=== PATIENT | female | born 1945 | race Caucasian/White ===

== ENCOUNTER → 2017-10-10 08:40 | Outpatient (CLI) | payer MEDICARE, OTHER, SELFPAY ==
--- NOTE | 2017-10-10 | DI.RAD.S_ITS ---
PROCEDURE: FL SMALL BOWEL FOLLOW THROUGH INDICATIONS: IRON DEFICIENCY/ANEMIA COMPARISON: None. 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 No suspicious abdominal calcifications. Visualized solid organ contours appear normal. No suspicious bony abnormalities. Remote postoperative changes include surgical clips in the upper quadrants and overlying the pelvis, spinal fusion L4-5 and bilateral total hip arthroplasties. Small bowel: There is normal transit time of barium through the small bowel, complete in 40 minutes l. Small bowel loops are of normal caliber with normal valvula conniventes except for a short segment of dilated bowel in the epigastric region that is 6 cm in diameter and devoid of mucosal folds. There is no associated obstruction or mass lesions seen. The terminal ileum is identified, and is normal in morphology. IMPRESSION: 1. Short segment of dilated jejunum, possible large diverticulum, 2. Fairly rapid transit of 40 minutes. Dictated by: Gadiel Hinds M.D. on 10/10/2017 at 9:56 Approved by: Gadiel Hinds M.D. on 10/10/2017 at 10:04
== END ==
PROVIDERS: Family Provider Internal Medicine; PCP Internal Medicine; Visit Provider Internal Medicine Endocrinology, Diabetes & Metabolism
DX: K63.9 Disease of intestine, unspecified (principal); D50.9 Iron deficiency anemia, unspecified
CPT/HCPCS: 74250

== ENCOUNTER → 2017-12-22 16:32 | Outpatient (CLI) | payer MEDICARE, OTHER, SELFPAY ==
--- NOTE | 2017-12-22 16:35 | DI.RAD.S_ITS ---
PROCEDURE: XR ANKLE RT MIN 3V INDICATIONS: PAIN IN RIGHT ANKLE TECHNIQUE: 3 views of the ankle were acquired. COMPARISON: None. FINDINGS: Bones: No fractures or dislocations. Ankle mortise is normally aligned. No suspicious bony lesions. Traction spur at the insertion of the Achilles tendon. Plantar spur posterior calcaneus. Soft tissues: No tibiotalar joint effusion. Achilles tendon is poorly visualized IMPRESSION: No acute bony abnormality. No apparent tibiotalar arthritis. Calcaneal bone spurs. Dictated by: Gadiel Hinds M.D. on 12/22/2017 at 16:52 Approved by: Gadiel Hinds M.D. on 12/22/2017 at 16:55
== END ==
PROVIDERS: Family Provider Internal Medicine; PCP Internal Medicine; Visit Provider Internal Medicine
DX: M25.571 Pain in right ankle and joints of right foot (principal); M77.31 Calcaneal spur, right foot
CPT/HCPCS: 73610

== ENCOUNTER → 2018-01-05 12:12 | Outpatient (CLI) | payer MEDICARE, OTHER, SELFPAY ==
--- NOTE | 2018-01-05 | DI.RAD.S_ITS ---
PROCEDURE: XR FOOT RT MIN 3V INDICATIONS: PAIN IN RIGHT FOOT TECHNIQUE: 3 views of the foot were acquired. COMPARISON: [facility], , FOOT 3V RIGHT, 06/08/2012, 11:08. FINDINGS: Bones: No fractures or dislocations. No suspicious bony lesions. Degenerative joint disease, bunion formation and valgus deformity at the first metatarsal phalangeal joint as before. Congenitally short fourth metatarsal. Small calcaneal bone spurs. Small accessory navicular. Soft tissues: No tibiotalar joint effusion. Achilles tendon appears normal. IMPRESSION: Source of lateral foot pain not seen. Degenerative changes Dictated by: Gadiel Hinds M.D. on 01/05/2018 at 12:54 Approved by: Gadiel Hinds M.D. on 01/05/2018 at 12:56
== END ==
PROVIDERS: Family Provider Internal Medicine; PCP Internal Medicine; Visit Provider Internal Medicine
DX: M79.671 Pain in right foot (principal)
CPT/HCPCS: 73630

== ENCOUNTER → 2018-04-13 08:09 | Outpatient (CLI) | payer MEDICARE, OTHER, SELFPAY ==
[2018-04-13 08:31] LABS: Add Manual Diff / Slide Review NO; Basophils Percent Auto 1.4 % (0-2); Eosinophils Percent Auto 2.4 % (2-4); Hematocrit 40.9 % (36-46); Hemoglobin 13.5 g/dL (12.0-16.0); Mean Corpuscular HGB Conc 32.9 % (30-36); Mean Corpuscular Hemoglobin 29.4 PG (26-34); Mean Corpuscular Volume 89.3 fL (80-100); Monocytes Percent Auto 9.3 % (3-14); Neutrophils Absolute Auto 3200 /uL (3000-5900); Neutrophils Percent Auto 54.9 % (50-75); Platelet Count 223 X10^3/uL (150-400); Red Blood Cell Count 4.58 X10^6/uL (4.0-5.2); Red Cell Distribution Width 13.8 % (11.6-14.8); White Blood Cell Count 5.9 X10^3/uL (4.5-11.0)
[2018-04-13 09:17] LABS: Hemoglobin A1C% w Est Avg Glu 6.1 % (4.0-6.0)
[2018-04-13 09:19] LABS: Alanine Aminotransferase 42 IU/L (9-52); Aspartate Aminotransferase 31 IU/L (14-36); Cholesterol 157 mg/dL (140-199); HDL Cholesterol 57 mg/dL (40-60); LDL Cholesterol Calculated 72 mg/dL (<100); Triglycerides 141 mg/dL (35-150)
[2018-04-13 17:17] LABS: BUN Creatinine Ratio 32.9 (6-22); Blood Urea Nitrogen 23 mg/dL (7-17); Carbon Dioxide 27 mmol/L (22-32); Estimated Glomerular Filt Rate > 60.0 mL/min (>60); HEMOLYSIS < 15 (0-50)
[2018-04-13 17:20] LABS: Calcium 9.1 mg/dL (8.4-10.2); Chloride 103 mmol/L (98-107); Glucose 102 mg/dL (80-110); Potassium 4.8 mmol/L (3.4-5.1); Sodium 143 mmol/L (137-145)
== END ==
PROVIDERS: PCP Internal Medicine; Visit Provider Internal Medicine
DX: R73.01 Impaired fasting glucose (principal); E78.5 Hyperlipidemia, unspecified; D50.9 Iron deficiency anemia, unspecified
CPT/HCPCS: 36415; 80048; 80061; 83036; 84450; 84460; 85025

== ENCOUNTER → 2018-05-03 12:37 | Outpatient (CLI) | payer MEDICARE, OTHER, SELFPAY | PROVIDERS: Family Provider Internal Medicine; PCP Internal Medicine; Visit Provider Internal Medicine | DX: M81.0 Age-related osteoporosis without current pathological fracture (principal); Z78.0 Asymptomatic menopausal state; E21.3 Hyperparathyroidism, unspecified; Z82.62 Family history of osteoporosis; Z90.722 Acquired absence of ovaries, bilateral; Z87.891 Personal history of nicotine dependence | CPT/HCPCS: 77080; 77081 ==

== ENCOUNTER → 2018-08-24 09:08 | Outpatient (CLI) | payer MEDICARE, OTHER, SELFPAY ==
--- NOTE | 2018-08-24 | DI.RAD.S_ITS ---
PROCEDURE: XR LUMBAR SPINE 2-3V INDICATIONS: Memory problem TECHNIQUE: 2 views of the lumbar spine were acquired. COMPARISON: [facility], , L-SPINE MINIMUM 4 VIEWS, 03/29/2013, 15:41. [facility], , L-SPINE MINIMUM 4 VIEWS, 07/04/2015, 9:36. FINDINGS: Bones: 5 [id number] vertebrae are present. There is grade 1 anterolisthesis of L4 on L5. Postsurgical changes noted at L5-L5 with posterior fusion. No vertebral body compression fractures. No suspicious bony lesions. There is degenerative disc disease, moderate to severe at L3-L4 and L4-L5, [id number] at L1-L2, L2-L3 and L5-S1. There is severe facet arthropathy at L5-L5 and L5-S1. Soft tissues: Overlying bowel gas pattern is normal. No suspicious soft tissue calcifications. IMPRESSION: Degenerative disease and facet disease in lumbar spine as described. Dictated by: Yogesh Sanders M.D. on 08/24/2018 at 14:35 Approved by: Yogesh Sanders M.D. on 08/24/2018 at 14:37
[2018-08-24 11:12] LABS: BUN Creatinine Ratio 28.8 (6-22); Blood Urea Nitrogen 23 mg/dL (7-17); Calcium 9.3 mg/dL (8.4-10.2); Carbon Dioxide 28 mmol/L (22-32); Chloride 100 mmol/L (98-107); Estimated Glomerular Filt Rate > 60.0 mL/min (>60); Glucose 124 mg/dL (80-110); HEMOLYSIS < 15 (0-50); Hemoglobin A1C% w Est Avg Glu 5.6 % (4.0-6.0); Potassium 4.9 mmol/L (3.4-5.1); Sodium 139 mmol/L (137-145)
[2018-08-24 11:40] LABS: TSH w/ Reflex to FT4 1.83 uIU/mL (0.47-4.68)
[2018-08-24 11:57] LABS: Vitamin B12 951 pg/mL (239-931)
== END ==
PROVIDERS: PCP Internal Medicine; Visit Provider Internal Medicine
DX: R41.3 Other amnesia (principal)
CPT/HCPCS: 36415; 72100; 80048; 82607; 83036; 84443

== ENCOUNTER → 2018-08-25 11:24 | Outpatient (CLI) | payer MEDICARE, OTHER, SELFPAY ==
--- NOTE | 2018-08-25 11:37 | DI.CT.S_ITS ---
PROCEDURE: CT HEAD/BRAIN WO/W CON INDICATIONS: Mild cognitive impairment, so stated TECHNIQUE: 4.5 mm thick angled axial sections acquired from the foramen magnum to the vertex both before and after the administration of intravenous contrast, with coronal and sagittal reformats. For radiation dose reduction, the following was used: automated exposure control, adjustment of mA and/or kV according to patient size. COMPARISON: [facility], MR, BRAIN W&WO CONTRAST, 05/01/2012, 12:56. [facility], MR, STROKE PROTOCOL B, 02/28/2008, 13:48. [facility], MR, BRAIN WITH AND WITHOUT CONTRAS, 01/17/2008, 12:53. [facility], CT, HEAD WITHOUT CONTRAST, 04/07/2015, 1:08. [facility], CT, HEAD WITHOUT CONTRAST, 02/28/2008, 10:57. [facility], CT, HEAD WITHOUT CONTRAST, 08/08/2017, 10:20. FINDINGS: Image quality: Excellent. CSF spaces: Basal cisterns are patent. No extra-axial fluid collections. Ventricles are symmetric in size and shape. Brain: Postoperative change of the right anterior temporal lobe is seen, with volume loss and encephalomalacia. No midline shift. No intracranial bleeds or masses. No abnormal intracranial enhancement. There is cerebral volume loss for age. There is periventricular white matter chronic small vessel ischemic change. There is intracranial internal carotid artery atherosclerosis. Skull and face: Right-sided craniotomy changes are seen. Calvarium and visualized facial bones appear intact, without suspicious lesions. Note is made of bilateral lens replacements. Sinuses: Visualized sinuses and mastoids are clear. IMPRESSION: No masses or abnormal enhancement can be seen. Prior craniotomy change, with volume loss and encephalomalacia involving the anterior aspect of right temporal lobe, which is stable compared to prior studies. Dictated by: Phill Molina M.D. on 08/25/2018 at 11:21 Approved by: Phill Molina M.D. on 08/25/2018 at 11:23
== END ==
PROVIDERS: PCP Internal Medicine; Visit Provider Internal Medicine
DX: G31.84 Mild cognitive impairment of uncertain or unknown etiology (principal); R29.6 Repeated falls
CPT/HCPCS: 70470; Q9967

== ENCOUNTER → 2018-12-15 14:55 | Outpatient (CLI) | payer MEDICARE, OTHER, SELFPAY ==
[2018-12-15 15:53] LABS: BUN Creatinine Ratio 27.5 (6-22); Blood Urea Nitrogen 22 mg/dL (7-17); Estimated Glomerular Filt Rate > 60.0 mL/min (>60)
== END ==
PROVIDERS: PCP Internal Medicine; Visit Provider Urology
DX: Z85.51 Personal history of malignant neoplasm of bladder (principal)
CPT/HCPCS: 36415; 82565; 84520

== ENCOUNTER → 2018-12-19 11:38 | Outpatient (CLI) | payer MEDICARE, OTHER, SELFPAY ==
--- NOTE | 2018-12-19 | DI.CT.S_ITS ---
PROCEDURE: CT ABDOMEN PELVIS WO/W CON INDICATIONS: HISTORY OF BLADDER CANCER TECHNIQUE: Optional 5 mm thick noncontrast images acquired from the diaphragm to the symphysis pubis. After the administration of intravenous contrast, 5 mm thick images acquired from the diaphragm to the symphysis pubis after a 10-minute delay. 2 mm thick coronal and sagittal reformats were then performed of the kidneys and ureters. For radiation dose reduction, the following was used: automated exposure control, adjustment of mA and/or kV according to patient size. COMPARISON: [facility], CT, IVP (ABD & PEL WWO CONTRAST), 08/28/2014, 10:07. [facility], CT, CT-IVP, 04/21/2011, 8:43. [facility], CT, CT-IVP, 01/13/2009, 10:12. [facility], CT, KIDNEY/ URETER/BLADDER, 07/16/2015, 14:33. FINDINGS: Image quality: Excellent. Lung bases: Lung bases are clear. Heart size is normal. There are bilateral breast prosthesis. Urinary system: Left kidney slightly decreased in size. There is left renal cortical thinning and perinephric fat stranding. No hydronephrosis. There are bilateral nonobstructive renal calculi. There is a 13 x 8 mm stone in the inferior pole of the right kidney. A 4 x 8 mm stone is present in the inferior pole left kidney. There is symmetrical renal enhancement. Renal calyces appear normal in morphology when filled with contrast. Opacified portions of both ureters demonstrate normal caliber. Bladder is partially obscured by metallic artifacts from bilateral hip prostheses. No definitive bladder mass. Other solid organs: Liver is normal in size and enhancement. There is diffuse hepatic fatty infiltration. Gallbladder is surgically absent. Biliary system is non dilated. Pancreas enhances normally. Spleen is normal in size and enhancement. There is left adrenal thickening and nodularity. Peritoneum and bowel: Bowel loops demonstrate normal wall thickness and caliber. There are scattered colonic diverticula. There is surgical staple in the sigmoid colon. No free fluid or air. Nodes and vessels: No retroperitoneal or mesenteric adenopathy by size criteria. Aorta and inferior vena cava are normal in size. Abdominal wall: Prior ventral hernia repair. Pelvis: No pathologic free pelvic fluid. No inguinal hernias or adenopathy. Bones: No suspicious bony lesions. No vertebral body compression fractures. There are severe degenerative changes in lumbar spine. Grade 1 anterolisthesis of L4 on L5. There is posterior fusion at L4-L5. IMPRESSION: 1. Unfortunately, the urinary is largely obscured by the metallic artifacts from bilateral hip prostheses. No definitive bladder masses are seen in visualized bladder. 2. Nephrolithiasis with nonobstructive renal stones bilaterally. 3. Diverticulosis without acute diverticulitis.. 4. Severe degenerative changes in lumbar spine. Dictated by: Yogesh Sanders M.D. on 12/19/2018 at 15:45 Approved by: Yogesh Sanders M.D. on 12/19/2018 at 17:30
== END ==
PROVIDERS: PCP Internal Medicine; Visit Provider Urology
DX: N20.0 Calculus of kidney (principal); K57.90 Diverticulosis of intestine, part unspecified, without perforation or abscess without bleeding; M51.36 Other intervertebral disc degeneration, lumbar region; Z85.51 Personal history of malignant neoplasm of bladder
CPT/HCPCS: 74178; Q9967

== ENCOUNTER → 2019-03-23 08:49 | Outpatient (CLI) | payer MEDICARE, OTHER, SELFPAY ==
[2019-03-23 09:55] LABS: Blood Urea Nitrogen 21 mg/dL (7-17); Calcium 9.4 mg/dL (8.4-10.2); Carbon Dioxide 28 mmol/L (22-32); Chloride 104 mmol/L (98-107); Cholesterol 145 mg/dL (140-199); Estimated Glomerular Filt Rate > 60.0 mL/min (>60); Glucose 108 mg/dL (80-110); HDL Cholesterol 43 mg/dL (40-60); HEMOLYSIS < 15 (0-50); LDL Cholesterol Calculated 79 mg/dL (<100); Potassium 4.8 mmol/L (3.4-5.1); Sodium 142 mmol/L (137-145); Triglycerides 117 mg/dL (35-150)
[2019-03-23 10:11] LABS: Vitamin D 25 Hydroxy (D3) 64.2 ng/mL (30.0-100.0)
== END ==
PROVIDERS: Family Provider Neurological Surgery; PCP Internal Medicine; Visit Provider Internal Medicine
DX: R73.01 Impaired fasting glucose (principal); E78.5 Hyperlipidemia, unspecified; M81.0 Age-related osteoporosis without current pathological fracture
CPT/HCPCS: 36415; 80048; 80061; 82306

== ENCOUNTER → 2019-03-28 13:25 | Outpatient (CLI) | payer MEDICARE, OTHER, SELFPAY ==
--- NOTE | 2019-03-28 | DI.CT.S_ITS ---
PROCEDURE: CT CERVICAL SPINE WO CON INDICATIONS: CERVICALGIA TECHNIQUE: Noncontrast 3 mm thick sections acquired from the skull base to the T4 level. Sagittal and coronal reformats were then constructed. For radiation dose reduction, the following was used: automated exposure control, adjustment of mA and/or kV according to patient size. COMPARISON: [facility], CT, C-SPINE WITHOUT CONTRAST, 04/07/2015, 1:08. FINDINGS: Image quality: Excellent. Bones: No fractures or dislocations. Visualized superior ribs are intact. Relatively prominent degenerative changes are seen, with moderate disc space narrowing at C3-C4 with moderate to severe disc space narrowing at C4-C5 and C5-C6,. Prominent bridging anterior osteophytes are seen at C6-C7. These degenerative changes are slightly progressed compared to 2015. Calcification can be seen posterior to the dens. Soft tissues: Prevertebral soft tissues are normal in thickness. No paravertebral hematomas. No apical pneumothoraces. There is a left-sided pacer device seen. IMPRESSION: Multiple levels of cervical spine degenerative change are seen, which are worst at the C6-C7 level. The degenerative changes have mildly progressed compared to the prior CT study from 2014. Dictated by: Phill Molina M.D. on 03/28/2019 at 15:06 Approved by: Phill Molina M.D. on 03/28/2019 at 15:08
== END ==
PROVIDERS: Family Provider Neurological Surgery; PCP Internal Medicine; Visit Provider Internal Medicine
DX: M54.2 Cervicalgia (principal); M47.812 Spondylosis without myelopathy or radiculopathy, cervical region
CPT/HCPCS: 72125

== ENCOUNTER → 2019-11-08 10:11 | Outpatient (CLI) | payer MEDICARE, OTHER, SELFPAY ==
[2019-11-08 11:00] LABS: Alanine Aminotransferase 29 IU/L (<35); Albumin 4.3 g/dL (3.5-5.0); Albumin Globulin Ratio 1.5 (1.0-2.8); Alkaline Phosphatase 86 U/L (38-126); Aspartate Aminotransferase 31 IU/L (14-36); BUN Creatinine Ratio 37.5 (6-22); Bilirubin Total 0.4 mg/dL (0.2-1.3); Blood Urea Nitrogen 24 mg/dL (7-17); Calcium 9.4 mg/dL (8.4-10.2); Carbon Dioxide 28 mmol/L (22-32); Chloride 104 mmol/L (98-107); Cholesterol 148 mg/dL (140-199); Estimated Glomerular Filt Rate > 60.0 mL/min (>60); Globulin 2.9 g/dL (1.7-4.1); Glucose 119 mg/dL (80-110); HDL Cholesterol 47 mg/dL (40-60); HEMOLYSIS < 15 (0-50); LDL Cholesterol Calculated 74 mg/dL (<100); Potassium 4.5 mmol/L (3.4-5.1); Sodium 140 mmol/L (137-145); Total Protein 7.2 g/dL (6.3-8.2); Triglycerides 133 mg/dL (35-150)
== END ==
PROVIDERS: Family Provider Neurological Surgery; PCP Internal Medicine; Referring Provider Internal Medicine; Visit Provider Internal Medicine
DX: I10 Essential (primary) hypertension (principal); E78.00 Pure hypercholesterolemia, unspecified
CPT/HCPCS: 36415; 80053; 80061

== ENCOUNTER → 2020-01-08 10:55 | Outpatient (CLI) | payer MEDICARE, OTHER, SELFPAY ==
[2020-01-08 13:19] LABS: INR 0.9 (0.9-1.3); Prothrombin Time 10.9 SECONDS (10.1-12.7)
[2020-01-08 13:22] LABS: PTT Partial Thromboplastin Tim 32 SECONDS (26.4-36.2)
== END ==
PROVIDERS: Family Provider Neurological Surgery; PCP Internal Medicine; Referring Provider Orthopaedic Surgery; Visit Provider Orthopaedic Surgery
DX: Z79.01 Long term (current) use of anticoagulants (principal)
CPT/HCPCS: 36415; 85610; 85730

== ENCOUNTER 2020-01-11 07:04 | Outpatient (CLI) | payer MEDICARE, OTHER, SELFPAY ==
--- NOTE | 2020-01-11 | DI.RAD.S_ITS ---
PROCEDURE: FL MYELOGRAM SPINE LUMBOSACRAL INDICATIONS: LOW BACK PAIN COMPARISON: [facility], CT, CT LUMBAR SPINE W CON, 01/11/2020, 8:46. [facility] [place], CR, XR LUMBAR SPINE FLEXION EXTENSION, 12/25/2019, 14:49. [facility] [place], CR, XR PELVIS WITH BILATERAL LATERAL HIPS, 12/25/2019, 14:55. TECHNIQUE: The indications, alternatives, benefits, risks and complications of the procedure were explained to the patient. Written informed consent was obtained and placed in the chart. The patient was placed in a prone position on the fluoroscopy table, and a level was chosen for percutaneous access under fluoroscopic guidance. The skin was prepped and draped in a sterile fashion. After local anaesthetic, a spinal needle was then used to enter the intrathecal space, with return of clear cerebrospinal fluid. 15 mL of Isovue M-200 were administered intrathecally under fluoroscopic visualization. The needle was then withdrawn, and a bandage applied to the puncture site. Fluoroscopic spot films were then acquired in various positions. FINDINGS: There is posterior fusion at L4-L5. Standing frontal, lateral, and oblique views demonstrate no significant central canal stenoses. Access level: L5-S1 Medications: 1% lidocaine for local anaesthesia. Complications: None. Patient was transferred to CT for subsequent CT myelogram. IMPRESSION: Successful fluoroscopically guided administration of iodinated contrast into the lumbar spine central canal for CT myelogram. Dictated by: Yogesh Sanders M.D. on 01/11/2020 at 14:04 Approved by: Yogesh Sanders M.D. on 01/11/2020 at 14:08
[2020-01-11 07:30] LABS: Hematocrit 36.2 % (36-46); Platelet Count 236 X10^3/uL (150-400)
[2020-01-11 07:37] LABS: INR 0.9 (0.9-1.3); Prothrombin Time 10.6 SECONDS (10.1-12.7)
[2020-01-11 07:40] LABS: PTT Partial Thromboplastin Tim 31 SECONDS (26.4-36.2)
[2020-01-11 07:44] VITALS: BP 156/74; PULSE 60; RESP 16; TEMP 36.4; O2SAT 98; BMI 31.8
--- NOTE | 2020-01-11 08:16 | DI.CT.S_ITS ---
PROCEDURE: CT LUMBAR SPINE W CON INDICATIONS: LOW BACK PAIN TECHNIQUE: After the intrathecal administration of 15 mL intrathecal contrast, 3 mm thick sections acquired from T12 to the sacrum. Sagittal and coronal reformats were then constructed. In this patient, 3-D reformatted images were also performed. For radiation dose reduction, the following was used: automated exposure control. COMPARISON: [facility], MR, L-SPINE W&WO CONTRAST, 07/16/2015, 15:13. [facility], CR, XR LUMBAR SPINE 2-3V, 08/24/2018, 9:43. [facility], CT, CT ABDOMEN PELVIS WO/W CON, 12/19/2018, 11:49. [facility], CR, CHEST 2 VIEW, 08/08/2017, 10:40. [facility], RF, FL MYELOGRAM SPINE LUMBOSACRAL, 01/11/2020, 7:08. FINDINGS: Image quality: Diagnostic. There is a small amount of extra thecal contrast seen at L5-S1 on the right. Bones: No spondylolysis or spondylolisthesis. No suspicious bony lesions. No acute fractures. Soft tissues: No retroperitoneal masses. Visualized aorta demonstrates normal caliber. Atherosclerotic calcification is noted. A pacer device is seen. Upper abdominal clips are seen, including partial visualization of cholecystectomy clips. Pelvic clips are also seen. Mild levoconvex scoliotic curvature is noted. There is mild grade 1 anterolisthesis seen at the L4-L5 level. No associated pars defects are seen. T12-L1: The disc height is relatively well preserved. Bridging anterior/right osteophytes are seen. No neural foraminal or central canal narrowing can be seen. L1-L2: The disc height is well preserved. Bridging anterior/right osteophytes are seen. No neural foraminal narrowing is seen. No central canal narrowing is seen. L2-L3: The disc height is well preserved. Partially bridging anterior osteophytes are seen. No neural foraminal narrowing is seen. No central canal narrowing is seen. L3-L4: Moderate loss of disc height is seen. Vacuum disc phenomenon is seen at this level. Bridging endplate osteophytes are seen. Moderate disc bulge is seen, which is slightly eccentric to the left. Mild to moderate facet hypertrophy is seen. There is mild left-sided and moderate right-sided neural foraminal narrowing seen. Moderate central canal narrowing is seen. L4-L5: Postoperative changes are seen at this level, with a fusion device across the spinous processes posteriorly. There is at least moderate loss of disc height. Vacuum disc phenomenon is seen at this level. Moderate generalized disc bulge is seen. Moderate prominent facet hypertrophy is seen. Fusion of the posterior elements can be seen. There is moderate left-sided and [id number] right-sided neural foraminal narrowing seen at this level. Moderate central canal narrowing is seen. L5-S1: There is moderate to severe loss of disc height seen. Vacuum disc phenomenon is seen at this level. Bridging endplate osteophytes are seen on both the right and the left sides, which are more prominent on the right than on the left. Posteriorly projected endplate osteophytes are seen. Mild to moderate facet hypertrophy is seen, left worse than right. There is moderate to severe bilateral neural foraminal narrowing seen. There is a degree of compression seen upon the exiting nerve roots. Moderate central canal narrowing is seen. Degenerative changes are seen of the sacroiliac joints, with partial fusion and vacuum phenomenon. Miscellaneous: Nerve roots appear unremarkable throughout. No nerve root clumping to suggest arachnoiditis. IMPRESSION: Unremarkable postoperative change at L4-5. Degenerative changes are seen, which are most prominent at the L5-S1 level. Incidental note is made of: Pacer device Abdominal postoperative change Dictated by: Phill Molina M.D. on 01/11/2020 at 10:26 Approved by: Phill Molina M.D. on 01/11/2020 at 10:36
[2020-01-11 09:00] VITALS: BP 149/79; PULSE 69; RESP 16; TEMP 36.7; O2SAT 99
[2020-01-11 10:00] VITALS: BP 151/79; PULSE 60; RESP 16; TEMP 36.6; O2SAT 95
[2020-01-11 11:05] VITALS: BP 156/89; PULSE 60; RESP 16; TEMP 37.3; O2SAT 99
[2020-01-11 12:10] VITALS: BP 164/80; PULSE 60; RESP 16; TEMP 36.8; O2SAT 99
== END 2020-01-11 12:40 | disposition home or self-care (01) ==
PROVIDERS: Family Provider Neurological Surgery; PCP Internal Medicine; Referring Provider Orthopaedic Surgery; Visit Provider Orthopaedic Surgery
DX: M54.5 Low back pain (principal); Z01.812 Encounter for preprocedural laboratory examination; Z79.01 Long term (current) use of anticoagulants
CPT/HCPCS: 36415; 72132; 72265; 85014; 85049; 85610; 85730

== ENCOUNTER 2020-06-05 12:15 | Outpatient (RCR) | payer MEDICARE, OTHER, SELFPAY ==
--- NOTE | 2020-06-02 13:26 | PT.OIE ---
Current Diagnoses Benign paroxysmal vertigo, right ear (06/02/20) Visit Care Team Role Provider Type Damaris Frey MD Primary Care Provider Physician Specialty: Internal Medicine Address: [address] [place] [address], [id number] Email: [email or web address] Pako Reed MD Family Provider Non-Staff Specialty: Neurosurgery Address: [address] [place] [address], [phone] Email: Juve Rollins MD Attending Provider Physician Referring Provider Specialty: Ear, Nose, Throat Address: [address] [place] [address], [id number] Email: [email or web address] Physical Therapy Initial Evaluation PT-OP-A Visit Information Start: 05/29/20 15:21 Freq: Status: Active Protocol: Document 06/02/20 12:19 MB (Rec: 06/02/20 12:36 MB [id number]) Out-Patient Physical Therapy Visit Information Visit Information Visit Type Initial Evaluation Visit Note Medicare Visit Start Time 12:19 Visit Stop Time 13:00 Total Visit Minutes 41 Visit Number 1 Number of BUSINESS SUPPORT ASSISTANT Visits 0 Evaluation Information Evaluation Date 06/02/20 PT-OP-B Current Condition Start: 05/29/20 15:21 Freq: Status: Active Protocol: Document 06/02/20 12:19 MB (Rec: 06/02/20 12:36 MB [id number]) Current Condition History of Current Condition Onset Date 1 month ago Current Complaints Spinning dizziness with rolling to the right History of Current Condition Pt reports spinning sensation that started 1 month ago. Staying on her left side makes the dizziness better and rolling onto her right side makes the dizziness worse. It last seconds. She had a previous episode of dizziness in the past. Pt reports that she keeps her cell phone with her in case she falls. She lives with her significant other. Pt uses cane today in her right hand. Pt reports 2 falls in the past year. Pt reports history of five right sinus surgeries from clogging. She had a history of sinus infections. Pt reports back pain and has a history of back surgery. She gets a shot in her back tomorrow. Pt denies: numbness/tingling, vision changes, history of concussion or whiplash, performance of sit-ups, anemia , B12 deficiency, weakness, hearing change, tinnitus, trouble swallowing, recent overhead lifting, eye pressure changes, chiropractor treatment, TMJ problems. Pt reports: ear pressure in right ear, sinus/allergy issues and recent ear wax removal, headache in frontal area and the back of her head. 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 Pt has history of kidney CA and kidney stone problems. 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 Pt has a pacemaker. Prior Treatments and Tests PT for her back and she had trouble when trying wall slide and stopped PT CT cervical spine: 03/28/19: multiple levels of cervical spine degenerative change are seen, worst at C6-7; CT brain 08/25/18: negative with history of right-sided craniotomy; CT lumbar spine 01/11/20: many changes. Treatment Goals Patient/Caregiver Goals To decrease dizziness. PT-OP-C Subjective Start: 05/29/20 15:21 Freq: Status: Active Protocol: Document 06/02/20 12:19 MB (Rec: 06/02/20 13:08 MB [id number]) OP-PT Subjective Patient Comments Patient Comments See history of current condition Patient Questionnaires Dizziness Handicap Inventory DHI Score 82 DHI Functional Impairment 80 to 99% Impaired (Score 80- 99) PT-OP-D Balance Start: 05/29/20 15:21 Freq: Status: Active Protocol: Document 06/02/20 12:19 MB (Rec: 06/02/20 13:25 MB [id number]) OP-PT Balance Assessment Sitting Balance Static Sitting Balance Ability Good Dynamic Sitting Balance Ability Fair Sitting Balance Comments UE support for static and dynamic sitting balance Standing Balance Static Standing Balance Ability Fair Dynamic Standing Balance Ability Fair Standing Balance Comments Pt reports tottering with flexion in standing and her weight shifts forward over her toes Rowell Fall Scale Copyright Permission PT-OP-G Mobility & Gait Start: 05/29/20 15:21 Freq: Status: Active Protocol: Document 06/02/20 12:19 MB (Rec: 06/02/20 13:25 MB [id number]) OP Gait Assessment Gait Gait Assistance Required: Independent Distance (Feet) 75 Able to Maintain Weight Bearing Status Yes During Gait Assistive Devices Assistive Device Straight Cane Orthotic/Prosthetic Devices or Brace: Yes Gait Deviations General Gait Pattern Decreased Stride Length,Flexed Trunk Factors Limiting Gait Function Factors Limiting Gait Function Limited Range of Motion,Pain, Poor Balance Comments Gait Comments Pt wears large back brace and carries hand made walking cane in right hand that is too tall for her. She presents with decreased step-length and foot clearance, increased lateral weight shift with gait , slow maura and unsteady. PT-OP-J Posture/Palpation/Skin Start: 05/29/20 15:21 Freq: Status: Active Protocol: Document 06/02/20 12:19 MB (Rec: 06/02/20 13:25 MB [id number]) Posture Evaluation Comments Posture Comments Standing posture: forward head , rounded shoulders, Dowager's hump and increased thoracic kyphosis PT-OP-K Range of Motion Start: 05/29/20 15:21 Freq: Status: Active Protocol: Document 06/02/20 12:19 MB (Rec: 06/02/20 13:25 MB [id number]) Cervical Spine Range of Motion Cervical Spine Active Testing Position Standing Flexion 30 Extension 20 Rotation Left 35 Rotation Right 30 Shoulder Goniometric Range of Motion Shoulder Bilateral Comments AROM flexion functional for age and with decreased end- range movement PT-OP-M Strength Start: 05/29/20 15:21 Freq: Status: Active Protocol: Document 06/02/20 12:19 MB (Rec: 06/02/20 13:25 MB [id number]) Shoulder Strength Shoulder Manual Muscle Testing Bilateral Flexion 5 Normal Abduction (C5) 5 Normal PT-OP-O Vestibular Start: 05/29/20 15:21 Freq: Status: Active Protocol: Document 06/02/20 12:19 MB (Rec: 06/02/20 13:25 MB [id number]) Vestibular Assessment Visual Testing Spontaneous Nystagmus Negative Positional Testing Mone-Hallpike Positive Right,Upbeating,< 60 Seconds PT-OP-Q Treatments Start: 05/29/20 15:21 Freq: Status: Active Protocol: Document 06/02/20 12:19 MB (Rec: 06/02/20 13:25 MB [id number]) Self-Care/Home Management Treatment Education Other Education PT brings out inner ear supervisor game farm and describes inner ear anatomy and pathophysiolgy of BPPV. PT provides BPPV educational handout and ed pt in treatment for BPPV, importance of keeping cervical spine and posture loose with gentle cervical rotation and flexion and extension, increase non-caffeinated fluid intake, benefits of future treatments to assess VOR, balance and to provide exercises including cervical spine work Canalithic Repositioning BPPV Treatment Other Comments Modified Denise x2 for right posterior canalithiasis and pt presents with improved symptoms after second treatment PT-OP-T Assessment and Plan Start: 05/29/20 15:21 Freq: Status: Active Protocol: Document 06/02/20 12:19 MB (Rec: 06/02/20 13:25 MB [id number]) Physical Therapy Assessment Rehab Potential Rehabilitation Potential Good Evaluation Complexity Number of Personal Factors/Comorbidities 1-2 Number of Body Systems Impaired 1-2 Clinical Presentation at Evaluation Stable Impairments Impairments Balance,Functional Activities, Functional Mobility,Gait,Pain, Posture,ROM,Soft Tissue Mobility,Strength,Transfers, Vestibular Other Concerns Fall Risk Yes Goals 2 Nursing Home Goal (LTG) Pt will perform progressive HEP with I including VOR, balance, and postural exercises including flexibility, ROM, and self- myofascial release exercises to improve head movement and balance by 06/30/2020. LTG Duration 4 weeks 1 Security Patrol Officer Goal (LTG) Pt will present with an improved DHI score to reflect no more than low perception of handicap to improve balance, function and quality of life by 06/30/2020. LTG Duration 4 weeks Assessment Summary Assessment Pt is a 74 y/o female presenting with decreased balance, postural changes in setting of degenerative cervical and lumbar changes, and positive right posterior canalithiasis BPPV this date. PT treats pt with Modified Denise and pt does report feeling a little better after treatment. She will benefit from ongoing PT for 1-3 treatments to ensure no recurrence of BPPV and to provide further VOR testing and exercises including cervical and balance exercises . Pt is going to have an injection for her lumbar spine tomorrow and her back pain has kept her on the couch and inactive, per her report. PT ed pt in the importance of staying flexible in her neck and back to improve movement of her cervical spine and inner ear. Further education provided today described above . Physical Therapy Plan Frequency and Duration Frequency of Treatment 2x/Week Duration of Treatment 4 treatments Plan of Care Start Date 06/02/20 Plan of Care End Date 06/30/20 Therapeutic Interventions Therapeutic Interventions Balance Training,Canalithic Repositioning,Coordination Training,Gait Training,Home Exercise Program,Joint Mobilizations,Manual Therapy, Neuromuscular Re-education, Patient/Caregiver Education, Self-Care/Home Management,Soft Tissue Mobilization, Therapeutic Activities, Therapeutic Exercises, Vestibular Rehabilitation Modalities Cold Pack/Ice Massage,Hot Packs Next Visit Focus/Plan Next Note Type Treatment Note Next Visit Plan Re-test for BPPV if needed, VOR DVA testing and exercise, racquet ball for TrP release and MWM for intrascapular and cervical spine to help with posture and balance
--- NOTE | 2020-06-02 13:26 | PT.OPPOC ---
Physical, Occupational & Speech Therapy At [facility] Current Diagnoses Benign paroxysmal vertigo, right ear (06/02/20) Visit Care Team Role Provider Type Damaris Frey MD Primary Care Provider Physician Specialty: Internal Medicine Address: [address] [place] [address], [id number] Email: [email or web address] Pako Reed MD Family Provider Non-Staff Specialty: Neurosurgery Address: [address] [place] [address], [phone] Email: Juve Rollins MD Attending Provider Physician Referring Provider Specialty: Ear, Nose, Throat Address: [facility] [place] [address], [id number] Email: [email or web address] Plan Of Care PT-OP-T Assessment and Plan Start: 05/29/20 15:21 Freq: Status: Active Protocol: Document 06/02/20 12:19 MB (Rec: 06/02/20 13:25 MB [id number]) Physical Therapy Assessment Rehab Potential Rehabilitation Potential Good Evaluation Complexity Number of Personal Factors/Comorbidities 1-2 Number of Body Systems Impaired 1-2 Clinical Presentation at Evaluation Stable Impairments Impairments Balance,Functional Activities, Functional Mobility,Gait,Pain, Posture,ROM,Soft Tissue Mobility,Strength,Transfers, Vestibular Other Concerns Fall Risk Yes Goals 2 Net Developer Software Engineer C Goal (LTG) Pt will perform progressive HEP with I including VOR, balance, and postural exercises including flexibility, ROM, and self- myofascial release exercises to improve head movement and balance by 06/30/2020. LTG Duration 4 weeks 1 Mcc Goal (LTG) Pt will present with an improved DHI score to reflect no more than low perception of handicap to improve balance, function and quality of life by 06/30/2020. LTG Duration 4 weeks Assessment Summary Assessment Pt is a 74 y/o female presenting with decreased balance, postural changes in setting of degenerative cervical and lumbar changes, and positive right posterior canalithiasis BPPV this date. PT treats pt with Modified Denise and pt does report feeling a little better after treatment. She will benefit from ongoing PT for 1-3 treatments to ensure no recurrence of BPPV and to provide further VOR testing and exercises including cervical and balance exercises . Pt is going to have an injection for her lumbar spine tomorrow and her back pain has kept her on the couch and inactive, per her report. PT ed pt in the importance of staying flexible in her neck and back to improve movement of her cervical spine and inner ear. Further education provided today described above . Physical Therapy Plan Frequency and Duration Frequency of Treatment 2x/Week Duration of Treatment 4 treatments Plan of Care Start Date 06/02/20 Plan of Care End Date 06/30/20 Therapeutic Interventions Therapeutic Interventions Balance Training,Canalithic Repositioning,Coordination Training,Gait Training,Home Exercise Program,Joint Mobilizations,Manual Therapy, Neuromuscular Re-education, Patient/Caregiver Education, Self-Care/Home Management,Soft Tissue Mobilization, Therapeutic Activities, Therapeutic Exercises, Vestibular Rehabilitation Modalities Cold Pack/Ice Massage,Hot Packs Next Visit Focus/Plan Next Note Type Treatment Note Next Visit Plan Re-test for BPPV if needed, VOR DVA testing and exercise, racquet ball for TrP release and MWM for intrascapular and cervical spine to help with posture and balance Plan of Care Dates Plan of Care Start Date 06/02/20 Plan of Care End Date 06/30/20 Electronically Signed by: Liza Sims PT 06/02/20 [id number] Please Sign and Return: I have reviewed this Plan of Care and certify that the skilled therapy services above are required to meet the patient?s needs. Physician Signature Date Printed Name and Credentials Clinical Instructor Signature Printed Name and Credentials
--- NOTE | 2020-06-05 12:59 | PT.OTN ---
Current Diagnoses Benign paroxysmal vertigo, right ear (06/05/20) Physical Therapy Treatment Note PT-OP-A Visit Information Start: 05/29/20 15:21 Freq: Status: Active Protocol: Document 06/05/20 12:16 MB (Rec: 06/05/20 12:55 MB [id number]) Out-Patient Physical Therapy Visit Information Visit Information Visit Type Treatment Note Visit Start Time 12:16 Visit Stop Time 12:56 Total Visit Minutes 40 Visit Number 2 PT-OP-B Current Condition Start: 05/29/20 15:21 Freq: Status: Active Protocol: Document 06/02/20 12:19 MB (Rec: 06/02/20 12:36 MB [id number]) Current Condition History of Current Condition Onset Date 1 month ago Current Complaints Spinning dizziness with rolling to the right History of Current Condition Pt reports spinning sensation that started 1 month ago. Staying on her left side makes the dizziness better and rolling onto her right side makes the dizziness worse. It last seconds. She had a previous episode of dizziness in the past. Pt reports that she keeps her cell phone with her in case she falls. She lives with her significant other. Pt uses cane today in her right hand. Pt reports 2 falls in the past year. Pt reports history of five right sinus surgeries from clogging. She had a history of sinus infections. Pt reports back pain and has a history of back surgery. She gets a shot in her back tomorrow. Pt denies: numbness/tingling, vision changes, history of concussion or whiplash, performance of sit-ups, anemia , B12 deficiency, weakness, hearing change, tinnitus, trouble swallowing, recent overhead lifting, eye pressure changes, chiropractor treatment, TMJ problems. Pt reports: ear pressure in right ear, sinus/allergy issues and recent ear wax removal, headache in frontal area and the back of her head. 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 Pt has history of kidney CA and kidney stone problems. 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 Pt has a pacemaker. Prior Treatments and Tests PT for her back and she had trouble when trying wall slide and stopped PT CT cervical spine: 03/28/19: multiple levels of cervical spine degenerative change are seen, worst at C6-7; CT brain 08/25/18: negative with history of right-sided craniotomy; CT lumbar spine 01/11/20: many changes. Treatment Goals Patient/Caregiver Goals To decrease dizziness. PT-OP-C Subjective Start: 05/29/20 15:21 Freq: Status: Active Protocol: Document 06/05/20 12:16 MB (Rec: 06/05/20 12:55 MB [id number]) OP-PT Subjective Patient Comments Patient Comments I feel better. 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 I got a back shot and feel better. PT-OP-D Balance Start: 05/29/20 15:21 Freq: Status: Active Protocol: Document 06/02/20 12:19 MB (Rec: 06/02/20 13:25 MB [id number]) OP-PT Balance Assessment Sitting Balance Static Sitting Balance Ability Good Dynamic Sitting Balance Ability Fair Sitting Balance Comments UE support for static and dynamic sitting balance Standing Balance Static Standing Balance Ability Fair Dynamic Standing Balance Ability Fair Standing Balance Comments Pt reports tottering with flexion in standing and her weight shifts forward over her toes Rowell Fall Scale Copyright Permission PT-OP-G Mobility & Gait Start: 05/29/20 15:21 Freq: Status: Active Protocol: Document 06/02/20 12:19 MB (Rec: 06/02/20 13:25 MB [id number]) OP Gait Assessment Gait Gait Assistance Required: Independent Distance (Feet) 75 Able to Maintain Weight Bearing Status Yes During Gait Assistive Devices Assistive Device Straight Cane Orthotic/Prosthetic Devices or Brace: Yes Gait Deviations General Gait Pattern Decreased Stride Length,Flexed Trunk Factors Limiting Gait Function Factors Limiting Gait Function Limited Range of Motion,Pain, Poor Balance Comments Gait Comments Pt wears large back brace and carries hand made walking cane in right hand that is too tall for her. She presents with decreased step-length and foot clearance, increased lateral weight shift with gait , slow maura and unsteady. PT-OP-J Posture/Palpation/Skin Start: 05/29/20 15:21 Freq: Status: Active Protocol: Document 06/02/20 12:19 MB (Rec: 06/02/20 13:25 MB [id number]) Posture Evaluation Comments Posture Comments Standing posture: forward head , rounded shoulders, Dowager's hump and increased thoracic kyphosis PT-OP-K Range of Motion Start: 05/29/20 15:21 Freq: Status: Active Protocol: Document 06/02/20 12:19 MB (Rec: 06/02/20 13:25 MB [id number]) Cervical Spine Range of Motion Cervical Spine Active Testing Position Standing Flexion 30 Extension 20 Rotation Left 35 Rotation Right 30 Shoulder Goniometric Range of Motion Shoulder Bilateral Comments AROM flexion functional for age and with decreased end- range movement PT-OP-M Strength Start: 05/29/20 15:21 Freq: Status: Active Protocol: Document 06/02/20 12:19 MB (Rec: 06/02/20 13:25 MB [id number]) Shoulder Strength Shoulder Manual Muscle Testing Bilateral Flexion 5 Normal Abduction (C5) 5 Normal PT-OP-O Vestibular Start: 05/29/20 15:21 Freq: Status: Active Protocol: Document 06/02/20 12:19 MB (Rec: 06/02/20 13:25 MB [id number]) Vestibular Assessment Visual Testing Spontaneous Nystagmus Negative Positional Testing Mone-Hallpike Positive Right,Upbeating,< 60 Seconds PT-OP-Q Treatments Start: 05/29/20 15:21 Freq: Status: Active Protocol: Document 06/05/20 12:16 MB (Rec: 06/05/20 12:55 MB [id number]) Therapeutic Exercises Standing Exercises Anthony cat wave Side bilateral Comments TrP pressure with racquet ball and active shoulder ER and IR Glute STM with racquet ball Side bilateral Comments TrP pressure today Intrascapular massage with racquet ball Side bilateral Comments TrP pressure with ball, massage, cervical rotation Self-Care/Home Management Treatment Education Other Education Benefits of racquet ball STM, put in sock, where can purchase balls locally Benefits of getting up often, cervical rotation and mobility Proper height of SPC, measured and ed pt to have significant other cut off 4 from the bottom so she can use it at right height Canalithic Repositioning BPPV Treatment Other Comments Modified Denise x2 for right posterior canalithiasis and pt presents with improved symptoms after second treatment PT-OP-T Assessment and Plan Start: 05/29/20 15:21 Freq: Status: Active Protocol: Document 06/05/20 12:16 MB (Rec: 06/05/20 12:55 MB [id number]) Physical Therapy Assessment Rehab Potential Rehabilitation Potential Good Evaluation Complexity Number of Personal Factors/Comorbidities 1-2 Number of Body Systems Impaired 1-2 Clinical Presentation at Evaluation Stable Impairments Impairments Balance,Functional Activities, Functional Mobility,Gait,Pain, Posture,ROM,Soft Tissue Mobility,Strength,Transfers, Vestibular Other Concerns Fall Risk Yes Goals 2 Tableau Analyst Goal (LTG) Pt will perform progressive HEP with I including VOR, balance, and postural exercises including flexibility, ROM, and self- myofascial release exercises to improve head movement and balance by 06/30/2020. LTG Duration 4 weeks 1 Retirement Goal (LTG) Pt will present with an improved DHI score to reflect no more than low perception of handicap to improve balance, function and quality of life by 06/30/2020. LTG Duration 4 weeks Assessment Summary Assessment Initiated postural exercises after BPPV treatment today. Goal is to improve getting up, cervical mobility and fascial tension to promote inner ear movement, balance and activities. Physical Therapy Plan Frequency and Duration Frequency of Treatment 2x/Week Duration of Treatment 4 treatments Plan of Care Start Date 06/02/20 Plan of Care End Date 06/30/20 Therapeutic Interventions Therapeutic Interventions Balance Training,Canalithic Repositioning,Coordination Training,Gait Training,Home Exercise Program,Joint Mobilizations,Manual Therapy, Neuromuscular Re-education, Patient/Caregiver Education, Self-Care/Home Management,Soft Tissue Mobilization, Therapeutic Activities, Therapeutic Exercises, Vestibular Rehabilitation Modalities Cold Pack/Ice Massage,Hot Packs Next Visit Focus/Plan Next Note Type Treatment Note Next Visit Plan Re-test for BPPV if needed, VOR DVA testing and exercise
--- NOTE | 2020-06-12 11:19 | PT.OPDS ---
Current Diagnoses Benign paroxysmal vertigo, right ear (06/05/20) Visit Care Team Role Provider Type Damaris Frey MD Primary Care Provider Physician Specialty: Internal Medicine Address: [address] [place] [address], [address] Email: [email or web address] Pako Reed MD Family Provider Non-Staff Specialty: Neurosurgery Address: [address] [place] [address], [id number] Email: Juve Rollins MD Attending Provider Physician Referring Provider Specialty: Ear, Nose, Throat Address: [facility] [place] [address], [address] Email: [email or web address] Visit Number Visit Number 2 Discharge Summary PT-OP-B Current Condition Start: 05/29/20 15:21 Freq: Status: Active Protocol: Document 06/02/20 12:19 MB (Rec: 06/02/20 12:36 MB [id number]) Current Condition History of Current Condition Onset Date 1 month ago Current Complaints Spinning dizziness with rolling to the right History of Current Condition Pt reports spinning sensation that started 1 month ago. Staying on her left side makes the dizziness better and rolling onto her right side makes the dizziness worse. It last seconds. She had a previous episode of dizziness in the past. Pt reports that she keeps her cell phone with her in case she falls. She lives with her significant other. Pt uses cane today in her right hand. Pt reports 2 falls in the past year. Pt reports history of five right sinus surgeries from clogging. She had a history of sinus infections. Pt reports back pain and has a history of back surgery. She gets a shot in her back tomorrow. Pt denies: numbness/tingling, vision changes, history of concussion or whiplash, performance of sit-ups, anemia , B12 deficiency, weakness, hearing change, tinnitus, trouble swallowing, recent overhead lifting, eye pressure changes, chiropractor treatment, TMJ problems. Pt reports: ear pressure in right ear, sinus/allergy issues and recent ear wax removal, headache in frontal area and the back of her head. 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 Pt has history of kidney CA and kidney stone problems. 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 Pt has a pacemaker. Prior Treatments and Tests PT for her back and she had trouble when trying wall slide and stopped PT CT cervical spine: 03/28/19: multiple levels of cervical spine degenerative change are seen, worst at C6-7; CT brain 08/25/18: negative with history of right-sided craniotomy; CT lumbar spine 01/11/20: many changes. Treatment Goals Patient/Caregiver Goals To decrease dizziness. PT-OP-C Subjective Start: 05/29/20 15:21 Freq: Status: Active Protocol: Document 06/05/20 12:16 MB (Rec: 06/05/20 12:55 MB [id number]) OP-PT Subjective Patient Comments Patient Comments I feel better. 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 I got a back shot and feel better. PT-OP-D Balance Start: 05/29/20 15:21 Freq: Status: Active Protocol: Document 06/02/20 12:19 MB (Rec: 06/02/20 13:25 MB [id number]) OP-PT Balance Assessment Sitting Balance Static Sitting Balance Ability Good Dynamic Sitting Balance Ability Fair Sitting Balance Comments UE support for static and dynamic sitting balance Standing Balance Static Standing Balance Ability Fair Dynamic Standing Balance Ability Fair Standing Balance Comments Pt reports tottering with flexion in standing and her weight shifts forward over her toes Rowell Fall Scale Copyright Permission PT-OP-G Mobility & Gait Start: 05/29/20 15:21 Freq: Status: Active Protocol: Document 06/02/20 12:19 MB (Rec: 06/02/20 13:25 MB [id number]) OP Gait Assessment Gait Gait Assistance Required: Independent Distance (Feet) 75 Able to Maintain Weight Bearing Status Yes During Gait Assistive Devices Assistive Device Straight Cane Orthotic/Prosthetic Devices or Brace: Yes Gait Deviations General Gait Pattern Decreased Stride Length,Flexed Trunk Factors Limiting Gait Function Factors Limiting Gait Function Limited Range of Motion,Pain, Poor Balance Comments Gait Comments Pt wears large back brace and carries hand made walking cane in right hand that is too tall for her. She presents with decreased step-length and foot clearance, increased lateral weight shift with gait , slow maura and unsteady. PT-OP-J Posture/Palpation/Skin Start: 05/29/20 15:21 Freq: Status: Active Protocol: Document 06/02/20 12:19 MB (Rec: 06/02/20 13:25 MB [id number]) Posture Evaluation Comments Posture Comments Standing posture: forward head , rounded shoulders, Dowager's hump and increased thoracic kyphosis PT-OP-K Range of Motion Start: 05/29/20 15:21 Freq: Status: Active Protocol: Document 06/02/20 12:19 MB (Rec: 06/02/20 13:25 MB [id number]) Cervical Spine Range of Motion Cervical Spine Active Testing Position Standing Flexion 30 Extension 20 Rotation Left 35 Rotation Right 30 Shoulder Goniometric Range of Motion Shoulder Bilateral Comments AROM flexion functional for age and with decreased end- range movement PT-OP-M Strength Start: 05/29/20 15:21 Freq: Status: Active Protocol: Document 06/02/20 12:19 MB (Rec: 06/02/20 13:25 MB [id number]) Shoulder Strength Shoulder Manual Muscle Testing Bilateral Flexion 5 Normal Abduction (C5) 5 Normal PT-OP-O Vestibular Start: 05/29/20 15:21 Freq: Status: Active Protocol: Document 06/02/20 12:19 MB (Rec: 06/02/20 13:25 MB [id number]) Vestibular Assessment Visual Testing Spontaneous Nystagmus Negative Positional Testing Hyde-Hallpike Positive Right,Upbeating,< 60 Seconds PT-OP-T Assessment and Plan Start: 05/29/20 15:21 Freq: Status: Active Protocol: Document 06/12/20 11:18 MB (Rec: 06/12/20 11:19 MB [id number]) Physical Therapy Plan Discharge Physical Therapy Discharge Reasons No Longer Attending PT Discharge Comments Pt cancelled last two appointments. Attempted to call pt and left message. Will d/c PT.
== END 2020-06-18 08:34 | disposition home or self-care (01) ==
LOC: PHYS 12:15
PROVIDERS: Family Provider Neurological Surgery; PCP Internal Medicine; Referring Provider Otolaryngology; Visit Provider Otolaryngology
DX: H81.11 Benign paroxysmal vertigo, right ear (principal)
CPT/HCPCS: 95992; 97110; 97161; 97535

== ENCOUNTER 2020-07-23 09:45 | Outpatient (RCR) | payer MEDICARE, OTHER, SELFPAY ==
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
--- NOTE | 2020-07-03 13:44 | PT.OPPOC ---
Physical, Occupational & Speech Therapy At [facility] Current Diagnoses Impacted cerumen, right ear (07/03/20) Benign paroxysmal vertigo, right ear (07/03/20) Sensorineural hearing loss, bilateral (07/03/20) Visit Care Team Role Provider Type Damaris Frey MD Family Provider Physician Primary Care Provider Specialty: Internal Medicine Address: [address] [place] [address], [address] Email: [email or web address] Juve Rollins MD Attending Provider Physician Referring Provider Specialty: Ear, Nose, Throat Address: [address] [place] [address], [address] Email: [email or web address] Plan Of Care PT-OP-T Assessment and Plan Start: 06/27/20 16:11 Freq: Status: Active Protocol: Document 07/03/20 10:35 MB (Rec: 07/03/20 13:01 MB [id number]) Physical Therapy Assessment Rehab Potential Rehabilitation Potential Fair Evaluation Complexity Number of Personal Factors/Comorbidities 1-2 Number of Body Systems Impaired 1-2 Clinical Presentation at Evaluation Stable Impairments Impairments Activity Tolerance,Balance, Functional Activities, Functional Mobility,Gait,Pain, Posture,ROM,Soft Tissue Mobility,Strength,Transfers, Vestibular Other Concerns Fall Risk Yes Goals 3 Rn Clinical Research Goal (LTG) Pt will perform WNLs on a standardized balance test to decrease fall risk by 07/31/20. LTG Duration 4 weeks 2 Half-Way Goal (LTG) Pt will perform progressive HEP with I including VOR, balance, and postural exercises including flexibility, ROM, and self- myofascial release exercises to improve head movement and balance by 07/31/2020. LTG Duration 4 weeks 1 Rn Clinical Research Goal (LTG) Pt will present with DHI score to reflect no more than low perception of handicap to improve balance, function and quality of life by 07/31/2020. LTG Duration 4 weeks Assessment Summary Assessment Pt arrives late to evaluation and so she does not have time to fill out history and DHI forms. Pt is familiar to this PT after assessment and treatment for BPPV earlier this year and PT is able to put in history under current condition in EMR. Given time constraints and pt's reports that she truly feels her problem is positional dizziness (has dizziness rolling to the right), PT triages assessment and treatment today to assess and treat for BPPV. She presents with right horizontal canalithiasis and treated with Liberatory Maneuver. Pt has had a fall since last seen by PT that she describes as mechanical and she has brought in an order to address back pain, right trochanteric bursitis and left shoulder. She hopes to complete this PT course for BPPV and then start PT for that. Pt has baseline balance and postural problems and these make her at increased risk for further falling. Will attempt to clear BPPV this therapy course and initiate postural and balance exercises and con't with addressing flexibility, gait balance and strength in future PT course. Barriers include multiple musculoskeletal problems, postural changes and recurrent BPPV. Physical Therapy Plan Frequency and Duration Frequency of Treatment 2x/Week Duration of Treatment 4 weeks Plan of Care Start Date 07/03/20 Plan of Care End Date 07/31/20 Therapeutic Interventions Therapeutic Interventions Balance Training,Canalithic Repositioning,Coordination Training,Gait Training,Home Exercise Program,Joint Mobilizations,Manual Therapy, Neuromuscular Re-education, Patient/Caregiver Education, Self-Care/Home Management,Soft Tissue Mobilization,Taping, Therapeutic Activities, Therapeutic Exercises, Vestibular Rehabilitation Modalities Cold Pack/Ice Massage,Hot Packs Next Visit Focus/Plan Next Note Type Treatment Note Next Visit Plan Re-check for BPPV as needed, progress postural, cervical and balance exercises Plan of Care Dates Plan of Care Start Date 07/03/20 Plan of Care End Date 07/31/20 Electronically Signed by: Liza Sims PT 07/03/20 [id number] Please Sign and Return: I have reviewed this Plan of Care and certify that the skilled therapy services above are required to meet the patient?s needs. Physician Signature Date Printed Name and Credentials Clinical Instructor Signature Printed Name and Credentials
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
== END 2020-08-05 08:05 | disposition home or self-care (01) ==
LOC: PHYS 09:45
PROVIDERS: Family Provider Internal Medicine; PCP Internal Medicine; Referring Provider Otolaryngology; Visit Provider Otolaryngology
DX: H81.11 Benign paroxysmal vertigo, right ear (principal); H61.21 Impacted cerumen, right ear; H90.3 Sensorineural hearing loss, bilateral
CPT/HCPCS: 95992; 97110; 97112; 97140; 97161; 97530; 97535

== ENCOUNTER 2020-10-14 13:45 | Outpatient (RCR) | payer MEDICARE, OTHER, SELFPAY ==
--- NOTE | 2020-08-05 14:43 | PT.OIE ---
Current Diagnoses Spinal stenosis, lumbar region with neurogenic claudication (08/05/20) Trochanteric bursitis, right hip (08/05/20) Impingement syndrome of left shoulder (08/05/20) Other specified postprocedural states (08/05/20) Visit Care Team Role Provider Type Damaris Frey MD Family Provider Physician Primary Care Provider Specialty: Internal Medicine Address: [address] [place] [address], [address] Email: [email or web address] Zachary Malik MD Attending Provider Physician Referring Provider Specialty: Physical Medicine and Rehab Address: [address] [place] [address], [address] Email: [email or web address] Initial Evaluation PT-OP-A Visit Information Start: 08/04/20 10:16 Freq: Status: Active Protocol: Document 08/05/20 12:24 MB (Rec: 08/05/20 12:24 MB [id number]) Out-Patient Physical Therapy Visit Information Visit Information Visit Type Initial Evaluation Visit Note Medicare, [facility] Pt arrives late for evaluation . Pt goes by Siri Visit Start Time 12:24 Visit Stop Time 12:54 Total Visit Minutes 30 Visit Number 1 Evaluation Information Evaluation Date 08/05/20 PT-OP-B Current Condition Start: 08/04/20 10:16 Freq: Status: Active Protocol: Document 08/05/20 12:24 MB (Rec: 08/05/20 12:24 MB [id number]) Current Condition History of Current Condition Onset Date For years Current Complaints Back, B lateral hip and intrascapular pain History of Current Condition Pt had a fall 06/07/20 when she tripped over some santas in the living room. She was rushing to the bathroom d/t bladder urgency. She had incontinence. When she fell, she landed on her left side. She had right shoulder pain, LB and B lateral hip pain after the fall. She rates pain up to 7/10. She has a history of back pain and injections. She has also had back surgery. She is going to have another injection. She states that she has another vertebra crashing. Pt has had two durations of PT this year d/t BPPV and recurrence. Neck treated during the second PT course. PMH includes hypotension and pacemaker, fibromyalgia, B THR , B foot neuropathy. Pt would like to focus on her back. Pt denies further falls this year. Pt uses wooden cane for gait and carries it in her left hand d/t right sided leg pain. She has a couple of steps with rail at home. Pt reports sparkles in her vision sometimes and PT encourages her to talk with doctor about this. Prior Treatments and Tests PT for BPPV and neck this year Treatment Goals Patient/Caregiver Goals To get back to Silver Sneakers and more balanced PT-OP-C Subjective Start: 08/04/20 10:16 Freq: Status: Active Protocol: Document 08/05/20 12:24 MB (Rec: 08/05/20 12:35 MB [id number]) OP-PT Subjective Patient Comments Patient Comments See history of current condition Patient Reported Progress Same Patient Questionnaires Oswestry Low Back Index Oswestry Score 28 Oswestry Impairment 40 to 59% Impaired (Score 40- 59) PT-OP-D Balance Start: 08/04/20 10:16 Freq: Status: Active Protocol: Document 08/05/20 12:24 MB (Rec: 08/05/20 14:33 MB [id number]) OP-PT Balance Assessment Standing Balance Standing Balance Comments Pt is able to stand for posture assessment but she occ reaches for the wall, mostly d/t fatigue Rowell Fall Scale Copyright Permission PT-OP-G Mobility & Gait Start: 08/04/20 10:16 Freq: Status: Active Protocol: Document 08/05/20 12:24 MB (Rec: 08/05/20 14:33 MB [id number]) OP Gait Assessment Gait Gait Assistance Required: Independent Distance (Feet) 75 Able to Maintain Weight Bearing Status Yes During Gait Assistive Devices Assistive Device Straight Cane Orthotic/Prosthetic Devices or Brace: No Gait Deviations General Gait Pattern Antalgic,Decreased Stride Length,Decreased Feet Clearance,Flexed Trunk Factors Limiting Gait Function Factors Limiting Gait Function Decreased Strength,Pain,Poor Balance Comments Gait Comments Pt carries wooden cane in left hand to support more painful right hip. She has spinal curvature changes that shift her trunk posture with gait. PT-OP-J Posture/Palpation/Skin Start: 08/04/20 10:16 Freq: Status: Active Protocol: Document 08/05/20 12:24 MB (Rec: 08/05/20 14:33 MB [id number]) Posture Evaluation Comments Posture Comments Standing posture with keen sandals donned: left tragus 2. 5 in front of left AC joint, forward head, Dowager's hump, increased thoracic kyphosis, increased lumbar lordosis, indention over lower lumbar spine where previous surgerical incision is located , B knee flexion in standing, scoliotic-type curve with right convexity thoracic spine and elevated and lateraly positioned right shoulder and hips translated to the left, left iliac crest higher than the right, right greater than left knee valgus, increased WB through left foot and left greater than right overpronation foot. PT-OP-K Range of Motion Start: 08/04/20 10:16 Freq: Status: Active Protocol: Document 08/05/20 12:24 MB (Rec: 08/05/20 14:33 MB [id number]) Knee Goniometric Range of Motion Knee ROM Limitations Comments Passive SLR: 45 deg right and 50 deg left and pt does have pain when PT performs passive SLR In supine, pt's B posterior knees carias not touch the mat with grossly 2.5 between the back of the knees and the mat PT-OP-M Strength Start: 08/04/20 10:16 Freq: Status: Active Protocol: Document 08/05/20 12:24 MB (Rec: 08/05/20 14:33 MB [id number]) Hip Strength Hip Manual Muscle Testing Left Flexion (L2) 4 Good Abduction 3+ Fair+ Comments Pt supine and reports high pain level (greater than 7/10) with MMT that is in her left LB Right Flexion (L2) 3+ Fair+ Abduction 3+ Fair+ Comments Pt supine and reports high pain level (greater than 7/10) with MMT that is in her left LB Knee Strength Knee Manual Muscle Testing Left Flexion (S2) 5 Normal Extension (L3) 5 Normal Right Flexion (S2) 5 Normal Extension (L3) 5 Normal Ankle/Foot Strength Ankle and Foot Manual Muscle Testing Left Dorsiflexion (L4) 5 Normal Right Dorsiflexion (L4) 5 Normal Toe Strength Toe Manual Muscle Testing Left Great Toe Extension 5 Normal Right Great Toe Extension 5 Normal PT-OP-T Assessment and Plan Start: 08/04/20 10:16 Freq: Status: Active Protocol: Document 08/05/20 12:24 MB (Rec: 08/05/20 12:27 MB [id number]) Physical Therapy Assessment Rehab Potential Rehabilitation Potential Fair Evaluation Complexity Number of Personal Factors/Comorbidities 1-2 Number of Body Systems Impaired 1-2 Clinical Presentation at Evaluation Evolving Impairments Impairments Balance,Functional Activities, Functional Mobility,Gait,Pain, Posture,ROM,Soft Tissue Mobility,Strength Other Impairments Personal factors include occ late to appointments in previous treatment courses and today. Body systems affected include musculoskeletal, neuromuscular and recently, vestibular. She may possibly have OP per pt report. Pt reports neuropathy B plantar feet with pain and numbness. Other Concerns Fall Risk Yes Goals 4 Fpc Goal (LTG) Pt will present with improved B hip flexion and abduction strength to at least 4/5 to improve gait quality with weight acceptance by 10/05/20. LTG Duration 8 weeks 3 Fpc Goal (LTG) Pt will present with an improved Oswestry LBP score to no more than 30% to reflect improved function and pain by 10/05/20. LTG Duration 8 weeks 2 Garden Consultant Goal (LTG) Pt will perform WNLs on a standardized balance test to decrease fall risk by 10/05/20. LTG Duration 8 weeks 1 Garden Consultant Goal (LTG) Pt will perform progressive HEP with I including pelvic realignment, postural, flexibility, relaxation, balance and strengthening exercises to improve balance, gait, and pain by 10/05/20. LTG Duration 8 weeks Assessment Summary Assessment Pt is a 75 y/o female presenting with severe back pain in setting of fall in , increased body mass, possible OP, history of back and B hip surgeries and spinal injections. Pt presents with spinal degenerative changes and curvature, decreased SLR, LE weakness and altered balance and gait. She will benefit from PT to address pelvic obliquities and to improve posture, flexibility, balance, gait and strength. Multiple areas of pain, spinal changes and increased BMI are barriers to PT. She also has sensory changes in her plantar feet per report. Will add BPPV/vestibular into PT plan d /t recent recurrence of BPPV this year and another recurrence will need to be treated to allow progress with treating back pain d/t positioning and symptoms. Physical Therapy Plan Frequency and Duration Frequency of Treatment 2x/Week Duration of Treatment 6 weeks Plan of Care Start Date 08/05/20 Plan of Care End Date 10/26/19 Therapeutic Interventions Therapeutic Interventions Balance Training,Canalithic Repositioning,Gait Training, Home Exercise Program,Joint Mobilizations,Manual Therapy, Neuromuscular Re-education, Patient/Caregiver Education, Self-Care/Home Management,Soft Tissue Mobilization,Taping, Therapeutic Activities, Therapeutic Exercises Modalities Cold Pack/Ice Massage,Electric Stimulation,Hot Packs, Ultrasound Other Referrals/Consults Referrals/Consults Recommended Possibly may benefit from pelvic floor PT to co-treat with primary PT to assist with back pain and urinary incontinence combination Next Visit Focus/Plan Next Note Type Treatment Note Next Visit Plan Initiate pelvic realignment exercises, diaphragm breathing and start flexibility, possibly thoracic rotation in sitting with breathing
--- NOTE | 2020-08-05 14:44 | PT.OPPOC ---
Physical, Occupational & Speech Therapy At [facility] Current Diagnoses Spinal stenosis, lumbar region with neurogenic claudication (08/05/20) Trochanteric bursitis, right hip (08/05/20) Impingement syndrome of left shoulder (08/05/20) Other specified postprocedural states (08/05/20) Visit Care Team Role Provider Type Damaris Frey MD Family Provider Physician Primary Care Provider Specialty: Internal Medicine Address: [address] [place] [address], [address] Email: [email or web address] Zachary Malik MD Attending Provider Physician Referring Provider Specialty: Physical Medicine and Rehab Address: [address] [place] [address], [address] Email: [email or web address] Plan Of Care PT-OP-T Assessment and Plan Start: 08/04/20 10:16 Freq: Status: Active Protocol: Document 08/05/20 12:24 MB (Rec: 08/05/20 12:27 MB [id number]) Physical Therapy Assessment Rehab Potential Rehabilitation Potential Fair Evaluation Complexity Number of Personal Factors/Comorbidities 1-2 Number of Body Systems Impaired 1-2 Clinical Presentation at Evaluation Evolving Impairments Impairments Balance,Functional Activities, Functional Mobility,Gait,Pain, Posture,ROM,Soft Tissue Mobility,Strength Other Impairments Personal factors include occ late to appointments in previous treatment courses and today. Body systems affected include musculoskeletal, neuromuscular and recently, vestibular. She may possibly have OP per pt report. Pt reports neuropathy B plantar feet with pain and numbness. Other Concerns Fall Risk Yes Goals 4 Intermediate Goal (LTG) Pt will present with improved B hip flexion and abduction strength to at least 4/5 to improve gait quality with weight acceptance by 10/05/20. LTG Duration 8 weeks 3 Intermediate Goal (LTG) Pt will present with an improved Oswestry LBP score to no more than 30% to reflect improved function and pain by 10/05/20. LTG Duration 8 weeks 2 Pack Worker Goal (LTG) Pt will perform WNLs on a standardized balance test to decrease fall risk by 10/05/20. LTG Duration 8 weeks 1 Intermediate Goal (LTG) Pt will perform progressive HEP with I including pelvic realignment, postural, flexibility, relaxation, balance and strengthening exercises to improve balance, gait, and pain by 10/05/20. LTG Duration 8 weeks Assessment Summary Assessment Pt is a 75 y/o female presenting with severe back pain in setting of fall in , increased body mass, possible OP, history of back and B hip surgeries and spinal injections. Pt presents with spinal degenerative changes and curvature, decreased SLR, LE weakness and altered balance and gait. She will benefit from PT to address pelvic obliquities and to improve posture, flexibility, balance, gait and strength. Multiple areas of pain, spinal changes and increased BMI are barriers to PT. She also has sensory changes in her plantar feet per report. Will add BPPV/vestibular into PT plan d /t recent recurrence of BPPV this year and another recurrence will need to be treated to allow progress with treating back pain d/t positioning and symptoms. Physical Therapy Plan Frequency and Duration Frequency of Treatment 2x/Week Duration of Treatment 6 weeks Plan of Care Start Date 08/05/20 Plan of Care End Date 10/26/19 Therapeutic Interventions Therapeutic Interventions Balance Training,Canalithic Repositioning,Gait Training, Home Exercise Program,Joint Mobilizations,Manual Therapy, Neuromuscular Re-education, Patient/Caregiver Education, Self-Care/Home Management,Soft Tissue Mobilization,Taping, Therapeutic Activities, Therapeutic Exercises Modalities Cold Pack/Ice Massage,Electric Stimulation,Hot Packs, Ultrasound Other Referrals/Consults Referrals/Consults Recommended Possibly may benefit from pelvic floor PT to co-treat with primary PT to assist with back pain and urinary incontinence combination Next Visit Focus/Plan Next Note Type Treatment Note Next Visit Plan Initiate pelvic realignment exercises, diaphragm breathing and start flexibility, possibly thoracic rotation in sitting with breathing Plan of Care Dates Plan of Care Start Date 08/05/20 Plan of Care End Date 10/26/19 Electronically Signed by: Liza Sims PT 08/05/20 [id number] Please Sign and Return: I have reviewed this Plan of Care and certify that the skilled therapy services above are required to meet the patient?s needs. Physician Signature Date Printed Name and Credentials Clinical Instructor Signature Printed Name and Credentials
--- NOTE | 2020-08-07 13:12 | PT.OTN ---
Current Diagnoses Spinal stenosis, lumbar region with neurogenic claudication (08/07/20) Trochanteric bursitis, right hip (08/07/20) Impingement syndrome of left shoulder (08/07/20) Other specified postprocedural states (08/07/20) Physical Therapy Treatment Note PT-OP-A Visit Information Start: 08/04/20 10:16 Freq: Status: Active Protocol: Document 08/07/20 12:19 MB (Rec: 08/07/20 12:25 MB [id number]) Out-Patient Physical Therapy Visit Information Visit Information Visit Type Treatment Note Visit Start Time 12:19 Visit Stop Time 13:00 Total Visit Minutes 41 Visit Number 2 PT-OP-B Current Condition Start: 08/04/20 10:16 Freq: Status: Active Protocol: Document 08/05/20 12:24 MB (Rec: 08/05/20 12:24 MB [id number]) Current Condition History of Current Condition Onset Date For years Current Complaints Back, B lateral hip and intrascapular pain History of Current Condition Pt had a fall 06/07/20 when she tripped over some santas in the living room. She was rushing to the bathroom d/t bladder urgency. She had incontinence. When she fell, she landed on her left side. She had right shoulder pain, LB and B lateral hip pain after the fall. She rates pain up to 7/10. She has a history of back pain and injections. She has also had back surgery. She is going to have another injection. She states that she has another vertebra crashing. Pt has had two durations of PT this year d/t BPPV and recurrence. Neck treated during the second PT course. PMH includes hypotension and pacemaker, fibromyalgia, B THR , B foot neuropathy. Pt would like to focus on her back. Pt denies further falls this year. Pt uses wooden cane for gait and carries it in her left hand d/t right sided leg pain. She has a couple of steps with rail at home. Pt reports sparkles in her vision sometimes and PT encourages her to talk with doctor about this. Prior Treatments and Tests PT for BPPV and neck this year Treatment Goals Patient/Caregiver Goals To get back to Silver Sneakers and more balanced PT-OP-C Subjective Start: 08/04/20 10:16 Freq: Status: Active Protocol: Document 08/07/20 12:19 MB (Rec: 08/07/20 12:25 MB [id number]) OP-PT Subjective Patient Comments Patient Comments I have a question. Pt asks if she can go without a mask since she has had both COVID shots and PT ed her that she does have to con't to wear mask in the clinic. PT-OP-D Balance Start: 08/04/20 10:16 Freq: Status: Active Protocol: Document 08/05/20 12:24 MB (Rec: 08/05/20 14:33 MB [id number]) OP-PT Balance Assessment Standing Balance Standing Balance Comments Pt is able to stand for posture assessment but she occ reaches for the wall, mostly d/t fatigue Rowell Fall Scale Copyright Permission PT-OP-G Mobility & Gait Start: 08/04/20 10:16 Freq: Status: Active Protocol: Document 08/05/20 12:24 MB (Rec: 08/05/20 14:33 MB [id number]) OP Gait Assessment Gait Gait Assistance Required: Independent Distance (Feet) 75 Able to Maintain Weight Bearing Status Yes During Gait Assistive Devices Assistive Device Straight Cane Orthotic/Prosthetic Devices or Brace: No Gait Deviations General Gait Pattern Antalgic,Decreased Stride Length,Decreased Feet Clearance,Flexed Trunk Factors Limiting Gait Function Factors Limiting Gait Function Decreased Strength,Pain,Poor Balance Comments Gait Comments Pt carries wooden cane in left hand to support more painful right hip. She has spinal curvature changes that shift her trunk posture with gait. PT-OP-J Posture/Palpation/Skin Start: 08/04/20 10:16 Freq: Status: Active Protocol: Document 08/05/20 12:24 MB (Rec: 08/05/20 14:33 MB [id number]) Posture Evaluation Comments Posture Comments Standing posture with keen sandals donned: left tragus 2. 5 in front of left AC joint, forward head, Dowager's hump, increased thoracic kyphosis, increased lumbar lordosis, indention over lower lumbar spine where previous surgerical incision is located , B knee flexion in standing, scoliotic-type curve with right convexity thoracic spine and elevated and lateraly positioned right shoulder and hips translated to the left, left iliac crest higher than the right, right greater than left knee valgus, increased WB through left foot and left greater than right overpronation foot. PT-OP-K Range of Motion Start: 08/04/20 10:16 Freq: Status: Active Protocol: Document 08/05/20 12:24 MB (Rec: 08/05/20 14:33 MB [id number]) Knee Goniometric Range of Motion Knee ROM Limitations Comments Passive SLR: 45 deg right and 50 deg left and pt does have pain when PT performs passive SLR In supine, pt's B posterior knees carias not touch the mat with grossly 2.5 between the back of the knees and the mat PT-OP-M Strength Start: 08/04/20 10:16 Freq: Status: Active Protocol: Document 08/05/20 12:24 MB (Rec: 08/05/20 14:33 MB [id number]) Hip Strength Hip Manual Muscle Testing Left Flexion (L2) 4 Good Abduction 3+ Fair+ Comments Pt supine and reports high pain level (greater than 7/10) with MMT that is in her left LB Right Flexion (L2) 3+ Fair+ Abduction 3+ Fair+ Comments Pt supine and reports high pain level (greater than 7/10) with MMT that is in her left LB Knee Strength Knee Manual Muscle Testing Left Flexion (S2) 5 Normal Extension (L3) 5 Normal Right Flexion (S2) 5 Normal Extension (L3) 5 Normal Ankle/Foot Strength Ankle and Foot Manual Muscle Testing Left Dorsiflexion (L4) 5 Normal Right Dorsiflexion (L4) 5 Normal Toe Strength Toe Manual Muscle Testing Left Great Toe Extension 5 Normal Right Great Toe Extension 5 Normal PT-OP-Q Treatments Start: 08/04/20 10:16 Freq: Status: Active Protocol: Document 08/07/20 12:19 MB (Rec: 08/07/20 12:30 MB [id number]) Therapeutic Exercises Supine Exercises Diaphragm breathing Comments 5 reps slowly, cues for hand placement Pelvic realignment exercises Side bilateral Comments 5 reps all three exercises in handout order Sitting Exercises Thoracic rotation Side bilateral Comments Slow and end-range breathing, 2 reps Standing Exercises STM glutes Side bilateral Equipment Used Racquet ball Comments TrP pressure hip rotators and TFL B PT-OP-T Assessment and Plan Start: 08/04/20 10:16 Freq: Status: Active Protocol: Document 08/07/20 12:19 MB (Rec: 08/07/20 12:25 KOJO [id number]) Physical Therapy Assessment Rehab Potential Rehabilitation Potential Fair Evaluation Complexity Number of Personal Factors/Comorbidities 1-2 Number of Body Systems Impaired 1-2 Clinical Presentation at Evaluation Evolving Impairments Impairments Balance,Functional Activities, Functional Mobility,Gait,Pain, Posture,ROM,Soft Tissue Mobility,Strength Other Impairments Personal factors include occ late to appointments in previous treatment courses and today. Body systems affected include musculoskeletal, neuromuscular and recently, vestibular. She may possibly have OP per pt report. Pt reports neuropathy B plantar feet with pain and numbness. Other Concerns Fall Risk Yes Goals 4 Production Director Goal (LTG) Pt will present with improved B hip flexion and abduction strength to at least 4/5 to improve gait quality with weight acceptance by 10/05/20. LTG Duration 8 weeks 3 Production Director Goal (LTG) Pt will present with an improved Oswestry LBP score to no more than 30% to reflect improved function and pain by 10/05/20. LTG Duration 8 weeks 2 Production Director Goal (LTG) Pt will perform WNLs on a standardized balance test to decrease fall risk by 10/05/20. LTG Duration 8 weeks 1 Production Director Goal (LTG) Pt will perform progressive HEP with I including pelvic realignment, postural, flexibility, relaxation, balance and strengthening exercises to improve balance, gait, and pain by 10/05/20. 08/07/20: Pt to start pelvic realignment, diaphragm breathing and thoracic rotation. She is performing racquet ball massage several areas of her spine and glutes LTG Duration 8 weeks Assessment Summary Assessment Initiated alignment and flexibility exercises today. Also initiated breathing and pt tolerates well. Physical Therapy Plan Frequency and Duration Frequency of Treatment 2x/Week Duration of Treatment 6 weeks Plan of Care Start Date 08/05/20 Plan of Care End Date 10/26/19 Therapeutic Interventions Therapeutic Interventions Balance Training,Canalithic Repositioning,Gait Training, Home Exercise Program,Joint Mobilizations,Manual Therapy, Neuromuscular Re-education, Patient/Caregiver Education, Self-Care/Home Management,Soft Tissue Mobilization,Taping, Therapeutic Activities, Therapeutic Exercises Modalities Cold Pack/Ice Massage,Electric Stimulation,Hot Packs, Ultrasound Other Referrals/Consults Referrals/Consults Recommended Possibly may benefit from pelvic floor PT to co-treat with primary PT to assist with back pain and urinary incontinence combination Next Visit Focus/Plan Next Note Type Treatment Note Next Visit Plan Progress flexibility exercises , relaxation exercises and consider Counterstrain or other manual work
--- NOTE | 2020-08-11 11:15 | PT.OTN ---
Current Diagnoses Spinal stenosis, lumbar region with neurogenic claudication (08/11/20) Trochanteric bursitis, right hip (08/11/20) Impingement syndrome of left shoulder (08/11/20) Other specified postprocedural states (08/11/20) Physical Therapy Treatment Note PT-OP-A Visit Information Start: 08/04/20 10:16 Freq: Status: Active Protocol: Document 08/11/20 10:33 MB (Rec: 08/11/20 10:53 MB [id number]) Out-Patient Physical Therapy Visit Information Visit Information Visit Type Treatment Note Visit Start Time 10:33 Visit Stop Time 11:15 Total Visit Minutes 42 Visit Number 3 PT-OP-B Current Condition Start: 08/04/20 10:16 Freq: Status: Active Protocol: Document 08/05/20 12:24 MB (Rec: 08/05/20 12:24 MB [id number]) Current Condition History of Current Condition Onset Date For years Current Complaints Back, B lateral hip and intrascapular pain History of Current Condition Pt had a fall 06/07/20 when she tripped over some santas in the living room. She was rushing to the bathroom d/t bladder urgency. She had incontinence. When she fell, she landed on her left side. She had right shoulder pain, LB and B lateral hip pain after the fall. She rates pain up to 7/10. She has a history of back pain and injections. She has also had back surgery. She is going to have another injection. She states that she has another vertebra crashing. Pt has had two durations of PT this year d/t BPPV and recurrence. Neck treated during the second PT course. PMH includes hypotension and pacemaker, fibromyalgia, B THR , B foot neuropathy. Pt would like to focus on her back. Pt denies further falls this year. Pt uses wooden cane for gait and carries it in her left hand d/t right sided leg pain. She has a couple of steps with rail at home. Pt reports sparkles in her vision sometimes and PT encourages her to talk with doctor about this. Prior Treatments and Tests PT for BPPV and neck this year Treatment Goals Patient/Caregiver Goals To get back to Silver Sneakers and more balanced PT-OP-C Subjective Start: 08/04/20 10:16 Freq: Status: Active Protocol: Document 08/11/20 10:33 MB (Rec: 08/11/20 10:53 MB [id number]) OP-PT Subjective Patient Comments Patient Comments I think I might have overdone it with the exercises. Pt reports some increased back soreness after performing 2nd pelvic realignment exercise. She was doing it on her bed and it is soft and so she worked harder. Re-ed pt in performance and to try yoga mat on the bed. PT-OP-D Balance Start: 08/04/20 10:16 Freq: Status: Active Protocol: Document 08/05/20 12:24 MB (Rec: 08/05/20 14:33 MB [id number]) OP-PT Balance Assessment Standing Balance Standing Balance Comments Pt is able to stand for posture assessment but she occ reaches for the wall, mostly d/t fatigue Rowell Fall Scale Copyright Permission PT-OP-G Mobility & Gait Start: 08/04/20 10:16 Freq: Status: Active Protocol: Document 08/05/20 12:24 MB (Rec: 08/05/20 14:33 MB [id number]) OP Gait Assessment Gait Gait Assistance Required: Independent Distance (Feet) 75 Able to Maintain Weight Bearing Status Yes During Gait Assistive Devices Assistive Device Straight Cane Orthotic/Prosthetic Devices or Brace: No Gait Deviations General Gait Pattern Antalgic,Decreased Stride Length,Decreased Feet Clearance,Flexed Trunk Factors Limiting Gait Function Factors Limiting Gait Function Decreased Strength,Pain,Poor Balance Comments Gait Comments Pt carries wooden cane in left hand to support more painful right hip. She has spinal curvature changes that shift her trunk posture with gait. PT-OP-J Posture/Palpation/Skin Start: 08/04/20 10:16 Freq: Status: Active Protocol: Document 08/05/20 12:24 MB (Rec: 08/05/20 14:33 MB [id number]) Posture Evaluation Comments Posture Comments Standing posture with keen sandals donned: left tragus 2. 5 in front of left AC joint, forward head, Dowager's hump, increased thoracic kyphosis, increased lumbar lordosis, indention over lower lumbar spine where previous surgerical incision is located , B knee flexion in standing, scoliotic-type curve with right convexity thoracic spine and elevated and lateraly positioned right shoulder and hips translated to the left, left iliac crest higher than the right, right greater than left knee valgus, increased WB through left foot and left greater than right overpronation foot. PT-OP-K Range of Motion Start: 08/04/20 10:16 Freq: Status: Active Protocol: Document 08/05/20 12:24 MB (Rec: 08/05/20 14:33 MB [id number]) Knee Goniometric Range of Motion Knee ROM Limitations Comments Passive SLR: 45 deg right and 50 deg left and pt does have pain when PT performs passive SLR In supine, pt's B posterior knees carias not touch the mat with grossly 2.5 between the back of the knees and the mat PT-OP-M Strength Start: 08/04/20 10:16 Freq: Status: Active Protocol: Document 08/05/20 12:24 MB (Rec: 08/05/20 14:33 MB [id number]) Hip Strength Hip Manual Muscle Testing Left Flexion (L2) 4 Good Abduction 3+ Fair+ Comments Pt supine and reports high pain level (greater than 7/10) with MMT that is in her left LB Right Flexion (L2) 3+ Fair+ Abduction 3+ Fair+ Comments Pt supine and reports high pain level (greater than 7/10) with MMT that is in her left LB Knee Strength Knee Manual Muscle Testing Left Flexion (S2) 5 Normal Extension (L3) 5 Normal Right Flexion (S2) 5 Normal Extension (L3) 5 Normal Ankle/Foot Strength Ankle and Foot Manual Muscle Testing Left Dorsiflexion (L4) 5 Normal Right Dorsiflexion (L4) 5 Normal Toe Strength Toe Manual Muscle Testing Left Great Toe Extension 5 Normal Right Great Toe Extension 5 Normal PT-OP-Q Treatments Start: 08/04/20 10:16 Freq: Status: Active Protocol: Document 08/11/20 10:33 MB (Rec: 08/11/20 10:53 MB [id number]) Manual Therapy Treatment Other Other Manual Treatments Pt agrees to Counterstrain to assess and treat fascial tension and pt presents with tension in the following fascial systems: B standard lymphatic row, periosteal, greater on the right and left sinuvertebral. Viscera is tight as well. PT treats stacks in the following systems: standard row lymphatic venous and scan improves after. PT-OP-T Assessment and Plan Start: 08/04/20 10:16 Freq: Status: Active Protocol: Document 08/11/20 10:33 MB (Rec: 08/11/20 10:53 MB [id number]) Physical Therapy Assessment Rehab Potential Rehabilitation Potential Fair Evaluation Complexity Number of Personal Factors/Comorbidities 1-2 Number of Body Systems Impaired 1-2 Clinical Presentation at Evaluation Evolving Impairments Impairments Balance,Functional Activities, Functional Mobility,Gait,Pain, Posture,ROM,Soft Tissue Mobility,Strength Other Impairments Personal factors include occ late to appointments in previous treatment courses and today. Body systems affected include musculoskeletal, neuromuscular and recently, vestibular. She may possibly have OP per pt report. Pt reports neuropathy B plantar feet with pain and numbness. Other Concerns Fall Risk Yes Goals 4 Detention Goal (LTG) Pt will present with improved B hip flexion and abduction strength to at least 4/5 to improve gait quality with weight acceptance by 10/05/20. LTG Duration 8 weeks 3 [employer] Goal (LTG) Pt will present with an improved Oswestry LBP score to no more than 30% to reflect improved function and pain by 10/05/20. LTG Duration 8 weeks 2 Detention Goal (LTG) Pt will perform WNLs on a standardized balance test to decrease fall risk by 10/05/20. LTG Duration 8 weeks 1 Detention Goal (LTG) Pt will perform progressive HEP with I including pelvic realignment, postural, flexibility, relaxation, balance and strengthening exercises to improve balance, gait, and pain by 10/05/20. 08/07/20: Pt to start pelvic realignment, diaphragm breathing and thoracic rotation. She is performing racquet ball massage several areas of her spine and glutes LTG Duration 8 weeks Assessment Summary Assessment Initiated Counterstrain today to assist with fasical tension and pt tolerates well initially. Will con't to monitory. Plan below is the same. Physical Therapy Plan Frequency and Duration Frequency of Treatment 2x/Week Duration of Treatment 6 weeks Plan of Care Start Date 08/05/20 Plan of Care End Date 10/26/19 Therapeutic Interventions Therapeutic Interventions Balance Training,Canalithic Repositioning,Gait Training, Home Exercise Program,Joint Mobilizations,Manual Therapy, Neuromuscular Re-education, Patient/Caregiver Education, Self-Care/Home Management,Soft Tissue Mobilization,Taping, Therapeutic Activities, Therapeutic Exercises Modalities Cold Pack/Ice Massage,Electric Stimulation,Hot Packs, Ultrasound Other Referrals/Consults Referrals/Consults Recommended Possibly may benefit from pelvic floor PT to co-treat with primary PT to assist with back pain and urinary incontinence combination Next Visit Focus/Plan Next Note Type Treatment Note Next Visit Plan Progress flexibility exercises , relaxation exercises and consider Counterstrain or other manual work
--- NOTE | 2020-08-13 14:38 | PT.OTN ---
Current Diagnoses Spinal stenosis, lumbar region with neurogenic claudication (08/13/20) Trochanteric bursitis, right hip (08/13/20) Impingement syndrome of left shoulder (08/13/20) Other specified postprocedural states (08/13/20) Physical Therapy Treatment Note PT-OP-A Visit Information Start: 08/04/20 10:16 Freq: Status: Active Protocol: Document 08/13/20 13:52 MB (Rec: 08/13/20 14:38 MB [id number]) Out-Patient Physical Therapy Visit Information Visit Information Visit Type Treatment Note Visit Start Time 13:52 Visit Stop Time 14:35 Total Visit Minutes 43 Visit Number 4 PT-OP-B Current Condition Start: 08/04/20 10:16 Freq: Status: Active Protocol: Document 08/05/20 12:24 MB (Rec: 08/05/20 12:24 MB [id number]) Current Condition History of Current Condition Onset Date For years Current Complaints Back, B lateral hip and intrascapular pain History of Current Condition Pt had a fall 06/07/20 when she tripped over some santas in the living room. She was rushing to the bathroom d/t bladder urgency. She had incontinence. When she fell, she landed on her left side. She had right shoulder pain, LB and B lateral hip pain after the fall. She rates pain up to 7/10. She has a history of back pain and injections. She has also had back surgery. She is going to have another injection. She states that she has another vertebra crashing. Pt has had two durations of PT this year d/t BPPV and recurrence. Neck treated during the second PT course. PMH includes hypotension and pacemaker, fibromyalgia, B THR , B foot neuropathy. Pt would like to focus on her back. Pt denies further falls this year. Pt uses wooden cane for gait and carries it in her left hand d/t right sided leg pain. She has a couple of steps with rail at home. Pt reports sparkles in her vision sometimes and PT encourages her to talk with doctor about this. Prior Treatments and Tests PT for BPPV and neck this year Treatment Goals Patient/Caregiver Goals To get back to Silver Sneakers and more balanced PT-OP-C Subjective Start: 08/04/20 10:16 Freq: Status: Active Protocol: Document 08/13/20 13:52 MB (Rec: 08/13/20 14:38 MB [id number]) OP-PT Subjective Patient Comments Patient Comments I think I'm moving a little a better. I put the yoga mat on the bed and it worked. Pt reports she could breathe better after Counterstrain and was able to blow out some scabs in her nose. PT-OP-D Balance Start: 08/04/20 10:16 Freq: Status: Active Protocol: Document 08/05/20 12:24 MB (Rec: 08/05/20 14:33 MB [id number]) OP-PT Balance Assessment Standing Balance Standing Balance Comments Pt is able to stand for posture assessment but she occ reaches for the wall, mostly d/t fatigue Rowell Fall Scale Copyright Permission PT-OP-G Mobility & Gait Start: 08/04/20 10:16 Freq: Status: Active Protocol: Document 08/05/20 12:24 MB (Rec: 08/05/20 14:33 MB [id number]) OP Gait Assessment Gait Gait Assistance Required: Independent Distance (Feet) 75 Able to Maintain Weight Bearing Status Yes During Gait Assistive Devices Assistive Device Straight Cane Orthotic/Prosthetic Devices or Brace: No Gait Deviations General Gait Pattern Antalgic,Decreased Stride Length,Decreased Feet Clearance,Flexed Trunk Factors Limiting Gait Function Factors Limiting Gait Function Decreased Strength,Pain,Poor Balance Comments Gait Comments Pt carries wooden cane in left hand to support more painful right hip. She has spinal curvature changes that shift her trunk posture with gait. PT-OP-J Posture/Palpation/Skin Start: 08/04/20 10:16 Freq: Status: Active Protocol: Document 08/05/20 12:24 MB (Rec: 08/05/20 14:33 MB [id number]) Posture Evaluation Comments Posture Comments Standing posture with keen sandals donned: left tragus 2. 5 in front of left AC joint, forward head, Dowager's hump, increased thoracic kyphosis, increased lumbar lordosis, indention over lower lumbar spine where previous surgerical incision is located , B knee flexion in standing, scoliotic-type curve with right convexity thoracic spine and elevated and lateraly positioned right shoulder and hips translated to the left, left iliac crest higher than the right, right greater than left knee valgus, increased WB through left foot and left greater than right overpronation foot. PT-OP-K Range of Motion Start: 08/04/20 10:16 Freq: Status: Active Protocol: Document 08/05/20 12:24 MB (Rec: 08/05/20 14:33 MB [id number]) Knee Goniometric Range of Motion Knee ROM Limitations Comments Passive SLR: 45 deg right and 50 deg left and pt does have pain when PT performs passive SLR In supine, pt's B posterior knees carias not touch the mat with grossly 2.5 between the back of the knees and the mat PT-OP-M Strength Start: 08/04/20 10:16 Freq: Status: Active Protocol: Document 08/05/20 12:24 MB (Rec: 08/05/20 14:33 MB [id number]) Hip Strength Hip Manual Muscle Testing Left Flexion (L2) 4 Good Abduction 3+ Fair+ Comments Pt supine and reports high pain level (greater than 7/10) with MMT that is in her left LB Right Flexion (L2) 3+ Fair+ Abduction 3+ Fair+ Comments Pt supine and reports high pain level (greater than 7/10) with MMT that is in her left LB Knee Strength Knee Manual Muscle Testing Left Flexion (S2) 5 Normal Extension (L3) 5 Normal Right Flexion (S2) 5 Normal Extension (L3) 5 Normal Ankle/Foot Strength Ankle and Foot Manual Muscle Testing Left Dorsiflexion (L4) 5 Normal Right Dorsiflexion (L4) 5 Normal Toe Strength Toe Manual Muscle Testing Left Great Toe Extension 5 Normal Right Great Toe Extension 5 Normal PT-OP-Q Treatments Start: 08/04/20 10:16 Freq: Status: Active Protocol: Document 08/13/20 13:52 MB (Rec: 08/13/20 14:38 MB [id number]) Manual Therapy Treatment Other Other Manual Treatments Pt agrees to Counterstrain to assess and treat fascial tension and pt presents with tension in the following fascial systems: standard lymphatic row, visceral and vagus and scans improve after PT treats stacks in standard lymphatic row thoracic to lumbar and then following chain PLAN 1 up (starting from the right foot). PT-OP-T Assessment and Plan Start: 08/04/20 10:16 Freq: Status: Active Protocol: Document 08/13/20 13:52 MB (Rec: 08/13/20 14:38 KOJO [id number]) Physical Therapy Assessment Rehab Potential Rehabilitation Potential Fair Evaluation Complexity Number of Personal Factors/Comorbidities 1-2 Number of Body Systems Impaired 1-2 Clinical Presentation at Evaluation Evolving Impairments Impairments Balance,Functional Activities, Functional Mobility,Gait,Pain, Posture,ROM,Soft Tissue Mobility,Strength Other Impairments Personal factors include occ late to appointments in previous treatment courses and today. Body systems affected include musculoskeletal, neuromuscular and recently, vestibular. She may possibly have OP per pt report. Pt reports neuropathy B plantar feet with pain and numbness. Other Concerns Fall Risk Yes Goals 4 Custodial Goal (LTG) Pt will present with improved B hip flexion and abduction strength to at least 4/5 to improve gait quality with weight acceptance by 10/05/20. LTG Duration 8 weeks 3 Custodial Goal (LTG) Pt will present with an improved Oswestry LBP score to no more than 30% to reflect improved function and pain by 10/05/20. LTG Duration 8 weeks 2 Stapler Machine Goal (LTG) Pt will perform WNLs on a standardized balance test to decrease fall risk by 10/05/20. LTG Duration 8 weeks 1 Custodial Goal (LTG) Pt will perform progressive HEP with I including pelvic realignment, postural, flexibility, relaxation, balance and strengthening exercises to improve balance, gait, and pain by 10/05/20. 08/07/20: Pt to start pelvic realignment, diaphragm breathing and thoracic rotation. She is performing racquet ball massage several areas of her spine and glutes LTG Duration 8 weeks Assessment Summary Assessment Counterstrain again today as she responded well and is walking better and performing exercises better after treatment. Con't to monitor and plan below is the same. Physical Therapy Plan Frequency and Duration Frequency of Treatment 2x/Week Duration of Treatment 6 weeks Plan of Care Start Date 08/05/20 Plan of Care End Date 10/26/19 Therapeutic Interventions Therapeutic Interventions Balance Training,Canalithic Repositioning,Gait Training, Home Exercise Program,Joint Mobilizations,Manual Therapy, Neuromuscular Re-education, Patient/Caregiver Education, Self-Care/Home Management,Soft Tissue Mobilization,Taping, Therapeutic Activities, Therapeutic Exercises Modalities Cold Pack/Ice Massage,Electric Stimulation,Hot Packs, Ultrasound Other Referrals/Consults Referrals/Consults Recommended Possibly may benefit from pelvic floor PT to co-treat with primary PT to assist with back pain and urinary incontinence combination Next Visit Focus/Plan Next Note Type Treatment Note Next Visit Plan Progress flexibility exercises , relaxation exercises and consider Counterstrain or other manual work
--- NOTE | 2020-08-22 14:26 | PT.OTN ---
Current Diagnoses Spinal stenosis, lumbar region with neurogenic claudication (08/22/20) Trochanteric bursitis, right hip (08/22/20) Impingement syndrome of left shoulder (08/22/20) Other specified postprocedural states (08/22/20) Physical Therapy Treatment Note PT-OP-A Visit Information Start: 08/04/20 10:16 Freq: Status: Active Protocol: Document 08/22/20 13:47 MB (Rec: 08/22/20 14:21 MB [id number]) Out-Patient Physical Therapy Visit Information Visit Information Visit Type Treatment Note Visit Start Time 13:47 Visit Stop Time 14:25 Total Visit Minutes 38 Visit Number 5 PT-OP-B Current Condition Start: 08/04/20 10:16 Freq: Status: Active Protocol: Document 08/05/20 12:24 MB (Rec: 08/05/20 12:24 MB [id number]) Current Condition History of Current Condition Onset Date For years Current Complaints Back, B lateral hip and intrascapular pain History of Current Condition Pt had a fall 06/07/20 when she tripped over some santas in the living room. She was rushing to the bathroom d/t bladder urgency. She had incontinence. When she fell, she landed on her left side. She had right shoulder pain, LB and B lateral hip pain after the fall. She rates pain up to 7/10. She has a history of back pain and injections. She has also had back surgery. She is going to have another injection. She states that she has another vertebra crashing. Pt has had two durations of PT this year d/t BPPV and recurrence. Neck treated during the second PT course. PMH includes hypotension and pacemaker, fibromyalgia, B THR , B foot neuropathy. Pt would like to focus on her back. Pt denies further falls this year. Pt uses wooden cane for gait and carries it in her left hand d/t right sided leg pain. She has a couple of steps with rail at home. Pt reports sparkles in her vision sometimes and PT encourages her to talk with doctor about this. Prior Treatments and Tests PT for BPPV and neck this year Treatment Goals Patient/Caregiver Goals To get back to Silver Sneakers and more balanced PT-OP-C Subjective Start: 08/04/20 10:16 Freq: Status: Active Protocol: Document 08/22/20 13:47 MB (Rec: 08/22/20 14:21 MB [id number]) OP-PT Subjective Patient Comments Patient Comments That shot just about killed me. Pt reports high pain after L3 spinal injection. She has not done exercises d/t pain. PT-OP-D Balance Start: 08/04/20 10:16 Freq: Status: Active Protocol: Document 08/05/20 12:24 MB (Rec: 08/05/20 14:33 MB [id number]) OP-PT Balance Assessment Standing Balance Standing Balance Comments Pt is able to stand for posture assessment but she occ reaches for the wall, mostly d/t fatigue Rowell Fall Scale Copyright Permission PT-OP-G Mobility & Gait Start: 08/04/20 10:16 Freq: Status: Active Protocol: Document 08/05/20 12:24 MB (Rec: 08/05/20 14:33 MB [id number]) OP Gait Assessment Gait Gait Assistance Required: Independent Distance (Feet) 75 Able to Maintain Weight Bearing Status Yes During Gait Assistive Devices Assistive Device Straight Cane Orthotic/Prosthetic Devices or Brace: No Gait Deviations General Gait Pattern Antalgic,Decreased Stride Length,Decreased Feet Clearance,Flexed Trunk Factors Limiting Gait Function Factors Limiting Gait Function Decreased Strength,Pain,Poor Balance Comments Gait Comments Pt carries wooden cane in left hand to support more painful right hip. She has spinal curvature changes that shift her trunk posture with gait. PT-OP-J Posture/Palpation/Skin Start: 08/04/20 10:16 Freq: Status: Active Protocol: Document 08/05/20 12:24 MB (Rec: 08/05/20 14:33 MB [id number]) Posture Evaluation Comments Posture Comments Standing posture with keen sandals donned: left tragus 2. 5 in front of left AC joint, forward head, Dowager's hump, increased thoracic kyphosis, increased lumbar lordosis, indention over lower lumbar spine where previous surgerical incision is located , B knee flexion in standing, scoliotic-type curve with right convexity thoracic spine and elevated and lateraly positioned right shoulder and hips translated to the left, left iliac crest higher than the right, right greater than left knee valgus, increased WB through left foot and left greater than right overpronation foot. PT-OP-K Range of Motion Start: 08/04/20 10:16 Freq: Status: Active Protocol: Document 08/05/20 12:24 MB (Rec: 08/05/20 14:33 MB [id number]) Knee Goniometric Range of Motion Knee ROM Limitations Comments Passive SLR: 45 deg right and 50 deg left and pt does have pain when PT performs passive SLR In supine, pt's B posterior knees carias not touch the mat with grossly 2.5 between the back of the knees and the mat PT-OP-M Strength Start: 08/04/20 10:16 Freq: Status: Active Protocol: Document 08/05/20 12:24 MB (Rec: 08/05/20 14:33 MB [id number]) Hip Strength Hip Manual Muscle Testing Left Flexion (L2) 4 Good Abduction 3+ Fair+ Comments Pt supine and reports high pain level (greater than 7/10) with MMT that is in her left LB Right Flexion (L2) 3+ Fair+ Abduction 3+ Fair+ Comments Pt supine and reports high pain level (greater than 7/10) with MMT that is in her left LB Knee Strength Knee Manual Muscle Testing Left Flexion (S2) 5 Normal Extension (L3) 5 Normal Right Flexion (S2) 5 Normal Extension (L3) 5 Normal Ankle/Foot Strength Ankle and Foot Manual Muscle Testing Left Dorsiflexion (L4) 5 Normal Right Dorsiflexion (L4) 5 Normal Toe Strength Toe Manual Muscle Testing Left Great Toe Extension 5 Normal Right Great Toe Extension 5 Normal PT-OP-Q Treatments Start: 08/04/20 10:16 Freq: Status: Active Protocol: Document 08/22/20 13:47 MB (Rec: 08/22/20 14:21 MB [id number]) Manual Therapy Treatment Other Other Manual Treatments Pt agrees to Counterstrain to assess and treat fascial tension and pt presents with tension in the following fascial systems: ALL and superficial fascia. PT treats stacks in ALL cervical to lumbar spine. PT-OP-T Assessment and Plan Start: 08/04/20 10:16 Freq: Status: Active Protocol: Document 08/22/20 13:47 MB (Rec: 08/22/20 14:21 MB [id number]) Physical Therapy Assessment Rehab Potential Rehabilitation Potential Fair Evaluation Complexity Number of Personal Factors/Comorbidities 1-2 Number of Body Systems Impaired 1-2 Clinical Presentation at Evaluation Evolving Impairments Impairments Balance,Functional Activities, Functional Mobility,Gait,Pain, Posture,ROM,Soft Tissue Mobility,Strength Other Impairments Personal factors include occ late to appointments in previous treatment courses and today. Body systems affected include musculoskeletal, neuromuscular and recently, vestibular. She may possibly have OP per pt report. Pt reports neuropathy B plantar feet with pain and numbness. Other Concerns Fall Risk Yes Goals 4 [facility] Goal (LTG) Pt will present with improved B hip flexion and abduction strength to at least 4/5 to improve gait quality with weight acceptance by 10/05/20. LTG Duration 8 weeks 3 [facility] Goal (LTG) Pt will present with an improved Oswestry LBP score to no more than 30% to reflect improved function and pain by 10/05/20. LTG Duration 8 weeks 2 [employer] Truck [employer] Goal (LTG) Pt will perform WNLs on a standardized balance test to decrease fall risk by 10/05/20. LTG Duration 8 weeks 1 [facility] Goal (LTG) Pt will perform progressive HEP with I including pelvic realignment, postural, flexibility, relaxation, balance and strengthening exercises to improve balance, gait, and pain by 10/05/20. 08/07/20: Pt to start pelvic realignment, diaphragm breathing and thoracic rotation. She is performing racquet ball massage several areas of her spine and glutes LTG Duration 8 weeks Assessment Summary Assessment Counterstrain today d/t increased pain after injection and pt responds well to treatment. Con't to monitor and con't manual work and therapeutic exercise progression. Physical Therapy Plan Frequency and Duration Frequency of Treatment 2x/Week Duration of Treatment 6 weeks Plan of Care Start Date 08/05/20 Plan of Care End Date 10/26/19 Therapeutic Interventions Therapeutic Interventions Balance Training,Canalithic Repositioning,Gait Training, Home Exercise Program,Joint Mobilizations,Manual Therapy, Neuromuscular Re-education, Patient/Caregiver Education, Self-Care/Home Management,Soft Tissue Mobilization,Taping, Therapeutic Activities, Therapeutic Exercises Modalities Cold Pack/Ice Massage,Electric Stimulation,Hot Packs, Ultrasound Other Referrals/Consults Referrals/Consults Recommended Possibly may benefit from pelvic floor PT to co-treat with primary PT to assist with back pain and urinary incontinence combination Next Visit Focus/Plan Next Note Type Treatment Note Next Visit Plan When ready, progress flexibility exercises, relaxation exercises and consider Counterstrain or other manual work
--- NOTE | 2020-08-25 12:57 | PT.OTN ---
Current Diagnoses Spinal stenosis, lumbar region with neurogenic claudication (08/25/20) Trochanteric bursitis, right hip (08/25/20) Impingement syndrome of left shoulder (08/25/20) Other specified postprocedural states (08/25/20) Physical Therapy Treatment Note PT-OP-A Visit Information Start: 08/04/20 10:16 Freq: Status: Active Protocol: Document 08/25/20 12:17 MB (Rec: 08/25/20 12:51 MB [id number]) Out-Patient Physical Therapy Visit Information Visit Information Visit Type Treatment Note Visit Start Time 12:17 Visit Stop Time 12:57 Total Visit Minutes 40 Visit Number 6 PT-OP-B Current Condition Start: 08/04/20 10:16 Freq: Status: Active Protocol: Document 08/05/20 12:24 MB (Rec: 08/05/20 12:24 MB [id number]) Current Condition History of Current Condition Onset Date For years Current Complaints Back, B lateral hip and intrascapular pain History of Current Condition Pt had a fall 06/07/20 when she tripped over some santas in the living room. She was rushing to the bathroom d/t bladder urgency. She had incontinence. When she fell, she landed on her left side. She had right shoulder pain, LB and B lateral hip pain after the fall. She rates pain up to 7/10. She has a history of back pain and injections. She has also had back surgery. She is going to have another injection. She states that she has another vertebra crashing. Pt has had two durations of PT this year d/t BPPV and recurrence. Neck treated during the second PT course. PMH includes hypotension and pacemaker, fibromyalgia, B THR , B foot neuropathy. Pt would like to focus on her back. Pt denies further falls this year. Pt uses wooden cane for gait and carries it in her left hand d/t right sided leg pain. She has a couple of steps with rail at home. Pt reports sparkles in her vision sometimes and PT encourages her to talk with doctor about this. Prior Treatments and Tests PT for BPPV and neck this year Treatment Goals Patient/Caregiver Goals To get back to Silver Sneakers and more balanced PT-OP-C Subjective Start: 08/04/20 10:16 Freq: Status: Active Protocol: Document 08/25/20 12:17 MB (Rec: 08/25/20 12:51 MB [id number]) OP-PT Subjective Patient Comments Patient Comments Pt states that the lumbar shot is kicking in and she is feeling better. She is able to get back to her home exercises. The Counterstrain is helpful. PT-OP-D Balance Start: 08/04/20 10:16 Freq: Status: Active Protocol: Document 08/05/20 12:24 MB (Rec: 08/05/20 14:33 MB [id number]) OP-PT Balance Assessment Standing Balance Standing Balance Comments Pt is able to stand for posture assessment but she occ reaches for the wall, mostly d/t fatigue Rowell Fall Scale Copyright Permission PT-OP-G Mobility & Gait Start: 08/04/20 10:16 Freq: Status: Active Protocol: Document 08/05/20 12:24 MB (Rec: 08/05/20 14:33 MB [id number]) OP Gait Assessment Gait Gait Assistance Required: Independent Distance (Feet) 75 Able to Maintain Weight Bearing Status Yes During Gait Assistive Devices Assistive Device Straight Cane Orthotic/Prosthetic Devices or Brace: No Gait Deviations General Gait Pattern Antalgic,Decreased Stride Length,Decreased Feet Clearance,Flexed Trunk Factors Limiting Gait Function Factors Limiting Gait Function Decreased Strength,Pain,Poor Balance Comments Gait Comments Pt carries wooden cane in left hand to support more painful right hip. She has spinal curvature changes that shift her trunk posture with gait. PT-OP-J Posture/Palpation/Skin Start: 08/04/20 10:16 Freq: Status: Active Protocol: Document 08/05/20 12:24 MB (Rec: 08/05/20 14:33 MB [id number]) Posture Evaluation Comments Posture Comments Standing posture with keen sandals donned: left tragus 2. 5 in front of left AC joint, forward head, Dowager's hump, increased thoracic kyphosis, increased lumbar lordosis, indention over lower lumbar spine where previous surgerical incision is located , B knee flexion in standing, scoliotic-type curve with right convexity thoracic spine and elevated and lateraly positioned right shoulder and hips translated to the left, left iliac crest higher than the right, right greater than left knee valgus, increased WB through left foot and left greater than right overpronation foot. PT-OP-K Range of Motion Start: 08/04/20 10:16 Freq: Status: Active Protocol: Document 08/05/20 12:24 MB (Rec: 08/05/20 14:33 MB [id number]) Knee Goniometric Range of Motion Knee ROM Limitations Comments Passive SLR: 45 deg right and 50 deg left and pt does have pain when PT performs passive SLR In supine, pt's B posterior knees carias not touch the mat with grossly 2.5 between the back of the knees and the mat PT-OP-M Strength Start: 08/04/20 10:16 Freq: Status: Active Protocol: Document 08/05/20 12:24 MB (Rec: 08/05/20 14:33 MB [id number]) Hip Strength Hip Manual Muscle Testing Left Flexion (L2) 4 Good Abduction 3+ Fair+ Comments Pt supine and reports high pain level (greater than 7/10) with MMT that is in her left LB Right Flexion (L2) 3+ Fair+ Abduction 3+ Fair+ Comments Pt supine and reports high pain level (greater than 7/10) with MMT that is in her left LB Knee Strength Knee Manual Muscle Testing Left Flexion (S2) 5 Normal Extension (L3) 5 Normal Right Flexion (S2) 5 Normal Extension (L3) 5 Normal Ankle/Foot Strength Ankle and Foot Manual Muscle Testing Left Dorsiflexion (L4) 5 Normal Right Dorsiflexion (L4) 5 Normal Toe Strength Toe Manual Muscle Testing Left Great Toe Extension 5 Normal Right Great Toe Extension 5 Normal PT-OP-Q Treatments Start: 08/04/20 10:16 Freq: Status: Active Protocol: Document 08/25/20 12:17 MB (Rec: 08/25/20 12:51 MB [id number]) Therapeutic Exercises Supine Exercises Anterior hip stretch Side bilateral Comments Pt reports spasm in her low back and so consider adding another day Racquet ball at glutes Side bilateral Comments Racquet ball under hip rotators, pt actively ER/IR hip, knee bent, feet on Lumbar rotation Side bilateral Comments Gentle in hook lying Modified Happy Baby Side bilateral Comments Pt holding inside of thighs, 30 sec hold Buttocks stretching Side bilateral Comments Pt rocking side to side and hold 30 hold in buttocks Hamstring stretch Side bilateral Comments Opposite leg bent and foot on mat, hands behind stretching leg, pain with r Diaphragm breathing Comments Pt demonstrates with legs up on wedge today Pelvic realignment exercises Side bilateral Comments 5 reps, 3 sec hold each exercise in order on handout Standing Exercises Glute STM with racquet ball Comments Re-ed today and pt likes better lying down PT-OP-T Assessment and Plan Start: 08/04/20 10:16 Freq: Status: Active Protocol: Document 08/25/20 12:17 MB (Rec: 08/25/20 12:51 MB [id number]) Physical Therapy Assessment Rehab Potential Rehabilitation Potential Fair Evaluation Complexity Number of Personal Factors/Comorbidities 1-2 Number of Body Systems Impaired 1-2 Clinical Presentation at Evaluation Evolving Impairments Impairments Balance,Functional Activities, Functional Mobility,Gait,Pain, Posture,ROM,Soft Tissue Mobility,Strength Other Impairments Personal factors include occ late to appointments in previous treatment courses and today. Body systems affected include musculoskeletal, neuromuscular and recently, vestibular. She may possibly have OP per pt report. Pt reports neuropathy B plantar feet with pain and numbness. Other Concerns Fall Risk Yes Goals 4 Long-Term Goal (LTG) Pt will present with improved B hip flexion and abduction strength to at least 4/5 to improve gait quality with weight acceptance by 10/05/20. LTG Duration 8 weeks 3 Sy[employer] Maker Goal (LTG) Pt will present with an improved Oswestry LBP score to no more than 30% to reflect improved function and pain by 10/05/20. LTG Duration 8 weeks 2 [facility]-Term Goal (LTG) Pt will perform WNLs on a standardized balance test to decrease fall risk by 10/05/20. LTG Duration 8 weeks 1 [employer] Goal (LTG) Pt will perform progressive HEP with I including pelvic realignment, postural, flexibility, relaxation, balance and strengthening exercises to improve balance, gait, and pain by 10/05/20. 08/07/20: Pt to start pelvic realignment, diaphragm breathing and thoracic rotation. She is performing racquet ball massage several areas of her spine and glutes LTG Duration 8 weeks Assessment Summary Assessment Reviewed pelvic realignment exercises today and progressed flexibility exercises. Pt has increased pain with gentle hamstring stretching and gentle hip flexor stretch today. Con't to progress flexibility and core exercises in future treatments. Physical Therapy Plan Frequency and Duration Frequency of Treatment 2x/Week Duration of Treatment 6 weeks Plan of Care Start Date 03/09/21 Plan of Care End Date 10/26/19 Therapeutic Interventions Therapeutic Interventions Balance Training,Canalithic Repositioning,Gait Training, Home Exercise Program,Joint Mobilizations,Manual Therapy, Neuromuscular Re-education, Patient/Caregiver Education, Self-Care/Home Management,Soft Tissue Mobilization,Taping, Therapeutic Activities, Therapeutic Exercises Modalities Cold Pack/Ice Massage,Electric Stimulation,Hot Packs, Ultrasound Other Referrals/Consults Referrals/Consults Recommended Possibly may benefit from pelvic floor PT to co-treat with primary PT to assist with back pain and urinary incontinence combination Next Visit Focus/Plan Next Note Type Treatment Note Next Visit Plan Progress anterior hip flexibility, core and relaxation exercises and consider Counterstrain or other manual work
--- NOTE | 2020-08-28 13:29 | PT.OTN ---
Current Diagnoses Spinal stenosis, lumbar region with neurogenic claudication (08/28/20) Trochanteric bursitis, right hip (08/28/20) Impingement syndrome of left shoulder (08/28/20) Other specified postprocedural states (08/28/20) Physical Therapy Treatment Note PT-OP-A Visit Information Start: 08/04/20 10:16 Freq: Status: Active Protocol: Document 08/28/20 12:17 MB (Rec: 08/28/20 13:22 MB [id number]) Out-Patient Physical Therapy Visit Information Visit Information Visit Type Treatment Note Visit Start Time 12:17 Visit Stop Time 13:13 Total Visit Minutes 56 Visit Number 7 PT-OP-B Current Condition Start: 08/04/20 10:16 Freq: Status: Active Protocol: Document 08/05/20 12:24 MB (Rec: 08/05/20 12:24 MB [id number]) Current Condition History of Current Condition Onset Date For years Current Complaints Back, B lateral hip and intrascapular pain History of Current Condition Pt had a fall 06/07/20 when she tripped over some santas in the living room. She was rushing to the bathroom d/t bladder urgency. She had incontinence. When she fell, she landed on her left side. She had right shoulder pain, LB and B lateral hip pain after the fall. She rates pain up to 7/10. She has a history of back pain and injections. She has also had back surgery. She is going to have another injection. She states that she has another vertebra crashing. Pt has had two durations of PT this year d/t BPPV and recurrence. Neck treated during the second PT course. PMH includes hypotension and pacemaker, fibromyalgia, B THR , B foot neuropathy. Pt would like to focus on her back. Pt denies further falls this year. Pt uses wooden cane for gait and carries it in her left hand d/t right sided leg pain. She has a couple of steps with rail at home. Pt reports sparkles in her vision sometimes and PT encourages her to talk with doctor about this. Prior Treatments and Tests PT for BPPV and neck this year Treatment Goals Patient/Caregiver Goals To get back to Silver Sneakers and more balanced PT-OP-C Subjective Start: 08/04/20 10:16 Freq: Status: Active Protocol: Document 08/28/20 12:17 MB (Rec: 08/28/20 13:22 MB [id number]) OP-PT Subjective Patient Comments Patient Comments Tuesday night, I got so light- headed when I was working in the kitchen, I had to sit down . I almost passed out. Pt had a BM later and felt better. Pt reports a headache for two days after this event. She saw flashing lights when walking to the car yesterday. Pt's headache was on the top of her head. PT-OP-D Balance Start: 08/04/20 10:16 Freq: Status: Active Protocol: Document 08/05/20 12:24 MB (Rec: 08/05/20 14:33 MB [id number]) OP-PT Balance Assessment Standing Balance Standing Balance Comments Pt is able to stand for posture assessment but she occ reaches for the wall, mostly d/t fatigue Rowell Fall Scale Copyright Permission PT-OP-G Mobility & Gait Start: 08/04/20 10:16 Freq: Status: Active Protocol: Document 08/05/20 12:24 MB (Rec: 08/05/20 14:33 MB [id number]) OP Gait Assessment Gait Gait Assistance Required: Independent Distance (Feet) 75 Able to Maintain Weight Bearing Status Yes During Gait Assistive Devices Assistive Device Straight Cane Orthotic/Prosthetic Devices or Brace: No Gait Deviations General Gait Pattern Antalgic,Decreased Stride Length,Decreased Feet Clearance,Flexed Trunk Factors Limiting Gait Function Factors Limiting Gait Function Decreased Strength,Pain,Poor Balance Comments Gait Comments Pt carries wooden cane in left hand to support more painful right hip. She has spinal curvature changes that shift her trunk posture with gait. PT-OP-J Posture/Palpation/Skin Start: 08/04/20 10:16 Freq: Status: Active Protocol: Document 08/05/20 12:24 MB (Rec: 08/05/20 14:33 MB [id number]) Posture Evaluation Comments Posture Comments Standing posture with keen sandals donned: left tragus 2. 5 in front of left AC joint, forward head, Dowager's hump, increased thoracic kyphosis, increased lumbar lordosis, indention over lower lumbar spine where previous surgerical incision is located , B knee flexion in standing, scoliotic-type curve with right convexity thoracic spine and elevated and lateraly positioned right shoulder and hips translated to the left, left iliac crest higher than the right, right greater than left knee valgus, increased WB through left foot and left greater than right overpronation foot. PT-OP-K Range of Motion Start: 08/04/20 10:16 Freq: Status: Active Protocol: Document 08/05/20 12:24 MB (Rec: 08/05/20 14:33 MB [id number]) Knee Goniometric Range of Motion Knee ROM Limitations Comments Passive SLR: 45 deg right and 50 deg left and pt does have pain when PT performs passive SLR In supine, pt's B posterior knees carias not touch the mat with grossly 2.5 between the back of the knees and the mat PT-OP-M Strength Start: 08/04/20 10:16 Freq: Status: Active Protocol: Document 08/05/20 12:24 MB (Rec: 08/05/20 14:33 MB [id number]) Hip Strength Hip Manual Muscle Testing Left Flexion (L2) 4 Good Abduction 3+ Fair+ Comments Pt supine and reports high pain level (greater than 7/10) with MMT that is in her left LB Right Flexion (L2) 3+ Fair+ Abduction 3+ Fair+ Comments Pt supine and reports high pain level (greater than 7/10) with MMT that is in her left LB Knee Strength Knee Manual Muscle Testing Left Flexion (S2) 5 Normal Extension (L3) 5 Normal Right Flexion (S2) 5 Normal Extension (L3) 5 Normal Ankle/Foot Strength Ankle and Foot Manual Muscle Testing Left Dorsiflexion (L4) 5 Normal Right Dorsiflexion (L4) 5 Normal Toe Strength Toe Manual Muscle Testing Left Great Toe Extension 5 Normal Right Great Toe Extension 5 Normal PT-OP-Q Treatments Start: 08/04/20 10:16 Freq: Status: Active Protocol: Document 08/28/20 12:17 MB (Rec: 08/28/20 13:22 MB [id number]) Therapeutic Exercises Supine Exercises Core progression Supine Exercise Name Abdominal drawing in, knee rocking, HS, mini march, knee fall out Side bilateral Comments 10 reps most exercises, slowly , cues for abd drawing in Diaphragm breathing Comments I with knee bent today Sitting Exercises Quad STM with rolling pin Comments Instructed today and provided handout Therapeutic Activity Therapeutic Activity Many activities today Comments Cues and light assist for log rolling to get up to standing to check orthostatics--4 bed mobility and transfers throughout treatment. See orthostatic findings under assessment comments today Manual Therapy Treatment Other Other Manual Treatments Pt hook lying with legs up on wedge: STM B distal obliques, more tension on the left, B anterior and posterior vastus lateralis and rectus femoris. PT-OP-T Assessment and Plan Start: 08/04/20 10:16 Freq: Status: Active Protocol: Document 08/28/20 12:17 MB (Rec: 08/28/20 13:22 MB [id number]) Physical Therapy Assessment Rehab Potential Rehabilitation Potential Fair Evaluation Complexity Number of Personal Factors/Comorbidities 1-2 Number of Body Systems Impaired 1-2 Clinical Presentation at Evaluation Evolving Impairments Impairments Balance,Functional Activities, Functional Mobility,Gait,Pain, Posture,ROM,Soft Tissue Mobility,Strength Other Impairments Personal factors include occ late to appointments in previous treatment courses and today. Body systems affected include musculoskeletal, neuromuscular and recently, vestibular. She may possibly have OP per pt report. Pt reports neuropathy B plantar feet with pain and numbness. Other Concerns Fall Risk Yes Goals 4 Senior Care Goal (LTG) Pt will present with improved B hip flexion and abduction strength to at least 4/5 to improve gait quality with weight acceptance by 10/05/20. LTG Duration 8 weeks 3 Senior Care Goal (LTG) Pt will present with an improved Oswestry LBP score to no more than 30% to reflect improved function and pain by 10/05/20. LTG Duration 8 weeks 2 Senior Care Goal (LTG) Pt will perform WNLs on a standardized balance test to decrease fall risk by 10/05/20. LTG Duration 8 weeks 1 Senior Care Goal (LTG) Pt will perform progressive HEP with I including pelvic realignment, postural, flexibility, relaxation, balance and strengthening exercises to improve balance, gait, and pain by 10/05/20. 08/28/20: Pt has been performing some of her HEP exercises LTG Duration 8 weeks Assessment Summary Assessment Given pt's reports today, checked BP. Orthostatic assessment with BP and HR in LUE: supine 126/72, 61; standing 117/67, 75; standing 1' 128/72, 67. O2 sats are 97% on RA. Her BP may be dropping at home and asked pt to make note of her symptoms when up. Pt responds well to manual work today and her quads are much better after treatment and her gait is improved. Con' t PT per POC. Physical Therapy Plan Frequency and Duration Frequency of Treatment 2x/Week Duration of Treatment 6 weeks Plan of Care Start Date 08/28/20 Plan of Care End Date 10/05/20 Therapeutic Interventions Therapeutic Interventions Balance Training,Canalithic Repositioning,Gait Training, Home Exercise Program,Joint Mobilizations,Manual Therapy, Neuromuscular Re-education, Patient/Caregiver Education, Self-Care/Home Management,Soft Tissue Mobilization,Taping, Therapeutic Activities, Therapeutic Exercises Modalities Cold Pack/Ice Massage,Electric Stimulation,Hot Packs, Ultrasound Other Referrals/Consults Referrals/Consults Recommended Possibly may benefit from pelvic floor PT to co-treat with primary PT to assist with back pain and urinary incontinence combination Next Visit Focus/Plan Next Note Type Treatment Note Next Visit Plan Progress relaxation exercises and consider Counterstrain or other manual work
--- NOTE | 2020-08-28 13:30 | PT.OPPOC ---
Physical, Occupational & Speech Therapy At [facility] Current Diagnoses Spinal stenosis, lumbar region with neurogenic claudication (08/28/20) Trochanteric bursitis, right hip (08/28/20) Impingement syndrome of left shoulder (08/28/20) Other specified postprocedural states (08/28/20) Visit Care Team Role Provider Type Damaris Frey MD Family Provider Physician Primary Care Provider Specialty: Internal Medicine Address: [address] [place] [address], [id number] Email: [email or web address] Zachary Malik MD Attending Provider Physician Referring Provider Specialty: Physical Medicine and Rehab Address: [address] [place] [address], [id number] Email: [email or web address] Plan Of Care PT-OP-T Assessment and Plan Start: 08/04/20 10:16 Freq: Status: Active Protocol: Document 08/28/20 12:17 MB (Rec: 08/28/20 13:22 MB [id number]) Physical Therapy Assessment Rehab Potential Rehabilitation Potential Fair Evaluation Complexity Number of Personal Factors/Comorbidities 1-2 Number of Body Systems Impaired 1-2 Clinical Presentation at Evaluation Evolving Impairments Impairments Balance,Functional Activities, Functional Mobility,Gait,Pain, Posture,ROM,Soft Tissue Mobility,Strength Other Impairments Personal factors include occ late to appointments in previous treatment courses and today. Body systems affected include musculoskeletal, neuromuscular and recently, vestibular. She may possibly have OP per pt report. Pt reports neuropathy B plantar feet with pain and numbness. Other Concerns Fall Risk Yes Goals 4 Group Home Goal (LTG) Pt will present with improved B hip flexion and abduction strength to at least 4/5 to improve gait quality with weight acceptance by 10/05/20. LTG Duration 8 weeks 3 Group Home Goal (LTG) Pt will present with an improved Oswestry LBP score to no more than 30% to reflect improved function and pain by 10/05/20. LTG Duration 8 weeks 2 Solar Energy Advisor Goal (LTG) Pt will perform WNLs on a standardized balance test to decrease fall risk by 10/05/20. LTG Duration 8 weeks 1 Group Home Goal (LTG) Pt will perform progressive HEP with I including pelvic realignment, postural, flexibility, relaxation, balance and strengthening exercises to improve balance, gait, and pain by 10/05/20. 08/28/20: Pt has been performing some of her HEP exercises LTG Duration 8 weeks Assessment Summary Assessment Given pt's reports today, checked BP. Orthostatic assessment with BP and HR in LUE: supine 126/72, 61; standing 117/67, 75; standing 1' 128/72, 67. O2 sats are 97% on RA. Her BP may be dropping at home and asked pt to make note of her symptoms when up. Pt responds well to manual work today and her quads are much better after treatment and her gait is improved. Con' t PT per POC. Physical Therapy Plan Frequency and Duration Frequency of Treatment 2x/Week Duration of Treatment 6 weeks Plan of Care Start Date 08/28/20 Plan of Care End Date 10/05/20 Therapeutic Interventions Therapeutic Interventions Balance Training,Canalithic Repositioning,Gait Training, Home Exercise Program,Joint Mobilizations,Manual Therapy, Neuromuscular Re-education, Patient/Caregiver Education, Self-Care/Home Management,Soft Tissue Mobilization,Taping, Therapeutic Activities, Therapeutic Exercises Modalities Cold Pack/Ice Massage,Electric Stimulation,Hot Packs, Ultrasound Other Referrals/Consults Referrals/Consults Recommended Possibly may benefit from pelvic floor PT to co-treat with primary PT to assist with back pain and urinary incontinence combination Next Visit Focus/Plan Next Note Type Treatment Note Next Visit Plan Progress relaxation exercises and consider Counterstrain or other manual work Plan of Care Dates Plan of Care Start Date 08/28/20 Plan of Care End Date 10/05/20 Electronically Signed by: Liza Sims, PT 08/28/20 [id number] Please Sign and Return: I have reviewed this Plan of Care and certify that the skilled therapy services above are required to meet the patient?s needs. Physician Signature Date Printed Name and Credentials Clinical Instructor Signature Printed Name and Credentials
--- NOTE | 2020-09-04 12:58 | PT.OTN ---
Current Diagnoses Spinal stenosis, lumbar region with neurogenic claudication (09/04/20) Trochanteric bursitis, right hip (09/04/20) Impingement syndrome of left shoulder (09/04/20) Other specified postprocedural states (09/04/20) Physical Therapy Treatment Note PT-OP-A Visit Information Start: 08/04/20 10:16 Freq: Status: Active Protocol: Document 09/04/20 12:16 MB (Rec: 09/04/20 12:29 MB [id number]) Out-Patient Physical Therapy Visit Information Visit Information Visit Type Treatment Note Visit Start Time 12:16 Visit Stop Time 12:56 Total Visit Minutes 40 Visit Number 8 PT-OP-B Current Condition Start: 08/04/20 10:16 Freq: Status: Active Protocol: Document 08/05/20 12:24 MB (Rec: 08/05/20 12:24 MB [id number]) Current Condition History of Current Condition Onset Date For years Current Complaints Back, B lateral hip and intrascapular pain History of Current Condition Pt had a fall 06/07/20 when she tripped over some santas in the living room. She was rushing to the bathroom d/t bladder urgency. She had incontinence. When she fell, she landed on her left side. She had right shoulder pain, LB and B lateral hip pain after the fall. She rates pain up to 7/10. She has a history of back pain and injections. She has also had back surgery. She is going to have another injection. She states that she has another vertebra crashing. Pt has had two durations of PT this year d/t BPPV and recurrence. Neck treated during the second PT course. PMH includes hypotension and pacemaker, fibromyalgia, B THR , B foot neuropathy. Pt would like to focus on her back. Pt denies further falls this year. Pt uses wooden cane for gait and carries it in her left hand d/t right sided leg pain. She has a couple of steps with rail at home. Pt reports sparkles in her vision sometimes and PT encourages her to talk with doctor about this. Prior Treatments and Tests PT for BPPV and neck this year Treatment Goals Patient/Caregiver Goals To get back to Silver Sneakers and more balanced PT-OP-C Subjective Start: 08/04/20 10:16 Freq: Status: Active Protocol: Document 09/04/20 12:16 MB (Rec: 09/04/20 12:29 MB [id number]) OP-PT Subjective Patient Comments Patient Comments I had a conflicting appointment on Tuesday. I saw Dr. Malik. He said don't come back unless I need another shot. Pt states that she got out in the yard and raked over the weekend and now she is paying the caicedo. PT-OP-D Balance Start: 08/04/20 10:16 Freq: Status: Active Protocol: Document 08/05/20 12:24 MB (Rec: 08/05/20 14:33 MB [id number]) OP-PT Balance Assessment Standing Balance Standing Balance Comments Pt is able to stand for posture assessment but she occ reaches for the wall, mostly d/t fatigue Rowell Fall Scale Copyright Permission PT-OP-G Mobility & Gait Start: 08/04/20 10:16 Freq: Status: Active Protocol: Document 08/05/20 12:24 MB (Rec: 08/05/20 14:33 MB [id number]) OP Gait Assessment Gait Gait Assistance Required: Independent Distance (Feet) 75 Able to Maintain Weight Bearing Status Yes During Gait Assistive Devices Assistive Device Straight Cane Orthotic/Prosthetic Devices or Brace: No Gait Deviations General Gait Pattern Antalgic,Decreased Stride Length,Decreased Feet Clearance,Flexed Trunk Factors Limiting Gait Function Factors Limiting Gait Function Decreased Strength,Pain,Poor Balance Comments Gait Comments Pt carries wooden cane in left hand to support more painful right hip. She has spinal curvature changes that shift her trunk posture with gait. PT-OP-J Posture/Palpation/Skin Start: 08/04/20 10:16 Freq: Status: Active Protocol: Document 08/05/20 12:24 MB (Rec: 08/05/20 14:33 MB [id number]) Posture Evaluation Comments Posture Comments Standing posture with keen sandals donned: left tragus 2. 5 in front of left AC joint, forward head, Dowager's hump, increased thoracic kyphosis, increased lumbar lordosis, indention over lower lumbar spine where previous surgerical incision is located , B knee flexion in standing, scoliotic-type curve with right convexity thoracic spine and elevated and lateraly positioned right shoulder and hips translated to the left, left iliac crest higher than the right, right greater than left knee valgus, increased WB through left foot and left greater than right overpronation foot. PT-OP-K Range of Motion Start: 08/04/20 10:16 Freq: Status: Active Protocol: Document 08/05/20 12:24 MB (Rec: 08/05/20 14:33 MB [id number]) Knee Goniometric Range of Motion Knee ROM Limitations Comments Passive SLR: 45 deg right and 50 deg left and pt does have pain when PT performs passive SLR In supine, pt's B posterior knees carias not touch the mat with grossly 2.5 between the back of the knees and the mat PT-OP-M Strength Start: 08/04/20 10:16 Freq: Status: Active Protocol: Document 08/05/20 12:24 MB (Rec: 08/05/20 14:33 MB [id number]) Hip Strength Hip Manual Muscle Testing Left Flexion (L2) 4 Good Abduction 3+ Fair+ Comments Pt supine and reports high pain level (greater than 7/10) with MMT that is in her left LB Right Flexion (L2) 3+ Fair+ Abduction 3+ Fair+ Comments Pt supine and reports high pain level (greater than 7/10) with MMT that is in her left LB Knee Strength Knee Manual Muscle Testing Left Flexion (S2) 5 Normal Extension (L3) 5 Normal Right Flexion (S2) 5 Normal Extension (L3) 5 Normal Ankle/Foot Strength Ankle and Foot Manual Muscle Testing Left Dorsiflexion (L4) 5 Normal Right Dorsiflexion (L4) 5 Normal Toe Strength Toe Manual Muscle Testing Left Great Toe Extension 5 Normal Right Great Toe Extension 5 Normal PT-OP-Q Treatments Start: 08/04/20 10:16 Freq: Status: Active Protocol: Document 09/04/20 12:16 MB (Rec: 09/04/20 12:29 MB [id number]) Manual Therapy Treatment Other Other Manual Treatments Pt kneeling on wedge and resting over plinth: STM thoracolumbar paraspinals, QL, B hip rotators and pt responds well initially PT-OP-T Assessment and Plan Start: 08/04/20 10:16 Freq: Status: Active Protocol: Document 09/04/20 12:16 MB (Rec: 09/04/20 12:29 MB [id number]) Physical Therapy Assessment Rehab Potential Rehabilitation Potential Fair Evaluation Complexity Number of Personal Factors/Comorbidities 1-2 Number of Body Systems Impaired 1-2 Clinical Presentation at Evaluation Evolving Impairments Impairments Balance,Functional Activities, Functional Mobility,Gait,Pain, Posture,ROM,Soft Tissue Mobility,Strength Other Impairments Personal factors include occ late to appointments in previous treatment courses and today. Body systems affected include musculoskeletal, neuromuscular and recently, vestibular. She may possibly have OP per pt report. Pt reports neuropathy B plantar feet with pain and numbness. Other Concerns Fall Risk Yes Goals 4 Intermediate Goal (LTG) Pt will present with improved B hip flexion and abduction strength to at least 4/5 to improve gait quality with weight acceptance by 10/05/20. LTG Duration 8 weeks 3 Stars Analytical Lead Goal (LTG) Pt will present with an improved Oswestry LBP score to no more than 30% to reflect improved function and pain by 10/05/20. LTG Duration 8 weeks 2 Intermediate Goal (LTG) Pt will perform WNLs on a standardized balance test to decrease fall risk by 10/05/20. LTG Duration 8 weeks 1 Stars Analytical Lead Goal (LTG) Pt will perform progressive HEP with I including pelvic realignment, postural, flexibility, relaxation, balance and strengthening exercises to improve balance, gait, and pain by 10/05/20. 08/28/20: Pt has been performing some of her HEP exercises LTG Duration 8 weeks Assessment Summary Assessment Pt is agreeable to seeing pelvic floor PT in this clinic for a couple to a few visits to assess any pelvic floor contributors to her back pain. Manual work today in kneeling and this allows the discs to open up and PT to work on hip rotators. She presents well immediately after treatment. Will con't to monitor. Physical Therapy Plan Frequency and Duration Frequency of Treatment 2x/Week Duration of Treatment 6 weeks Plan of Care Start Date 08/28/20 Plan of Care End Date 10/05/20 Therapeutic Interventions Therapeutic Interventions Balance Training,Canalithic Repositioning,Gait Training, Home Exercise Program,Joint Mobilizations,Manual Therapy, Neuromuscular Re-education, Patient/Caregiver Education, Self-Care/Home Management,Soft Tissue Mobilization,Taping, Therapeutic Activities, Therapeutic Exercises Modalities Cold Pack/Ice Massage,Electric Stimulation,Hot Packs, Ultrasound Other Referrals/Consults Referrals/Consults Recommended Possibly may benefit from pelvic floor PT to co-treat with primary PT to assist with back pain and urinary incontinence combination Next Visit Focus/Plan Next Note Type Treatment Note Next Visit Plan Same: Progress relaxation exercises and consider Counterstrain or other manual work
--- NOTE | 2020-09-10 13:45 | PT.OTN ---
Current Diagnoses Spinal stenosis, lumbar region with neurogenic claudication (09/10/20) Trochanteric bursitis, right hip (09/10/20) Impingement syndrome of left shoulder (09/10/20) Other specified postprocedural states (09/10/20) Physical Therapy Treatment Note PT-OP-A Visit Information Start: 08/04/20 10:16 Freq: Status: Active Protocol: Document 09/10/20 13:03 MB (Rec: 09/10/20 13:45 MB [id number]) Out-Patient Physical Therapy Visit Information Visit Information Visit Type Treatment Note Visit Start Time 13:03 Visit Stop Time 13:42 Total Visit Minutes 39 Visit Number 9 PT-OP-B Current Condition Start: 08/04/20 10:16 Freq: Status: Active Protocol: Document 08/05/20 12:24 MB (Rec: 08/05/20 12:24 MB [id number]) Current Condition History of Current Condition Onset Date For years Current Complaints Back, B lateral hip and intrascapular pain History of Current Condition Pt had a fall 06/07/20 when she tripped over some santas in the living room. She was rushing to the bathroom d/t bladder urgency. She had incontinence. When she fell, she landed on her left side. She had right shoulder pain, LB and B lateral hip pain after the fall. She rates pain up to 7/10. She has a history of back pain and injections. She has also had back surgery. She is going to have another injection. She states that she has another vertebra crashing. Pt has had two durations of PT this year d/t BPPV and recurrence. Neck treated during the second PT course. PMH includes hypotension and pacemaker, fibromyalgia, B THR , B foot neuropathy. Pt would like to focus on her back. Pt denies further falls this year. Pt uses wooden cane for gait and carries it in her left hand d/t right sided leg pain. She has a couple of steps with rail at home. Pt reports sparkles in her vision sometimes and PT encourages her to talk with doctor about this. Prior Treatments and Tests PT for BPPV and neck this year Treatment Goals Patient/Caregiver Goals To get back to Silver Sneakers and more balanced PT-OP-C Subjective Start: 08/04/20 10:16 Freq: Status: Active Protocol: Document 09/10/20 13:03 MB (Rec: 09/10/20 13:45 MB [id number]) OP-PT Subjective Patient Comments Patient Comments Pt states that the manual work was very helpful. PT-OP-D Balance Start: 08/04/20 10:16 Freq: Status: Active Protocol: Document 08/05/20 12:24 MB (Rec: 08/05/20 14:33 MB [id number]) OP-PT Balance Assessment Standing Balance Standing Balance Comments Pt is able to stand for posture assessment but she occ reaches for the wall, mostly d/t fatigue Rowell Fall Scale Copyright Permission PT-OP-G Mobility & Gait Start: 08/04/20 10:16 Freq: Status: Active Protocol: Document 08/05/20 12:24 MB (Rec: 08/05/20 14:33 MB [id number]) OP Gait Assessment Gait Gait Assistance Required: Independent Distance (Feet) 75 Able to Maintain Weight Bearing Status Yes During Gait Assistive Devices Assistive Device Straight Cane Orthotic/Prosthetic Devices or Brace: No Gait Deviations General Gait Pattern Antalgic,Decreased Stride Length,Decreased Feet Clearance,Flexed Trunk Factors Limiting Gait Function Factors Limiting Gait Function Decreased Strength,Pain,Poor Balance Comments Gait Comments Pt carries wooden cane in left hand to support more painful right hip. She has spinal curvature changes that shift her trunk posture with gait. PT-OP-J Posture/Palpation/Skin Start: 08/04/20 10:16 Freq: Status: Active Protocol: Document 08/05/20 12:24 MB (Rec: 08/05/20 14:33 MB [id number]) Posture Evaluation Comments Posture Comments Standing posture with keen sandals donned: left tragus 2. 5 in front of left AC joint, forward head, Dowager's hump, increased thoracic kyphosis, increased lumbar lordosis, indention over lower lumbar spine where previous surgerical incision is located , B knee flexion in standing, scoliotic-type curve with right convexity thoracic spine and elevated and lateraly positioned right shoulder and hips translated to the left, left iliac crest higher than the right, right greater than left knee valgus, increased WB through left foot and left greater than right overpronation foot. PT-OP-K Range of Motion Start: 08/04/20 10:16 Freq: Status: Active Protocol: Document 08/05/20 12:24 MB (Rec: 08/05/20 14:33 MB [id number]) Knee Goniometric Range of Motion Knee ROM Limitations Comments Passive SLR: 45 deg right and 50 deg left and pt does have pain when PT performs passive SLR In supine, pt's B posterior knees carias not touch the mat with grossly 2.5 between the back of the knees and the mat PT-OP-M Strength Start: 08/04/20 10:16 Freq: Status: Active Protocol: Document 08/05/20 12:24 MB (Rec: 08/05/20 14:33 MB [id number]) Hip Strength Hip Manual Muscle Testing Left Flexion (L2) 4 Good Abduction 3+ Fair+ Comments Pt supine and reports high pain level (greater than 7/10) with MMT that is in her left LB Right Flexion (L2) 3+ Fair+ Abduction 3+ Fair+ Comments Pt supine and reports high pain level (greater than 7/10) with MMT that is in her left LB Knee Strength Knee Manual Muscle Testing Left Flexion (S2) 5 Normal Extension (L3) 5 Normal Right Flexion (S2) 5 Normal Extension (L3) 5 Normal Ankle/Foot Strength Ankle and Foot Manual Muscle Testing Left Dorsiflexion (L4) 5 Normal Right Dorsiflexion (L4) 5 Normal Toe Strength Toe Manual Muscle Testing Left Great Toe Extension 5 Normal Right Great Toe Extension 5 Normal PT-OP-Q Treatments Start: 08/04/20 10:16 Freq: Status: Active Protocol: Document 09/10/20 13:03 MB (Rec: 09/10/20 13:45 MB [id number]) Manual Therapy Treatment Other Other Manual Treatments Pt kneeling on wedge and resting over plinth: STM thoracolumbar paraspinals, QL, B hip rotators and pt responds well again today PT-OP-T Assessment and Plan Start: 08/04/20 10:16 Freq: Status: Active Protocol: Document 09/10/20 13:03 MB (Rec: 09/10/20 13:45 MB [id number]) Physical Therapy Assessment Rehab Potential Rehabilitation Potential Fair Evaluation Complexity Number of Personal Factors/Comorbidities 1-2 Number of Body Systems Impaired 1-2 Clinical Presentation at Evaluation Evolving Impairments Impairments Balance,Functional Activities, Functional Mobility,Gait,Pain, Posture,ROM,Soft Tissue Mobility,Strength Other Impairments Personal factors include occ late to appointments in previous treatment courses and today. Body systems affected include musculoskeletal, neuromuscular and recently, vestibular. She may possibly have OP per pt report. Pt reports neuropathy B plantar feet with pain and numbness. Other Concerns Fall Risk Yes Goals 4 Halfway Goal (LTG) Pt will present with improved B hip flexion and abduction strength to at least 4/5 to improve gait quality with weight acceptance by 10/05/20. LTG Duration 8 weeks 3 Law Instructor Goal (LTG) Pt will present with an improved Oswestry LBP score to no more than 30% to reflect improved function and pain by 10/05/20. LTG Duration 8 weeks 2 Law Instructor Goal (LTG) Pt will perform WNLs on a standardized balance test to decrease fall risk by 10/05/20. LTG Duration 8 weeks 1 Halfway Goal (LTG) Pt will perform progressive HEP with I including pelvic realignment, postural, flexibility, relaxation, balance and strengthening exercises to improve balance, gait, and pain by 10/05/20. 08/28/20: Pt has been performing some of her HEP exercises LTG Duration 8 weeks Assessment Summary Assessment Manual work again today as pt reports a lot of relief from it and that she was able to garden and ride on the boat. Encouraged pt to seek out massage therapist and she will look into it. Progress note next treatment date. Physical Therapy Plan Frequency and Duration Frequency of Treatment 2x/Week Duration of Treatment 6 weeks Plan of Care Start Date 08/28/20 Plan of Care End Date 10/05/20 Therapeutic Interventions Therapeutic Interventions Balance Training,Canalithic Repositioning,Gait Training, Home Exercise Program,Joint Mobilizations,Manual Therapy, Neuromuscular Re-education, Patient/Caregiver Education, Self-Care/Home Management,Soft Tissue Mobilization,Taping, Therapeutic Activities, Therapeutic Exercises Modalities Cold Pack/Ice Massage,Electric Stimulation,Hot Packs, Ultrasound Other Referrals/Consults Referrals/Consults Recommended Possibly may benefit from pelvic floor PT to co-treat with primary PT to assist with back pain and urinary incontinence combination Next Visit Focus/Plan Next Note Type Progress Note Next Visit Plan Progress relaxation exercises and other manual work
--- NOTE | 2020-09-12 13:27 | PT-OP ANOTE ---
Pt does not show up for appointment. PT calls her and she forgot the appointment. She apologizes and confirms next appointment.
--- NOTE | 2020-09-18 15:42 | PT.OTN ---
Current Diagnoses Spinal stenosis, lumbar region with neurogenic claudication (09/18/20) Trochanteric bursitis, right hip (09/18/20) Impingement syndrome of left shoulder (09/18/20) Other specified postprocedural states (09/18/20) Physical Therapy Treatment Note PT-OP-A Visit Information Start: 08/04/20 10:16 Freq: Status: Active Protocol: Document 09/18/20 12:23 MB (Rec: 09/18/20 13:02 MB [id number]) Out-Patient Physical Therapy Visit Information Visit Information Visit Type Progress Note Visit Start Time 12:23 Visit Stop Time 13:01 Total Visit Minutes 38 Visit Number 10 PT-OP-B Current Condition Start: 08/04/20 10:16 Freq: Status: Active Protocol: Document 08/05/20 12:24 MB (Rec: 08/05/20 12:24 MB [id number]) Current Condition History of Current Condition Onset Date For years Current Complaints Back, B lateral hip and intrascapular pain History of Current Condition Pt had a fall 06/07/20 when she tripped over some santas in the living room. She was rushing to the bathroom d/t bladder urgency. She had incontinence. When she fell, she landed on her left side. She had right shoulder pain, LB and B lateral hip pain after the fall. She rates pain up to 7/10. She has a history of back pain and injections. She has also had back surgery. She is going to have another injection. She states that she has another vertebra crashing. Pt has had two durations of PT this year d/t BPPV and recurrence. Neck treated during the second PT course. PMH includes hypotension and pacemaker, fibromyalgia, B THR , B foot neuropathy. Pt would like to focus on her back. Pt denies further falls this year. Pt uses wooden cane for gait and carries it in her left hand d/t right sided leg pain. She has a couple of steps with rail at home. Pt reports sparkles in her vision sometimes and PT encourages her to talk with doctor about this. Prior Treatments and Tests PT for BPPV and neck this year Treatment Goals Patient/Caregiver Goals To get back to Silver Sneakers and more balanced PT-OP-C Subjective Start: 08/04/20 10:16 Freq: Status: Active Protocol: Document 09/18/20 12:23 MB (Rec: 09/18/20 13:02 MB [id number]) OP-PT Subjective Patient Comments Patient Comments Pt states that she is feeling pretty good about things. She is going to see the pelvic floor PT here and follow-up with massage therapist. Patient Questionnaires Oswestry Low Back Index Oswestry Score 31 Oswestry Impairment 60 to 79% Impaired (Score 60- 79) PT-OP-D Balance Start: 08/04/20 10:16 Freq: Status: Active Protocol: Document 08/05/20 12:24 MB (Rec: 08/05/20 14:33 MB [id number]) OP-PT Balance Assessment Standing Balance Standing Balance Comments Pt is able to stand for posture assessment but she occ reaches for the wall, mostly d/t fatigue Rowell Fall Scale Copyright Permission PT-OP-G Mobility & Gait Start: 08/04/20 10:16 Freq: Status: Active Protocol: Document 08/05/20 12:24 MB (Rec: 08/05/20 14:33 MB [id number]) OP Gait Assessment Gait Gait Assistance Required: Independent Distance (Feet) 75 Able to Maintain Weight Bearing Status Yes During Gait Assistive Devices Assistive Device Straight Cane Orthotic/Prosthetic Devices or Brace: No Gait Deviations General Gait Pattern Antalgic,Decreased Stride Length,Decreased Feet Clearance,Flexed Trunk Factors Limiting Gait Function Factors Limiting Gait Function Decreased Strength,Pain,Poor Balance Comments Gait Comments Pt carries wooden cane in left hand to support more painful right hip. She has spinal curvature changes that shift her trunk posture with gait. PT-OP-J Posture/Palpation/Skin Start: 08/04/20 10:16 Freq: Status: Active Protocol: Document 08/05/20 12:24 MB (Rec: 08/05/20 14:33 MB [id number]) Posture Evaluation Comments Posture Comments Standing posture with keen sandals donned: left tragus 2. 5 in front of left AC joint, forward head, Dowager's hump, increased thoracic kyphosis, increased lumbar lordosis, indention over lower lumbar spine where previous surgerical incision is located , B knee flexion in standing, scoliotic-type curve with right convexity thoracic spine and elevated and lateraly positioned right shoulder and hips translated to the left, left iliac crest higher than the right, right greater than left knee valgus, increased WB through left foot and left greater than right overpronation foot. PT-OP-K Range of Motion Start: 08/04/20 10:16 Freq: Status: Active Protocol: Document 08/05/20 12:24 MB (Rec: 08/05/20 14:33 MB [id number]) Knee Goniometric Range of Motion Knee ROM Limitations Comments Passive SLR: 45 deg right and 50 deg left and pt does have pain when PT performs passive SLR In supine, pt's B posterior knees carias not touch the mat with grossly 2.5 between the back of the knees and the mat PT-OP-M Strength Start: 08/04/20 10:16 Freq: Status: Active Protocol: Document 08/05/20 12:24 MB (Rec: 08/05/20 14:33 MB [id number]) Hip Strength Hip Manual Muscle Testing Left Flexion (L2) 4 Good Abduction 3+ Fair+ Comments Pt supine and reports high pain level (greater than 7/10) with MMT that is in her left LB Right Flexion (L2) 3+ Fair+ Abduction 3+ Fair+ Comments Pt supine and reports high pain level (greater than 7/10) with MMT that is in her left LB Knee Strength Knee Manual Muscle Testing Left Flexion (S2) 5 Normal Extension (L3) 5 Normal Right Flexion (S2) 5 Normal Extension (L3) 5 Normal Ankle/Foot Strength Ankle and Foot Manual Muscle Testing Left Dorsiflexion (L4) 5 Normal Right Dorsiflexion (L4) 5 Normal Toe Strength Toe Manual Muscle Testing Left Great Toe Extension 5 Normal Right Great Toe Extension 5 Normal PT-OP-Q Treatments Start: 08/04/20 10:16 Freq: Status: Active Protocol: Document 09/18/20 12:23 MB (Rec: 09/18/20 15:42 MB [id number]) Therapeutic Exercises Supine Exercises Core progression Comments Verbally reviewed today Racquet ball at glutes Comments Verbally reviewed today Lumbar rotation Comments Verbally reviewed today Modified Happy Baby Comments Verbally reviewed today Diaphragm breathing Comments Verbally reviewed today Pelvic realignment exercises Comments Pt reports trouble with this and she will perform next treatment date Standing Exercises Intrascapular massage with racquet ball Comments Verbally reviewed today Neuro Re-Education Treatment Balance Activities FGA Comments FGA with breaks as needed and gait between tasks. Pt's overall gait is very slow and antalgic with leading by and propulsion of right arm to advance right leg with gait. Her FGA score is 7/30 and reflects increased risk for falling. She has to stop to turn head with gait and ascend and descend steps side ways to assist with pain. Pain is a limiting factor for balance and gait. She requires superv asst to min A to prevent fall with head turn with gait with FGA Self-Care/Home Management Treatment Education Other Education Where PT will go from here: pt to bring in HEP folder and will practice and revise/ modify HEP as needed, manual work following treatment as time allows and then three appointments with pelvic floor PT, benefits of massage therapy in the future, when she might use cane to help back pain and to try to change hands with cane, increase non -caffeinated fluid intake PT-OP-T Assessment and Plan Start: 08/04/20 10:16 Freq: Status: Active Protocol: Document 09/18/20 12:23 MB (Rec: 09/18/20 13:02 MB [id number]) Physical Therapy Assessment Rehab Potential Rehabilitation Potential Fair Evaluation Complexity Number of Personal Factors/Comorbidities 1-2 Number of Body Systems Impaired 1-2 Clinical Presentation at Evaluation Evolving Impairments Impairments Balance,Functional Activities, Functional Mobility,Gait,Pain, Posture,ROM,Soft Tissue Mobility,Strength Other Impairments Personal factors include occ late to appointments in previous treatment courses and today. Body systems affected include musculoskeletal, neuromuscular and recently, vestibular. She may possibly have OP per pt report. Pt reports neuropathy B plantar feet with pain and numbness. Other Concerns Fall Risk Yes Goals 4 Snf Goal (LTG) Pt will present with improved B hip flexion and abduction strength to at least 4/5 to improve gait quality with weight acceptance by 10/05/20. 09/18/20: Pt supine: hip flexion left 5/5, hip abduction left 4/5; hip flexion right 5/5 and hip abduction right 4/5 LTG Duration Met 3 Fire Equipment Repairer Inspector Goal (LTG) Pt will present with an improved Oswestry LBP score to no more than 40% to reflect improved function and pain by 10/14/20. 09/18/20: Oswestry score reflects 62% impairment d/t back pain LTG Duration 4 weeks 2 Snf Goal (LTG) Pt will perform WNLs on a standardized balance test to decrease fall risk by 10/14/20. 09/18/20: Pt denies falls since 06/07/20. Balance testing today : FGA score is 7/30, indicating increased risk for falls LTG Duration 4 weeks 1 Snf Goal (LTG) Pt will perform progressive HEP with I including pelvic realignment, postural, flexibility, relaxation, balance and strengthening exercises to improve balance, gait, and pain by 10/14/20. 09/18/20: Pt is performing breathing exercise and racquet ball massage, happy baby stretch, lumbar rotation, core exercises LTG Duration 4 weeks Assessment Summary Assessment Pt is a 75 y/o female presenting with history of back pain that was worse after fall in May 2020. She also had BPPV that was treated and resolved with PT. She has multi-joint and spinal degenerative changes, history of bladder cancer and presents with large surgical scars, including one over her rib area. Pt has been performing some PT exercises that have been helpful and her LE strength is improved. She con' t with slow gait and balance impairment and is ambulating without cane after her significant other made a comment about her using a cane . Her back pain is worse without the cane. She con't with high functional impairment d/t back pain. Will con't PT 5 more treatments to review HEP and make modifications and initiate pelvic floor PT. Pt to look into massage therapy at d/c. Barriers include chronicity of pain in setting of degenerative changes and sedendary lifestyle. Physical Therapy Plan Frequency and Duration Frequency of Treatment 2x/Week Duration of Treatment 4 weeks Plan of Care Start Date 09/18/20 Plan of Care End Date 10/14/20 Therapeutic Interventions Therapeutic Interventions Balance Training,Canalithic Repositioning,Gait Training, Home Exercise Program,Joint Mobilizations,Manual Therapy, Neuromuscular Re-education, Patient/Caregiver Education, Self-Care/Home Management,Soft Tissue Mobilization,Taping, Therapeutic Activities, Therapeutic Exercises Modalities Cold Pack/Ice Massage,Electric Stimulation,Hot Packs, Ultrasound Next Visit Focus/Plan Next Note Type Treatment Note Next Visit Plan Review and modify HEP as needed
--- NOTE | 2020-09-18 15:43 | PT.OPPOC ---
Physical, Occupational & Speech Therapy At [facility] Current Diagnoses Spinal stenosis, lumbar region with neurogenic claudication (09/18/20) Trochanteric bursitis, right hip (09/18/20) Impingement syndrome of left shoulder (09/18/20) Other specified postprocedural states (09/18/20) Visit Care Team Role Provider Type Damaris Frey MD Family Provider Physician Primary Care Provider Specialty: Internal Medicine Address: [address] [place] [address], [id number] Email: [email or web address] Zachary Malik MD Attending Provider Physician Referring Provider Specialty: Physical Medicine and Rehab Address: [address] [place] [address], [address] Email: [email or web address] Plan Of Care PT-OP-T Assessment and Plan Start: 08/04/20 10:16 Freq: Status: Active Protocol: Document 09/18/20 12:23 MB (Rec: 09/18/20 13:02 MB [id number]) Physical Therapy Assessment Rehab Potential Rehabilitation Potential Fair Evaluation Complexity Number of Personal Factors/Comorbidities 1-2 Number of Body Systems Impaired 1-2 Clinical Presentation at Evaluation Evolving Impairments Impairments Balance,Functional Activities, Functional Mobility,Gait,Pain, Posture,ROM,Soft Tissue Mobility,Strength Other Impairments Personal factors include occ late to appointments in previous treatment courses and today. Body systems affected include musculoskeletal, neuromuscular and recently, vestibular. She may possibly have OP per pt report. Pt reports neuropathy B plantar feet with pain and numbness. Other Concerns Fall Risk Yes Goals 4 Tipping Machine Operator Goal (LTG) Pt will present with improved B hip flexion and abduction strength to at least 4/5 to improve gait quality with weight acceptance by 10/05/20. 09/18/20: Pt supine: hip flexion left 5/5, hip abduction left 4/5; hip flexion right 5/5 and hip abduction right 4/5 LTG Duration Met 3 Tipping Machine Operator Goal (LTG) Pt will present with an improved Oswestry LBP score to no more than 40% to reflect improved function and pain by 10/14/20. 09/18/20: Oswestry score reflects 62% impairment d/t back pain LTG Duration 4 weeks 2 Tipping Machine Operator Goal (LTG) Pt will perform WNLs on a standardized balance test to decrease fall risk by 10/14/20. 09/18/20: Pt denies falls since 06/07/20. Balance testing today : FGA score is 7/30, indicating increased risk for falls LTG Duration 4 weeks 1 Fdc Goal (LTG) Pt will perform progressive HEP with I including pelvic realignment, postural, flexibility, relaxation, balance and strengthening exercises to improve balance, gait, and pain by 10/14/20. 09/18/20: Pt is performing breathing exercise and racquet ball massage, happy baby stretch, lumbar rotation, core exercises LTG Duration 4 weeks Assessment Summary Assessment Pt is a 75 y/o female presenting with history of back pain that was worse after fall in May 2020. She also had BPPV that was treated and resolved with PT. She has multi-joint and spinal degenerative changes, history of bladder cancer and presents with large surgical scars, including one over her rib area. Pt has been performing some PT exercises that have been helpful and her LE strength is improved. She con' t with slow gait and balance impairment and is ambulating without cane after her significant other made a comment about her using a cane . Her back pain is worse without the cane. She con't with high functional impairment d/t back pain. Will con't PT 5 more treatments to review HEP and make modifications and initiate pelvic floor PT. Pt to look into massage therapy at d/c. Barriers include chronicity of pain in setting of degenerative changes and sedendary lifestyle. Physical Therapy Plan Frequency and Duration Frequency of Treatment 2x/Week Duration of Treatment 4 weeks Plan of Care Start Date 09/18/20 Plan of Care End Date 10/14/20 Therapeutic Interventions Therapeutic Interventions Balance Training,Canalithic Repositioning,Gait Training, Home Exercise Program,Joint Mobilizations,Manual Therapy, Neuromuscular Re-education, Patient/Caregiver Education, Self-Care/Home Management,Soft Tissue Mobilization,Taping, Therapeutic Activities, Therapeutic Exercises Modalities Cold Pack/Ice Massage,Electric Stimulation,Hot Packs, Ultrasound Next Visit Focus/Plan Next Note Type Treatment Note Next Visit Plan Review and modify HEP as needed Plan of Care Dates Plan of Care Start Date 09/18/20 Plan of Care End Date 10/14/20 Electronically Signed by: Liza Sims, PT 09/18/20 [id number] Please Sign and Return: I have reviewed this Plan of Care and certify that the skilled therapy services above are required to meet the patient?s needs. Physician Signature Date Printed Name and Credentials Clinical Instructor Signature Printed Name and Credentials
--- NOTE | 2020-09-26 13:27 | PT.OTN ---
Current Diagnoses Spinal stenosis, lumbar region with neurogenic claudication (09/26/20) Trochanteric bursitis, right hip (09/26/20) Impingement syndrome of left shoulder (09/26/20) Other specified postprocedural states (09/26/20) Physical Therapy Treatment Note PT-OP-A Visit Information Start: 08/04/20 10:16 Freq: Status: Active Protocol: Document 09/26/20 13:02 MB (Rec: 09/26/20 13:26 MB [id number]) Out-Patient Physical Therapy Visit Information Visit Information Visit Type Treatment Note Visit Start Time 13:02 Visit Stop Time 13:25 Total Visit Minutes 23 Visit Number 11 PT-OP-B Current Condition Start: 08/04/20 10:16 Freq: Status: Active Protocol: Document 08/05/20 12:24 MB (Rec: 08/05/20 12:24 MB [id number]) Current Condition History of Current Condition Onset Date For years Current Complaints Back, B lateral hip and intrascapular pain History of Current Condition Pt had a fall 06/07/20 when she tripped over some santas in the living room. She was rushing to the bathroom d/t bladder urgency. She had incontinence. When she fell, she landed on her left side. She had right shoulder pain, LB and B lateral hip pain after the fall. She rates pain up to 7/10. She has a history of back pain and injections. She has also had back surgery. She is going to have another injection. She states that she has another vertebra crashing. Pt has had two durations of PT this year d/t BPPV and recurrence. Neck treated during the second PT course. PMH includes hypotension and pacemaker, fibromyalgia, B THR , B foot neuropathy. Pt would like to focus on her back. Pt denies further falls this year. Pt uses wooden cane for gait and carries it in her left hand d/t right sided leg pain. She has a couple of steps with rail at home. Pt reports sparkles in her vision sometimes and PT encourages her to talk with doctor about this. Prior Treatments and Tests PT for BPPV and neck this year Treatment Goals Patient/Caregiver Goals To get back to Silver Sneakers and more balanced PT-OP-C Subjective Start: 08/04/20 10:16 Freq: Status: Active Protocol: Document 09/26/20 13:02 MB (Rec: 09/26/20 13:26 MB [id number]) OP-PT Subjective Patient Comments Patient Comments Pt states that she had such a pain in her LB and she points over old lumbar incision area, that she went to see Dr. Malik and he gave her two shots on the side of her spine. Previously, she was told that the area above where her old surgery was is dissentigrating . She follows up with Dr. Malik on 10/08/20. PT-OP-D Balance Start: 08/04/20 10:16 Freq: Status: Active Protocol: Document 08/05/20 12:24 MB (Rec: 08/05/20 14:33 MB [id number]) OP-PT Balance Assessment Standing Balance Standing Balance Comments Pt is able to stand for posture assessment but she occ reaches for the wall, mostly d/t fatigue Rowell Fall Scale Copyright Permission PT-OP-G Mobility & Gait Start: 08/04/20 10:16 Freq: Status: Active Protocol: Document 08/05/20 12:24 MB (Rec: 08/05/20 14:33 MB [id number]) OP Gait Assessment Gait Gait Assistance Required: Independent Distance (Feet) 75 Able to Maintain Weight Bearing Status Yes During Gait Assistive Devices Assistive Device Straight Cane Orthotic/Prosthetic Devices or Brace: No Gait Deviations General Gait Pattern Antalgic,Decreased Stride Length,Decreased Feet Clearance,Flexed Trunk Factors Limiting Gait Function Factors Limiting Gait Function Decreased Strength,Pain,Poor Balance Comments Gait Comments Pt carries wooden cane in left hand to support more painful right hip. She has spinal curvature changes that shift her trunk posture with gait. PT-OP-J Posture/Palpation/Skin Start: 08/04/20 10:16 Freq: Status: Active Protocol: Document 08/05/20 12:24 MB (Rec: 08/05/20 14:33 MB [id number]) Posture Evaluation Comments Posture Comments Standing posture with keen sandals donned: left tragus 2. 5 in front of left AC joint, forward head, Dowager's hump, increased thoracic kyphosis, increased lumbar lordosis, indention over lower lumbar spine where previous surgerical incision is located , B knee flexion in standing, scoliotic-type curve with right convexity thoracic spine and elevated and lateraly positioned right shoulder and hips translated to the left, left iliac crest higher than the right, right greater than left knee valgus, increased WB through left foot and left greater than right overpronation foot. PT-OP-K Range of Motion Start: 08/04/20 10:16 Freq: Status: Active Protocol: Document 08/05/20 12:24 MB (Rec: 08/05/20 14:33 MB [id number]) Knee Goniometric Range of Motion Knee ROM Limitations Comments Passive SLR: 45 deg right and 50 deg left and pt does have pain when PT performs passive SLR In supine, pt's B posterior knees carias not touch the mat with grossly 2.5 between the back of the knees and the mat PT-OP-M Strength Start: 08/04/20 10:16 Freq: Status: Active Protocol: Document 08/05/20 12:24 MB (Rec: 08/05/20 14:33 MB [id number]) Hip Strength Hip Manual Muscle Testing Left Flexion (L2) 4 Good Abduction 3+ Fair+ Comments Pt supine and reports high pain level (greater than 7/10) with MMT that is in her left LB Right Flexion (L2) 3+ Fair+ Abduction 3+ Fair+ Comments Pt supine and reports high pain level (greater than 7/10) with MMT that is in her left LB Knee Strength Knee Manual Muscle Testing Left Flexion (S2) 5 Normal Extension (L3) 5 Normal Right Flexion (S2) 5 Normal Extension (L3) 5 Normal Ankle/Foot Strength Ankle and Foot Manual Muscle Testing Left Dorsiflexion (L4) 5 Normal Right Dorsiflexion (L4) 5 Normal Toe Strength Toe Manual Muscle Testing Left Great Toe Extension 5 Normal Right Great Toe Extension 5 Normal PT-OP-Q Treatments Start: 08/04/20 10:16 Freq: Status: Active Protocol: Document 09/26/20 13:02 MB (Rec: 09/26/20 13:26 MB [id number]) Therapeutic Exercises Supine Exercises Core progression Comments Pt does not want to risk hurting her back today, politely declines Anterior hip stretch Comments Pt does not want to risk hurting her back today, politely declines Racquet ball at glutes Comments Pt does not want to risk hurting her back today, politely declines Lumbar rotation Comments Performed today, pt guards and is worried about hurting herself Modified Happy Baby Comments Pt does not want to risk hurting her back today, politely declines Buttocks stretching Comments Pt does not want to risk hurting her back today, politely declines Hamstring stretch Comments Pt does not want to risk hurting her back today, politely declines Diaphragm breathing Comments Ed to perform softly and quietly, 10 reps, slowly Pelvic realignment exercises Side bilateral Comments 5 rep, 3 sec hold all exercises, pt guards PT-OP-T Assessment and Plan Start: 08/04/20 10:16 Freq: Status: Active Protocol: Document 09/26/20 13:02 MB (Rec: 09/26/20 13:26 MB [id number]) Physical Therapy Assessment Rehab Potential Rehabilitation Potential Fair Evaluation Complexity Number of Personal Factors/Comorbidities 1-2 Number of Body Systems Impaired 1-2 Clinical Presentation at Evaluation Evolving Impairments Impairments Balance,Functional Activities, Functional Mobility,Gait,Pain, Posture,ROM,Soft Tissue Mobility,Strength Other Impairments Personal factors include occ late to appointments in previous treatment courses and today. Body systems affected include musculoskeletal, neuromuscular and recently, vestibular. She may possibly have OP per pt report. Pt reports neuropathy B plantar feet with pain and numbness. Other Concerns Fall Risk Yes Goals 4 Snf Goal (LTG) Pt will present with improved B hip flexion and abduction strength to at least 4/5 to improve gait quality with weight acceptance by 10/05/20. 09/18/20: Pt supine: hip flexion left 5/5, hip abduction left 4/5; hip flexion right 5/5 and hip abduction right 4/5 LTG Duration Met 3 Oracle Data Warehouse Developer Goal (LTG) Pt will present with an improved Oswestry LBP score to no more than 40% to reflect improved function and pain by 10/14/20. 09/18/20: Oswestry score reflects 62% impairment d/t back pain LTG Duration 4 weeks 2 Snf Goal (LTG) Pt will perform WNLs on a standardized balance test to decrease fall risk by 10/14/20. 09/18/20: Pt denies falls since 06/07/20. Balance testing today : FGA score is 7/30, indicating increased risk for falls LTG Duration 4 weeks 1 Oracle Data Warehouse Developer Goal (LTG) Pt will perform progressive HEP with I including pelvic realignment, postural, flexibility, relaxation, balance and strengthening exercises to improve balance, gait, and pain by 10/14/20. 09/18/20: Pt is performing breathing exercise and racquet ball massage, happy baby stretch, lumbar rotation, core exercises LTG Duration 4 weeks Assessment Summary Assessment Pt with flare-up of back pain earlier this week. She limits PT exercise review today d/t pain. Overall, she con't with degenerative changes, increased soft tissue, history of surgeries (spinal and bladder) and sedentary lifestyle that are barriers to improvement. Pt will be having pelvic floor PT assess her and then anticipate prepare for d/c after pt has treatments with her. Physical Therapy Plan Frequency and Duration Frequency of Treatment 2x/Week Duration of Treatment 4 weeks Plan of Care Start Date 09/18/20 Plan of Care End Date 10/14/20 Therapeutic Interventions Therapeutic Interventions Balance Training,Canalithic Repositioning,Gait Training, Home Exercise Program,Joint Mobilizations,Manual Therapy, Neuromuscular Re-education, Patient/Caregiver Education, Self-Care/Home Management,Soft Tissue Mobilization,Taping, Therapeutic Activities, Therapeutic Exercises Modalities Cold Pack/Ice Massage,Electric Stimulation,Hot Packs, Ultrasound Next Visit Focus/Plan Next Note Type Treatment Note Next Visit Plan Pelvic floor PT to assess pt
--- NOTE | 2020-10-02 17:53 | PT.OTRE ---
Current Diagnoses Spinal stenosis, lumbar region with neurogenic claudication (10/02/20) Trochanteric bursitis, right hip (10/02/20) Impingement syndrome of left shoulder (10/02/20) Other specified postprocedural states (10/02/20) Visit Care Team Role Provider Type Damaris Frey MD Family Provider Physician Primary Care Provider Specialty: Internal Medicine Address: [address] [place] [address], [address] Email: [email or web address] Zachary Malik MD Attending Provider Physician Referring Provider Specialty: Physical Medicine and Rehab Address: [address] [place] [address], [address] Email: [email or web address] Physical Therapy Re-Evaluation PT-OP-A Visit Information Start: 08/04/20 10:16 Freq: Status: Active Protocol: Document 10/02/20 13:00 [facility] (Rec: 10/02/20 17:52 AMH [id number]) Out-Patient Physical Therapy Visit Information Visit Information Visit Type Re-Evaluation Visit Start Time 13:00 Visit Stop Time 13:45 Total Visit Minutes 45 Visit Number 12 PT-OP-B Current Condition Start: 08/04/20 10:16 Freq: Status: Active Protocol: Document 08/05/20 12:24 MB (Rec: 08/05/20 12:24 MB [id number]) Current Condition History of Current Condition Onset Date For years Current Complaints Back, B lateral hip and intrascapular pain History of Current Condition Pt had a fall 06/07/20 when she tripped over some santas in the living room. She was rushing to the bathroom d/t bladder urgency. She had incontinence. When she fell, she landed on her left side. She had right shoulder pain, LB and B lateral hip pain after the fall. She rates pain up to 7/10. She has a history of back pain and injections. She has also had back surgery. She is going to have another injection. She states that she has another vertebra crashing. Pt has had two durations of PT this year d/t BPPV and recurrence. Neck treated during the second PT course. PMH includes hypotension and pacemaker, fibromyalgia, B THR , B foot neuropathy. Pt would like to focus on her back. Pt denies further falls this year. Pt uses wooden cane for gait and carries it in her left hand d/t right sided leg pain. She has a couple of steps with rail at home. Pt reports sparkles in her vision sometimes and PT encourages her to talk with doctor about this. Prior Treatments and Tests PT for BPPV and neck this year Treatment Goals Patient/Caregiver Goals To get back to Silver Sneakers and more balanced PT-OP-C Subjective Start: 08/04/20 10:16 Freq: Status: Active Protocol: Document 10/02/20 13:02 AMH (Rec: 10/02/20 13:14 AM[facility] [id number]) OP-PT Subjective Patient Comments Patient Comments history of bladder cancer years ago and she has had bladder surgery. She has an ongoing bladder infection that hasn't been solved for years now. She has leakage and Dr. Snider put her on medication that is supposed to help with her night time voiding. The medication makes her mouth very dry. She gets up 2-3 times per night. She has degenerative disc disease. Hx of complete hysterectomy in 1979, history of endometriosis, hx of parathyroid removal, ELADIO B PT-OP-D Balance Start: 08/04/20 10:16 Freq: Status: Active Protocol: Document 08/05/20 12:24 MB (Rec: 08/05/20 14:33 MB [id number]) OP-PT Balance Assessment Standing Balance Standing Balance Comments Pt is able to stand for posture assessment but she occ reaches for the wall, mostly d/t fatigue Rowell Fall Scale Copyright Permission Lelia JM, Lelia RM, Claudia SJ. Development of a scale to identify the fall- prone patient. Can J Aging 1989;8;366-7. Jordan Rowell (2009). Preventing patient falls. (2nd ed). [place]: [place]. PT-OP-G Mobility & Gait Start: 08/04/20 10:16 Freq: Status: Active Protocol: Document 08/05/20 12:24 MB (Rec: 08/05/20 14:33 MB [id number]) OP Gait Assessment Gait Gait Assistance Required: Independent Distance (Feet) 75 Able to Maintain Weight Bearing Status Yes During Gait Assistive Devices Assistive Device Straight Cane Orthotic/Prosthetic Devices or Brace: No Gait Deviations General Gait Pattern Antalgic,Decreased Stride Length,Decreased Feet Clearance,Flexed Trunk Factors Limiting Gait Function Factors Limiting Gait Function Decreased Strength,Pain,Poor Balance Comments Gait Comments Pt carries wooden cane in left hand to support more painful right hip. She has spinal curvature changes that shift her trunk posture with gait. PT-OP-J Posture/Palpation/Skin Start: 08/04/20 10:16 Freq: Status: Active Protocol: Document 08/05/20 12:24 MB (Rec: 08/05/20 14:33 MB [id number]) Posture Evaluation Comments Posture Comments Standing posture with keen sandals donned: left tragus 2. 5 in front of left AC joint, forward head, Dowager's hump, increased thoracic kyphosis, increased lumbar lordosis, indention over lower lumbar spine where previous surgerical incision is located , B knee flexion in standing, scoliotic-type curve with right convexity thoracic spine and elevated and lateraly positioned right shoulder and hips translated to the left, left iliac crest higher than the right, right greater than left knee valgus, increased WB through left foot and left greater than right overpronation foot. PT-OP-K Range of Motion Start: 08/04/20 10:16 Freq: Status: Active Protocol: Document 08/05/20 12:24 MB (Rec: 08/05/20 14:33 MB [id number]) Knee Goniometric Range of Motion Knee ROM Limitations Comments Passive SLR: 45 deg right and 50 deg left and pt does have pain when PT performs passive SLR In supine, pt's B posterior knees carias not touch the mat with grossly 2.5 between the back of the knees and the mat PT-OP-M Strength Start: 08/04/20 10:16 Freq: Status: Active Protocol: Document 08/05/20 12:24 MB (Rec: 08/05/20 14:33 MB [id number]) Hip Strength Hip Manual Muscle Testing Left Flexion (L2) 4 Good Abduction 3+ Fair+ Comments Pt supine and reports high pain level (greater than 7/10) with MMT that is in her left LB Right Flexion (L2) 3+ Fair+ Abduction 3+ Fair+ Comments Pt supine and reports high pain level (greater than 7/10) with MMT that is in her left LB Knee Strength Knee Manual Muscle Testing Left Flexion (S2) 5 Normal Extension (L3) 5 Normal Right Flexion (S2) 5 Normal Extension (L3) 5 Normal Ankle/Foot Strength Ankle and Foot Manual Muscle Testing Left Dorsiflexion (L4) 5 Normal Right Dorsiflexion (L4) 5 Normal Toe Strength Toe Manual Muscle Testing Left Great Toe Extension 5 Normal Right Great Toe Extension 5 Normal PT-OP-Q Treatments Start: 08/04/20 10:16 Freq: Status: Active Protocol: Document 10/02/20 13:41 AMH (Rec: 10/02/20 13:43 AMH [id number]) Therapeutic Exercises Supine Exercises pelvic floor quick contractions Reps/Minutes x 10 reps pelvic floor long holds Reps/Minutes x 10 sec hold x 10 reps Core progression Comments reviewed marches with TA contraction today Self-Care/Home Management Treatment Education Patient Education Home Exercise Program Other Education pt educated on bladder retraining and urge deference technique PT-OP-T Assessment and Plan Start: 08/04/20 10:16 Freq: Status: Active Protocol: Document 10/02/20 13:00 [facility] (Rec: 10/02/20 17:52 [facility] [id number]) Physical Therapy Assessment Assessment Summary Assessment Pt was seen by pelvic health PT due to her complaints of urge incontinence and urgency. Pt was educated in urge deference technique and bladder retraining today and pelvic floor exercises were initiated for both long holds and quick flicks Physical Therapy Plan Frequency and Duration Frequency of Treatment 2x/Week Duration of Treatment 4 weeks Plan of Care Start Date 09/18/20 Plan of Care End Date 10/14/20 Therapeutic Interventions Therapeutic Interventions Balance Training,Canalithic Repositioning,Gait Training, Home Exercise Program,Joint Mobilizations,Manual Therapy, Neuromuscular Re-education, Patient/Caregiver Education, Self-Care/Home Management,Soft Tissue Mobilization,Taping, Therapeutic Activities, Therapeutic Exercises Modalities Cold Pack/Ice Massage,Electric Stimulation,Hot Packs, Ultrasound Next Visit Focus/Plan Next Note Type Treatment Note Next Visit Plan review urge deference technique and pelvic floor exercises. Progress pelvic floor stabilization as tolerated.
--- NOTE | 2020-10-09 13:45 | PT.OTN ---
Current Diagnoses Spinal stenosis, lumbar region with neurogenic claudication (10/09/20) Trochanteric bursitis, right hip (10/09/20) Impingement syndrome of left shoulder (10/09/20) Other specified postprocedural states (10/09/20) Physical Therapy Treatment Note PT-OP-A Visit Information Start: 08/04/20 10:16 Freq: Status: Active Protocol: Document 10/09/20 13:45 AMH (Rec: 10/13/20 09:59 AMH [email or web address]) Out-Patient Physical Therapy Visit Information Visit Information Visit Type Treatment Note Visit Start Time 13:45 Visit Stop Time 14:30 Total Visit Minutes 45 Visit Number 13 PT-OP-B Current Condition Start: 08/04/20 10:16 Freq: Status: Active Protocol: Document 08/05/20 12:24 MB (Rec: 08/05/20 12:24 MB [id number]) Current Condition History of Current Condition Onset Date For years Current Complaints Back, B lateral hip and intrascapular pain History of Current Condition Pt had a fall 06/07/20 when she tripped over some santas in the living room. She was rushing to the bathroom d/t bladder urgency. She had incontinence. When she fell, she landed on her left side. She had right shoulder pain, LB and B lateral hip pain after the fall. She rates pain up to 7/10. She has a history of back pain and injections. She has also had back surgery. She is going to have another injection. She states that she has another vertebra crashing. Pt has had two durations of PT this year d/t BPPV and recurrence. Neck treated during the second PT course. PMH includes hypotension and pacemaker, fibromyalgia, B THR , B foot neuropathy. Pt would like to focus on her back. Pt denies further falls this year. Pt uses wooden cane for gait and carries it in her left hand d/t right sided leg pain. She has a couple of steps with rail at home. Pt reports sparkles in her vision sometimes and PT encourages her to talk with doctor about this. Prior Treatments and Tests PT for BPPV and neck this year Treatment Goals Patient/Caregiver Goals To get back to Silver Sneakers and more balanced PT-OP-C Subjective Start: 08/04/20 10:16 Freq: Status: Active Protocol: Document 10/09/20 13:45 AMH (Rec: 10/13/20 09:59 AMH [email or web address]) OP-PT Subjective Patient Comments Patient Comments pt reports she feels that the urge deference technique is helping her. PT-OP-D Balance Start: 08/04/20 10:16 Freq: Status: Active Protocol: Document 08/05/20 12:24 MB (Rec: 08/05/20 14:33 MB [id number]) OP-PT Balance Assessment Standing Balance Standing Balance Comments Pt is able to stand for posture assessment but she occ reaches for the wall, mostly d/t fatigue Rowell Fall Scale Copyright Permission PT-OP-G Mobility & Gait Start: 08/04/20 10:16 Freq: Status: Active Protocol: Document 08/05/20 12:24 MB (Rec: 08/05/20 14:33 MB [id number]) OP Gait Assessment Gait Gait Assistance Required: Independent Distance (Feet) 75 Able to Maintain Weight Bearing Status Yes During Gait Assistive Devices Assistive Device Straight Cane Orthotic/Prosthetic Devices or Brace: No Gait Deviations General Gait Pattern Antalgic,Decreased Stride Length,Decreased Feet Clearance,Flexed Trunk Factors Limiting Gait Function Factors Limiting Gait Function Decreased Strength,Pain,Poor Balance Comments Gait Comments Pt carries wooden cane in left hand to support more painful right hip. She has spinal curvature changes that shift her trunk posture with gait. PT-OP-J Posture/Palpation/Skin Start: 08/04/20 10:16 Freq: Status: Active Protocol: Document 08/05/20 12:24 MB (Rec: 08/05/20 14:33 MB [id number]) Posture Evaluation Comments Posture Comments Standing posture with keen sandals donned: left tragus 2. 5 in front of left AC joint, forward head, Dowager's hump, increased thoracic kyphosis, increased lumbar lordosis, indention over lower lumbar spine where previous surgerical incision is located , B knee flexion in standing, scoliotic-type curve with right convexity thoracic spine and elevated and lateraly positioned right shoulder and hips translated to the left, left iliac crest higher than the right, right greater than left knee valgus, increased WB through left foot and left greater than right overpronation foot. PT-OP-K Range of Motion Start: 03/08/21 10:16 Freq: Status: Active Protocol: Document 08/05/20 12:24 MB (Rec: 08/05/20 14:33 MB [id number]) Knee Goniometric Range of Motion Knee ROM Limitations Comments Passive SLR: 45 deg right and 50 deg left and pt does have pain when PT performs passive SLR In supine, pt's B posterior knees carias not touch the mat with grossly 2.5 between the back of the knees and the mat PT-OP-M Strength Start: 08/04/20 10:16 Freq: Status: Active Protocol: Document 08/05/20 12:24 MB (Rec: 08/05/20 14:33 MB [id number]) Hip Strength Hip Manual Muscle Testing Left Flexion (L2) 4 Good Abduction 3+ Fair+ Comments Pt supine and reports high pain level (greater than 7/10) with MMT that is in her left LB Right Flexion (L2) 3+ Fair+ Abduction 3+ Fair+ Comments Pt supine and reports high pain level (greater than 7/10) with MMT that is in her left LB Knee Strength Knee Manual Muscle Testing Left Flexion (S2) 5 Normal Extension (L3) 5 Normal Right Flexion (S2) 5 Normal Extension (L3) 5 Normal Ankle/Foot Strength Ankle and Foot Manual Muscle Testing Left Dorsiflexion (L4) 5 Normal Right Dorsiflexion (L4) 5 Normal Toe Strength Toe Manual Muscle Testing Left Great Toe Extension 5 Normal Right Great Toe Extension 5 Normal PT-OP-Q Treatments Start: 08/04/20 10:16 Freq: Status: Active Protocol: Document 10/09/20 13:45 AMH (Rec: 10/13/20 09:59 AMH [email or web address]) Therapeutic Exercises Supine Exercises single knee to chest stretch Reps/Minutes 1-2 reps holds 30-60 seconds kyrie test position stretch Reps/Minutes 1-2 reps holding 30-60 sec each pelvic floor quick contractions Reps/Minutes x 10 reps pelvic floor long holds Reps/Minutes x 10 sec hold x 10 reps Diaphragm breathing Comments Ed to perform softly and quietly, 10 reps, slowly Manual Therapy Treatment Soft Tissue Mobilization visceral release over the bladder Body Location suprapubic fascia Comments good tolerance for visceral work, there is a great deal of adhesions and scar tissue present PT-OP-T Assessment and Plan Start: 08/04/20 10:16 Freq: Status: Active Protocol: Document 10/09/20 13:45 AMH (Rec: 10/13/20 09:59 AMH [email or web address]) Physical Therapy Plan Frequency and Duration Frequency of Treatment 2x/Week Duration of Treatment 4 weeks Plan of Care Start Date 09/18/20 Plan of Care End Date 10/14/20 Therapeutic Interventions Therapeutic Interventions Balance Training,Canalithic Repositioning,Gait Training, Home Exercise Program,Joint Mobilizations,Manual Therapy, Neuromuscular Re-education, Patient/Caregiver Education, Self-Care/Home Management,Soft Tissue Mobilization,Taping, Therapeutic Activities, Therapeutic Exercises Modalities Cold Pack/Ice Massage,Electric Stimulation,Hot Packs, Ultrasound
--- NOTE | 2020-10-15 14:35 | PT.OTN ---
Current Diagnoses Spinal stenosis, lumbar region with neurogenic claudication (10/14/20) Trochanteric bursitis, right hip (10/14/20) Impingement syndrome of left shoulder (10/14/20) Other specified postprocedural states (10/14/20) Physical Therapy Treatment Note PT-OP-A Visit Information Start: 08/04/20 10:16 Freq: Status: Active Protocol: Document 10/14/20 13:52 AMH (Rec: 10/14/20 13:57 AMH [id number]) Out-Patient Physical Therapy Visit Information Visit Information Visit Type Treatment Note Visit Start Time 13:45 Visit Stop Time 14:30 Total Visit Minutes 45 Visit Number 14 PT-OP-B Current Condition Start: 08/04/20 10:16 Freq: Status: Active Protocol: Document 08/05/20 12:24 MB (Rec: 08/05/20 12:24 MB [id number]) Current Condition History of Current Condition Onset Date For years Current Complaints Back, B lateral hip and intrascapular pain History of Current Condition Pt had a fall 06/07/20 when she tripped over some santas in the living room. She was rushing to the bathroom d/t bladder urgency. She had incontinence. When she fell, she landed on her left side. She had right shoulder pain, LB and B lateral hip pain after the fall. She rates pain up to 7/10. She has a history of back pain and injections. She has also had back surgery. She is going to have another injection. She states that she has another vertebra crashing. Pt has had two durations of PT this year d/t BPPV and recurrence. Neck treated during the second PT course. PMH includes hypotension and pacemaker, fibromyalgia, B THR , B foot neuropathy. Pt would like to focus on her back. Pt denies further falls this year. Pt uses wooden cane for gait and carries it in her left hand d/t right sided leg pain. She has a couple of steps with rail at home. Pt reports sparkles in her vision sometimes and PT encourages her to talk with doctor about this. Prior Treatments and Tests PT for BPPV and neck this year Treatment Goals Patient/Caregiver Goals To get back to Silver Sneakers and more balanced PT-OP-C Subjective Start: 08/04/20 10:16 Freq: Status: Active Protocol: Document 10/14/20 13:52 AMH (Rec: 10/14/20 13:57 AMH [id number]) OP-PT Subjective Patient Comments Patient Comments The urgency this week has been back up. Also she ran out of her medication for urinary urgency. PT-OP-D Balance Start: 08/04/20 10:16 Freq: Status: Active Protocol: Document 08/05/20 12:24 MB (Rec: 08/05/20 14:33 MB [id number]) OP-PT Balance Assessment Standing Balance Standing Balance Comments Pt is able to stand for posture assessment but she occ reaches for the wall, mostly d/t fatigue Rowell Fall Scale Copyright Permission PT-OP-G Mobility & Gait Start: 08/04/20 10:16 Freq: Status: Active Protocol: Document 08/05/20 12:24 MB (Rec: 08/05/20 14:33 MB [id number]) OP Gait Assessment Gait Gait Assistance Required: Independent Distance (Feet) 75 Able to Maintain Weight Bearing Status Yes During Gait Assistive Devices Assistive Device Straight Cane Orthotic/Prosthetic Devices or Brace: No Gait Deviations General Gait Pattern Antalgic,Decreased Stride Length,Decreased Feet Clearance,Flexed Trunk Factors Limiting Gait Function Factors Limiting Gait Function Decreased Strength,Pain,Poor Balance Comments Gait Comments Pt carries wooden cane in left hand to support more painful right hip. She has spinal curvature changes that shift her trunk posture with gait. PT-OP-J Posture/Palpation/Skin Start: 08/04/20 10:16 Freq: Status: Active Protocol: Document 08/05/20 12:24 MB (Rec: 08/05/20 14:33 MB [id number]) Posture Evaluation Comments Posture Comments Standing posture with keen sandals donned: left tragus 2. 5 in front of left AC joint, forward head, Dowager's hump, increased thoracic kyphosis, increased lumbar lordosis, indention over lower lumbar spine where previous surgerical incision is located , B knee flexion in standing, scoliotic-type curve with right convexity thoracic spine and elevated and lateraly positioned right shoulder and hips translated to the left, left iliac crest higher than the right, right greater than left knee valgus, increased WB through left foot and left greater than right overpronation foot. PT-OP-K Range of Motion Start: 08/04/20 10:16 Freq: Status: Active Protocol: Document 08/05/20 12:24 MB (Rec: 08/05/20 14:33 MB [id number]) Knee Goniometric Range of Motion Knee ROM Limitations Comments Passive SLR: 45 deg right and 50 deg left and pt does have pain when PT performs passive SLR In supine, pt's B posterior knees carias not touch the mat with grossly 2.5 between the back of the knees and the mat PT-OP-M Strength Start: 08/04/20 10:16 Freq: Status: Active Protocol: Document 08/05/20 12:24 MB (Rec: 08/05/20 14:33 MB [id number]) Hip Strength Hip Manual Muscle Testing Left Flexion (L2) 4 Good Abduction 3+ Fair+ Comments Pt supine and reports high pain level (greater than 7/10) with MMT that is in her left LB Right Flexion (L2) 3+ Fair+ Abduction 3+ Fair+ Comments Pt supine and reports high pain level (greater than 7/10) with MMT that is in her left LB Knee Strength Knee Manual Muscle Testing Left Flexion (S2) 5 Normal Extension (L3) 5 Normal Right Flexion (S2) 5 Normal Extension (L3) 5 Normal Ankle/Foot Strength Ankle and Foot Manual Muscle Testing Left Dorsiflexion (L4) 5 Normal Right Dorsiflexion (L4) 5 Normal Toe Strength Toe Manual Muscle Testing Left Great Toe Extension 5 Normal Right Great Toe Extension 5 Normal PT-OP-Q Treatments Start: 08/04/20 10:16 Freq: Status: Active Protocol: Document 10/14/20 13:45 AMH (Rec: 10/15/20 14:35 AMH [email or web address]) Therapeutic Exercises Supine Exercises single knee to chest stretch Reps/Minutes 1-2 reps holds 30-60 seconds kyrie test position stretch Reps/Minutes 1-2 reps holding 30-60 sec each pelvic floor quick contractions Reps/Minutes x 10 reps Manual Therapy Treatment Soft Tissue Mobilization visceral release over the bladder Body Location suprapubic fascia Comments good tolerance for visceral work, there is a great deal of adhesions and scar tissue present PT-OP-T Assessment and Plan Start: 08/04/20 10:16 Freq: Status: Active Protocol: Document 10/14/20 13:45 AMH (Rec: 05/19/21 14:35 AMH [email or web address]) Physical Therapy Assessment Assessment Summary Assessment This was Thelma's last scheduled visit in PT, she has ran out of her bladder medication so I did advise her to talk to urology about refilling this. She has been shown urge defernce technique, streching to open up her hips and the fascia in the suprapubic region. She tolerated all of this well and will be discharged to a [facility] at this time Physical Therapy Plan Discharge Physical Therapy Discharge Reasons No Longer Attending PT Discharge Comments pt has reached the end of her allowed PT benefit
== END 2020-10-23 08:46 | disposition home or self-care (01) ==
LOC: PHYS 13:45
PROVIDERS: Family Provider Internal Medicine; PCP Internal Medicine; Referring Provider Physical Medicine & Rehabilitation Pain Medicine; Visit Provider Physical Medicine & Rehabilitation Pain Medicine
DX: M48.062 Spinal stenosis, lumbar region with neurogenic claudication (principal); Z98.890 Other specified postprocedural states; M70.61 Trochanteric bursitis, right hip; M75.42 Impingement syndrome of left shoulder
CPT/HCPCS: 97110; 97112; 97140; 97161; 97164; 97530; 97535

== ENCOUNTER → 2020-12-08 08:03 | Outpatient (CLI) | payer MEDICARE, OTHER, SELFPAY ==
--- NOTE | 2020-12-08 | DI.ECHO.S_ITS ---
[facility] +---------+ [facility] +---------+ : : [address] : : : [place], [place] : : : : [id number] : : : : Phone: [phone]+ Echocardiogram Report + + :Name: BARBARA METZ Study Date: 12/08/2020 Height: 66 in : :[facility] ReadingLocation: Weight: 199 lb : : Gender: Female BSA: 2.0 m2 : :: 1945 Age: 75 yrs BP: 151/90 mmHg: :Reason For Study: ATRIOVENTRICULAR BLOCK, SECOND DEGREE : :Ordering Physician: Yordan MERINOformed By: Chapis Mendes : :Referring: CASPER MERINO : + + Interpretation Summary Normal both left and right ventricle size and function. The ejection fraction is 60-65%. There is a pacemaker lead in the right ventricle. No signifcant valvular abnormality. Procedure: A two-dimensional transthoracic echocardiogram with color flow and Doppler was performed. The study quality was technically adequate. There is no prior echocardiogram noted for this patient. The patient was in sinus rhythm with heart rates between 60 bpm during the exam. The patient has a paced rhythm. Left Ventricle: The left ventricle is normal in size and wall thickness. The ejection fraction is estimated to be 60-65%. There is a slight dyssynchronous contraction pattern due to the paced rhythm. Right Ventricle: The right ventricle is normal in size and function. There is a pacemaker lead in the right ventricle. Atria: The left atrial size is normal. Right atrial size is normal. There is no Doppler evidence for an interatrial shunt. Mitral Valve: The mitral valve is normal in structure and function. There is no mitral regurgitation noted. Aortic Valve: The aortic valve is trileaflet. The aortic valve opens well. There is no aortic valve stenosis. No aortic regurgitation is present. Tricuspid Valve: The tricuspid valve is normal in structure and function. There is trace tricuspid regurgitation. Pulmonic Valve: The pulmonic valve leaflets are thin and pliable; valve motion is normal. There is trace pulmonic regurgitation. Great Vessels: The aortic root is normal size. The dimensions of the ascending aorta are normal. The IVC is of normal diameter and collapses greater than 50% with a sniff. This suggests a low right atrial pressure of 3 mm Hg. Pericardium/ Pleura There is no pericardial effusion. There is no pleural effusion. MMode/2D Measurements & Calculations LVIDd: 4.5 cm LVOT diam: 2.0 cm LVIDs: 3.3 cm Ao root diam: 3.1 cm FS: 26.5 % asc Aorta Diam: 2.6 cm IVSd: 1.0 cm Ao Arch Diam (Prox Trans): 2.5 cm LVPWd: 1.0 cm LV steen. diameter/BSA (cm/m^2): 2.2 LV sys. diameter/BSA (cm/m^2): 1.6 LA A2 area: 19.4 cm2 RA long axis: 3.7 cm LA A4 area: 19.0 cm2 RA area: 10.2 cm2 LA length (vol): 5.5 cm RA vol: 23.4 ml LA vol: 57.0 ml RA : 11.7 ml/m2 LA vol index: 28.6 ml/m2 IVC diam: 0.88 cm RVD1 (basal): 3.5 cm TAPSE: 2.1 cm Doppler Measurements & Calculations Ao V2 max: 156.7 cm/sec LVOT Max Maurisio: 90.2 cm/sec Ao V2 mean: 106.0 cm/sec LV V1 max P.3 mmHg Ao max P.8 mmHg LV V1 VTI: 18.7 cm Ao mean P.0 mmHg ERIC(I,D): 1.9 cm2 Ao V2 VTI: 31.1 cm ERIC(V,D): 1.8 cm2 sev ratio: 0.60 ERIC indexed to BSA (cm^2/m^2): 0.93 MV E max maurisio: 69.4 cm/sec TR max maurisio: 229.0 cm/sec MV A max maurisio: 82.2 cm/sec TR max P.0 mmHg MV E/A: 0.84 PA V2 max: 115.7 cm/sec Med Peak E' Maurisio: 6.4 cm/sec PA V2 mean: 76.5 cm/sec E/E' med: 10.8 PA mean P.8 mmHg Lat Peak E' Maurisio: 8.1 cm/sec PA pr(Accel): 25.9 mmHg E/E' lat: 8.5 E/e' average: 9.7 MV dec time: 0.26 sec SV(LVOT): 57.7 ml Electronically signed by: Pablo Foster on Reading Physician:12/08/2020 03:21 PM
[2020-12-08 09:25] LABS: Add Manual Diff / Slide Review NO; Basophils Absolute Auto 100 /uL (0-100); Basophils Percent Auto 1.2 % (0-2); Eosinophils Absolute Auto 100 /uL (0-450); Hematocrit 33.9 % (36-46); Hemoglobin 10.8 g/dL (12.0-16.0); Lymphocytes Absolute Auto 1800 /uL (1100-4500); Lymphocytes Percent Auto 30.7 % (25-40); Mean Corpuscular HGB Conc 31.8 % (30-36); Mean Corpuscular Hemoglobin 24.5 PG (26-34); Mean Corpuscular Volume 77.1 fL (80-100); Monocytes Absolute Auto 600 /uL (0-900); Neutrophils Absolute Auto 3200 /uL (1500-7000); Neutrophils Percent Auto 55.1 % (50-75); Platelet Count 279 X10^3/uL (150-400); Red Blood Cell Count 4.39 X10^6/uL (4.0-5.2); Red Cell Distribution Width 17.1 % (11.6-14.8); White Blood Cell Count 5.8 X10^3/uL (4.5-11.0)
[2020-12-08 09:48] LABS: Hemoglobin A1C% w Est Avg Glu 6.2 % (4.0-6.0)
[2020-12-08 09:55] LABS: BUN Creatinine Ratio 24.6 (6-22); Blood Urea Nitrogen 17 mg/dL (7-17); Calcium 9.1 mg/dL (8.4-10.2); Carbon Dioxide 29 mmol/L (22-32); Chloride 105 mmol/L (98-107); Estimated Glomerular Filt Rate > 60.0 mL/min (>60); Glucose 101 mg/dL (80-110); HEMOLYSIS < 15 (0-50); Sodium 140 mmol/L (137-145)
== END ==
PROVIDERS: Family Provider Internal Medicine; PCP Internal Medicine; Referring Provider Internal Medicine Cardiovascular Disease; Visit Provider Internal Medicine Cardiovascular Disease
DX: Z01.818 Encounter for other preprocedural examination (principal); Z01.812 Encounter for preprocedural laboratory examination; I44.1 Atrioventricular block, second degree; R73.9 Hyperglycemia, unspecified; Z95.0 Presence of cardiac pacemaker
CPT/HCPCS: 36415; 80048; 83036; 85025; 93306

== ENCOUNTER → 2020-12-19 12:04 | Outpatient (CLI) | payer MEDICARE, OTHER, SELFPAY ==
--- NOTE | 2020-12-19 | DI.CT.S_ITS ---
PROCEDURE: CT LUMBAR SPINE WO CON INDICATIONS: Radiculopathy, lumbar region TECHNIQUE: Noncontrast 3 mm thick sections acquired from the T12 level to the sacrum. Sagittal and coronal reformats were constructed. For radiation dose reduction, the following was used: automated exposure control. COMPARISON: None. FINDINGS: Image quality: Excellent. Bones: There is normal bony alignment. No acute vertebral body compression fractures. No suspicious lytic or blastic bony lesions. No pars defects. T12-L1: No significant disc bulge. The foramina and central canal are patent. L1-L2: No significant disc bulge. The foramina and central canal are patent. L2-L3: Diffuse disc bulge with no significant foraminal or central canal stenosis. L3-L4: Degenerative disc disease with severe disc space narrowing and intradiscal gas with large disc osteophytes which cause moderately severe right and mild left foraminal stenosis. The central canal has severe stenosis. There is facet arthropathy with facet hypertrophy. L4-L5: An X stop device is seen posteriorly at L4-5. A diffuse disc bulge with disc osteophytes and grade 1 anterolisthesis cause moderate bilateral foraminal stenosis. The central canal has moderate stenosis. L5-S1: A diffuse disc bulge with disc osteophytes cause severe bilateral foraminal stenosis. The central canal has mild stenosis. Soft tissues: No retroperitoneal masses or hematomas. Visualized aorta has atherosclerotic calcifications but is normal in caliber. IMPRESSION: 1. Multilevel lumbar spondylosis as above. 2. L3-4 has moderately severe right and mild left foraminal stenosis and severe central canal stenosis. 3. L4-5 has moderate bilateral foraminal stenosis and moderate central canal stenosis. 4. L5-S1 has severe bilateral foraminal stenosis. Dictated by: Jason Cruz M.D. on 12/19/2020 at 14:01 Approved by: Jason Cruz M.D. on 12/19/2020 at 14:08
== END ==
PROVIDERS: Family Provider Internal Medicine; PCP Internal Medicine; Referring Provider Orthopaedic Surgery Orthopaedic Surgery of the Spine; Visit Provider Orthopaedic Surgery Orthopaedic Surgery of the Spine
DX: M54.16 Radiculopathy, lumbar region (principal); M47.896 Other spondylosis, lumbar region; M48.061 Spinal stenosis, lumbar region without neurogenic claudication; M48.07 Spinal stenosis, lumbosacral region
CPT/HCPCS: 72131

== ENCOUNTER → 2021-01-17 12:03 | Outpatient (CLI) | payer MEDICARE, OTHER, SELFPAY ==
[2021-01-17 13:19] LABS: COVID19 -Nasal RAPID Negative (Negative)
== END ==
PROVIDERS: Family Provider Internal Medicine; PCP Internal Medicine; Referring Provider Physician Assistant; Visit Provider Physician Assistant
DX: Z01.812 Encounter for preprocedural laboratory examination (principal); Z20.822 Contact with and (suspected) exposure to COVID-19
CPT/HCPCS: 87635

== ENCOUNTER 2021-01-19 06:14 | Inpatient (IN) | payer MEDICARE, OTHER, SELFPAY ==
[2021-01-13 12:52] VITALS: BMI 29.8
[2021-01-19] VITALS (21 sets, daily range): BP systolic 129–184; BP diastolic 53–94; PULSE 60–92; RESP 8–23; TEMP 35.8–36.9; O2SAT 94–100; BMI 29.8
--- NOTE | 2021-01-19 | DI.RAD.S_ITS ---
PROCEDURE: XR LUMBAR SPINE 2-3V INDICATIONS: L3-S1 TLIF TECHNIQUE: 3 intraoperative fluoroscopic views of the lumbar spine were acquired. COMPARISON: [facility], CR, XR LUMBAR SPINE 2-3V, 08/24/2018, 9:43. FINDINGS: Intraoperative fluoroscopic images of lumbar spine shows transpedicular posterior fusion at L3 through S1 levels. Intervertebral spacer placement at L3-4 and L5-S1 levels are also seen. IMPRESSION: Fluoro guidance was provided intraoperatively for posterior fusion at L3 through S1 levels. Dictated by: Akin Beach M.D. on 01/19/2021 at 13:09 Approved by: Akin Beach M.D. on 01/19/2021 at 13:43
[2021-01-19] MEDS: LACTATED RINGERS 1,000 ML 42 ML IV ×2 (07:31→10:33)
--- NOTE | 2021-01-19 07:38 | PM.PREOP ---
Pre-operative Note COVID-19 COVID-19 status: Negative Result date/Date tested (Pos, Neg/Pending): 01/17/21 Interval Note History & Physical reviewed/Exam performed by Physician: Yes Changes to H&P: No
--- NOTE | 2021-01-19 08:22 | SUR.OPER ---
Prone on spine table, head in foam head support, padded chest and pelvic supports, gel pad at knees, lower legs supported by pillows; nipples, genitalia and toes free of pressure, arms secured on foam padded arm boards at <90 degrees abduction. Tape over blanket at thigh secured to table.
[2021-01-19] MEDS: BUPIVACAINE LIPOSOME 266 MG/20 ML VIAL INJ (08:29)
[2021-01-19] MEDS: BUPIVACAINE 0.25% W/ EPI 30 ML VIAL INJ (08:30)
[2021-01-19] MEDS: CEFAZOLIN 1 GM VIAL 2 GM IV ×3 (08:32→16:24)
--- NOTE | 2021-01-19 12:37 | PM.OP.1 ---
Operative Date/Time/Diagnoses Date of procedure: 01/19/21 Time of procedure: 08:00 Pre-op diagnosis: 1. L3-4, L4-5, L5-S1 spinal stenosis with neurogenic claudication 2. L3-4, L4-5, L5-S1 spondylosis with radiculopathy 3. Hx of L4-5 fusion with retained hardware Post-op diagnosis: same Procedure & Clinicians Procedure: 1. L3-4, L5-S1 Postero-lateral and posterior interbody fusion 2. L3-4, L5-S1 interbody cage placement. 3. L3-4, L5-S1 decompressive laminectomy with bilateral facetecomies 4. L3-4, L4-5, L5-S1 Posterior segmental instrumentation 5. L4-5 posterolateral fusion 6. L4-5 revision hemilaminectomy and exploration of fusion 7. [place] of bone marrow from iliac crest 8. Utilization of microsurgical technique and operating microscope Same procedure as scheduled: Yes Indications: Patient has been having chronic back pain and worsening lumbar radiculopathy. Patient had history of lumbar decompression with interspinous device fusion of her lumbar spine more than 10 years ago. Patient failed multiple conservative management with worsening pain weakness and numbness in her lower extremity. Patient has been having difficulty performing activity of daily living. After discussing risks benefits of treatment options, patient elected proceed with surgery. Surgeon: Florentin Echols Consumer Educator: Je Lorenzo Click Yes if Unassisted: No Anesthesia Type: General Operative Notes Closure Type: primary Specimen(s): none sent Prosthetic devices, grafts, tissues, transplants, or devices: Globus CREO MIS screws, Rise cages Applied: catheter Estimated Blood Loss (mL): 150 Blood products transfused: none Procedure in detail: Patient was seen in the preoperative area. Risks and benefits of the surgery was discussed with the patient. Informed consent was obtained from the patient and placed in the chart. Surgical site was marked. Patient was taken to the operative room. General anesthesia was administered. Prophylactic antibiotic was given to the patient less than 30 min before the incision was made. Patient was placed into a prone position on the [place] table. Patient's back was then prepped and draped in the sterile fashion. Time-out was performed at this time. After patient was prepped and draped, patient's PSIS was palpated and marked bilaterally. Small 1 cm incision was made over the PSIS for placement of the reference probes. Two trocar was placed into the PSIS 1 on each side. The reference probe was attached to the trocar of the reference apparatus. At this time the C-arm imaging was used to confirm AP and lateral of L3-4, L4-L5, L5-S1 vertebrae and merged the C-arm imaging using the Coraid navigation system with the CT of the lumbar spine. After successful merging was completed and confirmed, skin marker was used to romario out the skin incision using the Elevate Digital robotic arm. Bilateral incision was made at this time. Pre templated trajectory was used and guided using the Elevate Digital robotic navigation system for bilateral L3, L4, L5, S1 pedicle screw placement. This was done by using the robotic arm to guide the high-speed bur to make a cortical entry point. Next a drill was placed also using the robotic arm and guided using the navigation system drilling partially through bilateral L3, L4, L5 and S1 pedicles. Next L3, L4, L5, S1 pedicle screws it was pre templated and measured was placed onto the power otr hazmat company driver and inserted into the pedicles bilaterally. After all 8 screws were placed C-arm imaging was taken of both AP and lateral to confirm the placement. Excellent placement of the screws were confirmed and a matched precisely with the pre planned screw placement using the navigation system. MARs retractor was inserted using Click Busivation guidence. Globus MARS retractors was placed inside the incision and docked onto the L3, L4 and L5 lamina. Using microsurgical technique and operating microscope, a L3, L5 laminectomy and L3-4, L5-S1 facetectomy was performed using a Kerrison rongeur. Patient was found have severe lateral recess and neural foramen stenosis which was fully decompressed after the laminectomy facetectomy. More than 75% of the facets were removed during the process of decompression rendering L3-4,L5-S1 level grossly unstable and required a fusion procedure at the same time. The disc space at L3-4, L5-S1 was identified, and a total diskectomy was performed at L3-4, L5-S1 level. The endplates were decorticated using a rasp and shaver. The total diskectomy and decortication was performed at L3-4, L5-S1 level in order to to accomplish a L3-4, L5-S1 fusion. The local bone from the laminectomy and facetectomy was saved for local bone grafting. After the total diskectomy and decortication was completed, Trifecta bone graft material was combined with local bone that was harvested earlier. At this time, a separate skin is incision was made over the iliac crest. A Jamshidi needle was inserted into the iliac crest through a separate skin incision. 5 cc of bone marrow aspiration was obtained through the separate skin incision using a Jamshidi needle from the iliac crest. The bone marrow aspiration was combined with local bone and the Trifecta bone grafting material. The bone grafting material was placed into the L3-4, L5-S1 interbody space along with a expandable cage. The cage was expanded to its maximum height using the torque limiting screwdriver. The disc preparation as well as the cage insertion were also performed under navigation guidance. After the cage was placed, AP and lateral C-arm imaging was taken to confirm placement of the cage and excellent position was confirmed. At this time attention was turned to the L4-5 level. There was previously performed fusion L4-5 level with interspinous device. A hemilaminectomy was performed on the left side using Kerrison rongeur under microscopic magnification. Pseudoarthrosis was identified at the posterolateral gutter of L4-5 level. Decompression was also performed to relieve pressure from the neural foramen and exiting nerve root at L4-5 level. Full decompression was accomplished using the hemilaminectomy approach. Globus MARS retractor was inserted and docked onto the L3-4, L4-5, L5-S1 posterolateral gutter on the right side. Using the power drill, posterior-lateral decortication was performed at L3-4, L4-5, L5-S1 level until bleeding cortical bone was identified. The remaining bone grafting material was placed into the L3-4, L4-5, L5-S1 posterior lateral gutter he order to accomplish posterolateral fusion at the L3-4, L4-5, L5-S1 level. At this time the tulips were attached to the L3, L4, L5, S1 pedicle screw shanks. After measuring the length of the rods, they were inserted into the tulips of the pedicle screws and locked in place using locking caps and torque limiting screwdriver bilaterally. Total 6 caps and 2 titanium rods was used in order to complete the posterior instrumentation construct. After all the hardware was placed, and confirmed with AP and lateral C-arm imaging, the wound was then irrigated with sterile normal saline and packed with Ray-Pattie gauze for 3 min to accomplish hemostasis. After the gauze was removed the deep fascia was closed with #1 Vicryl suture. The subcutaneous layer was closed with 2-0 Vicryl. The skin was closed with skin han. Patient tolerated the procedure well. There were no complications. Neuro monitoring system was used to monitor patient's neurologic status throughout entire procedure. There was no disturbance of the neural monitoring signals throughout the case. Complications: none Post-operative Condition: stable Disposition: PACU Plan for aftercare: Admit to inpatient hospital
--- NOTE | 2021-01-19 12:52 | SUR.PHASEI ---
Patient to recovery room after General Anesthesia with Dr Melton and RN. Pt breathing unassisted. Oxygen placed on 5L NC.
[2021-01-19] MEDS: fentaNYL 100 MCG/2 ML INJ IV (13:02)
[2021-01-19] MEDS: HYDROMORPHONE 2 MG INJ IV ×2 (13:16→13:30)
[2021-01-19] MEDS: ONDANSETRON 4 MG/2 ML INJ IV (13:19)
[2021-01-19] MEDS: hydrOXYzine 50 MG/ML INJ IM (13:39)
[2021-01-19] MEDS: OXYCODONE/ACETAMINOPHEN 5/325 TABLET 1 TAB PO (13:54)
--- NOTE | 2021-01-19 14:30 | SUR.PHASEI ---
Patient transfered in bed to room 210 by this RN. Updated SBAR at bedside to Anu RN and Merry RN. Pt stated hearing aids were at home. Glasses and cane at bedside. Bed in low position, call light in reach. VSS on 2L NC.
[2021-01-19] MEDS: SODIUM CHLORIDE 0.9% 1,000 ML 100 ML IV ×2 (16:24→22:10)
[2021-01-19] MEDS: DOCUSATE 100 MG CAPSULE PO (20:02)
[2021-01-19] MEDS: GABAPENTIN 600 MG TABLET PO (20:02)
[2021-01-19] MEDS: SENNOSIDES 8.6 MG TABLET 17.2 MG PO (20:02)
[2021-01-19] MEDS: OXYCODONE IR 5 MG TABLET 10 MG PO (20:03)
[2021-01-19] MEDS: HYDROMORPHONE 0.5 MG INJ IV (22:09)
[2021-01-20] VITALS (8 sets, daily range): BP systolic 111–126; BP diastolic 52–73; PULSE 77–93; RESP 15–20; TEMP 36.2–37.9; O2SAT 90–99
[2021-01-20] MEDS: CEFAZOLIN 1 GM VIAL 2 GM IV (00:21)
[2021-01-20] MEDS: OXYCODONE IR 5 MG TABLET 10 MG PO ×5 (00:27→16:20)
[2021-01-20 06:08] LABS: Hemoglobin 8.7 g/dL (12.0-16.0)
--- NOTE | 2021-01-20 07:20 | PM.PN.1 ---
Subjective Subjective Date Patient Seen: 01/20/21 Time Patient Seen: 07:20 Interval history: Pain is moderate. Denies fever or chills. No nausea or vomiting. Patient has not yet been out of bed. Exam Vital Signs (past 8 hours): - 01/20/21 00:10 01/20/21 04:50 Temperature 97.2 F L 97.2 F L Pulse Rate 93 H 87 Respiratory Rate 18 15 Blood Pressure 111/61 126/73 Pulse Oximetry 97 98 Oxygen Delivery Method Nasal Cannula Oxygen Flow Rate 2 Narrative Exam Narrative: Pleasant 75-year-old female resting comfortably in bed no apparent distress. Motor functions intact bilateral lower extremities. Both legs are warm and dry. Sensation grossly intact to light touch bilateral lower extremities. Lumbar dressing is Clean, dry, intact.. Objective Labs Result Diagrams: 01/20/21 05:46 Labs: Laboratory Results - last 24 hr 01/20/21 05:46 Hgb 8.7 L Hct 27.0 L PFSH Medical History Arthritis AV block, Mobitz 2 Bacteriuria Bladder cancer Depression DJD (degenerative joint disease) E. coli infection Easy bruisability Fibromyalgia GERD (gastroesophageal reflux disease) GI bleed (2018) Hemangioma HLD (hyperlipidemia) HTN (hypertension) Impaired hearing Kidney stones Osteopenia Pacemaker (06/10/16) PAF (paroxysmal atrial fibrillation) Sleep apnea Stroke Vertigo Surgical History History of arthroplasty of left hip History of arthroplasty of right hip History of bladder surgery (2006) History of bowel resection History of carpal tunnel release History of colonoscopy History of esophagogastroduodenoscopy (EGD) History of hysterectomy History of parathyroid surgery (2016) History of surgery Hx of abdominal surgery Hx of bilateral cataract extraction Hx of bilateral mastectomy (~1993) Hx of craniotomy Hx of sinus surgery Hx of spinal surgery Social History household members: significant other Smoking Status: Former smoker alcohol intake: former Assessment & Plan Assessment & Plan narrative: Postop day 1. Mobilize with physical therapy. Limit bending, twisting, lifting. Disposition home in 1-2 days. Quality VTE Deep Vein Thrombosis/Pulmonary Embolism Present on Admission: No
--- NOTE | 2021-01-20 09:24 | CM.DANOTE ---
DCP: Case received, EMR reviewed and met with patient. Introduced self and role. Was able to obtain information regarding patient's baseline activity status prior to surgery, as well as her current living situation. DCP assessment completed with information currently available. Patient is a 75 year old female who admitted yesterday morning to the care of the orthopedic team. PCP: Dr. Damaris Frey. Payer: confirmed: Medicare/[facility]. Patient came to the hospital via private vehicle for a surgical procedure. She had L3-4, L5-S1 posteo-lateral interbody fusion. Patient has history of spinal stenosis. Met with patient in her room. She was laying in bed, alert and oriented. She has not yet worked with P.T. According to orthopedic's note, patient had some post-op anemia, and will not discharge today. Confirmed with patient that she resides here in [place], and that she has been independent at her baseline. She indicated that her life partner, Faiazn Stanford, will be assisting her with needs when she goes home. P: DCP to continue to follow. Patient will be working with P.T. today. Zoey Londono RN/Php Wordpress Developer
[2021-01-20] MEDS: DOCUSATE 100 MG CAPSULE PO ×2 (09:31→20:28)
[2021-01-20] MEDS: GABAPENTIN 600 MG TABLET PO ×2 (09:31→20:28)
[2021-01-20] MEDS: ATORVASTATIN 20 MG TABLET 40 MG PO (09:31)
[2021-01-20] MEDS: METOPROLOL ER 25 MG TABLET PO (09:35)
--- NOTE | 2021-01-20 09:53 | PT.IIE ---
Current Diagnoses Spondylolisthesis, lumbar region (01/19/21) Spinal stenosis, lumbar region with neurogenic claudication (01/19/21) Arthrodesis status (01/19/21) Surgery Performed Operation Date: 01/19/21 07:45 Actual Procedures p L3-L4, L5-S1 TLIF - Florentin Echols MD Medical History (Last Reviewed 01/20/21 @ 07:21 by Marco Willis PA-C) Arthritis AV block, Mobitz 2 Bacteriuria Bladder cancer Depression DJD (degenerative joint disease) E. coli infection Easy bruisability Fibromyalgia GERD (gastroesophageal reflux disease) GI bleed (2018) Hemangioma HLD (hyperlipidemia) HTN (hypertension) Impaired hearing Kidney stones Osteopenia Pacemaker (06/10/16) PAF (paroxysmal atrial fibrillation) Sleep apnea Stroke Vertigo Physical Therapy Inpatient Evaluation/Re-Eval M1 PT/OT-IP Prior Functional Status Start: 01/20/21 08:51 Freq: NEEDED Status: Active Protocol: Document 01/20/21 09:53 AW (Rec: 01/20/21 10:59 AW [id number]) Medical Review Prior Functional Status Medical History Reviewed Yes Communication WNL. Pt is an effective verbal communicator. Mobility and Gait Pt uses a SPC for household mobility and shopping trips. She has an UP walker she uses for walking around her neighborhood. Activities of Daily Living and IADL's Pt states she is independent with ADL's though admits she keeps her phone nearby when in the shower. She can drive but her partner, Faizan, does most of the driving. She has some assist for housekeeping tasks. Prior Functional Level (Other details) Pt has peripheral neuropathy which she states affects both her feet. She reports frequent falls - at least one per month. Social History Household Members significant other Living Arrangements House Number of Floors (Floors) One Floor Number of Stairs To Enter/Railing? 2 [place] with wide bilateral rails. She can only use one rail at a time and typically uses the right side rail when ascending. Home Environment High Toilet,Walk in Shower Home Equipment Straight Cane,Hand Held Shower ,Bed Rails,Grab Bars Near Toilet,Grab Bars In Shower Employment Status Retired Additional Social History Comment Pt has an UP walker and trekking poles. She recently installed a bed rail on the left side of the bed. Pt is retired. She lives in [place] with her partner, Faizan, who will be available and able to assist at discharge. M2 PT-IP Current Condition Start: 01/20/21 08:51 Freq: NEEDED Status: Active Protocol: Document 01/20/21 09:53 AW (Rec: 01/20/21 10:59 AW [id number]) Physical Therapy Current Condition Current Condition Evaluation Date 01/20/21 Treatment Diagnosis L3-S1 TLIF; difficulty in walking Onset Date 01/19/21 Precautions Lumbar Precautions Log Roll,No Twisting,Limit Bending,Lifting Restriction of 10 lbs,Gait Belt above Incisional Area M3 PT-IP Subjective Start: 01/20/21 08:51 Freq: NEEDED Status: Active Protocol: Document 01/20/21 09:53 AW (Rec: 01/20/21 10:59 AW [id number]) Subjective Physical Therapy Visit Type Type Initial Evaluation Visit Start Time 09:19 Visit Stop Time 09:53 Total Visit Minutes 34 Number of WASTEWATER PROJECT MANAGER Visits 0 Physical Therapy Visit Comments Patient Comments Pt is willing to mobilize with PT Patient Goals Pt hopes to graduate to using a cane and eventually to walk without AD. Therapy Pain Assessment Pain When Pain Assessed During Mobility Pain Present Pain Present Pain Reported Location lower back Intensity 6 Scale Used Numeric (0 - 10) Pain Management Techniques Apply Cold,Re-positioning, Timing of Activity with Medications M4 PT-IP Mobility and Gait Start: 01/20/21 08:51 Freq: NEEDED Status: Active Protocol: Document 01/20/21 09:53 AW (Rec: 01/20/21 11:49 AW [id number]) PT-Bed Mobility Assessment Rolling Type of Rolling Log Rolling,Roll to Left Level of Assist Moderate Assistance Supine to Sit Supine to Sit Moderate Assistance,1 Person Assistance,Bedrails Scooting Scooting to Edge of Bed Contact Guard Assistance PT-Transfer Assessment Sit to and From Stand Sit to and from Stand Minimal Assistance,1 Person Assistance,Use of Upper Extremities Equipment Transfer Assistive Device Gait Belt,Front Wheeled Walker Orthotic/Prosthetic Devices or Brace: No Transfers Transfer Destination Chair Transfer Technique Stand Step Pivot Transfer Ability Level of Assist Minimal Assistance,1 Person Assistance,Use of Upper Extremities Comments Mobility Comments Pt was reclined in bed as PT arrived. BP 136/68 HR 91 SPO2 99% on room air. PT educated pt on lumbar precautions and log roll bed mobility. Pt required mod assist to log roll to her left side and sit up on EOB. She scooted forward until her feet were on the ground and stood from the bed min assist and used the FWW to steady herself in standing. She complained of numbness/ tingling in LLE from foot to knee and in lateral thigh. She walked 4 feet to transfer to the chair min assist. After activity, BP was 100/58 HR 79 SpO2 95% room air. Pt was asymptomatic. Informed RN of VS and left pt with ice pack for low back, call light and table in reach. Gait Assessment Gait Gait Assistance Required: Minimum Assistance Distance (Feet) 4 Able to Maintain Weight Bearing Status Yes During Gait Assistive Devices Assistive Device Gait Belt,Front Wheeled Walker Orthotic/Prosthetic Devices or Brace: No Gait Deviations General Gait Pattern Antalgic,Decreased Stride Length,Decreased Feet Clearance,Flexed Trunk,Step-to Gait Factors Limiting Gait Function Factors Limiting Gait Function Decreased Activity Tolerance, Decreased Sensation,Decreased Strength,Limited Range of Motion,Pain,Poor Balance Comments Gait Comments Steps taken during transfer only. See mobility comments for details. Stair Climbing Assessment Comments Stair Climbing Comments Not assessed. PT-Balance Assessment Sitting Balance and Reactions Static Sitting Balance Ability Good Dynamic Sitting Balance Ability Good Standing Balance and Reactions Static Standing Balance Ability Good Dynamic Standing Balance Ability Fair Device Used FWW M5 PT-IP Objective Assessments Start: 01/20/21 08:51 Freq: NEEDED Status: Active Protocol: Document 01/20/21 09:53 AW (Rec: 01/20/21 11:49 AW [id number]) Orientation Orientation/Cognition Level of Alertness Alert Orientation Name,Day of Week,Place, Situation Language Function Ability No Deficits Noted Safety Awareness Understands Safety Issues Memory Description No Deficits Noted Gross Range of Motion Upper Extremity ROM Assessment Within Functional Limits Lower Extremity ROM Assessment Within Functional Limits Strength Lower Extremity Strength Assessment Bilaterally Impaired Hip 4-/5 Knee 4+/5 Ankle R 4+/5; L 4/5 Sensation Assessment Sensation Gross Sensation Left LE Impaired Light Touch Impaired Proprioception (Position) Impaired Sensation Description Numbness,Tingling,[place] Comments Sensation Comments Pt reports numb/tingling sensation in LLE from foot to knee and in lateral thigh which is new or worsened since surgery. M6 PT-IP Treatment Start: 01/20/21 08:51 Freq: NEEDED Status: Active Protocol: Document 01/20/21 09:53 AW (Rec: 01/20/21 11:49 AW [id number]) Physical Therapy Treatment Education Education Provided Precautions,Post-Op Packet, Safety Other Treatments Other Treatment Performed Educated pt on PT plan of care , post-op precautions, and safe use of FWW. M7 PT-IP Assessment and Plan Start: 01/20/21 08:51 Freq: NEEDED Status: Active Protocol: Document 01/20/21 09:53 AW (Rec: 01/20/21 11:49 AW [id number]) PT Summary Assessment and Plan Potential Rehabilitation Potential Good Status of Condition at Evaluation Evolving Summary Impairments Pain,ROM,Strength,Balance, Sensation,Bed Mobility, Transfers,Gait,Activity Tolerance Assessment Summary Siri is a 75 yo woman seen for PT evaluation on POD1 following L3-S1 TLIF. She is modified independent at baseline with use of SPC or UPWalker for mobility. She endorses frequent falls. On evaluation, pt reports numb/ tingling sensation in LLE from foot to knee and in lateral thigh which is new since surgery. She required mod assist for bed mobility and min assist for transfers. Gait not assessed at this time. PT anticipates she will progress and be safe to discharge home with assist once medically stable. Goals Bed Mobility Goal Standby Assistance Transfer Goal Standby Assistance,Front Wheeled Walker Gait Goal Standby Assistance,Front Wheel Walker Gait Distance 150 Other Goals - up/down 2 steps with unilateral rail SBA Days to Meet Goals 4 Frequency of Treatment Frequency Of Treatment Twice a Day Treatment Plan Physical Therapy Treatment Plan Bed Mobility Training,Transfer Training,Gait Training, Therapeutic Exercise,Balance Retraining,Post Op Education, Discharge Planning,Hot or Cold Pack,Neuromuscular Re-ed Other Recommendations and Next Treatment review precautions; gait with Focus FWW (or UPWalker if shara in by family); mobility as tolerated; set up caregiver training if indicated Precautions Lumbar Precautions Log Roll,No Twisting,Limit Bending,Lifting Restriction of 10 lbs,Gait Belt above Incisional Area Other Precautions falls Recommendations To Nursing Amount of Assist Needed 1 Person Assist Discharge Recommendations PT Discharge Recommendations Home with Assistance Equipment Needed for Home Before shower chair Discharge Transportation Needs at Discharge Private Vehicle
[2021-01-20] MEDS: CYANOCOBALAMIN (VITAMIN B-12) 500 MCG TABLET 1000 MCG PO (09:56)
[2021-01-20] MEDS: ESCITALOPRAM 10 MG TABLET PO (09:56)
--- NOTE | 2021-01-20 12:00 | OT.IP.EVAL ---
Current Diagnoses Spondylolisthesis, lumbar region (01/19/21) Spinal stenosis, lumbar region with neurogenic claudication (01/19/21) Arthrodesis status (01/19/21) Surgery Performed Operation Date: 01/19/21 07:45 Actual Procedures p L3-L4, L5-S1 TLIF - Florentin Echols MD Past Medical History (Last Reviewed 01/20/21 @ 07:21 by Marco Willis PA-C) Arthritis AV block, Mobitz 2 Bacteriuria Bladder cancer Depression DJD (degenerative joint disease) E. coli infection Easy bruisability Fibromyalgia GERD (gastroesophageal reflux disease) GI bleed (2018) Hemangioma History of arthroplasty of left hip History of arthroplasty of right hip History of bladder surgery (2006) History of bowel resection History of carpal tunnel release History of colonoscopy History of esophagogastroduodenoscopy (EGD) History of hysterectomy History of parathyroid surgery (2016) History of surgery HLD (hyperlipidemia) HTN (hypertension) Hx of abdominal surgery Hx of bilateral cataract extraction Hx of bilateral mastectomy (~1993) Hx of craniotomy Hx of sinus surgery Hx of spinal surgery Impaired hearing Kidney stones Osteopenia Pacemaker (06/10/16) PAF (paroxysmal atrial fibrillation) Sleep apnea Stroke Vertigo Surgical History (Last Reviewed 01/20/21 @ 07:21 by Marco Willsi PA-C) History of arthroplasty of left hip History of arthroplasty of right hip History of bladder surgery (2006) History of bowel resection History of carpal tunnel release History of colonoscopy History of esophagogastroduodenoscopy (EGD) History of hysterectomy History of parathyroid surgery (2016) History of surgery Hx of abdominal surgery Hx of bilateral cataract extraction Hx of bilateral mastectomy (~1993) Hx of craniotomy Hx of sinus surgery Hx of spinal surgery Occupational Therapy Inpatient Evaluation/Re-Eval M1 PT/OT-IP Prior Functional Status Start: 01/20/21 08:51 Freq: NEEDED Status: Active Protocol: Document 01/20/21 14:00 [facility] (Rec: 01/20/21 14:16 [facility] [id number]) Medical Review Prior Functional Status Medical History Reviewed Yes Communication WNL. Pt is an effective verbal communicator. Mobility and Gait Pt uses a SPC for household mobility and shopping trips. She has an UP walker she uses for walking around her neighborhood. Activities of Daily Living and IADL's Pt states she is independent with ADL's though admits she keeps her phone nearby when in the shower. She can drive but her partner, Faizan, does most of the driving. She has some assist for housekeeping tasks. Prior Functional Level (Other details) Pt has peripheral neuropathy which she states affects both her feet. She reports frequent falls - at least one per month. Social History Household Members significant other Living Arrangements House Number of Floors (Floors) One Floor Number of Stairs To Enter/Railing? 2 [place] with wide bilateral rails. She can only use one rail at a time and typically uses the right side rail when ascending. Home Environment High Toilet,Walk in Shower Home Equipment Straight Cane,Hand Held Shower ,Bed Rails,Grab Bars Near Toilet,Grab Bars In Shower Employment Status Retired Additional Social History Comment Pt has an UP walker and trekking poles. She recently installed a bed rail on the left side of the bed. Pt is retired. She lives in [place] with her partner, Faizan, who will be available and able to assist at discharge. M2 OT-IP Current Condition Start: 01/20/21 14:00 Freq: Status: Active Protocol: Document 01/20/21 14:00 [facility] (Rec: 01/20/21 14:16 [facility] [id number]) Occupational Therapy Current Condition Current Condition Evaluation Date 01/20/21 Treatment Diagnosis S/p L3-4, L5-S1 TLIF, decreased mobility Post Operative Precautions Lumbar Precautions Log Roll,No Twisting,Limit Bending,Lifting Restriction of 10 lbs,Gait Belt above Incisional Area M3 OT- IP Subjective and Pain Start: 01/20/21 14:00 Freq: Status: Active Protocol: Document 01/20/21 14:00 [facility] (Rec: 01/20/21 14:16 [facility] [id number]) OT- Subjective Occupational Therapy Visit Type Type Initial Evaluation Visit Start Time 11:30 Visit Stop Time 12:00 Total Visit Minutes 30 Occupational Therapy Visit Comments Patient Comments Pt agreed to sit up for lunch. Patient/Caregiver Goals TO go home. OT Pain Assessment Pain When Pain Assessed During Mobility Pain Present Pain Present Pain Reported Location lower back Intensity 5 Scale Used Numeric (0 - 10) M4 OT- IP ADL's Start: 01/20/21 14:00 Freq: Status: Active Protocol: Document 01/20/21 14:00 [facility] (Rec: 01/20/21 14:16 [facility] [id number]) OT IUG-Athz-Lzoffpz General Evaluation Self-Feeding Ability Independent OT ADL-Grooming General Evaluation Areas Needing Assistance Retrieving/Set-up of Grooming Items OT ADL-Oral Care Comments Oral Care Comments NOt performed. Educated pt to spit onto a cup in order to best follow her back precautions. OT ADL-Dressing General Eval Lower Body Dressing Ability Maximum Assistance Comments OT Dressing Comments Initiated education of LB dressing equipment of track dresser and sock aid. Pt states may have a track dresser and sock aid at home. OT ADL-Toileting Comments OT Toileting Comments Navarro in place. Pt states has to get up to the bathroom 4-5 times at night. Suggested to wear pads/brief and get a BSC in addition possible sleep in a recliner initially. OT ADL-Bathing Comments OT Bathing Comments Not performed as pt states not ready to try yet. M5 OT- IP IADL's Start: 01/20/21 14:00 Freq: Status: Active Protocol: Document 01/20/21 14:00 [facility] (Rec: 01/20/21 14:16 [facility] [id number]) OT-Instrumental Activities of Daily Living Home Safety Awareness Awareness of Need for Assistance at Home Good Awareness Ability to Problem Solve Emergency Able to Problem Solve Situations Medication Management Medication Management Comments Pt states her life partner can assist for needs as needed. Money Management Money Management Comments Pt states her life partner can assist for needs as needed. Meal Preparation Meal Preparation Comments Pt states her life partner can assist for needs as needed. Manager Field Sales Manager Field Sales Caregiver Provides Assist Driving Driving Caregiver Provides Assist M6 OT- IP Functional Cognition Start: 01/20/21 14:00 Freq: Status: Active Protocol: Document 01/20/21 14:00 [facility] (Rec: 01/20/21 14:16 [facility] [id number]) Cognitive Factors Limiting Selfcare Function Cognitive Ability Level of Alertness Alert Patient Orientation Name,Place,Situation Attention Span Ability Capable of Focused Attention, Capable of Sustained Attention Ability to Follow Commands Able to Follow One Step Commands with Increased Time, Able to Follow One Step Commands with Repetition Safety Awareness Decreased Recall of Precautions Cognitive Comments Cognitive Assessment Comments Pt a little groggy and needing vc to recall back precautions and step by step commands to follow for ADL and bed mobility needs. OT- Vision and Hearing OT- Hearing Assessment OT- Hearing Assessment WFL OT- Vision Assessment Visual Acuity Glasses All The Time M7 OT- IP Mobility and Balance Start: 01/20/21 14:00 Freq: Status: Active Protocol: Document 01/20/21 14:00 [facility] (Rec: 01/20/21 14:16 [facility] [id number]) OT- Bed Mobility Assessment Rolling Type of Rolling Roll to Left Supine to Sit Supine to Sit Assist Moderate Assistance Sit to Supine Sit to Supine Assist Moderate Assistance,1 Person Assistance Scooting Scooting to Edge of Bed Moderate Assistance,1 Person Assistance OT-Transfer Assessment Sit to and From Stand Sit to and from Stand Minimal Assistance Transfers Transfer Ability Minimal Assistance Technique Transfer Destination Bed,Chair Devices Transfer Assistive Devices Gait Belt,Front Wheeled Walker Comments Mobility Comments MOD A to assist to roll and get up from side lying and heavy use of bed rail. Pt dod get a bed rail for home use. Sit to stand pt tends to hold the FWW to press up and not able to push up with her hands on the bed to stand. Pt also needing assist to help lower her down to the recliner . Pt just wanting to transfer only at this time. OT- Balance Assessment Sitting Balance and Reactions Static Sitting Balance Ability Good Dynamic Sitting Balance Ability Fair Standing Balance and Reactions Static Standing Balance Ability Fair M8 OT- IP Objective Assessments Start: 01/20/21 14:00 Freq: Status: Active Protocol: Document 01/20/21 14:00 [facility] (Rec: 01/20/21 14:16 [facility] [id number]) OT-Muscle Tone Assessment Muscle Tone WNL Yes M9 OT- IP Assessment and Plan Start: 01/20/21 14:00 Freq: Status: Active Protocol: Document 01/20/21 14:00 [facility] (Rec: 01/20/21 14:16 [facility] [id number]) OT Summary Assessment and Plan Potential Rehabilitation Potential Good Analytic Complexity at Evaluation Low Summary OT Impairments Pain,Balance,Functional Mobility,Dressing,Toileting, Bathing,Toilet Transfers, Shower Transfers,Activity Tolerance Progress Towards Goals Slow Progress due to Pain,Slow Progress due to Activity Tolerance Assessment Summary Pt low complexity and main barriers are steps, pain, and now needing assist for all ADl and mobility needs. Pending caregiver training and progress, pt looking to go home with her life partner versus possible SNF. Goals Grooming Goal Independent Dressing Goal Independent Toileting Goal Independent Bathing Goal Independent Toilet Transfer Goal Independent Shower Transfer Goal Independent Days to Meet Goals 10 Frequency of Treatment Frequency Of Treatment Once a Day Treatment Plan OT Treatment Plan ADL Training,Functional Mobility,Patient/Family Education,Discharge Planning Other Treatment Recommendations and Next Stand for grooming needs. Treatment Focus Discharge Recommendations OT Discharge Recommendations Home with Assistance,SNF Rehab ,Home vs SNF Other Discharge Recommendations Pending progress and caregiver training most likely home with assist versus SNF. Home Equipment Needs Shower chair, BSC Transportation Needs at Discharge Private Vehicle,Wheelchair/ Cabulance
--- NOTE | 2021-01-20 14:21 | PT.IPTN ---
Current Diagnoses Spondylolisthesis, lumbar region (01/19/21) Spinal stenosis, lumbar region with neurogenic claudication (01/19/21) Arthrodesis status (01/19/21) Surgery Performed Operation Date: 01/19/21 07:45 Actual Procedures p L3-L4, L5-S1 TLIF - Florentin Echols MD Physical Therapy Treatment Note M2 PT-IP Current Condition Start: 01/20/21 08:51 Freq: NEEDED Status: Active Protocol: Document 01/20/21 09:53 AW (Rec: 01/20/21 10:59 AW [id number]) Physical Therapy Current Condition Current Condition Evaluation Date 01/20/21 Treatment Diagnosis L3-S1 TLIF; difficulty in walking Onset Date 01/19/21 Precautions Lumbar Precautions Log Roll,No Twisting,Limit Bending,Lifting Restriction of 10 lbs,Gait Belt above Incisional Area M3 PT-IP Subjective Start: 01/20/21 08:51 Freq: NEEDED Status: Active Protocol: Document 01/20/21 14:21 AW (Rec: 01/20/21 14:50 AW [id number]) Subjective Physical Therapy Visit Type Type Treatment Note Visit Start Time 14:08 Visit Stop Time 14:21 Total Visit Minutes 13 Number of LOAN OFFICER ASSISTANT Visits 0 Physical Therapy Visit Comments Patient Comments Pt is resting but willing to participate with PT. Therapy Pain Assessment Pain When Pain Assessed During Mobility Pain Present Pain Present Pain Reported Location lower back Intensity 5 Scale Used Numeric (0 - 10) Pain Management Techniques Apply Cold,Re-positioning, Timing of Activity with Medications M4 PT-IP Mobility and Gait Start: 01/20/21 08:51 Freq: NEEDED Status: Active Protocol: Document 01/20/21 14:21 AW (Rec: 01/20/21 14:50 AW [id number]) PT-Bed Mobility Assessment Rolling Type of Rolling Log Rolling,Roll to Right Level of Assist Minimal Assistance Supine to Sit Supine to Sit Moderate Assistance,1 Person Assistance,Bedrails Sit to Supine Sit to Supine Minimal Assistance,1 Person Assistance Scooting Scooting to Edge of Bed Contact Guard Assistance PT-Transfer Assessment Sit to and From Stand Sit to and from Stand Contact Guard Assistance,Use of Upper Extremities Equipment Transfer Assistive Device Gait Belt,Front Wheeled Walker Orthotic/Prosthetic Devices or Brace: No Transfers Transfer Destination Bed Transfer Technique ambulated with FWW Transfer Ability Level of Assist Minimal Assistance,Use of Upper Extremities Comments Mobility Comments Pt was in right sidelying as PT arrived. She further rolled to her right min assist and needed mod assist for SL to sit transition. She stood from the bed CGA and cues to push off with UE. She ambulated 25 feet (across the ledesma and back ) with FWW CGA. She requested return to bed and needed min assist to elevate BLE to the bed. She remained in right sidelying. Pt was left with bed alarm on, call light and tray table in reach. Gait Assessment Gait Gait Assistance Required: Minimum Assistance Distance (Feet) 25 Able to Maintain Weight Bearing Status Yes During Gait Assistive Devices Assistive Device Gait Belt,Front Wheeled Walker Orthotic/Prosthetic Devices or Brace: No Gait Deviations General Gait Pattern Antalgic,Decreased Stride Length,Decreased Feet Clearance,Flexed Trunk,Step-to Gait Factors Limiting Gait Function Factors Limiting Gait Function Decreased Activity Tolerance, Decreased Sensation,Decreased Strength,Limited Range of Motion,Pain,Poor Balance Comments Gait Comments Pt required max cues for posture and min assist for walker management as she tended to push the walker too far ahead of her. Stair Climbing Assessment Comments Stair Climbing Comments Not assessed. PT-Balance Assessment Sitting Balance and Reactions Static Sitting Balance Ability Good Dynamic Sitting Balance Ability Good Standing Balance and Reactions Static Standing Balance Ability Fair Dynamic Standing Balance Ability Fair Device Used FWW M5 PT-IP Objective Assessments Start: 01/20/21 08:51 Freq: NEEDED Status: Active Protocol: Document 01/20/21 09:53 AW (Rec: 01/20/21 11:49 AW [id number]) Orientation Orientation/Cognition Level of Alertness Alert Orientation Name,Day of Week,Place, Situation Language Function Ability No Deficits Noted Safety Awareness Understands Safety Issues Memory Description No Deficits Noted Gross Range of Motion Upper Extremity ROM Assessment Within Functional Limits Lower Extremity ROM Assessment Within Functional Limits Strength Lower Extremity Strength Assessment Bilaterally Impaired Hip 4-/5 Knee 4+/5 Ankle R 4+/5; L 4/5 Sensation Assessment Sensation Gross Sensation Left LE Impaired Light Touch Impaired Proprioception (Position) Impaired Sensation Description Numbness,Tingling,Pins & [place] Comments Sensation Comments Pt reports numb/tingling sensation in LLE from foot to knee and in lateral thigh which is new or worsened since surgery. M6 PT-IP Treatment Start: 01/20/21 08:51 Freq: NEEDED Status: Active Protocol: Document 01/20/21 14:21 AW (Rec: 01/20/21 14:50 AW [id number]) Physical Therapy Treatment Education Education Provided Precautions,Safety M7 PT-IP Assessment and Plan Start: 01/20/21 08:51 Freq: NEEDED Status: Active Protocol: Document 01/20/21 14:21 AW (Rec: 01/20/21 14:50 AW [id number]) PT Summary Assessment and Plan Summary Impairments Pain,ROM,Strength,Balance, Sensation,Bed Mobility, Transfers,Gait,Activity Tolerance Progress Towards Goals Slow Progress due to Pain,Slow Progress due to Activity Tolerance Assessment Summary Siri improved her gait distance this PM but continues to require mod assist for bed mobility. She is not tolerating much activity at this time. Attempted to coordinate caregiver training with pt's spouse but pt unable to reach him for time. Will follow up at AM session to coordinate training. Goals Bed Mobility Goal Standby Assistance Transfer Goal Standby Assistance,Front Wheeled Walker Gait Goal Standby Assistance,Front Wheel Walker Gait Distance 150 Other Goals - up/down 2 steps with unilateral rail SBA Days to Meet Goals 4 Frequency of Treatment Frequency Of Treatment Twice a Day Treatment Plan Physical Therapy Treatment Plan Bed Mobility Training,Transfer Training,Gait Training, Therapeutic Exercise,Balance Retraining,Post Op Education, Discharge Planning,Hot or Cold Pack,Neuromuscular Re-ed Other Recommendations and Next Treatment gait with FWW or UPWalker; Focus mobility as tolerated; set up caregiver training Precautions Lumbar Precautions Log Roll,No Twisting,Limit Bending,Lifting Restriction of 10 lbs,Gait Belt above Incisional Area Other Precautions falls Recommendations To Nursing Amount of Assist Needed 1 Person Assist Discharge Recommendations PT Discharge Recommendations Home with Assistance Equipment Needed for Home Before shower chair, BSC Discharge Transportation Needs at Discharge Private Vehicle
[2021-01-20] MEDS: HYDROMORPHONE 0.5 MG INJ IV (16:20)
[2021-01-20] MEDS: SENNOSIDES 8.6 MG TABLET 17.2 MG PO (20:28)
[2021-01-21] VITALS (7 sets, daily range): BP systolic 123–145; BP diastolic 53–74; PULSE 72–84; RESP 14–20; TEMP 36.1–37.5; O2SAT 93–98
[2021-01-21] MEDS: OXYCODONE IR 5 MG TABLET 10 MG PO ×4 (00:02→20:32)
[2021-01-21 05:30] LABS: Hematocrit 25.8 % (36-46); Hemoglobin 8.3 g/dL (12.0-16.0)
--- NOTE | 2021-01-21 07:32 | P.PN_ITS ---
Subjective Subjective Date Patient Seen: 01/21/21 Time Patient Seen: 07:32 Interval history: Patient states she is doing well overall but reports moderate level pain. At this time she denies fever, chills, nausea, chest pain, shortness of breath, or urinary retention. Patient does report mild decreased sensation along the anterior proximal left leg extending to the dorsal aspect of the left foot. She otherwise reports good sensation throughout the bilateral l ower extremities. Exam Vital Signs (past 8 hours): - 01/20/21 23:55 01/21/21 04:00 01/21/21 07:13 Temperature 98.9 F 99.0 F 97.0 F L Pulse Rate 81 72 76 Respiratory Rate 18 16 16 Blood Pressure 119/56 L 135/54 L 134/74 Pulse Oximetry 96 98 97 Oxygen Delivery Method Room Air Oxygen Flow Rate 2 Narrative Exam Narrative: 75-year-old female postop day 2 status post lumbar fusion. Patient is resting comfortably in bed, is in no acute distress, and is alert and oriented x3. Skin is warm and dry, and the skin surrounding the incision site is free of erythema, warmth, induration, or discharge. Dressing over the i ncision site is clean, dry, and intact. Good sensation appreciated throughout the bilateral lower extremities to light touch. Gross motor function intact. Calves are soft and nontender, negative Homans sign. DP pulses palpated bilaterally. No other signs of DVT appreciated. Const General: cooperative, healthy appearing and comfortable Resp Effort & Inspection: normal respiratory effort and able to speak in complete sentences Skin General: no rashes or lesions noted Objective Labs Result Diagrams: 01/21/21 05:11 Labs: Laboratory Results - last 24 hr 01/21/21 05:11 Hgb 8.3 L Hct 25.8 L [facility] Medical History Arthritis AV block, Mobitz 2 Bacteriuria Bladder cancer Depression DJD (degenerative joint disease) E. coli infection Easy bruisability Fibromyalgia GERD (gastroesophageal reflux disease) GI bleed (2018) Hemangioma HLD (hyperlipidemia) HTN (hypertension) Impaired hearing Kidney stones Osteopenia Pacemaker (06/10/16) PAF (paroxysmal atrial fibrillation) Sleep apnea Stroke Vertigo Surgical History History of arthroplasty of left hip History of arthroplasty of right hip History of bladder surgery (2006) History of bowel resection History of carpal tunnel release History of colonoscopy History of esophagogastroduodenoscopy (EGD) History of hysterectomy History of parathyroid surgery (2016) History of surgery Hx of abdominal surgery Hx of bilateral cataract extraction Hx of bilateral mastectomy (~1993) Hx of craniotomy Hx of sinus surgery Hx of spinal surgery Social History household members: significant other Smoking Status: Former smoker alcohol intake: former Assessment & Plan Post-op Postoperative Procedures: Procedures Operation Date: 01/19/21 07:45 Actual Procedure Side Surgeon p L3-L4, L5-S1 TLIF Florentin Echols MD Postoperative day: 2 Postoperative status: doing well Postoperative plan: ambulate Postoperative plan narrative: Current pain management regimen is to be continued as it is adequately controlled the patient's pain level. Patient is to continue working on ambulation with the assistance of a front wheeled walker with physical therapy. She is to avoid bending, twisting, lifting. Pending successful work with physical therapy plan for discharge likely home either today or tomorrow. Quality VTE Deep Vein Thrombosis/Pulmonary Embolism Present on Admission: No
[2021-01-21] MEDS: CYANOCOBALAMIN (VITAMIN B-12) 500 MCG TABLET 1000 MCG PO (08:32)
[2021-01-21] MEDS: GABAPENTIN 600 MG TABLET PO ×2 (08:33→20:32)
[2021-01-21] MEDS: METOPROLOL ER 25 MG TABLET PO (08:33)
[2021-01-21] MEDS: ESCITALOPRAM 10 MG TABLET PO (08:33)
[2021-01-21] MEDS: ATORVASTATIN 20 MG TABLET 40 MG PO (08:33)
[2021-01-21] MEDS: DOCUSATE 100 MG CAPSULE PO ×2 (08:34→20:32)
--- NOTE | 2021-01-21 09:35 | PT.IPTN ---
Current Diagnoses Spondylolisthesis, lumbar region (01/19/21) Spinal stenosis, lumbar region with neurogenic claudication (01/19/21) Arthrodesis status (01/19/21) Surgery Performed Operation Date: 01/19/21 07:45 Actual Procedures p L3-L4, L5-S1 TLIF - Florentin Echols MD Physical Therapy Treatment Note M2 PT-IP Current Condition Start: 01/20/21 08:51 Freq: NEEDED Status: Active Protocol: Document 01/20/21 09:53 AW (Rec: 01/20/21 10:59 AW [id number]) Physical Therapy Current Condition Current Condition Evaluation Date 01/20/21 Treatment Diagnosis L3-S1 TLIF; difficulty in walking Onset Date 01/19/21 Precautions Lumbar Precautions Log Roll,No Twisting,Limit Bending,Lifting Restriction of 10 lbs,Gait Belt above Incisional Area M3 PT-IP Subjective Start: 01/20/21 08:51 Freq: NEEDED Status: Active Protocol: Document 01/21/21 09:20 SP (Rec: 01/21/21 13:58 SP [id number]) Subjective Physical Therapy Visit Type Type Treatment Note Visit Start Time 09:20 Visit Stop Time 09:35 Total Visit Minutes 15 Notes FITNESS WORKER and nurse in room attempting to assist pt from chair to BSC, ANJUM Gloria arrived for possible caregiver training if able, observed only due to amt assist required from 2 persons this tx. Number of MICROWAVE SUPERVISOR Visits 1 Physical Therapy Visit Comments Patient Comments Pt is resting but willing to participate with PT. Patient Goals Get stronger to go home with Faizan VALERO. Therapy Pain Assessment Pain When Pain Assessed During Mobility Pain Present Pain Present Pain Reported Location lower back Intensity 5 Scale Used during mobility Pain Management Techniques Distraction,Modification of Treatment,Re-positioning, Timing of Activity with Medications M4 PT-IP Mobility and Gait Start: 01/20/21 08:51 Freq: NEEDED Status: Active Protocol: Document 01/21/21 09:20 SP (Rec: 01/21/21 13:58 SP [id number]) PT-Bed Mobility Assessment Sit to Supine Sit to Supine Moderate Assistance,1 Person Assistance,Bedrails PT-Transfer Assessment Sit to and From Stand Sit to and from Stand Maximum Assistance,2 Person Assistance,Use of Upper Extremities Equipment Transfer Assistive Device Gait Belt,Front Wheeled Walker Orthotic/Prosthetic Devices or Brace: No Transfers Transfer Destination Bed,Bedside Commode Transfer Technique ambulated with FWW Transfer Ability Level of Assist Moderate Assistance,2 Person Assistance,Use of Upper Extremities Comments Mobility Comments Pt was seated in chair when arrived, FITNESS WORKER and nurse were going to assist pt to BSC. MICROWAVE SUPERVISOR took over and required assist of FITNESS WORKER for 2nd person. SO observed tx for awareness of mobility.Pt scoot to EOchair with CGA, sit>stand with max cuing for pushing from chair and reposition to fWW max A x2 to stand, SPT to L to BSC with cues for body spacial awareness able self reposition fWW, stand>sit Mod A x1 w/ cues for reaching back prior to sit. Pt stable sitting on BSC, SBA. Pt attempted self pericare but unable, FITNESS WORKER assist pt in sitting cGA by MICROWAVE SUPERVISOR with cues for hip hinge not bending back forward improved pain, Sit>Stand Mod A x2 cues for quad facilitation . Pt able to complete brief mgt self Mod A for standing balance. Pt ambulated to bed 4 ft Min-Mod A x2 and cues for body positioning w/ fWW toward HOB, then reaching back Min A stand>sit. Sit>L SL CGA at trunk by FITNESS WORKER and Mod A for BLE into bed then cues for LR to R CGA. Pt able to self reposition trunk and LEs in bed w/bed rails. Pt had call light and all needs in reach, bed alarmed. Gait Assessment Gait Gait Assistance Required: Minimum Assistance,Moderate Assistance,2 Person Assist Distance (Feet) 4 Able to Maintain Weight Bearing Status Yes During Gait Assistive Devices Assistive Device Gait Belt,Front Wheeled Walker Orthotic/Prosthetic Devices or Brace: No Gait Deviations General Gait Pattern Antalgic,Decreased Stride Length,Decreased Feet Clearance,Flexed Trunk,Step-to Gait Factors Limiting Gait Function Factors Limiting Gait Function Decreased Activity Tolerance, Decreased Sensation,Decreased Strength,Limited Range of Motion,Pain,Poor Balance,Poor Safety Awareness Comments Gait Comments see mobiliy comments. Stair Climbing Assessment Comments Stair Climbing Comments Pt required Min- Mod A x2 persons, unable to assess stair mgt at this time. PT-Balance Assessment Sitting Balance and Reactions Static Sitting Balance Ability Good Dynamic Sitting Balance Ability Fair Standing Balance and Reactions Static Standing Balance Ability Fair Dynamic Standing Balance Ability Poor Device Used FWW M5 PT-IP Objective Assessments Start: 01/20/21 08:51 Freq: NEEDED Status: Active Protocol: Document 01/20/21 09:53 AW (Rec: 01/20/21 11:49 AW [id number]) Orientation Orientation/Cognition Level of Alertness Alert Orientation Name,Day of Week,Place, Situation Language Function Ability No Deficits Noted Safety Awareness Understands Safety Issues Memory Description No Deficits Noted Gross Range of Motion Upper Extremity ROM Assessment Within Functional Limits Lower Extremity ROM Assessment Within Functional Limits Strength Lower Extremity Strength Assessment Bilaterally Impaired Hip 4-/5 Knee 4+/5 Ankle R 4+/5; L 4/5 Sensation Assessment Sensation Gross Sensation Left LE Impaired Light Touch Impaired Proprioception (Position) Impaired Sensation Description Numbness,Tingling,Pins & [place] Comments Sensation Comments Pt reports numb/tingling sensation in LLE from foot to knee and in lateral thigh which is new or worsened since surgery. M6 PT-IP Treatment Start: 01/20/21 08:51 Freq: NEEDED Status: Active Protocol: Document 01/21/21 09:20 SP (Rec: 01/21/21 13:58 SP [id number]) Physical Therapy Treatment Education Education Provided Precautions,Safety Other Treatments Other Treatment Performed Education Post-op precautions, and safe use of FWW. M7 PT-IP Assessment and Plan Start: 01/20/21 08:51 Freq: NEEDED Status: Active Protocol: Document 01/21/21 09:20 SP (Rec: 01/21/21 13:58 SP [id number]) PT Summary Assessment and Plan Potential Rehabilitation Potential Good Status of Condition at Evaluation Evolving Summary Impairments Pain,ROM,Strength,Balance, Sensation,Bed Mobility, Transfers,Gait,Activity Tolerance Progress Towards Goals Progressing Toward Goals,Slow Progress due to Pain,Slow Progress due to Activity Tolerance Assessment Summary Pt requires Mod- Max A sit> stands, transfers using FWW Min- Mod A x2 using FWW. Unable to progress gait this tx due to decreased strength and mobility. Recommending SNF at this time upon to improved strength and mobility. Educated pt and SO pt's decreased strength and amount assist required, unableto progress gait and still has stairs to assess if stronger. Pt and SO understood recommendations SNF at this time. MICROWAVE SUPERVISOR will continue to assess progress. PM caregiver training with SO at 2pm. Goals Bed Mobility Goal Standby Assistance Transfer Goal Standby Assistance,Front Wheeled Walker Gait Goal Standby Assistance,Front Wheel Walker Gait Distance 150 Other Goals - up/down 2 steps with unilateral rail SBA Days to Meet Goals 4 Frequency of Treatment Frequency Of Treatment Twice a Day Treatment Plan Physical Therapy Treatment Plan Bed Mobility Training,Transfer Training,Gait Training, Therapeutic Exercise,Balance Retraining,Post Op Education, Discharge Planning,Hot or Cold Pack,Neuromuscular Re-ed Other Recommendations and Next Treatment gait with FWW or UPWalker if Focus safe; mobility and stair mgt if able; 2pm 01/21/ w/ SO caregiver training Precautions Lumbar Precautions Log Roll,No Twisting,Limit Bending,Lifting Restriction of 10 lbs,Gait Belt above Incisional Area Other Precautions falls Recommendations To Nursing Amount of Assist Needed 2 Person Assist Discharge Recommendations PT Discharge Recommendations Home with 20/12 Assist Available,Home Health,SNF Rehab,Home vs SNF Equipment Needed for Home Before FWW, shower chair, BSC Discharge Transportation Needs at Discharge Private Vehicle
--- NOTE | 2021-01-21 11:17 | CM.DPC ---
Addendum entered by Zoey Londono R.N. 01/21/21 15:42: P.T. worked with patient again, and is max assist, and it will be difficult for her to manage stairs. Therapy still recommends jail. Discussed with patient again, she was sitting in her chair. She will go to skilled if needed for short term therapy. Asked her if she can have her significant bring her vaccine cards, as she does not have with her. Stated, she would ask him. [facility] has already confirmed acceptance for tomorrow. Original Note: DCP Cont: Patient is a max assist according to Gemma Galindo and recommending jail. Asked her if she had mentioned this to patient, and she indicated that this was brought up to her. Patient is Medicare, and would qualify for 3 midnight stay by tomorrow. Met briefly with patient. Brought in Medicare Choice List. Patient was laying in bed, sleepy. Mentioned skilled rehab to her, since she is weak, letting her know that this could be an option for her to get stronger before going home. P.T. had indicated that significant other would not be able to assist her in this capacity. Patient indicated, she would consider. Went ahead and called Ermel[facility] at [facility], and she indicated that they do have beds. Let her know that by Medicare standards, she would qualify by tomorrow. She will review. P: DCP to continue to follow. [facility] has beds, and the referral, will review and let this automatic data processing planner know. Zoey Londono RN/Burr Bench Hand
--- NOTE | 2021-01-21 12:14 | OT.IP.TRT ---
Current Diagnoses Spondylolisthesis, lumbar region (01/19/21) Spinal stenosis, lumbar region with neurogenic claudication (01/19/21) Arthrodesis status (01/19/21) Surgery Performed Operation Date: 01/19/21 07:45 Actual Procedures p L3-L4, L5-S1 TLIF - Florentin Echols MD Occupational Therapy Treatment Note M2 OT-IP Current Condition Start: 01/20/21 14:00 Freq: Status: Active Protocol: Document 01/20/21 14:00 [facility] (Rec: 01/20/21 14:16 [facility] [id number]) Occupational Therapy Current Condition Current Condition Evaluation Date 01/20/21 Treatment Diagnosis S/p L3-4, L5-S1 TLIF, decreased mobility Post Operative Precautions Lumbar Precautions Log Roll,No Twisting,Limit Bending,Lifting Restriction of 10 lbs,Gait Belt above Incisional Area M3 OT- IP Subjective and Pain Start: 01/20/21 14:00 Freq: Status: Active Protocol: Document 01/21/21 12:21 [facility] (Rec: 01/21/21 12:31 [facility] [id number]) OT- Subjective Occupational Therapy Visit Type Type Treatment Note Visit Start Time 11:43 Visit Stop Time 12:14 Total Visit Minutes 31 Occupational Therapy Visit Comments Patient Comments Pt agreed to get up to the recliner and wanting to use the BSC. Patient/Caregiver Goals TO go home. OT Pain Assessment Pain When Pain Assessed At Rest Pain Present Pain Present Pain Reported Location lower back Intensity 2 Scale Used Numeric (0 - 10) M4 OT- IP ADL's Start: 01/20/21 14:00 Freq: Status: Active Protocol: Document 01/21/21 12:21 [facility] (Rec: 01/21/21 12:31 [facility] [id number]) OT EEM-Ewkq-Wevsnru General Evaluation Self-Feeding Ability Standby Assistance Comments OT Self-Feeding Comments Pt very groggy and will need assist for set-up today. OT ADL-Grooming General Evaluation Areas Needing Assistance Retrieving/Set-up of Grooming Items Comments OT Grooming Comments Pt very groggy and knocking things over on her bedside table. OT ADL-Oral Care Comments Oral Care Comments For now as pt so groggy , best to do oral care while seated. Educated pt again if when able to stand for oral care , best to spit into a cup. OT ADL-Dressing General Eval Lower Body Dressing Ability Maximum Assistance Comments OT Dressing Comments Pt very groggy and needing MAX vc and MODA to help do brief management needs to don and doff. OT ADL-Toileting General Evaluation Toileting Ability Standby Assistance,Maximum Assistance Areas Needing Assistance Manage Clothing,Perform Perineal Hygiene Comments OT Toileting Comments Pt attempted to wipe from behind and unable to perform without pain. Therefore her Life partner will have to assist or possible obtain toilet paper aid or bidet. OT ADL-Bathing Comments OT Bathing Comments Pt too groggy at this time. M5 OT- IP IADL's Start: 01/20/21 14:00 Freq: Status: Active Protocol: Document 01/20/21 14:00 [facility] (Rec: 01/20/21 14:16 [facility] [id number]) OT-Instrumental Activities of Daily Living Home Safety Awareness Awareness of Need for Assistance at Home Good Awareness Ability to Problem Solve Emergency Able to Problem Solve Situations Medication Management Medication Management Comments Pt states her life partner can assist for needs as needed. Money Management Money Management Comments Pt states her life partner can assist for needs as needed. Meal Preparation Meal Preparation Comments Pt states her life partner can assist for needs as needed. Rotary Drum Dyer Rotary Drum Dyer Caregiver Provides Assist Driving Driving Caregiver Provides Assist M6 OT- IP Functional Cognition Start: 01/20/21 14:00 Freq: Status: Active Protocol: Document 01/21/21 12:21 [facility] (Rec: 01/21/21 12:31 [facility] [id number]) Cognitive Factors Limiting Selfcare Function Cognitive Ability Level of Alertness Alert,Drowsy Patient Orientation Name,Place,Situation Attention Span Ability Capable of Focused Attention, Capable of Sustained Attention Ability to Follow Commands Able to Follow One Step Commands with Increased Time, Able to Follow One Step Commands with Repetition Safety Awareness Decreased Recall of Precautions,Decreased Ability to Apply Precautions, Underestimates Need for Assistance Cognitive Comments Cognitive Assessment Comments Pt very groggy today and needing more vc to follow for ADl and for functional mobility needs. Pt also states that she did not sleep well last night. M7 OT- IP Mobility and Balance Start: 01/20/21 14:00 Freq: Status: Active Protocol: Document 01/21/21 12:21 [facility] (Rec: 01/21/21 12:31 [facility] [id number]) OT- Bed Mobility Assessment Rolling Type of Rolling Roll to Left Supine to Sit Supine to Sit Assist Moderate Assistance Sit to Supine Sit to Supine Assist Moderate Assistance,1 Person Assistance Scooting Scooting to Edge of Bed Moderate Assistance,1 Person Assistance OT-Transfer Assessment Sit to and From Stand Sit to and from Stand Moderate Assistance Transfers Transfer Ability Minimal Assistance,Moderate Assistance Technique Transfer Destination Bed,Bedside Commode,Chair Devices Transfer Assistive Devices Gait Belt,Front Wheeled Walker Comments Mobility Comments Pt still needing assist to help roll to the left and help get up from side lying in addition to use of bed rail. Pt tends to not step through with her feet when walking and takes very small steps. Pt needing assist for balance and help guide the FWW. OT- Balance Assessment Sitting Balance and Reactions Static Sitting Balance Ability Good Dynamic Sitting Balance Ability Fair Standing Balance and Reactions Static Standing Balance Ability Fair M8 OT- IP Objective Assessments Start: 01/20/21 14:00 Freq: Status: Active Protocol: Document 01/20/21 14:00 [facility] (Rec: 01/20/21 14:16 [facility] [id number]) OT-Muscle Tone Assessment Muscle Tone WNL Yes M9 OT- IP Assessment and Plan Start: 01/20/21 14:00 Freq: Status: Active Protocol: Document 01/21/21 12:21 [facility] (Rec: 01/21/21 12:31 [facility] [id number]) OT Summary Assessment and Plan Potential Rehabilitation Potential Good Analytic Complexity at Evaluation Low Summary OT Impairments Pain,Balance,Functional Mobility,Dressing,Toileting, Bathing,Toilet Transfers, Shower Transfers,Activity Tolerance Progress Towards Goals Slow Progress due to Pain,Slow Progress due to Activity Tolerance Assessment Summary Pt very groggy today and having difficulty to follow directions and still needing MODA for ADL and mobility needs. Pt's life partner to come in for caregiver training with PT this PM. Pending caregiver training either home with assist versus SNF. Goals Grooming Goal Independent Dressing Goal Independent Toileting Goal Independent Bathing Goal Independent Toilet Transfer Goal Independent Shower Transfer Goal Independent Days to Meet Goals 7 Frequency of Treatment Frequency Of Treatment Once a Day Treatment Plan OT Treatment Plan ADL Training,Functional Mobility,Patient/Family Education,Discharge Planning Other Treatment Recommendations and Next Stand for grooming needs/ Treatment Focus shower Discharge Recommendations OT Discharge Recommendations Home with Assistance,SNF Rehab ,Home vs SNF Other Discharge Recommendations Pending progress and caregiver training most likely home with assist versus SNF. Home Equipment Needs Shower chair, BSC Transportation Needs at Discharge Private Vehicle,Wheelchair/ Cabulance
--- NOTE | 2021-01-21 14:42 | PT.IPTN ---
Current Diagnoses Spondylolisthesis, lumbar region (01/19/21) Spinal stenosis, lumbar region with neurogenic claudication (01/19/21) Arthrodesis status (01/19/21) Surgery Performed Operation Date: 01/19/21 07:45 Actual Procedures p L3-L4, L5-S1 TLIF - Florentin Echols MD Physical Therapy Treatment Note M2 PT-IP Current Condition Start: 01/20/21 08:51 Freq: NEEDED Status: Active Protocol: Document 01/20/21 09:53 AW (Rec: 01/20/21 10:59 AW [id number]) Physical Therapy Current Condition Current Condition Evaluation Date 01/20/21 Treatment Diagnosis L3-S1 TLIF; difficulty in walking Onset Date 01/19/21 Precautions Lumbar Precautions Log Roll,No Twisting,Limit Bending,Lifting Restriction of 10 lbs,Gait Belt above Incisional Area M3 PT-IP Subjective Start: 01/20/21 08:51 Freq: NEEDED Status: Active Protocol: Document 01/21/21 14:04 SP (Rec: 01/21/21 18:06 SP [id number]) Subjective Physical Therapy Visit Type Type Treatment Note Visit Start Time 14:04 Visit Stop Time 14:42 Total Visit Minutes 38 Notes SO donned gait belt, was 2nd person assist during sit<> stands, pivots using fWW, followed with chair while ENVIRONMENTAL SAFETY SPECIALIST and nurse assisted safety gait using FWW, partial caregiver training. Vitals taken: seated in chair post mobility: BP 116/ 50, HR 66 SaO2 88-90 on RA, elevated 91-93% on 1L. Physical Therapy Visit Comments Patient Comments Pt is resting but willing to participate with PT but states I am so sleepy. Patient Goals Get stronger to go home with SOFaizan. Therapy Pain Assessment Pain When Pain Assessed At Rest Pain Present Pain Present Pain Reported Location lower back Intensity 5 Scale Used Numeric (0 - 10) Pain Management Techniques Distraction,Modification of Treatment,Re-positioning, Timing of Activity with Medications M4 PT-IP Mobility and Gait Start: 01/20/21 08:51 Freq: NEEDED Status: Active Protocol: Document 01/21/21 14:04 SP (Rec: 01/21/21 18:06 SP [id number]) PT-Bed Mobility Assessment Rolling Type of Rolling Roll to Left Level of Assist Minimal Assistance Supine to Sit Supine to Sit Minimal Assistance,Maximum Assistance,2 Person Assistance ,Bedrails Scooting Scooting to Edge of Bed Contact Guard Assistance PT-Transfer Assessment Sit to and From Stand Sit to and from Stand Moderate Assistance,Maximum Assistance,2 Person Assistance ,Use of Upper Extremities Equipment Transfer Assistive Device Gait Belt,Front Wheeled Walker Orthotic/Prosthetic Devices or Brace: No Transfers Transfer Destination Chair,Bedside Commode Transfer Technique Stand Step Pivot Transfer Ability Level of Assist Minimal Assistance,Moderate Assistance,2 Person Assistance ,Use of Upper Extremities Comments Mobility Comments Pt challenging to wake up, very lethargic more this tx. LR L Chito x1 with cues for knees bent move with shoulder reaching across to bed rail. L SL>sit Max A x1 ENVIRONMENTAL SAFETY SPECIALIST support at upper L shoulder blade/ Min A x 1 SO pt pulling from SO hand using RUE. Scoot to EOB CGA usign BUE. Pt able to sit EOB self unsupported. Sit> Stand Max A byPTA, Mod A by SO cues for 1 UE onFWW other pushing from bed. SPT bed> BSC Min- Mod A x2 persons with cuing for directioning and occasional FWW repositioning. Stand>sit on BSC Mod A with cues for reaching back, flopped onto BSC. Pt able to sit with BSC back rest and chair arm support. Pt very lethargic, cues for keeping eyes open for safety. Sit> stand Mod-Max x2 using FWW, standing Mod A x2 (SO and ENVIRONMENTAL SAFETY SPECIALIST) , ENVIRONMENTAL SAFETY SPECIALIST assisted standing pericare and brief mgt. Pt SPT BSC> chair ModA x2 w/ FWW, Min A x2 and MCGRATH cues for reaching back for chair arms, Mod A x2 slow descent into chair. After pt rested, Sit> Stand from chair Mod A x2 ( nurse and ENVIRONMENTAL SAFETY SPECIALIST), forward gait 5 ft using FWW Min A x2, SO followed with chair. Chito x2 for descent into chair was reclined back in chair with all needs and call light in reach, her eyes were closed I am very tired. SO repeated many time I don't understand why she's so sleepy. Nurse and ENVIRONMENTAL SAFETY SPECIALIST educated pt and SO with meds taking and she isn't getting enough oxygen and therefore tires quickly. Pt's SaO2 decreased 88% on RA during mobility, cued for breathing pursed lips and Nurse provided 1L supplimental O2 SaO2 elevated 90-93%. Gait Assessment Gait Gait Assistance Required: Minimum Assistance,2 Person Assist Distance (Feet) 5 Able to Maintain Weight Bearing Status Yes During Gait Assistive Devices Assistive Device Gait Belt,Front Wheeled Walker Orthotic/Prosthetic Devices or Brace: No Gait Deviations General Gait Pattern Antalgic,Decreased Stride Length,Decreased Feet Clearance,Flexed Trunk,Step-to Gait Factors Limiting Gait Function Factors Limiting Gait Function Decreased Activity Tolerance, Decreased Sensation,Decreased Strength,Limited Range of Motion,Pain,Poor Balance,Poor Safety Awareness,Respiratory Distress Comments Gait Comments Pt demonstrates shuffle gait patterning with heavy BUE WB on FWW Min A x1 and chair follow for safety. Cued for increase stride and foot clearance but no significant change. Stair Climbing Assessment Comments Stair Climbing Comments Pt required Min- Mod A x2 persons, unable to assess stair mgt at this time, will need to for safe DC home when able. PT-Balance Assessment Sitting Balance and Reactions Static Sitting Balance Ability Fair Dynamic Sitting Balance Ability Poor Standing Balance and Reactions Static Standing Balance Ability Poor Dynamic Standing Balance Ability Poor Device Used FWW M5 PT-IP Objective Assessments Start: 01/20/21 08:51 Freq: NEEDED Status: Active Protocol: Document 01/20/21 09:53 AW (Rec: 01/20/21 11:49 AW [id number]) Orientation Orientation/Cognition Level of Alertness Alert Orientation Name,Day of Week,Place, Situation Language Function Ability No Deficits Noted Safety Awareness Understands Safety Issues Memory Description No Deficits Noted Gross Range of Motion Upper Extremity ROM Assessment Within Functional Limits Lower Extremity ROM Assessment Within Functional Limits Strength Lower Extremity Strength Assessment Bilaterally Impaired Hip 4-/5 Knee 4+/5 Ankle R 4+/5; L 4/5 Sensation Assessment Sensation Gross Sensation Left LE Impaired Light Touch Impaired Proprioception (Position) Impaired Sensation Description Numbness,Tingling,Pins & [place] Comments Sensation Comments Pt reports numb/tingling sensation in LLE from foot to knee and in lateral thigh which is new or worsened since surgery. M6 PT-IP Treatment Start: 01/20/21 08:51 Freq: NEEDED Status: Active Protocol: Document 01/21/21 14:04 SP (Rec: 01/21/21 18:06 SP [id number]) Physical Therapy Treatment Education Education Provided Precautions,Safety Other Treatments Other Treatment Performed Education Post-op precautions, and safe use of FWW. M7 PT-IP Assessment and Plan Start: 01/20/21 08:51 Freq: NEEDED Status: Active Protocol: Document 01/21/21 14:04 SP (Rec: 01/21/21 18:06 SP [id number]) PT Summary Assessment and Plan Potential Rehabilitation Potential Good Status of Condition at Evaluation Evolving Summary Impairments Pain,ROM,Strength,Balance, Sensation,Bed Mobility, Transfers,Gait,Activity Tolerance Progress Towards Goals Slow Progress due to Pain,Slow Progress due to Activity Tolerance Assessment Summary Max A x1- 2 persons, Mod Ax2 sit<>stand, Min- Mod Ax2 SPT and gait using fWW 5 ft w/ chair follow. Pt will require SNF to improve strength and funcitonal mobility. Goals Bed Mobility Goal Standby Assistance Transfer Goal Standby Assistance,Front Wheeled Walker Gait Goal Standby Assistance,Front Wheel Walker Gait Distance 150 Other Goals - up/down 2 steps with unilateral rail SBA Days to Meet Goals 4 Frequency of Treatment Frequency Of Treatment Twice a Day Treatment Plan Physical Therapy Treatment Plan Bed Mobility Training,Transfer Training,Gait Training, Therapeutic Exercise,Balance Retraining,Post Op Education, Discharge Planning,Hot or Cold Pack,Neuromuscular Re-ed Other Recommendations and Next Treatment bed mob, transfers, gait with Focus FWW or UPWalker if safe; mobility and stair mgt if able . SO states is usually here by 10 and stays til 12 then returns after 2 for couple hours. Precautions Lumbar Precautions Log Roll,No Twisting,Limit Bending,Lifting Restriction of 10 lbs,Gait Belt above Incisional Area Other Precautions falls Recommendations To Nursing Amount of Assist Needed 2 Person Assist Discharge Recommendations PT Discharge Recommendations SNF Rehab Equipment Needed for Home Before shower chair, BSC, FWW if Discharge unsafet to use UP walker. Transportation Needs at Discharge Wheelchair/Cabulance
[2021-01-21] MEDS: SENNOSIDES 8.6 MG TABLET 17.2 MG PO (20:32)
[2021-01-21] MEDS: SODIUM CHLORIDE 0.9% FLUSH 10 ML IV (21:03)
[2021-01-22 00:30] VITALS: BP 137/66; PULSE 77; RESP 18; TEMP 37; O2SAT 96
[2021-01-22 04:46] VITALS: BP 130/63; PULSE 72; RESP 18; TEMP 37.1; O2SAT 97
[2021-01-22 07:22] VITALS: BP 142/64; PULSE 75; RESP 16; TEMP 36.7; O2SAT 93
--- NOTE | 2021-01-22 08:51 | P.DS_ITS ---
History of Present Illness History of Present Illness Date Patient Seen: 01/22/21 Time Patient Seen: 08:51 Chief complaint: Back pain Narrative: Pain is moderate. Denies fever or chills. No nausea or vomiting. Discharge Providers Provider Date of admission: 01/19/21 06:14 Discharge Date: 01/22/21 Primary care physician: Damaris Frey MD Consults: 01/19/21 14:34 Consult to Occupational Therapy Evaluate & Treat Comment: Physician Instructions: Evaluate and treat Consult to Physical Therapy Evaluate & Treat Comment: Physician Instructions: Evaluate and Treat Discharge provider: Marco Willis PA-C Summary Hospital Course Discharge Diagnosis: 1. L3-4, L4-5, L5-S1 spinal stenosis with neurogenic claudication 2. L3-4, L4-5, L5-S1 spondylosis with radiculopathy 3. Hx of L4-5 fusion with retained hardware Hospital Course: 1. L3-4, L5-S1 Postero-lateral and posterior interbody fusion 2. L3-4, L5-S1 interbody cage placement. 3. L3-4, L5-S1 decompressive laminectomy with bilateral facetecomies 4. L3-4, L4-5, L5-S1 Posterior segmental instrumentation 5. L4-5 posterolateral fusion 6. L4-5 revision hemilaminectomy and exploration of fusion 7. [place] of bone marrow from iliac crest 8. Utilization of microsurgical technique and operating microscope Same procedure as scheduled: Yes Indications: Patient has been having chronic back pain and worsening lumbar radiculopathy. Patient had history of lumbar decompression with interspinous device fusion of her lumbar spine more than 10 years ago. Patient failed multiple conservative management with worsening pain weakness and numbness in her lower extremity. Patient has been having difficulty performing activity of daily living. After discussing risks benefits of treatment options, patient elected proceed with surgery. Surgeon: Florentin Echols Harpsichord Maker: Je Lorenzo Click Yes if Unassisted: No Anesthesia Type: General Patient admitted to the hospital for the above-mentioned procedure. Patient taken to the operating room on January 19, 2021. Patient back in her room recovering well as in stable condition. Patient has been slow to progress with physical therapy due to pain and activity tolerance. Patient will be discharged to jail facility. Status at Discharge Cognitive/behavioral status at discharge: at baseline, oriented Functional status at discharge: uses cane/walker Overall status at discharge: patient is progressing back to baseline Time Spent with Patient Time spent: Less than 30 minutes Exam Vital Signs (past 8 hours): - 01/22/21 04:46 01/22/21 07:22 Temperature 98.8 F 98.0 F Pulse Rate 72 75 Respiratory Rate 18 16 Blood Pressure 130/63 142/64 H Pulse Oximetry 97 93 Oxygen Delivery Method Room Air Oxygen Flow Rate 0 Narrative Exam Narrative: 75-year-old female resting comfortably in bedside chair no apparent distress. Motor functions intact bilateral lower extremities. Sensation grossly intact to light touch bilateral lower extremities. Dressing is intact. Objective Labs Result Diagrams: 01/21/21 05:11 [facility] Medical History Arthritis AV block, Mobitz 2 Bacteriuria Bladder cancer Depression DJD (degenerative joint disease) E. coli infection Easy bruisability Fibromyalgia GERD (gastroesophageal reflux disease) GI bleed (2017) Hemangioma HLD (hyperlipidemia) HTN (hypertension) Impaired hearing Kidney stones Osteopenia Pacemaker (06/10/16) PAF (paroxysmal atrial fibrillation) Sleep apnea Stroke Vertigo Surgical History History of arthroplasty of left hip History of arthroplasty of right hip History of bladder surgery (2006) History of bowel resection History of carpal tunnel release History of colonoscopy History of esophagogastroduodenoscopy (EGD) History of hysterectomy History of parathyroid surgery (2016) History of surgery Hx of abdominal surgery Hx of bilateral cataract extraction Hx of bilateral mastectomy (~1993) Hx of craniotomy Hx of sinus surgery Hx of spinal surgery Social History household members: significant other Smoking Status: Former smoker alcohol intake: former Discharge Assessment & Plan Assessment and Plan Assessment: Stable Plan of Treatment: Weight-bearing as tolerated. Limit bending, twisting, lifting Discharge to jail facility today. Discharge Plan Discharge Plan Patient Disposition: SNF Transfer to: [facility] Discharge orders & Medications Prescriptions: New acetaminophen 325 mg Tablet 650 mg PO Q6HR PRN (Reason: Pain, Mild (1-3)) Qty: 60 RF: 0 docusate sodium [DOK] 100 mg Capsule 100 mg PO BID Qty: 20 RF: 0 oxycodone 5 mg Tablet 5 mg PO Q3HR PRN (Reason: Pain, Severe (7-10)) Qty: 60 RF: 0 Continued cyanocobalamin (vitamin B-12) 1,000 MCG tablet extended release 1,000 mcg PO QDAY Qty: 0 RF: 0 coenzyme Q10 [CoQ-10] 100 mg Capsule 100 mg PO DAILY Qty: 0 RF: 0 atorvastatin 40 MG tablet 40 mg PO QDAY Qty: 0 RF: 0 glucosamine [id number] 500-250-400 mg Tablet 1 tab PO BID Qty: 0 RF: 0 metoprolol succinate [Toprol XL] 25 MG tablet extended release 24 hr 25 mg PO QDAY Qty: 0 RF: 0 gabapentin 600 mg Tablet 600 mg PO BID RF: 0 escitalopram oxalate 10 mg Tablet 10 mg PO DAILY RF: 0 Discontinued aspirin [Aspir-81] 81 mg Tablet,Delayed Release (Dr/Ec) 81 mg PO DAILY RF: 0 Follow up/Referrals: Florentin Echols MD [Physician] - (2 weeks) Damaris Frey MD [Primary Care Provider] - Diet/Activity/Treatments Diet: Diet as Tolerated Activity: Weight-bearing as tolerated, limit bending, twisting, lifting Cold/Heat Therapy: Ice to low back as needed Skin/Wound/Dressing Care Report to your healthcare provider any signs of infection, such as:: chills, fever, increased pain, unusual drainage and unusual redness Dressing: Keep dressing clean and dry [facility] Reason for rehabilitation: Post-operative therapy Rehab type: Physical therapy and Occupational therapy Visit Report/Discharge Packet Instructions: DI for Prescription Opioid Use, DI for Transforaminal Lumbar Interbody Fusion Stand Alone Forms: Surgery Discharge Discharge Data Primary Care Provider: Damaris Frey Quality VTE Deep Vein Thrombosis/Pulmonary Embolism Present on Admission: No
[2021-01-22 09:00] VITALS: BP 142/64; PULSE 75
[2021-01-22] MEDS: ATORVASTATIN 20 MG TABLET 40 MG PO (09:00)
[2021-01-22] MEDS: METOPROLOL ER 25 MG TABLET PO (09:00)
[2021-01-22] MEDS: GABAPENTIN 600 MG TABLET PO (09:00)
[2021-01-22] MEDS: DOCUSATE 100 MG CAPSULE PO (09:00)
[2021-01-22] MEDS: ESCITALOPRAM 10 MG TABLET PO (09:00)
[2021-01-22] MEDS: CYANOCOBALAMIN (VITAMIN B-12) 500 MCG TABLET 1000 MCG PO (09:01)
[2021-01-22] MEDS: ACETAMINOPHEN 325 MG TABLET 650 MG PO (09:01)
[2021-01-22] MEDS: SODIUM CHLORIDE 0.9% FLUSH 10 ML IV (09:06)
--- NOTE | 2021-01-22 10:50 | PC.NURSE ---
dressing to lumbar spine changed after shower this morning. [place] in place, not signs of infection noted. Patient tolerated well.
--- NOTE | 2021-01-22 10:55 | OT.IP.TRT ---
Current Diagnoses Spondylolisthesis, lumbar region (01/19/21) Spinal stenosis, lumbar region with neurogenic claudication (01/19/21) Arthrodesis status (01/19/21) Surgery Performed Operation Date: 01/19/21 07:45 Actual Procedures p L3-L4, L5-S1 TLIF - Florentin Echols MD Occupational Therapy Treatment Note M2 OT-IP Current Condition Start: 01/20/21 14:00 Freq: Status: Active Protocol: Document 01/20/21 14:00 [facility] (Rec: 01/20/21 14:16 [facility] [id number]) Occupational Therapy Current Condition Current Condition Evaluation Date 01/20/21 Treatment Diagnosis S/p L3-4, L5-S1 TLIF, decreased mobility Post Operative Precautions Lumbar Precautions Log Roll,No Twisting,Limit Bending,Lifting Restriction of 10 lbs,Gait Belt above Incisional Area M3 OT- IP Subjective and Pain Start: 01/20/21 14:00 Freq: Status: Active Protocol: Document 01/22/21 10:59 [facility] (Rec: 01/22/21 11:07 [facility] [id number]) OT- Subjective Occupational Therapy Visit Type Type Treatment Note Visit Start Time 10:30 Visit Stop Time 10:55 Total Visit Minutes 25 Occupational Therapy Visit Comments Patient Comments Per nursing pt wanting to shower this morning. Patient/Caregiver Goals TO go home. OT Pain Assessment Pain When Pain Assessed At Rest Pain Present Pain Present Denied Pain M4 OT- IP ADL's Start: 01/20/21 14:00 Freq: Status: Active Protocol: Document 01/22/21 10:59 [facility] (Rec: 01/22/21 11:07 [facility] [id number]) OT ADL-Dressing General Eval Lower Body Dressing Ability Maximum Assistance Comments OT Dressing Comments Pt still groggy and getting tired and therefore OT assist for LB dressing needs at this time. OT ADL-Toileting Comments OT Toileting Comments Not performed. OT ADL-Bathing General Evaluation Bathing Ability Maximal Assistance Areas Needing Assistance Wash/Dry Back,Wash/Dry Perineal Area,Wash/Dry Lower Extremities Comments OT Bathing Comments Pt unable to reach and needing MAX A for showering needs at this time. Pt would benefit from long handle sponge to assist with her feet and would requires assist for her back and perineal area. M5 OT- IP IADL's Start: 01/20/21 14:00 Freq: Status: Active Protocol: Document 01/20/21 14:00 [facility] (Rec: 01/20/21 14:16 [facility] [id number]) OT-Instrumental Activities of Daily Living Home Safety Awareness Awareness of Need for Assistance at Home Good Awareness Ability to Problem Solve Emergency Able to Problem Solve Situations Medication Management Medication Management Comments Pt states her life partner can assist for needs as needed. Money Management Money Management Comments Pt states her life partner can assist for needs as needed. Meal Preparation Meal Preparation Comments Pt states her life partner can assist for needs as needed. Optical Engineering Manager Optical Engineering Manager Caregiver Provides Assist Driving Driving Caregiver Provides Assist M6 OT- IP Functional Cognition Start: 01/20/21 14:00 Freq: Status: Active Protocol: Document 01/22/21 10:59 [facility] (Rec: 01/22/21 11:07 [facility] [id number]) Cognitive Factors Limiting Selfcare Function Cognitive Ability Level of Alertness Alert,Confusional State Patient Orientation Name,Place,Situation Attention Span Ability Capable of Focused Attention, Capable of Sustained Attention Ability to Follow Commands Able to Follow One Step Commands with Increased Time, Able to Follow One Step Commands with Repetition Safety Awareness Decreased Recall of Precautions,Decreased Ability to Apply Precautions, Underestimates Need for Assistance Cognitive Comments Cognitive Assessment Comments Pt not able to recall any of the back precautions. After repetition of back precautions 6 times able to recall the back precautions. Pt still a bit groggy and needing safety cues to keep the FWW in front of her at all times. Pt also a bit impulsive. M7 OT- IP Mobility and Balance Start: 01/20/21 14:00 Freq: Status: Active Protocol: Document 01/22/21 10:59 [facility] (Rec: 01/22/21 11:07 [facility] [id number]) OT- Bed Mobility Assessment Sit to Supine Sit to Supine Assist Moderate Assistance,1 Person Assistance OT-Transfer Assessment Sit to and From Stand Sit to and from Stand Minimal Assistance,Moderate Assistance Transfers Transfer Ability Minimal Assistance Technique Transfer Destination Bed,Shower Stall Devices Transfer Assistive Devices Gait Belt,Front Wheeled Walker Comments Mobility Comments Pt [place] to stand also with use of grab bar to assist. [place] to walk with FWW , assist to help guide the FWW. Pt lean to the right and needing cues to stay inside the FWW. MODA to help get her legs back onto bed. OT- Balance Assessment Sitting Balance and Reactions Static Sitting Balance Ability Good Dynamic Sitting Balance Ability Fair Standing Balance and Reactions Static Standing Balance Ability Fair Dynamic Standing Balance Ability Poor M8 OT- IP Objective Assessments Start: 01/20/21 14:00 Freq: Status: Active Protocol: Document 01/20/21 14:00 [facility] (Rec: 01/20/21 14:16 [facility] [id number]) OT-Muscle Tone Assessment Muscle Tone WNL Yes M9 OT- IP Assessment and Plan Start: 01/20/21 14:00 Freq: Status: Active Protocol: Document 01/22/21 10:59 [facility] (Rec: 01/22/21 11:07 [facility] [id number]) OT Summary Assessment and Plan Potential Rehabilitation Potential Good Analytic Complexity at Evaluation Low Summary OT Impairments Pain,Balance,Functional Mobility,Dressing,Toileting, Bathing,Toilet Transfers, Shower Transfers,Activity Tolerance Progress Towards Goals Slow Progress due to Cognition Assessment Summary Pt still groggy but able to do a shower today with step by step instructions for safety. Pt looking to go to skilled rehab today. Goals Grooming Goal Independent Dressing Goal Independent Toileting Goal Independent Bathing Goal Independent Toilet Transfer Goal Independent Shower Transfer Goal Independent Days to Meet Goals 15 Frequency of Treatment Frequency Of Treatment Once a Day Treatment Plan OT Treatment Plan ADL Training,Functional Mobility,Patient/Family Education,Discharge Planning Discharge Recommendations OT Discharge Recommendations SNF Rehab Transportation Needs at Discharge Wheelchair/Cabulance
[2021-01-22 11:07] LABS: COVID-19 CEPHEID PCR (VTM/NP) Negative (Negative)
--- NOTE | 2021-01-22 11:08 | CM.DPC ---
Discharge Planning/Care Management Advanced directive, confirm from FAMILY Start: 01/21/21 00:09 Freq: Q24H Status: Active Protocol: Document 01/21/21 00:09 JK (Rec: 01/21/21 00:16 JK [id number]) Advance Directive, confirm on record Time 23:55 Person contacted Patient Copy received No Document 01/22/21 00:09 JK (Rec: 01/22/21 02:25 JK [id number]) Advance Directive, confirm on record Time 23:55 Person contacted Patient Copy received No CM Discharge Assessment Start: 01/20/21 09:22 Freq: Status: Active Protocol: Document 01/20/21 09:22 VM (Rec: 01/20/21 09:29 VM [id number]) Discharge Planning Assessment Assigned Brass Molder Zoey Londono RN/Rehabilitation Technician Advance Directives? Yes Advance Directives on File Yes History Provided By Patient,Medical Record Prior Living Arrangements House Household Members significant other Type of transporation used prior to Drives own vehicle admit Independent with ADL's Yes Is patient alert and oriented? Yes DME Already Rented / Owned Cane Barriers to Discharge No Discharge Plan Home Transportation Arrangement Partner, Ray Referrals Initiated None needed Whiteboard Updated in Patient Room with Yes name and ext. # of Brass Molder Review Status In Process Next Review Type Continued Stay Review 01/20/21 09:24 CM Disch. Assessment Note by Zoey Londono DCP: Case received, EMR reviewed and met with patient. Introduced self and role. Was able to obtain information regarding patient's baseline activity status prior to surgery, as well as her current living situation. DCP assessment completed with information currently available. Patient is a 75 year old female who admitted yesterday morning to the care of the orthopedic team. PCP: Dr. Damaris Frey. Payer: confirmed: Medicare/[employer]. Patient came to the hospital via private vehicle for a surgical procedure. She had L3-4, L5-S1 posteo-lateral interbody fusion. Patient has history of spinal stenosis. Met with patient in her room. She was laying in bed, alert and oriented. She has not yet worked with P[employer]. According to orthopedic's note, patient had some post-op anemia, and will not discharge today. Confirmed with patient that she resides here in [place], and that she has been independent at her baseline. She indicated that her life partner, Faizan Stanford, will be assisting her with needs when she goes home. P: DCP to continue to follow. Patient will be working with P.T. today. Zoey Londono RN/Rehabilitation Technician Initialized on 01/20/21 09:24 - END OF NOTE Pre-Anesthesia Assessment Start: 01/13/21 12:51 Freq: Status: Complete Protocol: Document 01/13/21 12:52 CAB (Rec: 01/13/21 14:00 CAB [id number]) Pre-Anesthesia Assessment Preferred Name Siri Patient Information Reviewed Via Phone Assessment Assessment Completed With Patient Diagnostic Results BMP/CMP,CBC Comment Labs @ 12/08/20, COVID screen @ 01/17/21 Primary Care Provider Damaris Frey Seen Specialist in Last 12 Months Yes Specialist Seen Fire Apparatus Engineer,ENT,Orthopedist Primary Language Luxembourgish Preschool Paraprofessional Required No Height 167.64 cm Weight 83.915 kg Body Mass Index (BMI) 29.8 Hearing Ability Hard of Hearing,Use of Hearing Aid Visual Assist Glasses Dentition Type Teeth, Natural Present Barriers to Learning None Hx Anesthesia Reactions No: YOCASTA-Stopped using CPAP with craniotomy Hx Family Anesthesia Reaction No Hx Malignant Hyperthermia No Hx Blood Transfusions Yes: Autologous Hx Blood Transfusion Reaction No Anesthesia Review Requested No alcohol intake former Alcohol Intake Frequency Other: Quit 06/07/20 Smoking Status Former smoker how long ago did patient quit smoking quit 1979 Substance Use Type does not use Pain Present Pain Reported Musculoskeletal Symptoms Abnormal Gait,Back Pain, Difficulty Walking,Joint Pain, Muscle Cramps,Muscle Spasms, Muscle Weakness History of Falling (Recent or History of Yes ) Patient is completely paralyzed or No completely immobile Prosthesis or Orthotic Device Cane Mental Status Oriented to own ability Is patient on oxygen? No Does patient have MAHAJAN/SOB No Hx Sleep Apnea Yes: Stopped using CPAP with craniotomy Currently Taking a Beta Parvin Yes: Metoprolol Can You Climb a Flight of Stairs Without No SOB Hx Chest Pain Yes Hx SOB No Hx Syncope or Dizziness Yes: Vertigo, improved Anti-Coagulant Therapy No Has a Fire Apparatus Engineer Yes: Dr. Vinson visit12/04/20 Cardiac Testing Yes: Echo @ 12/08/20 EF 60- 65% Hx Pacemaker/ICD Yes Pacemaker Rep Required? No: Pacemaker form scanned and put in surgery folder for dos Cardiac Clearance Received Yes Comment Cardiac records scanned Diet Type At Home Ketogenic dysphagia No Urinary Catheter Present No Hx Urinary Self Catheterization No Diabetes No HgbA1C 6.2 Date 12/08/20 Patient No Lactating No Presence of External or Internal Medical Yes: pacemaker, bilateral hips Devices , breast implants, lumbar hardware Have you had any close contact with No someone diagnosed with COVID-19? Marital Status / Lives With significant other Prior Living Arrangements House Number of Floors (Floors) One Floor Support System Friend(s),Significant Other Does the Patient Have Assistance After Yes Surgery Patient Discharge Plan Description Return Home Comment Pt advised 2 day length of stay per surgeon Feels Safe in Current Environment Yes Been Physically Hurt or Threatened By a No Person in Current Environment Do you have thoughts of harming yourself None or others? Are you currently considering suicide? No Do you have a plan to hurt yourself or No Plan others? Do You Have Any Spiritual Beliefs That No May Affect Your HC Choices? Do You Have Any Cultural Practices That No May Affect Your HC Choices? Comment Orthodox Who Can We Speak to About Patient's Care Family, friends Identifying Code for Release of Patient Declines to issue Information Health Care Proxy/Next of Kin Faizan Stanford (S.Irene.) Health Care Proxy Emergency Contact Name Faizan Stanford (S.O.) Emergency Contact Advance Directives? Yes: POLST Advance Directives on File Yes Requested Patient Bring Advanced Yes Directives DOS Power of Internal Investigator Yes PAC Instructions Durable medical equipment, Medications to take/avoid
--- NOTE | 2021-01-22 11:09 | CM.DPC ---
Addendum entered by Jimena Keita LPN 01/22/21 11:19: SNF specific orders and PASRR are faxed to [facility] Original Note: DCP: continued: case received, EMR reviewed, d/c order to [facility] Care/Rehab noted and met with pt (briefly as was finishing with OT) and with her partner Faizan Stanford. Both confirm the d/c plan for [facility] and pt agreeable to same. Faizan is taking her large stand-up walker home as she is using a FWW here and will continue to use one at [facility]. He will return with pt's COVID vax card (he, too, is fully vaccinated). Rapid Covid test is pending. [facility]/October, confirms their van can pick pt up at 1330 today. Will follow up on final COVID details. RN caring for pt today is updated and will call report.
[2021-01-22 11:48] VITALS: BP 112/60; PULSE 62; RESP 18; TEMP 36.4; O2SAT 94
--- NOTE | 2021-01-22 12:08 | PT.IPTN ---
Current Diagnoses Spondylolisthesis, lumbar region (01/19/21) Spinal stenosis, lumbar region with neurogenic claudication (01/19/21) Arthrodesis status (01/19/21) Surgery Performed Operation Date: 01/19/21 07:45 Actual Procedures p L3-L4, L5-S1 TLIF - Florentin Echols MD Physical Therapy Treatment Note M2 PT-IP Current Condition Start: 01/20/21 08:51 Freq: NEEDED Status: Active Protocol: Document 01/20/21 09:53 AW (Rec: 01/20/21 10:59 AW [id number]) Physical Therapy Current Condition Current Condition Evaluation Date 01/20/21 Treatment Diagnosis L3-S1 TLIF; difficulty in walking Onset Date 01/19/21 Precautions Lumbar Precautions Log Roll,No Twisting,Limit Bending,Lifting Restriction of 10 lbs,Gait Belt above Incisional Area M3 PT-IP Subjective Start: 01/20/21 08:51 Freq: NEEDED Status: Active Protocol: Document 01/22/21 11:52 CLB (Rec: 01/22/21 12:54 CLB [id number]) Subjective Physical Therapy Visit Type Type Treatment Note Visit Start Time 11:52 Visit Stop Time 12:08 Total Visit Minutes 16 Number of DIRECTOR WEB Visits 1 Physical Therapy Visit Comments Patient Comments Pt willing to get OOB and sit in chair for lunch. Therapy Pain Assessment Pain When Pain Assessed At Rest Pain Present Pain Present Denied Pain M4 PT-IP Mobility and Gait Start: 01/20/21 08:51 Freq: NEEDED Status: Active Protocol: Document 01/22/21 11:52 CLB (Rec: 01/22/21 12:54 CLB [id number]) PT-Bed Mobility Assessment Rolling Type of Rolling Roll to Left Level of Assist Contact Guard Assistance,1 Person Assistance Supine to Sit Supine to Sit Minimal Assistance,1 Person Assistance,Head of Bed Elevated,Bedrails Scooting Scooting to Edge of Bed Contact Guard Assistance PT-Transfer Assessment Sit to and From Stand Sit to and from Stand Minimal Assistance,1 Person Assistance,Use of Upper Extremities Equipment Transfer Assistive Device Gait Belt,Front Wheeled Walker Orthotic/Prosthetic Devices or Brace: No Transfers Transfer Destination Chair Transfer Technique ambulated with FWW Transfer Ability Level of Assist Minimal Assistance,1 Person Assistance,Use of Upper Extremities Comments Mobility Comments Pt in bed upon arrival able to LR to left CGA then required Min A from sidelying to sit. Pt required Min A for sit- stand from bed and cues for hand placement for safety. Pt ambulated ~30ft w/FWW/CGA then sat in chair Min A to slow descent and cues for hand placement. Pt left in chair with all needs within reach, RN informed of pt in chair. Gait Assessment Gait Gait Assistance Required: Minimum Assistance,1 Person Assist Distance (Feet) 30 Able to Maintain Weight Bearing Status Yes During Gait Assistive Devices Assistive Device Gait Belt,Front Wheeled Walker Orthotic/Prosthetic Devices or Brace: No Gait Deviations General Gait Pattern Antalgic,Decreased Stride Length,Decreased Feet Clearance,Flexed Trunk,Step-to Gait Factors Limiting Gait Function Factors Limiting Gait Function Decreased Activity Tolerance, Decreased Sensation,Decreased Strength,Limited Range of Motion,Pain,Poor Balance,Poor Safety Awareness Comments Gait Comments Pt requiring Min A for gait with cues for placement in FWW . Pt with slow gait and decreased feet clearance L>R. PT-Balance Assessment Sitting Balance and Reactions Static Sitting Balance Ability Fair Dynamic Sitting Balance Ability Poor Standing Balance and Reactions Static Standing Balance Ability Poor Dynamic Standing Balance Ability Poor Device Used FWW M5 PT-IP Objective Assessments Start: 01/20/21 08:51 Freq: NEEDED Status: Active Protocol: Document 01/20/21 09:53 AW (Rec: 01/20/21 11:49 AW [id number]) Orientation Orientation/Cognition Level of Alertness Alert Orientation Name,Day of Week,Place, Situation Language Function Ability No Deficits Noted Safety Awareness Understands Safety Issues Memory Description No Deficits Noted Gross Range of Motion Upper Extremity ROM Assessment Within Functional Limits Lower Extremity ROM Assessment Within Functional Limits Strength Lower Extremity Strength Assessment Bilaterally Impaired Hip 4-/5 Knee 4+/5 Ankle R 4+/5; L 4/5 Sensation Assessment Sensation Gross Sensation Left LE Impaired Light Touch Impaired Proprioception (Position) Impaired Sensation Description Numbness,Tingling,Pins & [place] Comments Sensation Comments Pt reports numb/tingling sensation in LLE from foot to knee and in lateral thigh which is new or worsened since surgery. M6 PT-IP Treatment Start: 01/20/21 08:51 Freq: NEEDED Status: Active Protocol: Document 01/21/21 14:04 SP (Rec: 01/21/21 18:06 SP [id number]) Physical Therapy Treatment Education Education Provided Precautions,Safety Other Treatments Other Treatment Performed Education Post-op precautions, and safe use of FWW. M7 PT-IP Assessment and Plan Start: 01/20/21 08:51 Freq: NEEDED Status: Active Protocol: Document 01/22/21 11:52 CLB (Rec: 01/22/21 12:54 CLB [id number]) PT Summary Assessment and Plan Potential Rehabilitation Potential Good Status of Condition at Evaluation Evolving Summary Impairments Pain,ROM,Strength,Balance, Sensation,Bed Mobility, Transfers,Gait,Activity Tolerance Progress Towards Goals Slow Progress due to Pain,Slow Progress due to Activity Tolerance Assessment Summary Pt improving with all mobility requring CGA for LR, Min A for sidelying to sitting on EOB, Min A for sit-stand. Pt requires Min A for gait for balance and safety with cues for walker safety and hand placement during sit<>stand for safe descent. Pt will benefit from SNF rehab to improve strength and increase activity tolerance for functional mobility. Goals Bed Mobility Goal Standby Assistance Transfer Goal Standby Assistance,Front Wheeled Walker Gait Goal Standby Assistance,Front Wheel Walker Gait Distance 150 Other Goals - up/down 2 steps with unilateral rail SBA Days to Meet Goals 4 Frequency of Treatment Frequency Of Treatment Twice a Day Treatment Plan Physical Therapy Treatment Plan Bed Mobility Training,Transfer Training,Gait Training, Therapeutic Exercise,Balance Retraining,Post Op Education, Discharge Planning,Hot or Cold Pack,Neuromuscular Re-ed Precautions Lumbar Precautions Log Roll,No Twisting,Limit Bending,Lifting Restriction of 10 lbs,Gait Belt above Incisional Area Other Precautions falls Recommendations To Nursing Amount of Assist Needed 1 Person Assist Discharge Recommendations PT Discharge Recommendations SNF Rehab Equipment Needed for Home Before shower chair, BSC, FWW if Discharge unsafet to use UP walker. Transportation Needs at Discharge Wheelchair/Cabulance
--- NOTE | 2021-01-22 13:40 | PC.NURSE ---
Pt ready for d/c to [facility]. Report called to [facility]. Patient taken via wheelchair by facility rep.
== END 2021-01-22 13:30 | DRG 454 ==
PROVIDERS: Physician Assistant Medical; Admitting Provider Orthopaedic Surgery Orthopaedic Surgery of the Spine; Family Provider Internal Medicine; PCP Internal Medicine; Referring Provider Orthopaedic Surgery Orthopaedic Surgery of the Spine; Visit Provider Orthopaedic Surgery Orthopaedic Surgery of the Spine
PROC: 0SG00AJ Fusion of Lumbar Vertebral Joint with Interbody Fusion Device, Posterior Approach, Anterior Column, Open Approach (ICD-10-PCS; principal; 2021-01-19 07:45)
DX: M48.062 Spinal stenosis, lumbar region with neurogenic claudication (principal); M96.0 Pseudarthrosis after fusion or arthrodesis; I48.0 Paroxysmal atrial fibrillation; I44.1 Atrioventricular block, second degree; M43.16 Spondylolisthesis, lumbar region; Z95.0 Presence of cardiac pacemaker; M48.07 Spinal stenosis, lumbosacral region; M47.26 Other spondylosis with radiculopathy, lumbar region; M47.27 Other spondylosis with radiculopathy, lumbosacral region; Z98.1 Arthrodesis status; M96.1 Postlaminectomy syndrome, not elsewhere classified; Z87.891 Personal history of nicotine dependence; E78.5 Hyperlipidemia, unspecified; I10 Essential (primary) hypertension; F32.9 Major depressive disorder, single episode, unspecified; Z20.822 Contact with and (suspected) exposure to COVID-19
CPT/HCPCS: 36415; 72100; 76000; 82962; 85014; 85018; 87635; 97116; 97161; 97165; 97530; 97535; C1776; C9803; U0003; C9290; J0330; J0690; J1100; J1170; J2250; J2405; J2704; J3010; J3410

== ENCOUNTER → 2021-06-26 12:21 | Outpatient (CLI) | payer MEDICARE, OTHER, SELFPAY ==
[2021-04-21 15:34] VITALS: BMI 29.8
--- NOTE | 2021-06-26 12:22 | DI.RAD.S_ITS ---
PROCEDURE: XR KUB INDICATIONS: Kidney stones TECHNIQUE: One view of the abdomen acquired. COMPARISON: [facility], , KUB XRAY (1 VIEW ABDOMEN), 11/20/2014, 12:52. FINDINGS: Surgical changes and devices: Surgical clips present in the right upper quadrant Bowel: Bowel gas pattern is normal. Soft tissues: Bilateral renal calculi are noted. There is a 1 cm calculus in a right which remains unchanged. Left-sided renal calculi have decreased in number, there are 2 persistent left lateral calculi measuring 2-3 mm each. Bones: No suspicious bony lesions. Lower lumbar spine strain taken and bilateral hip arthroplasty remains unchanged. IMPRESSION: Bilateral renal calculi as above Approved by: Damon Ferguson M.D. on 06/26/2021 at 12:56
== END ==
PROVIDERS: Family Provider Internal Medicine; PCP Internal Medicine; Referring Provider Specialist; Visit Provider Specialist
DX: N20.0 Calculus of kidney (principal)
CPT/HCPCS: 74018

== ENCOUNTER → 2022-01-25 16:07 | Outpatient (CLI) | payer MEDICARE, OTHER, SELFPAY ==
[2021-04-21 15:34] VITALS: BMI 29.8
[2022-01-25 16:46] LABS: Hematocrit 23.9 % (36-46); Hemoglobin 7.4 g/dL (12.0-16.0); Mean Corpuscular HGB Conc 30.9 % (30-36); Mean Corpuscular Hemoglobin 19.3 PG (26-34); Mean Corpuscular Volume 62.4 fL (80-100); Platelet Count 341 X10^3/uL (150-400); Red Cell Distribution Width 18.7 % (11.6-14.8); White Blood Cell Count 8.1 X10^3/uL (4.5-11.0)
[2022-01-25 16:54] LABS: Alanine Aminotransferase 30 IU/L (<35); Albumin Globulin Ratio 1.3 (1.0-2.8); Alkaline Phosphatase 68 U/L (38-126); Aspartate Aminotransferase 28 IU/L (14-36); BUN Creatinine Ratio 29.1 (6-22); Bilirubin Total 0.4 mg/dL (0.2-1.3); Blood Urea Nitrogen 23 mg/dL (7-17); Calcium 8.6 mg/dL (8.4-10.2); Carbon Dioxide 28 mmol/L (22-32); Chloride 104 mmol/L (98-107); Cholesterol 121 mg/dL (140-199); Estimated Glomerular Filt Rate > 60 mL/min (>60); Globulin 3.1 g/dL (1.7-4.1); Glucose 156 mg/dL (80-110); HDL Cholesterol 44 mg/dL (40-60); HEMOLYSIS < 15 (0-50); LDL Cholesterol Calculated 42 mg/dL (<100); Potassium 4.4 mmol/L (3.4-5.1); Sodium 139 mmol/L (137-145); Total Protein 7.1 g/dL (6.3-8.2); Triglycerides 176 mg/dL (35-150)
[2022-01-25 17:21] LABS: TSH w/ Reflex to FT4 1.49 uIU/mL (0.47-4.68)
[2022-01-25 17:37] LABS: Red Blood Cell Count 3.82 X10^6/uL (4.0-5.2)
[2022-01-25 17:46] LABS: Vitamin B12 755 pg/mL (239-931)
[2022-01-26 08:28] LABS: HEMOLYSIS < 15 (0-50); Iron 21 ug/dL (37-170)
[2022-01-26 08:38] LABS: Percent Iron Saturation 4 % (15-50); Total Iron Binding Capacity 468 ug/dL (265-497); Transferrin 355 mg/dL (206-381)
[2022-01-26 09:06] LABS: Ferritin 6 ng/mL (11-264)
== END ==
PROVIDERS: PCP Internal Medicine; Referring Provider Internal Medicine; Visit Provider Internal Medicine
DX: E78.2 Mixed hyperlipidemia (principal); I10 Essential (primary) hypertension; I48.0 Paroxysmal atrial fibrillation; Z85.51 Personal history of malignant neoplasm of bladder; Z95.0 Presence of cardiac pacemaker; E53.8 Deficiency of other specified B group vitamins; D64.9 Anemia, unspecified
CPT/HCPCS: 36415; 80053; 80061; 82607; 82728; 83540; 83550; 84443; 85027

== ENCOUNTER → 2022-02-12 12:15 | Outpatient (CLI) | payer MEDICARE, OTHER, SELFPAY ==
[2022-01-29 09:55] VITALS: BMI 29.8
[2022-02-12 12:36] LABS: Occult Blood 1 Negative (Negative); Occult Blood 2 Negative (Negative); Occult Blood 3 Negative (Negative)
== END ==
PROVIDERS: PCP Internal Medicine; Referring Provider Internal Medicine; Visit Provider Internal Medicine
DX: D64.9 Anemia, unspecified (principal)
CPT/HCPCS: 82270

== ENCOUNTER → 2022-02-25 09:10 | Outpatient (CLI) | payer MEDICARE, OTHER, SELFPAY ==
[2022-02-16 16:17] VITALS: BMI 29.8
[2022-02-25 09:42] LABS: COVID19 -Nasal RAPID Negative (Negative)
== END ==
PROVIDERS: PCP Internal Medicine; Visit Provider Surgery
DX: Z01.812 Encounter for preprocedural laboratory examination (principal); Z20.822 Contact with and (suspected) exposure to COVID-19
CPT/HCPCS: 87635; C9803

== ENCOUNTER 2022-02-26 11:57 | Day surgery (SDC) | payer MEDICARE, OTHER, SELFPAY ==
[2022-02-16 16:17] VITALS: BMI 29.8
--- NOTE | 2022-02-26 11:52 | PM.PREOP ---
Pre-operative Note COVID-19 COVID-19 status: Negative Interval Note History & Physical reviewed/Exam performed by Physician: Yes Changes to H&P: No
[2022-02-26] MEDS: ONDANSETRON 4 MG/2 ML INJ IV (12:35)
[2022-02-26 14:56] VITALS: BP 104/46; PULSE 65; RESP 15; TEMP 36.8; O2SAT 98
[2022-02-26 15:01] VITALS: BP 116/42; PULSE 70; RESP 20; O2SAT 97
--- NOTE | 2022-02-26 15:03 | PM.OP.EC ---
Operative Date/Time/Diagnoses Date of procedure: 02/26/22 Pre-op diagnosis: anemia Post-op diagnosis: same Procedure & Clinicians Study performed: EGD and colonoscopy Same procedure as scheduled: Yes Indications: Anemia and screening for colon cancer Surgeon: Shy Ellis Procedure Notes Procedure in detail: Patient was taken to the endoscopy suite a time-out was performed conscious sedation with the assistance of anesthesiologist and propofol were used and the bite block was placed EGD was performed the esophagus appeared normal there was a small hiatal hernia but no evidence of gastritis or ulceration no problems with GE junction. The pylorus was intubated and the 1st portion of the duodenum was normal there was no signs of any bleeding in the upper GI tract that was examined the pictures were taken. Colonoscopy was then performed. A digital rectal exam was normal. The scope was advanced to the cecum and withdrawn. Total withdrawal time was 15 minutes. no polyps were seen. a photograph was taken of the appendiceal orifice. some small amount of scattered diverticula in the sigmoid colon otherwise the examination was normal. The scope was retroflexed and no bulging of internal hemorrhoids was observed patient tolerated the procedure well and went in good condition to the postoperative care unit Scope withdrawal time: 15 Sedation minutes: 42 Findings: diverticulosis Specimen(s): none sent Complications: none Post-procedure Recommendations: Colonscopy in 10 years Disposition: PACU
[2022-02-26 15:07] VITALS: BP 130/66; PULSE 61; RESP 19; O2SAT 100
[2022-02-26 15:12] VITALS: BP 147/66; PULSE 60; RESP 15; O2SAT 99
[2022-02-26 15:17] VITALS: BP 164/70; PULSE 59; RESP 18; TEMP 36.5; O2SAT 99
[2022-02-26 15:19] VITALS: BP 156/79; PULSE 60; RESP 13; O2SAT 99
== END 2022-02-26 15:30 | disposition home or self-care (01) ==
PROVIDERS: PCP Internal Medicine; Referring Provider Surgery; Visit Provider Surgery
PROC: 0DJ08ZZ Inspection of Upper Intestinal Tract, Via Natural or Artificial Opening Endoscopic (ICD-10-PCS; CPT 43235; principal; 2022-02-26 12:15)
PROC: 0DJD8ZZ Inspection of Lower Intestinal Tract, Via Natural or Artificial Opening Endoscopic (ICD-10-PCS; CPT 45378; 2022-02-26 12:15)
DX: D50.0 Iron deficiency anemia secondary to blood loss (chronic) (principal); K44.9 Diaphragmatic hernia without obstruction or gangrene; K57.30 Diverticulosis of large intestine without perforation or abscess without bleeding
CPT/HCPCS: 43235; 45378; 99152; 99153; J2405; J2704

== ENCOUNTER → 2022-03-25 15:47 | Outpatient (CLI) | payer MEDICARE, OTHER, SELFPAY ==
[2022-02-16 16:17] VITALS: BMI 29.8
[2022-03-25 18:03] LABS: Hematocrit 34.6 % (36-46); Hemoglobin 11.1 g/dL (12.0-16.0); Mean Corpuscular HGB Conc 32.1 % (30-36); Mean Corpuscular Hemoglobin 23.3 PG (26-34); Mean Corpuscular Volume 72.7 fL (80-100); Platelet Count 228 X10^3/uL (150-400); Red Blood Cell Count 4.75 X10^6/uL (4.0-5.2); Red Cell Distribution Width 32.8 % (11.6-14.8); White Blood Cell Count 5.4 X10^3/uL (4.5-11.0)
[2022-03-25 18:14] LABS: Reticulocyte Count, Percent 1.4 % (1.1-2.6)
[2022-03-25 18:36] LABS: HEMOLYSIS < 15 (0-50); Iron 34 ug/dL (37-170)
[2022-03-25 18:46] LABS: Percent Iron Saturation 9 % (15-50); Total Iron Binding Capacity 367 ug/dL (265-497); Transferrin 259 mg/dL (206-381)
[2022-03-25 18:59] LABS: Ferritin 50 ng/mL (11-264)
== END ==
PROVIDERS: PCP Internal Medicine; Referring Provider Internal Medicine; Visit Provider Internal Medicine
DX: D64.9 Anemia, unspecified (principal)
CPT/HCPCS: 36415; 82728; 83540; 83550; 85027; 85045

== ENCOUNTER 2022-04-17 12:23 | Emergency (ER) | payer MEDICARE, OTHER, SELFPAY ==
[2022-02-16 16:17] VITALS: BMI 29.8
[2022-04-17 12:49] VITALS: BP 170/97; PULSE 60; RESP 15; TEMP 36.2; O2SAT 99; BMI 32.3
--- NOTE | 2022-04-17 13:03 | DI.CT.S_ITS ---
PROCEDURE: CT KIDNEY URETER BLADDER (KUB) INDICATIONS: RIGHT FLANK PAIN TECHNIQUE: Axial sections were acquired from the lung bases to the pubic symphysis. Coronal and sagittal reformats were performed. For radiation dose reduction, the following was used: automated exposure control, adjustment of mA and/or kV according to patient size. COMPARISON: [facility], CT, KIDNEY/ URETER/BLADDER, 07/16/2015, 14:33. FINDINGS: Lower thorax: The lung bases are clear. Heart size normal. No hiatal hernia. Dual-chamber cardiac pacer wires Liver: Normal in size and attenuation. No contour deformity present. Biliary system: Cholecystectomy. No intra or extrahepatic bile duct dilation. Pancreas: Unremarkable without mass or inflammation evident. Spleen: Normal in size and density. Adrenals: Normal morphology and density. Reproductive system: Unremarkable as visualized. Urinary system: Left renal scarring atrophy remains unchanged from prior exam. Bilateral nonobstructing calculi. No evidence of ureteral calculus or hydronephrosis. No obstructive uropathy. Gastrointestinal system: The bowel is unremarkable without evidence of bowel obstruction or inflammation. The stomach appears unremarkable. Multiple diverticula arise from the sigmoid colon without evidence of diverticulitis. Partial sigmoidectomy with anastomosis intact Appendix: No findings to suggest acute appendicitis. Peritoneal spaces: No mesenteric or retroperitoneal adenopathy. No free air. No free fluid. Vasculature: Aortic atherosclerotic vascular calcification noted without evidence of aneurysm. Abdominal wall: Abdominal wall intact without evidence of ventral or inguinal hernias. Musculoskeletal: Normal bone mineralization. No acute fractures. Lower lumbar spine interbody fusion with instrumentation. Bilateral hip prosthesis obscures several images in the pelvis IMPRESSION: 1. Nonobstructive right renal calculus without hydronephrosis or obstructive uropathy. Left renal scarring, stable from the prior 2. No acute CT findings in the abdomen and pelvis. Approved by: Damon Ferguson M.D. on 04/17/2022 at 13:48
[2022-04-17] MEDS: ONDANSETRON 4 MG/2 ML INJ IV (13:13)
[2022-04-17] MEDS: KETOROLAC 30 MG/ML VIAL IV (13:13)
[2022-04-17] MEDS: SODIUM CHLORIDE 0.9% 1,000 ML 1000 ML IV (13:13)
[2022-04-17 13:21] LABS: Basophils Absolute Auto 100 /uL (0-100); Basophils Percent Auto 1.3 % (0-2); Eosinophils Absolute Auto 100 /uL (0-450); Eosinophils Percent Auto 1.7 % (2-4); Hematocrit 35.8 % (36-46); Hemoglobin 11.4 g/dL (12.0-16.0); Lymphocytes Absolute Auto 1600 /uL (1100-4500); Lymphocytes Percent Auto 27.2 % (25-40); Mean Corpuscular HGB Conc 31.9 % (30-36); Mean Corpuscular Hemoglobin 24.4 PG (26-34); Mean Corpuscular Volume 76.4 fL (80-100); Monocytes Absolute Auto 600 /uL (0-900); Monocytes Percent Auto 10.7 % (3-14); Neutrophils Absolute Auto 3400 /uL (1500-7000); Neutrophils Percent Auto 59.1 % (50-75); Platelet Count 236 X10^3/uL (150-400); Red Blood Cell Count 4.68 X10^6/uL (4.0-5.2); Red Cell Distribution Width 30.3 % (11.6-14.8); White Blood Cell Count 5.7 X10^3/uL (4.5-11.0)
[2022-04-17 13:24] LABS: Add Manual Diff / Slide Review SLIDE REVIEW
[2022-04-17 13:25] LABS: Alanine Aminotransferase 29 IU/L (<35); Albumin 4.3 g/dL (3.5-5.0); Albumin Globulin Ratio 1.4 (1.0-2.8); Alkaline Phosphatase 69 U/L (38-126); Aspartate Aminotransferase 28 IU/L (14-36); BUN Creatinine Ratio 26.5 (6-22); Bilirubin Total 0.4 mg/dL (0.2-1.3); Blood Urea Nitrogen 18 mg/dL (7-17); Calcium 8.7 mg/dL (8.4-10.2); Carbon Dioxide 28 mmol/L (22-32); Chloride 102 mmol/L (98-107); Estimated Glomerular Filt Rate > 60 mL/min (>60); Glucose 95 mg/dL (80-110); HEMOLYSIS < 15 (0-50); Lipase 101 U/L (23-300); Potassium 4.9 mmol/L (3.4-5.1); Sodium 137 mmol/L (137-145); Total Protein 7.3 g/dL (6.3-8.2)
[2022-04-17 13:55] LABS: Anisocytosis 3+; Hypochromasia 1+; Microcytosis 1+; Ovalocytes 1+
[2022-04-17 14:16] LABS: Amorphous Sediment Urine 1+; Bacteria Urine Many (>30); Culture Indicated Urine Specimen Cultured; RBC Urine 0-1/HPF (0-5/HPF); Squamous Epithelial Cell Urine 0-1 /HPF (0-5/HPF); WBC Urine 1-5/HPF (0-5/HPF)
--- NOTE | 2022-04-17 14:37 | ED_ITS ---
HPI - Female Genitourinary <Vicki Huerta, [facility] - Last Filed: 04/17/22 19:34> General Chief complaint: Urogenital-Female Stated complaint: severe back pain Time Seen by Provider: 04/17/22 13:55 Source: patient Mode of arrival: Ambulatory History of Present Illness HPI Narrative: This is a 76-year-old female presents to the emergency department with right inguinal pain, radiation to her flank with history kidney stones, states that she was set to have a procedure with Dr. Zaidi regarding the stones to her right kidney and unfortunately his son and she has not been able to get back into the office. Patient presents today with onset severe flank pain on the right, complains of nausea, fever, chills, saw her primary care provider and was diagnosed with a lumbar strain and given muscle relaxers. She is had worsening nausea, feels quite distressed currently. She is not on anticoagulants, primary care providers Dr. Connors when I came to see her she had worsening pain and nausea after her Zofran was given. She has a history of 2nd degree heart block, hypertension, she is a DNR, history of paroxysmal atrial fibrillation and has a pacemaker. Related Data Home Medications Medication Instructions Recorded Confirmed coenzyme Q10 100 mg capsule 100 mg PO DAILY ##0 01/09/12 04/29/22 (CoQ-10) cyanocobalamin (vitamin B-12) 1,000 mcg PO QDAY ##0 01/09/12 04/29/22 1,000 mcg tablet,extended release atorvastatin 40 mg tablet 40 mg PO QDAY ##0 08/08/17 04/29/22 glucosamine sulfate 1 tab PO BID ##0 08/08/17 04/29/22 [id number] 500 mg-250 mg-400 mg tablet gabapentin 600 mg tablet 600 mg PO BID 01/13/21 04/29/22 aspirin 81 mg tablet,delayed 81 mg PO DAILY 06/17/21 04/29/22 release (Adult Aspirin Regimen) cholecalciferol (vitamin D3) 1 tab PO DAILY 01/25/22 04/29/22 multivitamin 1 tab PO DAILY 01/25/22 04/29/22 prevagen 1 cap PO DAILY 01/25/22 04/29/22 relief factor topical 01/25/22 04/29/22 Previous Rx's Medication Instructions Recorded lansoprazole 30 mg capsule,delayed 30 mg PO DAILY #90 caps 01/28/22 release escitalopram oxalate 20 mg tablet See Rx Instructions .Route 03/16/22 .COMPLEX #90 tabs methocarbamol 500 mg tablet 500 mg PO TID PRN spasms #30 tabs 04/07/22 ketorolac 10 mg tablet 10 mg PO Q8H PRN pain #20 tabs 04/17/22 lidocaine 5 % topical patch 1 patch topical DAILY #15 ea 04/17/22 (Lidoderm) ondansetron 8 mg disintegrating 8 mg PO Q8HR #14 tabs 04/17/22 tablet phenazopyridine 100 mg tablet 100 mg PO TID PRN pain 6 doses #7 04/17/22 (Pyridium) tabs metoprolol succinate 25 mg 25 mg PO QDAY #90 tabs 04/29/22 tablet,extended release 24 hr (Toprol XL) tramadol 50 mg tablet 50 mg PO TID PRN pain #60 tabs 04/29/22 Allergies Allergy/AdvReac Type Severity Reaction Status Date / Time No Known Drug Allergies Allergy Verified 04/17/22 12:55 Review of Systems <KISHA May - Last Filed: 04/17/22 19:34> Review of Systems Narrative: Review of systems is negative for acute abnormalities unless otherwise noted in HPI Patient History <KISHA May - Last Filed: 04/17/22 19:34> Medical History (Updated 04/29/22 @ 15:12 by Braulio Connors MD) Age-related osteoporosis without current pathological fracture Anemia Arthritis AV block, Mobitz 2 B12 deficiency Bacteriuria Bilateral nephrolithiasis Cataracts, bilateral Cervical spine disease Chicken pox Chronic back pain Chronic low back pain Depression, major, recurrent Diverticular disease DJD (degenerative joint disease) Do not resuscitate E. coli infection Easy bruisability Endometriosis Essential hypertension Fibromyalgia Generalized anxiety disorder GERD without esophagitis GI bleed (2018) Hemangioma Hemorrhoid History of nephrolithiasis History of primary bladder cancer History of urinary incontinence History of UTI HLD (hyperlipidemia) HTN (hypertension) Impaired hearing Kidney stones Measles Medicare annual wellness visit, initial Mixed hyperlipidemia Mobitz type 2 second degree heart block Mumps Obesity (BMI 30.0-34.9) Osteopenia PAF (paroxysmal atrial fibrillation) Recurrent sinusitis Scoliosis Sleep apnea Vertigo (~2020) Surgical History Anesthesia History of arthroplasty of left hip History of arthroplasty of right hip History of bladder surgery (2006) History of bowel resection History of carpal tunnel release History of colonoscopy History of esophagogastroduodenoscopy (EGD) History of hysterectomy (~1979) History of parathyroid surgery (2016) History of surgery Hx of abdominal surgery Hx of bilateral cataract extraction Hx of bilateral mastectomy (~1993) Hx of craniotomy Hx of sinus surgery Hx of spinal surgery Pacemaker (06/10/16) Status cardiac pacemaker Family History Father Stroke Diabetes mellitus History of heart disease Hypertension Mental health problem Mother Cancer Hearing loss Sister Cancer Brother Diabetes mellitus History of heart disease Grandfather Diabetes mellitus Grandmother Diabetes mellitus Grandfather Diabetes mellitus Grandmother Diabetes mellitus alcohol intake frequency: other Substance Use Type: does not use Exam <KISHA May - Last Filed: 04/17/22 19:34> Narrative Exam Narrative: Reviewed vitals signs and nursing notes. General: cooperative, uncomfortable, in acute distress, well groomed, currently having chills HEENT: symmetrical facial expressions, moist mucous membranes Cardiovascular: regular rate and rhythm, no peripheral edema, warm extremities Respiratory: normal effort, able to speak in complete sentences, without wheezing, stridor, or abnormal breath sounds. No retractions or tachypnea. GI: abdomen soft, nondistended, without masses, rebound tenderness, Right-sided flank pain, patient is exquisitely tender to her right inguinal/lower abdomen and flank MSK: moves all extremities, neurovascularly intact, no weakness, normal tone Skin: brisk capillary refill, without pallor or erythema Neuro: normal speech and cognition, A&O x3, ambulatory, clear speech Psych: mental status is grossly normal, congruent mood, normal affect, pleasant and cooperative Initial Vital Signs Initial Vital Signs: Vital Signs Temperature 97.1 F L 04/17/22 12:49 Pulse Rate 60 04/17/22 12:49 Respiratory Rate 15 04/17/22 12:49 Blood Pressure 170/97 H 04/17/22 12:49 Pulse Oximetry 99 04/17/22 12:49 Oxygen Delivery Method 04/17/22 12:49 <Emani Gould DO - Last Filed: 04/30/22 11:18> Initial Vital Signs Initial Vital Signs: Vital Signs Temperature 97.1 F L 04/17/22 12:49 Pulse Rate 60 04/17/22 12:49 Respiratory Rate 15 04/17/22 12:49 Blood Pressure 170/97 H 04/17/22 12:49 Pulse Oximetry 99 04/17/22 12:49 Oxygen Delivery Method 04/17/22 12:49 Course <KISHA May - Last Filed: 04/17/22 19:34> Orders Ordered: Discontinued Medications Ciprofloxacin (Ciprofloxacin 250 Mg Tablet) 500 mg PO NOW ONE Stop: 04/17/22 15:24 Last Admin: 04/17/22 15:40 Dose: 500 mg Documented By: JING Hydromorphone HCl (Hydromorphone 0.5 Mg Inj) 0.5 mg IV NOW ONE Stop: 04/17/22 14:37 Last Admin: 04/17/22 15:03 Dose: 0.5 mg Documented By: JING Sodium Chloride (Normal Saline 0.9%) 1,000 mls @ 1,000 mls/hr IV BOLUS ONE Stop: 04/17/22 14:02 Last Infusion: 04/17/22 16:16 Dose: 0 mls/hr Documented By: Admin: 04/17/22 13:13 Dose: 1,000 mls/hr Documented By: JAYNE Ceftriaxone Sodium 1,000 mg/ (Sodium Chloride) 100 mls @ 200 mls/hr IV NOW ONE Stop: 04/17/22 14:37 Last Infusion: 04/17/22 16:00 Dose: 0 mls/hr Documented By: Admin: 04/17/22 15:03 Dose: 200 mls/hr Documented By: JING Ketorolac Tromethamine (Ketorolac 30 Mg/Ml Vial) 30 mg IV NOW ONE Stop: 04/17/22 13:04 Last Admin: 04/17/22 13:13 Dose: 30 mg Documented By: JAYNE Ondansetron HCl (Ondansetron 4 Mg/2 Ml Inj) 4 mg IV NOW ONE Stop: 04/17/22 13:03 Last Admin: 04/17/22 13:13 Dose: 4 mg Documented By: JAYNE Ondansetron HCl (Ondansetron 4 Mg/2 Ml Inj) 4 mg IV NOW ONE Stop: 04/17/22 14:37 Last Admin: 04/17/22 15:02 Dose: Not Given Documented By: JING Phenazopyridine HCl (Phenazopyridine 100 Mg Tablet) 100 mg PO NOW ONE Stop: 04/17/22 14:37 Last Admin: 04/17/22 15:02 Dose: 100 mg Documented By: JING Tamsulosin HCl (Tamsulosin 0.4 Mg Capsule) 0.4 mg PO NOW ONE Stop: 04/17/22 14:37 Last Admin: 04/17/22 15:07 Dose: 0.4 mg Documented By: JING Vital Signs Vital signs: Vital Signs - 8 hr 04/17/22 12:49 04/17/22 16:30 Temperature 97.1 F L Pulse Rate 60 60 Respiratory Rate 15 18 Blood Pressure 170/97 H 174/81 H Pulse Oximetry 99 98 Oxygen Delivery Method Room Air Room Air <Emani Gould DO - Last Filed: 04/30/22 11:18> Orders Ordered: Discontinued Medications Ciprofloxacin (Ciprofloxacin 250 Mg Tablet) 500 mg PO NOW ONE Stop: 04/17/22 15:24 Last Admin: 04/17/22 15:40 Dose: 500 mg Documented By: JING Hydromorphone HCl (Hydromorphone 0.5 Mg Inj) 0.5 mg IV NOW ONE Stop: 04/17/22 14:37 Last Admin: 04/17/22 15:03 Dose: 0.5 mg Documented By: JING Sodium Chloride (Normal Saline 0.9%) 1,000 mls @ 1,000 mls/hr IV BOLUS ONE Stop: 04/17/22 14:02 Last Infusion: 04/17/22 16:16 Dose: 0 mls/hr Documented By: Admin: 04/17/22 13:13 Dose: 1,000 mls/hr Documented By: JAYNE Ceftriaxone Sodium 1,000 mg/ (Sodium Chloride) 100 mls @ 200 mls/hr IV NOW ONE Stop: 04/17/22 14:37 Last Infusion: 04/17/22 16:00 Dose: 0 mls/hr Documented By: Admin: 04/17/22 15:03 Dose: 200 mls/hr Documented By: JING Ketorolac Tromethamine (Ketorolac 30 Mg/Ml Vial) 30 mg IV NOW ONE Stop: 04/17/22 13:04 Last Admin: 04/17/22 13:13 Dose: 30 mg Documented By: JAYNE Ondansetron HCl (Ondansetron 4 Mg/2 Ml Inj) 4 mg IV NOW ONE Stop: 04/17/22 13:03 Last Admin: 04/17/22 13:13 Dose: 4 mg Documented By: JAYNE Ondansetron HCl (Ondansetron 4 Mg/2 Ml Inj) 4 mg IV NOW ONE Stop: 04/17/22 14:37 Last Admin: 04/17/22 15:02 Dose: Not Given Documented By: JING Phenazopyridine HCl (Phenazopyridine 100 Mg Tablet) 100 mg PO NOW ONE Stop: 04/17/22 14:37 Last Admin: 04/17/22 15:02 Dose: 100 mg Documented By: JING Tamsulosin HCl (Tamsulosin 0.4 Mg Capsule) 0.4 mg PO NOW ONE Stop: 04/17/22 14:37 Last Admin: 04/17/22 15:07 Dose: 0.4 mg Documented By: JING Vital Signs Vital signs: Vital Signs - 8 hr 04/17/22 12:49 04/17/22 16:30 Temperature 97.1 F L Pulse Rate 60 60 Respiratory Rate 15 18 Blood Pressure 170/97 H 174/81 H Pulse Oximetry 99 98 Oxygen Delivery Method Room Air Room Air MDM - Female Genitourinary <Vicki Huerta [facility] - Last Filed: 04/17/22 19:34> Lab Data Result diagrams: 04/17/22 13:00 04/17/22 13:00 Labs: Lab Results 04/17/22 04/17/22 04/17/22 Range/Units 13:00 13:00 13:00 WBC 5.7 (4.5-11.0) X10^3/uL RBC 4.68 (4.0-5.2) X10^6/uL Hgb 11.4 L (12.0-16.0) g/dL Hct 35.8 L (36-46) % MCV 76.4 L (80-100) fL MCH 24.4 L (26-34) PG MCHC 31.9 (30-36) % RDW 30.3 H (11.6-14.8) % Plt Count 236 (150-400) X10^3/uL Neut % (Auto) 59.1 (50-75) % Lymph % (Auto) 27.2 (25-40) % Price % (Auto) 10.7 (3-14) % Eos % (Auto) 1.7 L (2-4) % Baso % (Auto) 1.3 (0-2) % Neut # (Auto) 3400 (9968-4372) /uL Lymph # (Auto) 1600 (3662-6934) /uL Price # (Auto) 600 (0-900) /uL Eos # (Auto) 100 (0-450) /uL Baso # (Auto) 100 (0-100) /uL RBC Morphology See below Hypochromasia 1+ H Anisocytosis 3+ H Microcytosis 1+ H Ovalocytes 1+ H Sodium 137 (137-145) mmol/L Potassium 4.9 (3.4-5.1) mmol/L Chloride 102 (98-107) mmol/L Carbon Dioxide 28 (22-32) mmol/L BUN 18 H (7-17) mg/dL Creatinine 0.68 (0.52-1.04) mg/dL Estimated GFR > 60 (>60) mL/min BUN/Creatinine Ratio 26.5 H (6-22) Glucose 95 (80-110) mg/dL Lactate 1.3 (0.7-2.1) mmol/L Calcium 8.7 (8.4-10.2) mg/dL Total Bilirubin 0.4 (0.2-1.3) mg/dL AST 28 (14-36) IU/L ALT 29 (<35) IU/L Alkaline Phosphatase 69 (38-126) U/L C-Reactive Protein (<1.0) mg/dL Total Protein 7.3 (6.3-8.2) g/dL Albumin 4.3 (3.5-5.0) g/dL Globulin 3.0 (1.7-4.1) g/dL Albumin/Globulin Ratio 1.4 (1.0-2.8) Lipase 101 (23-300) U/L Procalcitonin (<0.5) ng/mL Urine RBC (0-5/HPF) Urine WBC (0-5/HPF) Ur Squamous Epith Cells (0-5/HPF) Amorphous Sediment Urine Bacteria (None) Ur Culture Indicated? 04/17/22 04/17/22 04/17/22 Range/Units 13:00 13:00 14:07 WBC (4.5-11.0) X10^3/uL RBC (4.0-5.2) X10^6/uL Hgb (12.0-16.0) g/dL Hct (36-46) % MCV (80-100) fL MCH (26-34) PG MCHC (30-36) % RDW (11.6-14.8) % Plt Count (150-400) X10^3/uL Neut % (Auto) (50-75) % Lymph % (Auto) (25-40) % Price % (Auto) (3-14) % Eos % (Auto) (2-4) % Baso % (Auto) (0-2) % Neut # (Auto) (3606-2010) /uL Lymph # (Auto) (2273-9393) /uL Price # (Auto) (0-900) /uL Eos # (Auto) (0-450) /uL Baso # (Auto) (0-100) /uL RBC Morphology Hypochromasia Anisocytosis Microcytosis Ovalocytes Sodium (137-145) mmol/L Potassium (3.4-5.1) mmol/L Chloride (98-107) mmol/L Carbon Dioxide (22-32) mmol/L BUN (7-17) mg/dL Creatinine (0.52-1.04) mg/dL Estimated GFR (>60) mL/min BUN/Creatinine Ratio (6-22) Glucose (80-110) mg/dL Lactate (0.7-2.1) mmol/L Calcium (8.4-10.2) mg/dL Total Bilirubin (0.2-1.3) mg/dL AST (14-36) IU/L ALT (<35) IU/L Alkaline Phosphatase (38-126) U/L C-Reactive Protein < 0.5 (<1.0) mg/dL Total Protein (6.3-8.2) g/dL Albumin (3.5-5.0) g/dL Globulin (1.7-4.1) g/dL Albumin/Globulin Ratio (1.0-2.8) Lipase (23-300) U/L Procalcitonin 0.04 (<0.5) ng/mL Urine RBC 0-1/hpf (0-5/HPF) Urine WBC 1-5/hpf (0-5/HPF) Ur Squamous Epith Cells 0-1 /hpf (0-5/HPF) Amorphous Sediment 1+ Urine Bacteria Many (>30) H (None) Ur Culture Indicated? Specimen cultured Urine Dip Bedside Urine Glucose Negative Bedside Urine Bilirubin - Negative Bedside Urine Ketone - Negative Urine Specific [place] 1.015 Bedside Urine Occult Blood - Negative Bedside Urine pH 6.5 Bedside Urine Protein - Negative Bedside Urine Urobilinogen - Negative Bedside Urine Nitrite + Positive Bedside Urine Leukocytes + [address] scan - abdomen/pelvis: Radiologist's Impression: PROCEDURE:? CT KIDNEY URETER BLADDER (KUB) ? INDICATIONS:? RIGHT FLANK PAIN ? TECHNIQUE:? Axial sections were acquired from the lung bases to the pubic symphysis.? Coronal and sagittal reformats were performed.? For radiation dose reduction, the following was used: ?automated exposure control, adjustment of mA and/or kV according to patient size.? ? COMPARISON:? [facility], CT, KIDNEY/ URETER/BLADDER, 07/16/2015, 14:33. ? FINDINGS: ? Lower thorax: The lung bases are clear.? Heart size normal.? No hiatal hernia.? Dual-chamber cardiac pacer wires ? Liver:? Normal in size and attenuation. No contour deformity present. ? Biliary system:? Cholecystectomy.? No intra or extrahepatic bile duct dilation. ? Pancreas:? Unremarkable without mass or inflammation evident. ? Spleen:? Normal in size and density. ? Adrenals:? Normal morphology and density. ? Reproductive system:? Unremarkable as visualized. ? Urinary system:? Left renal scarring atrophy remains unchanged from prior exam.? Bilateral nonobstructing calculi.? No evidence of ureteral calculus or hydronephrosis.? No obstructive uropathy. ? Gastrointestinal system:? The bowel is unremarkable without evidence of bowel obstruction or inflammation. The stomach appears unremarkable.? Multiple diverticula arise from the sigmoid colon without evidence of diverticulitis. ? Partial sigmoidectomy with anastomosis intact ? Appendix:? No findings to suggest acute appendicitis. ? Peritoneal spaces:? No mesenteric or retroperitoneal adenopathy.? No free air.? No free fluid.? ? Vasculature:? Aortic atherosclerotic vascular calcification noted without evidence of aneurysm. ? Abdominal wall:? Abdominal wall intact without evidence of ventral or inguinal hernias. ? Musculoskeletal:? Normal bone mineralization.? No acute fractures.? Lower lumbar spine interbody fusion with instrumentation.? Bilateral hip prosthesis obscures several images in the pelvis ? IMPRESSION: ? 1. Nonobstructive right renal calculus without hydronephrosis or obstructive uropathy.? Left renal scarring, stable from the prior ? 2. No acute CT findings in the abdomen and pelvis.? Approved by: Damon Ferguson M.D. on 04/17/2022 at 13:48? MDM Narrative Medical decision making narrative: This is a 76-year-old female presents to the emergency department with severe right-sided flank pain which started last night this morning, has a history of k idney stones and was to have a lithotripsy approximately a month ago, she has not been able to see Dr. Zaidi because he has been out of the office. Today she presents with severe pain, nausea and was found to have a UA with nitrites, blood, WBCs, bacteria CT abdomen pelvis shows a nonobstructive right renal calculus without hydronephrosis or obstructive uropathy, left renal scarring is stable from prior exam. Lab work overall is reassuring, no leukocytosis or anemia, her creatinine is at her baseline today of 0.68,, no elevation to her liver enzymes, lipase is 101, procalcitonin is 0.04 and CRP is 0.[address] Peoples regarding patient's CT and urinary tract infection with question of antibiotic recommendation. He states that she should tolerate cephalosporins just fine as her lab work does not show systemic illness at this point, he states that patient should schedule follow-up with Dr. Zaidi and follow-up accordingly. Patient was prescribed cephalexin and encouraged to schedule follow-up appointment with Dr. Zaidi for test of cure. She understands to stay hydrated, return for any worsening symptoms. No peritoneal signs on abdominal exam. Patient remains p.o. tolerant. Serial abdominal exam without increase in abdominal pain. Given history and exam, low suspicion for acute abdominal process, such as acute cholecystitis, pancreatitis, perforated viscus, atypical appendicitis, colitis, diverticulitis or torsion. Extensive conversation about ER return precautions and need for close follow-up. Patient is appropriate and amenable to discharge home. Vital signs are stable on repeat examination is unremarkable. Patient has been informed of results. Patient has been given strict return to ER precautions for any new or worsening symptoms. Patient understands to follow up closely with outpatient providers as instructed. Patient understands plan and agrees to discharge home. All questions and concerns answered at this time. <Emani Blane Gould, DO - Last Filed: 04/30/22 11:18> Lab Data Labs: Lab Results 04/17/22 04/17/22 04/17/22 Range/Units 13:00 13:00 13:00 WBC 5.7 (4.5-11.0) X10^3/uL RBC 4.68 (4.0-5.2) X10^6/uL Hgb 11.4 L (12.0-16.0) g/dL Hct 35.8 L (36-46) % MCV 76.4 L (80-100) fL MCH 24.4 L (26-34) PG MCHC 31.9 (30-36) % RDW 30.3 H (11.6-14.8) % Plt Count 236 (150-400) X10^3/uL Neut % (Auto) 59.1 (50-75) % Lymph % (Auto) 27.2 (25-40) % Price % (Auto) 10.7 (3-14) % Eos % (Auto) 1.7 L (2-4) % Baso % (Auto) 1.3 (0-2) % Neut # (Auto) 3400 (9124-0466) /uL Lymph # (Auto) 1600 (6894-9023) /uL Price # (Auto) 600 (0-900) /uL Eos # (Auto) 100 (0-450) /uL Baso # (Auto) 100 (0-100) /uL RBC Morphology See below Hypochromasia 1+ H Anisocytosis 3+ H Microcytosis 1+ H Ovalocytes 1+ H Sodium 137 (137-145) mmol/L Potassium 4.9 (3.4-5.1) mmol/L Chloride 102 (98-107) mmol/L Carbon Dioxide 28 (22-32) mmol/L BUN 18 H (7-17) mg/dL Creatinine 0.68 (0.52-1.04) mg/dL Estimated GFR > 60 (>60) mL/min BUN/Creatinine Ratio 26.5 H (6-22) Glucose 95 (80-110) mg/dL Lactate 1.3 (0.7-2.1) mmol/L Calcium 8.7 (8.4-10.2) mg/dL Total Bilirubin 0.4 (0.2-1.3) mg/dL AST 28 (14-36) IU/L ALT 29 (<35) IU/L Alkaline Phosphatase 69 (38-126) U/L C-Reactive Protein (<1.0) mg/dL Total Protein 7.3 (6.3-8.2) g/dL Albumin 4.3 (3.5-5.0) g/dL Globulin 3.0 (1.7-4.1) g/dL Albumin/Globulin Ratio 1.4 (1.0-2.8) Lipase 101 (23-300) U/L Procalcitonin (<0.5) ng/mL Urine RBC (0-5/HPF) Urine WBC (0-5/HPF) Ur Squamous Epith Cells (0-5/HPF) Amorphous Sediment Urine Bacteria (None) Ur Culture Indicated? 04/17/22 04/17/22 04/17/22 Range/Units 13:00 13:00 14:07 WBC (4.5-11.0) X10^3/uL RBC (4.0-5.2) X10^6/uL Hgb (12.0-16.0) g/dL Hct (36-46) % MCV (80-100) fL MCH (26-34) PG MCHC (30-36) % RDW (11.6-14.8) % Plt Count (150-400) X10^3/uL Neut % (Auto) (50-75) % Lymph % (Auto) (25-40) % Price % (Auto) (3-14) % Eos % (Auto) (2-4) % Baso % (Auto) (0-2) % Neut # (Auto) (5536-7332) /uL Lymph # (Auto) (5014-6579) /uL Price # (Auto) (0-900) /uL Eos # (Auto) (0-450) /uL Baso # (Auto) (0-100) /uL RBC Morphology Hypochromasia Anisocytosis Microcytosis Ovalocytes Sodium (137-145) mmol/L Potassium (3.4-5.1) mmol/L Chloride (98-107) mmol/L Carbon Dioxide (22-32) mmol/L BUN (7-17) mg/dL Creatinine (0.52-1.04) mg/dL Estimated GFR (>60) mL/min BUN/Creatinine Ratio (6-22) Glucose (80-110) mg/dL Lactate (0.7-2.1) mmol/L Calcium (8.4-10.2) mg/dL Total Bilirubin (0.2-1.3) mg/dL AST (14-36) IU/L ALT (<35) IU/L Alkaline Phosphatase (38-126) U/L C-Reactive Protein < 0.5 (<1.0) mg/dL Total Protein (6.3-8.2) g/dL Albumin (3.5-5.0) g/dL Globulin (1.7-4.1) g/dL Albumin/Globulin Ratio (1.0-2.8) Lipase (23-300) U/L Procalcitonin 0.04 (<0.5) ng/mL Urine RBC 0-1/hpf (0-5/HPF) Urine WBC 1-5/hpf (0-5/HPF) Ur Squamous Epith Cells 0-1 /hpf (0-5/HPF) Amorphous Sediment 1+ Urine Bacteria Many (>30) H (None) Ur Culture Indicated? Specimen cultured Urine Dip Bedside Urine Glucose Negative Bedside Urine Bilirubin - Negative Bedside Urine Ketone - Negative Urine Specific [place] 1.015 Bedside Urine Occult Blood - Negative Bedside Urine pH 6.5 Bedside Urine Protein - Negative Bedside Urine Urobilinogen - Negative Bedside Urine Nitrite + Positive Bedside Urine Leukocytes + 70 Esterase Discharge Plan Departure Patient Disposition: Home Clinical Impression: Nephrolithiasis, Acute flank pain, Acute cystitis Instructions: Acute Cystitis, DI for Kidney Stones Activity Restrictions/Additional Instructions: *You have been diagnosed with a stable nonobstructive right kidney stone without swelling around the kidney or obstructive flow. Your urine is positive for infection, since you have a kidney stone and a urine infection, I want you to follow-up with Dr. Zaidi to rule out infected kidney stone. Please take these antibiotics for the next 7 days, if you have recurrence of your symptoms after stopping antibiotics, please come back to the hospital or call Dr. Zaidi's office. Please stay hydrated as a priority, take food with your m edications, you can have Toradol starting tomorrow every 8 hours with a pain pill and 650 mg of Tylenol. That is a good scheduled to stay on, if you have muscle pain and strain of your lumbar musculature, please use the methocarbamol but it will make you tired. You can use lidocaine patches which will help numb the pain, and ultimately the antibiotics will do the most help. Please follow- up with Could tell if you have recurrence of the symptoms or if you are unable to get into Dr. Zaidi's is office. *What to do: *Please continue to take your regular medications as directed. [x ] New medication prescriptions sent to your pharmacy: [[facility] ] [ ] New medication written as a paper prescription [ ] No new medications given *Please follow up with your primary care provider in 2-3 days, call for an appointment. Let them know you were seen in the Emergency Department and that we asked that you be seen for follow-up. We will electronically transmit a record of today's note if your PCP is in our system *If you do not have a primary care provider please contact [phone] to establish care with one of the [facility] primary care providers. *Return to Emergency Department if you should have any new, worsening, or concerning symptoms, such as [fever greater than 101F, chills, worsening pain, persistent vomiting or other bothersome symptoms]. Prescriptions: New lidocaine [Lidoderm] 5 % adhesive patch,medicated 1 patch topical DAILY Qty: 15 0RF Rx Instructions: leave on most painful area for up to 12 hrs ondansetron 8 mg tablet,disintegrating 8 mg PO Q8HR Qty: 14 0RF ketorolac 10 mg tablet 10 mg PO Q8H PRN (Reason: pain) Qty: 20 0RF phenazopyridine [Pyridium] 100 mg tablet 100 mg PO TID PRN (Reason: pain) Qty: 7 0RF No Action cyanocobalamin (vitamin B-12) 1,000 MCG tablet extended release 1,000 mcg PO QDAY Qty: 0 coenzyme Q10 [CoQ-10] 100 mg Capsule 100 mg PO DAILY Qty: 0 atorvastatin 40 MG tablet 40 mg PO QDAY Qty: 0 Label Comments: At bedtime glucosamine [id number] 500-250-400 mg Tablet 1 tab PO BID Qty: 0 escitalopram oxalate 20 mg tablet See Rx Instructions .ROUTE .COMPLEX Qty: 90 3RF Dose Instruction: TAKE 1 TABLET BY MOUTH DAILY Rx Instructions: TAKE 1 TABLET BY MOUTH DAILY cholecalciferol (vitamin D3) 1 tab PO DAILY multivitamin Tablet 1 tab PO DAILY prevagen 1 cap PO DAILY relief factor topical tramadol 50 mg tablet 50 mg PO TID PRN (Reason: pain) Qty: 60 5RF metoprolol succinate [Toprol XL] 25 mg tablet extended release 24 hr 25 mg PO QDAY Qty: 90 3RF lansoprazole 30 mg capsule,delayed release(DR/EC) 30 mg PO DAILY Qty: 90 3RF methocarbamol 500 mg tablet 500 mg PO TID PRN (Reason: spasms) Qty: 30 1RF gabapentin 600 mg Tablet 600 mg PO BID aspirin [Adult Aspirin Regimen] 81 mg tablet,delayed release (DR/EC) 81 mg PO DAILY Referrals: Braulio Connors MD [Primary Care Provider] - Joe Peoples MD [Physician] - Visit Report Forms: Patient Portal/API <Emani Gould DO - Last Filed: 04/30/22 11:18> Cosign ED Attending Carlozature Attestation: I was immediately available in the department for consultation. Documentation has been reviewed.
[2022-04-17] MEDS: PHENAZOPYRIDINE 100 MG TABLET PO (15:02)
[2022-04-17] MEDS: cefTRIAXone 1,000 MG in SODIUM CHLORIDE 0.9% 100 ML 200 MG IV (15:03)
[2022-04-17] MEDS: HYDROMORPHONE 0.5 MG INJ IV (15:03)
[2022-04-17] MEDS: TAMSULOSIN 0.4 MG CAPSULE PO (15:07)
[2022-04-17 15:17] LABS: Lactate (Lactic Acid) 1.3 mmol/L (0.7-2.1)
[2022-04-17 15:20] LABS: C-Reactive Protein Quant < 0.5 mg/dL (<1.0)
[2022-04-17 15:34] LABS: Procalcitonin 0.04 ng/mL (<0.5)
[2022-04-17] MEDS: CIPROFLOXACIN 250 MG TABLET 500 MG PO (15:40)
[2022-04-17 16:30] VITALS: BP 174/81; PULSE 60; RESP 18; O2SAT 98
== END 2022-04-17 16:33 | disposition home or self-care (01) ==
PROVIDERS: Emergency Medicine; Emergency Provider Nurse Practitioner Critical Care Medicine; PCP Internal Medicine
DX: N20.0 Calculus of kidney (principal); N30.01 Acute cystitis with hematuria; R10.9 Unspecified abdominal pain; R11.0 Nausea; Z95.0 Presence of cardiac pacemaker; Z79.899 Other long term (current) drug therapy
CPT/HCPCS: 36415; 74176; 80053; 81003; 81015; 83605; 83690; 84145; 85025; 86140; 87077; 87086; 87186; 96365; 96375; 99284; J0696; J1170; J1885; J2405

== ENCOUNTER → 2022-05-25 11:06 | Outpatient (RCR) | payer MEDICARE, OTHER, SELFPAY ==
[2021-01-19 16:26] VITALS: BMI 29.8
--- NOTE | 2021-03-30 14:12 | PT.OPPOC ---
Physical, Occupational & Speech Therapy At [facility] Current Diagnoses Spondylolisthesis, lumbar region (03/30/21) Spinal stenosis, lumbar region with neurogenic claudication (03/30/21) Visit Care Team Role Provider Type Damaris Frey MD Family Provider Physician Primary Care Provider Specialty: Internal Medicine [address]: [address] [place] [address], [id number] Email: [email or web address] Florentin Echols MD Attending Provider Physician Referring Provider Specialty: Orthopedic Surgery Address: [address] [place] [address], [id number] Email: [email or web address] Plan Of Care PT-OP-T Assessment and Plan Start: 03/30/21 12:09 Freq: Status: Active Protocol: Document 03/30/21 12:15 MB (Rec: 03/30/21 14:05 MB [id number]) Physical Therapy Assessment Rehab Potential Rehabilitation Potential Fair Evaluation Complexity Number of Personal Factors/Comorbidities 1-2 Number of Body Systems Impaired 3 Clinical Presentation at Evaluation Evolving Impairments Impairments Activity Tolerance,Balance, Functional Mobility,Gait,Pain, Posture,ROM,Sensation,Soft Tissue Mobility,Strength, Transfers,Vestibular Other Impairments Personal factors include pt states she is feeling somewhat depressed and unmotivated. She has responded well to PT with this therapist in the past and PT is hopeful that PT will be motivating for her. Body systems affected include neuromuscular, vestibular, neurological. Her clinical presentation is evolving. Other Concerns Fall Risk Yes, history of falls and is walking much better since back surgery 01/17 Goals 4 Communications Writer Goal (LTG) Pt will perform WNLs on a standardized balance test to decrease fall risk by 05/30/21. LTG Duration 8 weeks 3 Communications Writer Goal (LTG) Pt will perform progressive HEP with I including pelvic realignment, flexibility, strengthening, balance and gait exercises to improve pain and strength by 05/30/21. LTG Duration 8 weeks 2 Communications Writer Goal (LTG) Pt will gait train at least 1200 feet in 6 minutes to improve community ambulation by 05/30/21. LTG Duration 8 weeks 1 Impairment Oswestry reflects 26% impairment Intermediate Goal (LTG) Pt will present with an improved Oswestry LBP score to reflect no more than 20% impairment to improve functional mobility by 05/30/21. LTG Duration 8 weeks Assessment Summary Assessment Pt is a 75 y/o female presenting with improved pain and gait after lumbar surgery in December. She was seen by this PT for BPPV and LBP earlier this year. She was walking with a cane at that time. Today, she arrives without a cane and reports of feeling better. She states that her dizziness is coming back with rolling to the right and PT will reassess and treat as needed for BPPV during this course for her back as vertigo increases her risk for falling and injury. She has a history of falling. She presents with numbness in her left great and second toe since surgery. She presents with decreased balance, LE inflexibility and some weakness. She will benefit from PT for gait, balance, strengthening and flexibility. Physical Therapy Plan Frequency and Duration Frequency of Treatment 2x/Week Duration of Treatment 8 weeks Plan of Care Start Date 03/30/21 Plan of Care End Date 06/01/21 Therapeutic Interventions Therapeutic Interventions Aquatic Therapy,Balance Training,Canalithic Repositioning,Gait Training, Home Exercise Program,Manual Therapy,Neuromuscular Re- education,Patient/Caregiver Education,Self-Care/Home Management,Soft Tissue Mobilization,Taping, Therapeutic Activities, Therapeutic Exercises, Vestibular Rehabilitation Modalities Cold Pack/Ice Massage,Hot Packs Next Visit Focus/Plan Next Note Type Treatment Note Next Visit Plan Check for BPPV and treat if needed 6MWT Plan of Care Dates Plan of Care Start Date 03/30/21 Plan of Care End Date 06/01/21 Electronically Signed by: Liza Sims, PT 03/30/21 0597 Please Sign and Return: I have reviewed this Plan of Care and certify that the skilled therapy services above are required to meet the patient?s needs. Physician Signature Date Printed Name and Credentials Clinical Instructor Signature Printed Name and Credentials
--- NOTE | 2021-03-30 14:12 | PT.OIE ---
Current Diagnoses Spondylolisthesis, lumbar region (03/30/21) Spinal stenosis, lumbar region with neurogenic claudication (03/30/21) Past Medical History (Last Reviewed 01/22/21 @ 08:55 by Marco Willis PA-C) Arthritis AV block, Mobitz 2 Bacteriuria Bladder cancer Depression DJD (degenerative joint disease) E. coli infection Easy bruisability Fibromyalgia GERD (gastroesophageal reflux disease) GI bleed (2018) Hemangioma History of arthroplasty of left hip History of arthroplasty of right hip History of bladder surgery (2006) History of bowel resection History of carpal tunnel release History of colonoscopy History of esophagogastroduodenoscopy (EGD) History of hysterectomy History of parathyroid surgery (2016) History of surgery HLD (hyperlipidemia) HTN (hypertension) Hx of abdominal surgery Hx of bilateral cataract extraction Hx of bilateral mastectomy (~1993) Hx of craniotomy Hx of sinus surgery Hx of spinal surgery Impaired hearing Kidney stones Osteopenia Pacemaker (06/10/16) PAF (paroxysmal atrial fibrillation) Sleep apnea Stroke Vertigo Past Surgical History (Last Reviewed 01/22/21 @ 08:55 by Marco Willis PA-C) History of arthroplasty of left hip History of arthroplasty of right hip History of bladder surgery (2006) History of bowel resection History of carpal tunnel release History of colonoscopy History of esophagogastroduodenoscopy (EGD) History of hysterectomy History of parathyroid surgery (2016) History of surgery Hx of abdominal surgery Hx of bilateral cataract extraction Hx of bilateral mastectomy (~1993) Hx of craniotomy Hx of sinus surgery Hx of spinal surgery Visit Care Team Role Provider Type Damaris Frey MD Family Provider Physician Primary Care Provider Specialty: Internal Medicine Address: [address] [place] [address], [id number] Email: [email or web address] [email or web address] MD Attending Provider Physician Referring Provider Specialty: Orthopedic Surgery Address: [address] [place] [address], [id number] Email: [email or web address] Initial Evaluation PT-OP-A Visit Information Start: 03/30/21 12:09 Freq: Status: Active Protocol: Document 03/30/21 12:15 MB (Rec: 03/30/21 12:32 MB [id number]) Out-Patient Physical Therapy Visit Information Visit Information Visit Type Initial Evaluation Visit Note Medicare About before KX for 2020 Pt goes by [employer]. Visit Start Time 12:15 Visit Stop Time 13:00 Total Visit Minutes 45 Visit Number 1 Evaluation Information Evaluation Date 03/30/21 Precautions Precautions S/p L3-4, L5-S1 fusion, L3-4, L5-S1 interbody cage placement , L3-4, L5-S1 decompressive laminectomy and B facetecomies , L3-4, L4-5, L5-S1 posterior segmental instrumentation, L4- 5 posterolateral fusion, L4-5 revision hemilaminectomy, harvest bone marrow from iliac crest on 01/19/21. Will be mindful about back precautions . PT-OP-B Current Condition Start: 03/30/21 12:09 Freq: Status: Active Protocol: Document 03/30/21 12:15 MB (Rec: 03/30/21 12:32 MB [id number]) Current Condition History of Current Condition Onset Date Back and leg pain for years, much better post-op 01/19/21 Current Complaints Low motivation, some depression and not wanting to get up to do stuff History of Current Condition Pt feels a lot better after lumbar surgery on 01/19/21. She reports being transferred to SNF after surgery. She lasted two days and left AMA. She did walk with her walker to show that she could go home. Pt had vertigo in the past and feels it might be coming back when rolling to the right. Pt states that her depression medication was increased. She feels that therapy will help her get out of the funk and increase her mobility. PMH: bladder CA, fibromyalgia, GI bleed, AV block, HLD, HTN, pacemaker, B THR, brain surgery for hemangioma, B mastectomy, previous back surgery 2000. Pt reports numbness in left great and second toes since surgery. Pt has been dancing at the [employer]. Pt no longer has to use an AD since surgery. There is a railing at the two steps to enter her home. Prior Treatments and Tests PT, back surgery Treatment Goals Patient/Caregiver Goals To strengthen everything PT-OP-C Subjective Start: 03/30/21 12:09 Freq: Status: Active Protocol: Document 03/30/21 12:15 MB (Rec: 03/30/21 12:32 MB [id number]) OP-PT Subjective Patient Comments Patient Comments See history of current condition PT-OP-G Mobility & Gait Start: 03/30/21 12:09 Freq: Status: Active Protocol: Document 03/30/21 12:15 MB (Rec: 03/30/21 14:11 MB [id number]) OP Gait Assessment Comments Gait Comments Pt gait trains with wide DENA, decreased step length, WB on the outside of both feet, greater on the left, increased Lesly angle, greater on the left. PT-OP-J Posture/Palpation/Skin Start: 03/30/21 12:09 Freq: Status: Active Protocol: Document 03/30/21 12:15 MB (Rec: 03/30/21 14:11 MB [id number]) Posture Evaluation Comments Posture Comments Standing posture wearing sandals: B WB outside of feet, B knee flexion in standing, Dowager's hump, increased thoracic kyphosis, right shoulder higher than the left, right thoracic convexity. She has 2 1 1/2 scars lateral lumbar spine from surgery. Left iliac crest is higher than the right. In supine, neither knee touches the mat with legs straight d/t tension in hips and hamstrings. PT-OP-M Strength Start: 03/30/21 12:09 Freq: Status: Active Protocol: Document 03/30/21 12:15 MB (Rec: 03/30/21 14:11 MB [id number]) Hip Strength Hip Manual Muscle Testing Left Flexion (L2) 4 Good Abduction 4 Good Adduction 4 Good Right Flexion (L2) 4 Good Abduction 4 Good Adduction 4 Good Knee Strength Knee Manual Muscle Testing Left Flexion (S2) 4 Good Extension (L3) 4 Good Right Flexion (S2) 4 Good Extension (L3) 4 Good Ankle/Foot Strength Ankle and Foot Manual Muscle Testing Left Dorsiflexion (L4) 4 Good Right Dorsiflexion (L4) 4 Good Toe Strength Toe Manual Muscle Testing Left Great Toe Extension 3+ Fair+ Right Great Toe Extension 4 Good PT-OP-Q Treatments Start: 03/30/21 12:09 Freq: Status: Active Protocol: Document 03/30/21 12:15 MB (Rec: 03/30/21 12:54 MB [id number]) Therapeutic Exercises Supine Exercises Hamstring stretch with AP Side bilateral Comments 2 reps each, 20 AP rep Pelvic realignment exercises Side bilateral Comments 5 reps, 3 sec hold all exercises PT-OP-T Assessment and Plan Start: 03/30/21 12:09 Freq: Status: Active Protocol: Document 03/30/21 12:15 MB (Rec: 03/30/21 14:05 MB [id number]) Physical Therapy Assessment Rehab Potential Rehabilitation Potential Fair Evaluation Complexity Number of Personal Factors/Comorbidities 1-2 Number of Body Systems Impaired 3 Clinical Presentation at Evaluation Evolving Impairments Impairments Activity Tolerance,Balance, Functional Mobility,Gait,Pain, Posture,ROM,Sensation,Soft Tissue Mobility,Strength, Transfers,Vestibular Other Impairments Personal factors include pt states she is feeling somewhat depressed and unmotivated. She has responded well to PT with this therapist in the past and PT is hopeful that PT will be motivating for her. Body systems affected include neuromuscular, vestibular, neurological. Her clinical presentation is evolving. Other Concerns Fall Risk Yes, history of falls and is walking much better since back surgery 01/17 Goals 4 Group Home Goal (LTG) Pt will perform WNLs on a standardized balance test to decrease fall risk by 05/30/21. LTG Duration 8 weeks 3 Group Home Goal (LTG) Pt will perform progressive HEP with I including pelvic realignment, flexibility, strengthening, balance and gait exercises to improve pain and strength by 05/30/21. LTG Duration 8 weeks 2 Gear Machine Operator Goal (LTG) Pt will gait train at least 1200 feet in 6 minutes to improve community ambulation by 05/30/21. LTG Duration 8 weeks 1 Impairment Oswestry reflects 26% impairment Group Home Goal (LTG) Pt will present with an improved Oswestry LBP score to reflect no more than 20% impairment to improve functional mobility by 05/30/21. LTG Duration 8 weeks Assessment Summary Assessment Pt is a 75 y/o female presenting with improved pain and gait after lumbar surgery in December. She was seen by this PT for BPPV and LBP earlier this year. She was walking with a cane at that time. Today, she arrives without a cane and reports of feeling better. She states that her dizziness is coming back with rolling to the right and PT will reassess and treat as needed for BPPV during this course for her back as vertigo increases her risk for falling and injury. She has a history of falling. She presents with numbness in her left great and second toe since surgery. She presents with decreased balance, LE inflexibility and some weakness. She will benefit from PT for gait, balance, strengthening and flexibility. Physical Therapy Plan Frequency and Duration Frequency of Treatment 2x/Week Duration of Treatment 8 weeks Plan of Care Start Date 03/30/21 Plan of Care End Date 06/01/21 Therapeutic Interventions Therapeutic Interventions Aquatic Therapy,Balance Training,Canalithic Repositioning,Gait Training, Home Exercise Program,Manual Therapy,Neuromuscular Re- education,Patient/Caregiver Education,Self-Care/Home Management,Soft Tissue Mobilization,Taping, Therapeutic Activities, Therapeutic Exercises, Vestibular Rehabilitation Modalities Cold Pack/Ice Massage,Hot Packs Next Visit Focus/Plan Next Note Type Treatment Note Next Visit Plan Check for BPPV and treat if needed 6MWT
--- NOTE | 2021-04-01 12:56 | PT.OTN ---
Current Diagnoses Spondylolisthesis, lumbar region (04/01/21) Spinal stenosis, lumbar region with neurogenic claudication (04/01/21) Physical Therapy Treatment Note PT-OP-A Visit Information Start: 03/30/21 12:09 Freq: Status: Active Protocol: Document 04/01/21 12:16 MB (Rec: 04/01/21 12:56 MB [id number]) Out-Patient Physical Therapy Visit Information Visit Information Visit Type Treatment Note Visit Note Medicare About before KX for 2020 Next visit, check for BPPV Visit Start Time 12:16 Visit Stop Time 12:54 Total Visit Minutes 38 Visit Number 2 Evaluation Information Evaluation Date 03/30/21 Precautions Precautions S/p L3-4, L5-S1 fusion, L3-4, L5-S1 interbody cage placement , L3-4, L5-S1 decompressive laminectomy and B facetecomies , L3-4, L4-5, L5-S1 posterior segmental instrumentation, L4- 5 posterolateral fusion, L4-5 revision hemilaminectomy, harvest bone marrow from iliac crest on 01/19/21. Will be mindful about back precautions . PT-OP-B Current Condition Start: 03/30/21 12:09 Freq: Status: Active Protocol: Document 03/30/21 12:15 MB (Rec: 03/30/21 12:32 MB [id number]) Current Condition History of Current Condition Onset Date Back and leg pain for years, much better post-op 01/19/21 Current Complaints Low motivation, some depression and not wanting to get up to do stuff History of Current Condition Pt feels a lot better after lumbar surgery on 01/19/21. She reports being transferred to SNF after surgery. She lasted two days and left AMA. She did walk with her walker to show that she could go home. Pt had vertigo in the past and feels it might be coming back when rolling to the right. Pt states that her depression medication was increased. She feels that therapy will help her get out of the funk and increase her mobility. PMH: bladder CA, fibromyalgia, GI bleed, AV block, HLD, HTN, pacemaker, B THR, brain surgery for hemangioma, B mastectomy, previous back surgery 2000. Pt reports numbness in left great and second toes since surgery. Pt has been dancing at the [employer]. Pt no longer has to use an AD since surgery. There is a railing at the two steps to enter her home. Prior Treatments and Tests PT, back surgery Treatment Goals Patient/Caregiver Goals To strengthen everything PT-OP-C Subjective Start: 03/30/21 12:09 Freq: Status: Active Protocol: Document 04/01/21 12:16 MB (Rec: 04/01/21 12:56 MB [id number]) OP-PT Subjective Patient Comments Patient Comments Pt reports some soreness in right greater than left hip since doing exercises. PT-OP-G Mobility & Gait Start: 03/30/21 12:09 Freq: Status: Active Protocol: Document 03/30/21 12:15 MB (Rec: 03/30/21 14:11 MB [id number]) OP Gait Assessment Comments Gait Comments Pt gait trains with wide DENA, decreased step length, WB on the outside of both feet, greater on the left, increased Lesly angle, greater on the left. PT-OP-J Posture/Palpation/Skin Start: 03/30/21 12:09 Freq: Status: Active Protocol: Document 03/30/21 12:15 MB (Rec: 03/30/21 14:11 MB [id number]) Posture Evaluation Comments Posture Comments Standing posture wearing sandals: B WB outside of feet, B knee flexion in standing, Dowager's hump, increased thoracic kyphosis, right shoulder higher than the left, right thoracic convexity. She has 2 1 1/2 scars lateral lumbar spine from surgery. Left iliac crest is higher than the right. In supine, neither knee touches the mat with legs straight d/t tension in hips and hamstrings. PT-OP-M Strength Start: 03/30/21 12:09 Freq: Status: Active Protocol: Document 03/30/21 12:15 MB (Rec: 03/30/21 14:11 MB [id number]) Hip Strength Hip Manual Muscle Testing Left Flexion (L2) 4 Good Abduction 4 Good Adduction 4 Good Right Flexion (L2) 4 Good Abduction 4 Good Adduction 4 Good Knee Strength Knee Manual Muscle Testing Left Flexion (S2) 4 Good Extension (L3) 4 Good Right Flexion (S2) 4 Good Extension (L3) 4 Good Ankle/Foot Strength Ankle and Foot Manual Muscle Testing Left Dorsiflexion (L4) 4 Good Right Dorsiflexion (L4) 4 Good Toe Strength Toe Manual Muscle Testing Left Great Toe Extension 3+ Fair+ Right Great Toe Extension 4 Good PT-OP-Q Treatments Start: 03/30/21 12:09 Freq: Status: Active Protocol: Document 04/01/21 12:16 MB (Rec: 04/01/21 12:56 MB [id number]) Cardio Equipment Recumbent Bicycle Duration (Minutes) 10 Resistance 2 Other UEs and LEs Therapeutic Exercises Sitting Exercises Thoracic rotation Comments Gently both directions and end -range breathing Standing Exercises Racquet ball and kids' ball massage Side bilateral Equipment Used Teal kids' ball and racquet ball Comments Pt performs and states racquet ball feels so good, no trouble Gait Training Gait Activity 6MWT Comments Pt presents with spinal and LE postural changes, short steps , wide DENA, decreased arm swing and requires one standing rest break against the allen and then asks to stop after about 4.5 minutes of walking. She reports discomfort in LB and down back of right leg. Her gait is slow. She presents with hip flexion with gait. She gait trains 425 feet in 6 minutes Pt's gait is similar throughout PT treatment from waiting room to gym, around gym to room and after appointment out to car PT-OP-T Assessment and Plan Start: 03/30/21 12:09 Freq: Status: Active Protocol: Document 04/01/21 12:16 MB (Rec: 04/01/21 12:56 MB [id number]) Physical Therapy Assessment Rehab Potential Rehabilitation Potential Fair Evaluation Complexity Number of Personal Factors/Comorbidities 1-2 Number of Body Systems Impaired 3 Clinical Presentation at Evaluation Evolving Impairments Impairments Activity Tolerance,Balance, Functional Mobility,Gait,Pain, Posture,ROM,Sensation,Soft Tissue Mobility,Strength, Transfers,Vestibular Other Impairments Personal factors include pt states she is feeling somewhat depressed and unmotivated. She has responded well to PT with this therapist in the past and PT is hopeful that PT will be motivating for her. Body systems affected include neuromuscular, vestibular, neurological. Her clinical presentation is evolving. Other Concerns Fall Risk Yes, history of falls and is walking much better since back surgery 01/17 Goals 4 Conservator Artifacts Goal (LTG) Pt will perform WNLs on a standardized balance test to decrease fall risk by 05/30/21. LTG Duration 8 weeks 3 Longterm Goal (LTG) Pt will perform progressive HEP with I including pelvic realignment, flexibility, strengthening, balance and gait exercises to improve pain and strength by 05/30/21. LTG Duration 8 weeks 2 Conservator Artifacts Goal (LTG) Pt will gait train at least 1200 feet in 6 minutes to improve community ambulation by 05/30/21. LTG Duration 8 weeks 1 Impairment Oswestry reflects 26% impairment Longterm Goal (LTG) Pt will present with an improved Oswestry LBP score to reflect no more than 20% impairment to improve functional mobility by 05/30/21. LTG Duration 8 weeks Assessment Summary Assessment Progressed recumbent stepper today, self-massage and thoracic rotation. Initiated 6MWT and pt presents with LB and right posterior leg discomfort with gait and requires stopping after 4.5 minutes. She has many spinal and LE postural changes that are barriers to pain and activity tolerance improvement . Physical Therapy Plan Frequency and Duration Frequency of Treatment 2x/Week Duration of Treatment 8 weeks Plan of Care Start Date 03/30/21 Plan of Care End Date 06/01/21 Therapeutic Interventions Therapeutic Interventions Aquatic Therapy,Balance Training,Canalithic Repositioning,Gait Training, Home Exercise Program,Manual Therapy,Neuromuscular Re- education,Patient/Caregiver Education,Self-Care/Home Management,Soft Tissue Mobilization,Taping, Therapeutic Activities, Therapeutic Exercises, Vestibular Rehabilitation Modalities Cold Pack/Ice Massage,Hot Packs Next Visit Focus/Plan Next Note Type Treatment Note Next Visit Plan Recumbent ellipital Check for BPPV and treat if needed Review exercises given previously
--- NOTE | 2021-04-06 13:50 | PT.OTN ---
Current Diagnoses Spondylolisthesis, lumbar region (04/06/21) Spinal stenosis, lumbar region with neurogenic claudication (04/06/21) Physical Therapy Treatment Note PT-OP-A Visit Information Start: 03/30/21 12:09 Freq: Status: Active Protocol: Document 04/06/21 13:01 MB (Rec: 04/06/21 13:42 MB [id number]) Out-Patient Physical Therapy Visit Information Visit Information Visit Type Treatment Note Visit Note Medicare About before KX for 2020 Visit Start Time 13:01 Visit Stop Time 13:43 Total Visit Minutes 42 Visit Number 3 Evaluation Information Evaluation Date 03/30/21 Precautions Precautions S/p L3-4, L5-S1 fusion, L3-4, L5-S1 interbody cage placement , L3-4, L5-S1 decompressive laminectomy and B facetecomies , L3-4, L4-5, L5-S1 posterior segmental instrumentation, L4- 5 posterolateral fusion, L4-5 revision hemilaminectomy, harvest bone marrow from iliac crest on 01/19/21. Will be mindful about back precautions . PT-OP-B Current Condition Start: 03/30/21 12:09 Freq: Status: Active Protocol: Document 03/30/21 12:15 MB (Rec: 03/30/21 12:32 MB [id number]) Current Condition History of Current Condition Onset Date Back and leg pain for years, much better post-op 01/19/21 Current Complaints Low motivation, some depression and not wanting to get up to do stuff History of Current Condition Pt feels a lot better after lumbar surgery on 01/19/21. She reports being transferred to SNF after surgery. She lasted two days and left AMA. She did walk with her walker to show that she could go home. Pt had vertigo in the past and feels it might be coming back when rolling to the right. Pt states that her depression medication was increased. She feels that therapy will help her get out of the funk and increase her mobility. PMH: bladder CA, fibromyalgia, GI bleed, AV block, HLD, HTN, pacemaker, B THR, brain surgery for hemangioma, B mastectomy, previous back surgery 2000. Pt reports numbness in left great and second toes since surgery. Pt has been dancing at the [employer]. Pt no longer has to use an AD since surgery. There is a railing at the two steps to enter her home. Prior Treatments and Tests PT, back surgery Treatment Goals Patient/Caregiver Goals To strengthen everything PT-OP-C Subjective Start: 03/30/21 12:09 Freq: Status: Active Protocol: Document 04/06/21 13:01 MB (Rec: 04/06/21 13:42 MB [id number]) OP-PT Subjective Patient Comments Patient Comments Pt reports that her hip soreness is better. Pt reports that some dizziness codes and names popped up online for her. PT-OP-G Mobility & Gait Start: 03/30/21 12:09 Freq: Status: Active Protocol: Document 03/30/21 12:15 MB (Rec: 03/30/21 14:11 MB [id number]) OP Gait Assessment Comments Gait Comments Pt gait trains with wide DENA, decreased step length, WB on the outside of both feet, greater on the left, increased Lesly angle, greater on the left. PT-OP-J Posture/Palpation/Skin Start: 03/30/21 12:09 Freq: Status: Active Protocol: Document 03/30/21 12:15 MB (Rec: 03/30/21 14:11 MB [id number]) Posture Evaluation Comments Posture Comments Standing posture wearing sandals: B WB outside of feet, B knee flexion in standing, Dowager's hump, increased thoracic kyphosis, right shoulder higher than the left, right thoracic convexity. She has 2 1 1/2 scars lateral lumbar spine from surgery. Left iliac crest is higher than the right. In supine, neither knee touches the mat with legs straight d/t tension in hips and hamstrings. PT-OP-M Strength Start: 03/30/21 12:09 Freq: Status: Active Protocol: Document 03/30/21 12:15 MB (Rec: 03/30/21 14:11 MB [id number]) Hip Strength Hip Manual Muscle Testing Left Flexion (L2) 4 Good Abduction 4 Good Adduction 4 Good Right Flexion (L2) 4 Good Abduction 4 Good Adduction 4 Good Knee Strength Knee Manual Muscle Testing Left Flexion (S2) 4 Good Extension (L3) 4 Good Right Flexion (S2) 4 Good Extension (L3) 4 Good Ankle/Foot Strength Ankle and Foot Manual Muscle Testing Left Dorsiflexion (L4) 4 Good Right Dorsiflexion (L4) 4 Good Toe Strength Toe Manual Muscle Testing Left Great Toe Extension 3+ Fair+ Right Great Toe Extension 4 Good PT-OP-Q Treatments Start: 03/30/21 12:09 Freq: Status: Active Protocol: Document 04/06/21 13:01 MB (Rec: 04/06/21 13:42 MB [id number]) Cardio Equipment Recumbent Bicycle Duration (Minutes) 12 Resistance 1-2 Other UEs and LEs Therapeutic Exercises Supine Exercises Hamstring stretch with AP Side bilateral Comments 1 rep each, 20 AP rep Pelvic realignment exercises Side bilateral Comments 5 reps, 3 sec hold all exercises Sitting Exercises Thoracic rotation Comments Performed in both directions today with end-range breathing Therapeutic Activity Therapeutic Activity Getting on and off the floor Comments Getting on and off the floor with yoga mat on floor and using mat table in Room B. Pt is able to get down to floor with UE support on mat and then to knees, qaudriped and then to right hip and down to side lying and then rolling over. Reversed for getting up and PT does not have to assist in any way. Cues and demo afterwards to include log roll and protecting back. Canalithic Repositioning BPPV Treatment Other Comments B roll test and B Paupack-Hallpike negative for dizziness and nystagmus PT-OP-T Assessment and Plan Start: 03/30/21 12:09 Freq: Status: Active Protocol: Document 04/06/21 13:01 MB (Rec: 04/06/21 13:42 MB [id number]) Physical Therapy Assessment Rehab Potential Rehabilitation Potential Fair Evaluation Complexity Number of Personal Factors/Comorbidities 1-2 Number of Body Systems Impaired 3 Clinical Presentation at Evaluation Evolving Impairments Impairments Activity Tolerance,Balance, Functional Mobility,Gait,Pain, Posture,ROM,Sensation,Soft Tissue Mobility,Strength, Transfers,Vestibular Other Impairments Personal factors include pt states she is feeling somewhat depressed and unmotivated. She has responded well to PT with this therapist in the past and PT is hopeful that PT will be motivating for her. Body systems affected include neuromuscular, vestibular, neurological. Her clinical presentation is evolving. Other Concerns Fall Risk Yes, history of falls and is walking much better since back surgery 01/17 Goals 4 Correction Goal (LTG) Pt will perform WNLs on a standardized balance test to decrease fall risk by 05/30/21. LTG Duration 8 weeks 3 Correction Goal (LTG) Pt will perform progressive HEP with I including pelvic realignment, flexibility, strengthening, balance and gait exercises to improve pain and strength by 05/30/21. LTG Duration 8 weeks 2 Correction Goal (LTG) Pt will gait train at least 1200 feet in 6 minutes to improve community ambulation by 05/30/21. LTG Duration 8 weeks 1 Impairment Oswestry reflects 26% impairment Plisse Machine Operator Helper Goal (LTG) Pt will present with an improved Oswestry LBP score to reflect no more than 20% impairment to improve functional mobility by 05/30/21. LTG Duration 8 weeks Assessment Summary Assessment Negative BPPV testing today. Pt is able to get on and off the floor with use of mat and UE support today. She will start trying to do her exercises on her mat next to the couch at home. Con't exercise progression. Physical Therapy Plan Frequency and Duration Frequency of Treatment 2x/Week Duration of Treatment 8 weeks Plan of Care Start Date 03/30/21 Plan of Care End Date 06/01/21 Therapeutic Interventions Therapeutic Interventions Aquatic Therapy,Balance Training,Canalithic Repositioning,Gait Training, Home Exercise Program,Manual Therapy,Neuromuscular Re- education,Patient/Caregiver Education,Self-Care/Home Management,Soft Tissue Mobilization,Taping, Therapeutic Activities, Therapeutic Exercises, Vestibular Rehabilitation Modalities Cold Pack/Ice Massage,Hot Packs Next Visit Focus/Plan Next Note Type Treatment Note Next Visit Plan Recumbent ellipital Progress core exercises, kyrie stretch and happy baby
--- NOTE | 2021-04-08 13:07 | PT-OP ANOTE ---
Pt arrived for appointment and communicates that she is not feeling well and needs to go home. Appointment cancelled.
--- NOTE | 2021-04-13 13:41 | PT.OTN ---
Current Diagnoses Spondylolisthesis, lumbar region (04/13/21) Spinal stenosis, lumbar region with neurogenic claudication (04/13/21) Physical Therapy Treatment Note PT-OP-A Visit Information Start: 03/30/21 12:09 Freq: Status: Active Protocol: Document 04/13/21 13:00 MB (Rec: 04/13/21 13:40 MB [id number]) Out-Patient Physical Therapy Visit Information Visit Information Visit Type Treatment Note Visit Note Medicare About before KX for 2020 Visit Start Time 13:00 Visit Stop Time 13:40 Total Visit Minutes 40 Visit Number 4 Evaluation Information Evaluation Date 03/30/21 Precautions Precautions S/p L3-4, L5-S1 fusion, L3-4, L5-S1 interbody cage placement , L3-4, L5-S1 decompressive laminectomy and B facetecomies , L3-4, L4-5, L5-S1 posterior segmental instrumentation, L4- 5 posterolateral fusion, L4-5 revision hemilaminectomy, harvest bone marrow from iliac crest on 01/19/21. Will be mindful about back precautions . PT-OP-B Current Condition Start: 03/30/21 12:09 Freq: Status: Active Protocol: Document 03/30/21 12:15 MB (Rec: 03/30/21 12:32 MB [id number]) Current Condition History of Current Condition Onset Date Back and leg pain for years, much better post-op 01/19/21 Current Complaints Low motivation, some depression and not wanting to get up to do stuff History of Current Condition Pt feels a lot better after lumbar surgery on 01/19/21. She reports being transferred to SNF after surgery. She lasted two days and left AMA. She did walk with her walker to show that she could go home. Pt had vertigo in the past and feels it might be coming back when rolling to the right. Pt states that her depression medication was increased. She feels that therapy will help her get out of the funk and increase her mobility. PMH: bladder CA, fibromyalgia, GI bleed, AV block, HLD, HTN, pacemaker, B THR, brain surgery for hemangioma, B mastectomy, previous back surgery 2000. Pt reports numbness in left great and second toes since surgery. Pt has been dancing at the [employer]. Pt no longer has to use an AD since surgery. There is a railing at the two steps to enter her home. Prior Treatments and Tests PT, back surgery Treatment Goals Patient/Caregiver Goals To strengthen everything PT-OP-C Subjective Start: 03/30/21 12:09 Freq: Status: Active Protocol: Document 04/13/21 13:00 MB (Rec: 04/13/21 13:40 MB [id number]) OP-PT Subjective Patient Comments Patient Comments Pt states that she is feeling better and missed last appointment d/t chills and she finally had a BM and felt better. PT-OP-G Mobility & Gait Start: 03/30/21 12:09 Freq: Status: Active Protocol: Document 03/30/21 12:15 MB (Rec: 03/30/21 14:11 MB [id number]) OP Gait Assessment Comments Gait Comments Pt gait trains with wide DENA, decreased step length, WB on the outside of both feet, greater on the left, increased Lesly angle, greater on the left. PT-OP-J Posture/Palpation/Skin Start: 03/30/21 12:09 Freq: Status: Active Protocol: Document 03/30/21 12:15 MB (Rec: 03/30/21 14:11 MB [id number]) Posture Evaluation Comments Posture Comments Standing posture wearing sandals: B WB outside of feet, B knee flexion in standing, Dowager's hump, increased thoracic kyphosis, right shoulder higher than the left, right thoracic convexity. She has 2 1 1/2 scars lateral lumbar spine from surgery. Left iliac crest is higher than the right. In supine, neither knee touches the mat with legs straight d/t tension in hips and hamstrings. PT-OP-M Strength Start: 03/30/21 12:09 Freq: Status: Active Protocol: Document 03/30/21 12:15 MB (Rec: 03/30/21 14:11 MB [id number]) Hip Strength Hip Manual Muscle Testing Left Flexion (L2) 4 Good Abduction 4 Good Adduction 4 Good Right Flexion (L2) 4 Good Abduction 4 Good Adduction 4 Good Knee Strength Knee Manual Muscle Testing Left Flexion (S2) 4 Good Extension (L3) 4 Good Right Flexion (S2) 4 Good Extension (L3) 4 Good Ankle/Foot Strength Ankle and Foot Manual Muscle Testing Left Dorsiflexion (L4) 4 Good Right Dorsiflexion (L4) 4 Good Toe Strength Toe Manual Muscle Testing Left Great Toe Extension 3+ Fair+ Right Great Toe Extension 4 Good PT-OP-Q Treatments Start: 03/30/21 12:09 Freq: Status: Active Protocol: Document 04/13/21 13:00 MB (Rec: 04/13/21 13:40 MB [id number]) Cardio Equipment Recumbent Stepper (Sci-Fit) Duration (Minutes) 10 Resistance 4 Other UEs and LEs Therapeutic Exercises Supine Exercises Abdominal drawing in and pelvic tilt Comments Ed to perform before Ronaldo stretch Ronaldo stretch Side bilateral Comments Opposite leg bent, pelvic tilt and abdominal drawing in first Hamstring stretch with AP Side bilateral Equipment Used Towel behind knee Comments 1 rep each, 20 AP a rep Pelvic realignment exercises Side bilateral Comments 5 reps, 3 sec hold all exercises PT-OP-T Assessment and Plan Start: 03/30/21 12:09 Freq: Status: Active Protocol: Document 04/13/21 13:00 MB (Rec: 04/13/21 13:40 MB [id number]) Physical Therapy Assessment Rehab Potential Rehabilitation Potential Fair Evaluation Complexity Number of Personal Factors/Comorbidities 1-2 Number of Body Systems Impaired 3 Clinical Presentation at Evaluation Evolving Impairments Impairments Activity Tolerance,Balance, Functional Mobility,Gait,Pain, Posture,ROM,Sensation,Soft Tissue Mobility,Strength, Transfers,Vestibular Other Impairments Personal factors include pt states she is feeling somewhat depressed and unmotivated. She has responded well to PT with this therapist in the past and PT is hopeful that PT will be motivating for her. Body systems affected include neuromuscular, vestibular, neurological. Her clinical presentation is evolving. Other Concerns Fall Risk Yes, history of falls and is walking much better since back surgery 01/17 Goals 4 Insulation And Flooring Assembler Goal (LTG) Pt will perform WNLs on a standardized balance test to decrease fall risk by 05/30/21. LTG Duration 8 weeks 3 Senior Care Goal (LTG) Pt will perform progressive HEP with I including pelvic realignment, flexibility, strengthening, balance and gait exercises to improve pain and strength by 05/30/21. LTG Duration 8 weeks 2 Insulation And Flooring Assembler Goal (LTG) Pt will gait train at least 1200 feet in 6 minutes to improve community ambulation by 05/30/21. LTG Duration 8 weeks 1 Impairment Oswestry reflects 26% impairment Insulation And Flooring Assembler Goal (LTG) Pt will present with an improved Oswestry LBP score to reflect no more than 20% impairment to improve functional mobility by 05/30/21. LTG Duration 8 weeks Assessment Summary Assessment Reviewed exercises today and made corrections for performance and pt tolerates better. Physical Therapy Plan Frequency and Duration Frequency of Treatment 2x/Week Duration of Treatment 8 weeks Plan of Care Start Date 03/30/21 Plan of Care End Date 06/01/21 Therapeutic Interventions Therapeutic Interventions Aquatic Therapy,Balance Training,Canalithic Repositioning,Gait Training, Home Exercise Program,Manual Therapy,Neuromuscular Re- education,Patient/Caregiver Education,Self-Care/Home Management,Soft Tissue Mobilization,Taping, Therapeutic Activities, Therapeutic Exercises, Vestibular Rehabilitation Modalities Cold Pack/Ice Massage,Hot Packs Next Visit Focus/Plan Next Note Type Treatment Note Next Visit Plan B LE manual work to check out left lateral lower leg and right lateral hip and address myofascial problems Recumbent ellipital Progress core exercises and happy baby, consider hip rotator stretch
--- NOTE | 2021-04-15 13:45 | PT.OTN ---
Current Diagnoses Spondylolisthesis, lumbar region (04/15/21) Spinal stenosis, lumbar region with neurogenic claudication (04/15/21) Physical Therapy Treatment Note PT-OP-A Visit Information Start: 03/30/21 12:09 Freq: Status: Active Protocol: Document 04/15/21 13:00 MB (Rec: 04/15/21 13:35 MB [id number]) Out-Patient Physical Therapy Visit Information Visit Information Visit Type Treatment Note Visit Note Medicare About before KX for 2020 Visit Start Time 13:00 Visit Stop Time 13:41 Total Visit Minutes 41 Visit Number 5 Evaluation Information Evaluation Date 03/30/21 Precautions Precautions S/p L3-4, L5-S1 fusion, L3-4, L5-S1 interbody cage placement , L3-4, L5-S1 decompressive laminectomy and B facetecomies , L3-4, L4-5, L5-S1 posterior segmental instrumentation, L4- 5 posterolateral fusion, L4-5 revision hemilaminectomy, harvest bone marrow from iliac crest on 01/19/21. Will be mindful about back precautions . PT-OP-B Current Condition Start: 03/30/21 12:09 Freq: Status: Active Protocol: Document 03/30/21 12:15 MB (Rec: 03/30/21 12:32 MB [id number]) Current Condition History of Current Condition Onset Date Back and leg pain for years, much better post-op 01/19/21 Current Complaints Low motivation, some depression and not wanting to get up to do stuff History of Current Condition Pt feels a lot better after lumbar surgery on 01/19/21. She reports being transferred to SNF after surgery. She lasted two days and left AMA. She did walk with her walker to show that she could go home. Pt had vertigo in the past and feels it might be coming back when rolling to the right. Pt states that her depression medication was increased. She feels that therapy will help her get out of the funk and increase her mobility. PMH: bladder CA, fibromyalgia, GI bleed, AV block, HLD, HTN, pacemaker, B THR, brain surgery for hemangioma, B mastectomy, previous back surgery 2000. Pt reports numbness in left great and second toes since surgery. Pt has been dancing at the [employer]. Pt no longer has to use an AD since surgery. There is a railing at the two steps to enter her home. Prior Treatments and Tests PT, back surgery Treatment Goals Patient/Caregiver Goals To strengthen everything PT-OP-C Subjective Start: 03/30/21 12:09 Freq: Status: Active Protocol: Document 04/15/21 13:00 MB (Rec: 04/15/21 13:35 MB [id number]) OP-PT Subjective Patient Comments Patient Comments Pt states she was putting out [place] lights yesterday and it did her in. She describes reaching to place small lighted bushes out. PT-OP-G Mobility & Gait Start: 03/30/21 12:09 Freq: Status: Active Protocol: Document 03/30/21 12:15 MB (Rec: 03/30/21 14:11 MB [id number]) OP Gait Assessment Comments Gait Comments Pt gait trains with wide DENA, decreased step length, WB on the outside of both feet, greater on the left, increased Lesly angle, greater on the left. PT-OP-J Posture/Palpation/Skin Start: 03/30/21 12:09 Freq: Status: Active Protocol: Document 03/30/21 12:15 MB (Rec: 03/30/21 14:11 MB [id number]) Posture Evaluation Comments Posture Comments Standing posture wearing sandals: B WB outside of feet, B knee flexion in standing, Dowager's hump, increased thoracic kyphosis, right shoulder higher than the left, right thoracic convexity. She has 2 1 1/2 scars lateral lumbar spine from surgery. Left iliac crest is higher than the right. In supine, neither knee touches the mat with legs straight d/t tension in hips and hamstrings. PT-OP-M Strength Start: 03/30/21 12:09 Freq: Status: Active Protocol: Document 03/30/21 12:15 MB (Rec: 03/30/21 14:11 MB [id number]) Hip Strength Hip Manual Muscle Testing Left Flexion (L2) 4 Good Abduction 4 Good Adduction 4 Good Right Flexion (L2) 4 Good Abduction 4 Good Adduction 4 Good Knee Strength Knee Manual Muscle Testing Left Flexion (S2) 4 Good Extension (L3) 4 Good Right Flexion (S2) 4 Good Extension (L3) 4 Good Ankle/Foot Strength Ankle and Foot Manual Muscle Testing Left Dorsiflexion (L4) 4 Good Right Dorsiflexion (L4) 4 Good Toe Strength Toe Manual Muscle Testing Left Great Toe Extension 3+ Fair+ Right Great Toe Extension 4 Good PT-OP-Q Treatments Start: 03/30/21 12:09 Freq: Status: Active Protocol: Document 04/15/21 13:00 MB (Rec: 04/15/21 13:35 MB [id number]) Cardio Equipment Recumbent Stepper (Sci-Fit) Duration (Minutes) 12 Resistance 4 Other UEs and LEs Therapeutic Exercises Supine Exercises Hip rotator stretch Reps/Minutes 2 reps each leg Comments B, ankle crossed against opposite leg that is bent, 30 sec hold Sitting Exercises Rolling pin self-massage Side bilateral Comments See-saw motion and working on vastus lateralis B Manual Therapy Treatment Other Other Manual Treatments STM B hip rotators, QL, thoracolumbar paraspinals, vastus lateralis and TFL, positional release as well, pt supine PT-OP-T Assessment and Plan Start: 03/30/21 12:09 Freq: Status: Active Protocol: Document 04/15/21 13:00 MB (Rec: 04/15/21 13:35 MB [id number]) Physical Therapy Assessment Rehab Potential Rehabilitation Potential Fair Evaluation Complexity Number of Personal Factors/Comorbidities 1-2 Number of Body Systems Impaired 3 Clinical Presentation at Evaluation Evolving Impairments Impairments Activity Tolerance,Balance, Functional Mobility,Gait,Pain, Posture,ROM,Sensation,Soft Tissue Mobility,Strength, Transfers,Vestibular Other Impairments Personal factors include pt states she is feeling somewhat depressed and unmotivated. She has responded well to PT with this therapist in the past and PT is hopeful that PT will be motivating for her. Body systems affected include neuromuscular, vestibular, neurological. Her clinical presentation is evolving. Other Concerns Fall Risk Yes, history of falls and is walking much better since back surgery 01/17 Goals 4 Research Physiologist Goal (LTG) Pt will perform WNLs on a standardized balance test to decrease fall risk by 05/30/21. LTG Duration 8 weeks 3 Research Physiologist Goal (LTG) Pt will perform progressive HEP with I including pelvic realignment, flexibility, strengthening, balance and gait exercises to improve pain and strength by 05/30/21. LTG Duration 8 weeks 2 Senior Living Goal (LTG) Pt will gait train at least 1200 feet in 6 minutes to improve community ambulation by 05/30/21. LTG Duration 8 weeks 1 Impairment Oswestry reflects 26% impairment Research Physiologist Goal (LTG) Pt will present with an improved Oswestry LBP score to reflect no more than 20% impairment to improve functional mobility by 05/30/21. LTG Duration 8 weeks Assessment Summary Assessment Pt with soreness today after putting up [place] decorations. Progressed hip rotator stretch today and performed manual work. Physical Therapy Plan Frequency and Duration Frequency of Treatment 2x/Week Duration of Treatment 8 weeks Plan of Care Start Date 03/30/21 Plan of Care End Date 06/01/21 Therapeutic Interventions Therapeutic Interventions Aquatic Therapy,Balance Training,Canalithic Repositioning,Gait Training, Home Exercise Program,Manual Therapy,Neuromuscular Re- education,Patient/Caregiver Education,Self-Care/Home Management,Soft Tissue Mobilization,Taping, Therapeutic Activities, Therapeutic Exercises, Vestibular Rehabilitation Modalities Cold Pack/Ice Massage,Hot Packs Next Visit Focus/Plan Next Note Type Treatment Note Next Visit Plan Recumbent ellipital Progress core exercises, clam in hook lying and happy baby
--- NOTE | 2021-04-20 14:25 | PT-OP ANOTE ---
cancelled PT, NRG
--- NOTE | 2021-04-21 13:51 | PT.OTN ---
Current Diagnoses Spondylolisthesis, lumbar region (04/21/21) Spinal stenosis, lumbar region with neurogenic claudication (04/21/21) Physical Therapy Treatment Note PT-OP-A Visit Information Start: 03/30/21 12:09 Freq: Status: Active Protocol: Document 04/21/21 13:01 MB (Rec: 04/21/21 13:44 MB [id number]) Out-Patient Physical Therapy Visit Information Visit Information Visit Type Treatment Note Visit Note Medicare About before KX for 2020 Pt goes by [facility] Visit Start Time 13:01 Visit Stop Time 13:45 Total Visit Minutes 44 Visit Number 6 Evaluation Information Evaluation Date 03/30/21 Precautions Precautions S/p L3-4, L5-S1 fusion, L3-4, L5-S1 interbody cage placement , L3-4, L5-S1 decompressive laminectomy and B facetecomies , L3-4, L4-5, L5-S1 posterior segmental instrumentation, L4- 5 posterolateral fusion, L4-5 revision hemilaminectomy, harvest bone marrow from iliac crest on 01/19/21. Will be mindful about back precautions . PT-OP-B Current Condition Start: 03/30/21 12:09 Freq: Status: Active Protocol: Document 03/30/21 12:15 MB (Rec: 03/30/21 12:32 MB [id number]) Current Condition History of Current Condition Onset Date Back and leg pain for years, much better post-op 01/19/21 Current Complaints Low motivation, some depression and not wanting to get up to do stuff History of Current Condition Pt feels a lot better after lumbar surgery on 01/19/21. She reports being transferred to SNF after surgery. She lasted two days and left AMA. She did walk with her walker to show that she could go home. Pt had vertigo in the past and feels it might be coming back when rolling to the right. Pt states that her depression medication was increased. She feels that therapy will help her get out of the funk and increase her mobility. PMH: bladder CA, fibromyalgia, GI bleed, AV block, HLD, HTN, pacemaker, B THR, brain surgery for hemangioma, B mastectomy, previous back surgery 2000. Pt reports numbness in left great and second toes since surgery. Pt has been dancing at [place] [employer]. Pt no longer has to use an AD since surgery. There is a railing at the two steps to enter her home. Prior Treatments and Tests PT, back surgery Treatment Goals Patient/Caregiver Goals To strengthen everything PT-OP-C Subjective Start: 03/30/21 12:09 Freq: Status: Active Protocol: Document 04/21/21 13:01 MB (Rec: 04/21/21 13:44 MB [id number]) OP-PT Subjective Patient Comments Patient Comments Pt states that she didn't go to her pool appointment this week d/t she tripped over battery in the garage. She landed on her left knee. She has a bandaid on her left knee , aleman and has left ankle ecchymosis. PT-OP-G Mobility & Gait Start: 03/30/21 12:09 Freq: Status: Active Protocol: Document 03/30/21 12:15 MB (Rec: 03/30/21 14:11 MB [id number]) OP Gait Assessment Comments Gait Comments Pt gait trains with wide DENA, decreased step length, WB on the outside of both feet, greater on the left, increased Lesly angle, greater on the left. PT-OP-J Posture/Palpation/Skin Start: 03/30/21 12:09 Freq: Status: Active Protocol: Document 03/30/21 12:15 MB (Rec: 03/30/21 14:11 MB [id number]) Posture Evaluation Comments Posture Comments Standing posture wearing sandals: B WB outside of feet, B knee flexion in standing, Dowager's hump, increased thoracic kyphosis, right shoulder higher than the left, right thoracic convexity. She has 2 1 1/2 scars lateral lumbar spine from surgery. Left iliac crest is higher than the right. In supine, neither knee touches the mat with legs straight d/t tension in hips and hamstrings. PT-OP-M Strength Start: 03/30/21 12:09 Freq: Status: Active Protocol: Document 03/30/21 12:15 MB (Rec: 03/30/21 14:11 MB [id number]) Hip Strength Hip Manual Muscle Testing Left Flexion (L2) 4 Good Abduction 4 Good Adduction 4 Good Right Flexion (L2) 4 Good Abduction 4 Good Adduction 4 Good Knee Strength Knee Manual Muscle Testing Left Flexion (S2) 4 Good Extension (L3) 4 Good Right Flexion (S2) 4 Good Extension (L3) 4 Good Ankle/Foot Strength Ankle and Foot Manual Muscle Testing Left Dorsiflexion (L4) 4 Good Right Dorsiflexion (L4) 4 Good Toe Strength Toe Manual Muscle Testing Left Great Toe Extension 3+ Fair+ Right Great Toe Extension 4 Good PT-OP-Q Treatments Start: 03/30/21 12:09 Freq: Status: Active Protocol: Document 04/21/21 13:01 MB (Rec: 04/21/21 13:44 MB [id number]) Cardio Equipment Recumbent Elliptical (Biodex) Duration (Minutes) 17 Resistance 4 Other UEs and LEs Recumbent Bicycle Duration (Minutes) 5 Resistance 5 Other Pt has clicking left knee and so stopped Manual Therapy Treatment Other Other Manual Treatments Blue KT tape: support for left knee with c strip under patella and I strips medial and lateral knee; left ankle figure 8 and then once c strip from one malleolus under foot and up and over to the other Self-Care/Home Management Treatment Education Patient Education Fall Risk,Joint Protection, Pain Management,Safety Other Education Ed pt to call Dr. Frey's office given reports of left knee getting worse since the fall and ongoing popping, benefits of icing, elevation, controlled walking and APs, taping PT-OP-T Assessment and Plan Start: 03/30/21 12:09 Freq: Status: Active Protocol: Document 04/21/21 13:01 MB (Rec: 04/21/21 13:44 MB [id number]) Physical Therapy Assessment Rehab Potential Rehabilitation Potential Fair Evaluation Complexity Number of Personal Factors/Comorbidities 1-2 Number of Body Systems Impaired 3 Clinical Presentation at Evaluation Evolving Impairments Impairments Activity Tolerance,Balance, Functional Mobility,Gait,Pain, Posture,ROM,Sensation,Soft Tissue Mobility,Strength, Transfers,Vestibular Other Impairments Personal factors include pt states she is feeling somewhat depressed and unmotivated. She has responded well to PT with this therapist in the past and PT is hopeful that PT will be motivating for her. Body systems affected include neuromuscular, vestibular, neurological. Her clinical presentation is evolving. Other Concerns Fall Risk Yes, history of falls and is walking much better since back surgery 01/17 Goals 4 Senior Living Goal (LTG) Pt will perform WNLs on a standardized balance test to decrease fall risk by 05/30/21. LTG Duration 8 weeks 3 Wood Heel Flap Rubber Goal (LTG) Pt will perform progressive HEP with I including pelvic realignment, flexibility, strengthening, balance and gait exercises to improve pain and strength by 05/30/21. LTG Duration 8 weeks 2 Senior Living Goal (LTG) Pt will gait train at least 1200 feet in 6 minutes to improve community ambulation by 05/30/21. LTG Duration 8 weeks 1 Impairment Oswestry reflects 26% impairment Senior Living Goal (LTG) Pt will present with an improved Oswestry LBP score to reflect no more than 20% impairment to improve functional mobility by 05/30/21. LTG Duration 8 weeks Assessment Summary Assessment Pt had a fall last week, tripping over a battery in the garage and injuring her left knee and ankle. Recommended to pt for her to follow-up with her PCP about this. She states that her left knee pain is getting worse and con't to pop. PT taped left knee and taniya today for support and applied ice to knee and heat to back. There is a lot of ecchymosis left lateral ankle and medial left knee and abrasions over left patella and aleman. Physical Therapy Plan Frequency and Duration Frequency of Treatment 2x/Week Duration of Treatment 8 weeks Plan of Care Start Date 03/30/21 Plan of Care End Date 06/01/21 Therapeutic Interventions Therapeutic Interventions Aquatic Therapy,Balance Training,Canalithic Repositioning,Gait Training, Home Exercise Program,Manual Therapy,Neuromuscular Re- education,Patient/Caregiver Education,Self-Care/Home Management,Soft Tissue Mobilization,Taping, Therapeutic Activities, Therapeutic Exercises, Vestibular Rehabilitation Modalities Cold Pack/Ice Massage,Hot Packs Other Referrals/Consults Referrals/Consults Recommended Follow-up with doctor about left knee and ankle after fall Next Visit Focus/Plan Next Note Type Treatment Note Next Visit Plan Recumbent ellipital Progress core exercises, clam in hook lying and happy baby
--- NOTE | 2021-04-27 14:04 | PT-OP ANOTE ---
Patient cancelled PT, NRG.
--- NOTE | 2021-04-30 13:00 | PT-OP ANOTE ---
PT calls pt to follow up about canceled appointment last date and leaves a message communicating next appointment time.
--- NOTE | 2021-05-04 14:50 | PT.OTN ---
Current Diagnoses Spondylolisthesis, lumbar region (04/21/21) Spinal stenosis, lumbar region with neurogenic claudication (04/21/21) Physical Therapy Treatment Note PT-OP-A Visit Information Start: 03/30/21 12:09 Freq: Status: Active Protocol: Document 05/04/21 14:30 LJ (Rec: 05/04/21 14:50 LJ [id number]) Out-Patient Physical Therapy Visit Information Visit Information Visit Type Aquatic Treatment Note Visit Start Time 11:45 Visit Stop Time 12:30 Total Visit Minutes 45 Visit Number 7 Precautions Precautions S/p L3-4, L5-S1 fusion, L3-4, L5-S1 interbody cage placement , L3-4, L5-S1 decompressive laminectomy and B facetecomies , L3-4, L4-5, L5-S1 posterior segmental instrumentation, L4- 5 posterolateral fusion, L4-5 revision hemilaminectomy, harvest bone marrow from iliac crest on 01/19/21. Will be mindful about back precautions . PT-OP-B Current Condition Start: 03/30/21 12:09 Freq: Status: Active Protocol: Document 03/30/21 12:15 MB (Rec: 03/30/21 12:32 MB [id number]) Current Condition History of Current Condition Onset Date Back and leg pain for years, much better post-op 01/19/21 Current Complaints Low motivation, some depression and not wanting to get up to do stuff History of Current Condition Pt feels a lot better after lumbar surgery on 01/19/21. She reports being transferred to SNF after surgery. She lasted two days and left AMA. She did walk with her walker to show that she could go home. Pt had vertigo in the past and feels it might be coming back when rolling to the right. Pt states that her depression medication was increased. She feels that therapy will help her get out of the funk and increase her mobility. PMH: bladder CA, fibromyalgia, GI bleed, AV block, HLD, HTN, pacemaker, B THR, brain surgery for hemangioma, B mastectomy, previous back surgery 2000. Pt reports numbness in left great and second toes since surgery. Pt has been dancing at the [employer]. Pt no longer has to use an AD since surgery. There is a railing at the two steps to enter her home. Prior Treatments and Tests PT, back surgery Treatment Goals Patient/Caregiver Goals To strengthen everything PT-OP-C Subjective Start: 03/30/21 12:09 Freq: Status: Active Protocol: Document 05/04/21 14:30 LJ (Rec: 05/04/21 14:50 LJ [id number]) OP-PT Subjective Patient Comments Patient Comments Pt reports her ankle and knee are feeling better and she's excited about AT. 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 PT-OP-G Mobility & Gait Start: 03/30/21 12:09 Freq: Status: Active Protocol: Document 03/30/21 12:15 MB (Rec: 03/30/21 14:11 MB [id number]) OP Gait Assessment Comments Gait Comments Pt gait trains with wide DENA, decreased step length, WB on the outside of both feet, greater on the left, increased Lesly angle, greater on the left. PT-OP-J Posture/Palpation/Skin Start: 03/30/21 12:09 Freq: Status: Active Protocol: Document 03/30/21 12:15 MB (Rec: 03/30/21 14:11 MB [id number]) Posture Evaluation Comments Posture Comments Standing posture wearing sandals: B WB outside of feet, B knee flexion in standing, Dowager's hump, increased thoracic kyphosis, right shoulder higher than the left, right thoracic convexity. She has 2 1 1/2 scars lateral lumbar spine from surgery. Left iliac crest is higher than the right. In supine, neither knee touches the mat with legs straight d/t tension in hips and hamstrings. PT-OP-M Strength Start: 03/30/21 12:09 Freq: Status: Active Protocol: Document 03/30/21 12:15 MB (Rec: 03/30/21 14:11 MB [id number]) Hip Strength Hip Manual Muscle Testing Left Flexion (L2) 4 Good Abduction 4 Good Adduction 4 Good Right Flexion (L2) 4 Good Abduction 4 Good Adduction 4 Good Knee Strength Knee Manual Muscle Testing Left Flexion (S2) 4 Good Extension (L3) 4 Good Right Flexion (S2) 4 Good Extension (L3) 4 Good Ankle/Foot Strength Ankle and Foot Manual Muscle Testing Left Dorsiflexion (L4) 4 Good Right Dorsiflexion (L4) 4 Good Toe Strength Toe Manual Muscle Testing Left Great Toe Extension 3+ Fair+ Right Great Toe Extension 4 Good PT-OP-Q Treatments Start: 03/30/21 12:09 Freq: Status: Active Protocol: Document 04/21/21 13:01 MB (Rec: 04/21/21 13:44 MB [id number]) Cardio Equipment Recumbent Elliptical (Biodex) Duration (Minutes) 17 Resistance 4 Other UEs and LEs Recumbent Bicycle Duration (Minutes) 5 Resistance 5 Other Pt has clicking left knee and so stopped Manual Therapy Treatment Other Other Manual Treatments Blue KT tape: support for left knee with c strip under patella and I strips medial and lateral knee; left ankle figure 8 and then once c strip from one malleolus under foot and up and over to the other Self-Care/Home Management Treatment Education Patient Education Fall Risk,Joint Protection, Pain Management,Safety Other Education Ed pt to call Dr. Frey's office given reports of left knee getting worse since the fall and ongoing popping, benefits of icing, elevation, controlled walking and APs, taping PT-OP-S Aquatic Treatment Start: 05/04/21 14:30 Freq: Status: Active Protocol: Document 05/04/21 14:30 LJ (Rec: 05/04/21 14:50 LJ [id number]) Aquatics Treatment Pool Entry/Exit Pool Entry/Exit Method Stairs Assistance Independent Water Walking Tandem Gait Water Level Chest Level Level of Assistance Verbal Cues [place] July Water Level Chest Level Level of Assistance Verbal Cues Marching Water Level Chest Level Level of Assistance Verbal Cues Sideways Water Level Chest Level Level of Assistance Verbal Cues Comments alt. arm leg movement Backwards Water Level Chest Level Level of Assistance Verbal Cues Forwards Water Level Chest Level Level of Assistance Verbal Cues Lower Extremity Exercises knee fl/ex Body Position Sitting Water Level Chest Level Reps/Duration [address] hip Details ab/ad/fl/ex Body Position Standing Water Level Waist Level Reps/Duration 10 B Comments gentle; at wall Lower Extremity Stretches quad Body Position Standing Water Level Waist Level Equipment Small Noodle Reps/Duration 30 x 2 B Comments HH on wall HS, gastroc,soleus Body Position Standing Water Level Waist Level Upper Extremity Stretches forward walk with dragging arms Water Level Chest Level Reps/Duration 2 laps Spinal Exercises pelvic tilts Details at wall Body Position Standing Water Level Waist Level Reps/Duration 10 [place] Activities [place] Activities Bicycle,Bicycle Backwards, Cross Country,Running,Hip Abduction/Adduction Equipment belt, med BBs Duration 10 PT-OP-T Assessment and Plan Start: 03/30/21 12:09 Freq: Status: Active Protocol: Document 05/04/21 14:30 SEFERINO (Rec: 05/04/21 14:50 [email or web address] [id number]) Physical Therapy Assessment Rehab Potential Rehabilitation Potential Fair Evaluation Complexity Number of Personal Factors/Comorbidities 1-2 Number of Body Systems Impaired 3 Clinical Presentation at Evaluation Evolving Impairments Impairments Activity Tolerance,Balance, Functional Mobility,Gait,Pain, Posture,ROM,Sensation,Soft Tissue Mobility,Strength, Transfers,Vestibular Other Impairments Personal factors include pt states she is feeling somewhat depressed and unmotivated. She has responded well to PT with this therapist in the past and PT is hopeful that PT will be motivating for her. Body systems affected include neuromuscular, vestibular, neurological. Her clinical presentation is evolving. Other Concerns Fall Risk Yes, history of falls and is walking much better since back surgery 01/17 Goals 4 Group Home Goal (LTG) Pt will perform WNLs on a standardized balance test to decrease fall risk by 05/30/21. LTG Duration 8 weeks 3 Warp Tying Machine Tender Goal (LTG) Pt will perform progressive HEP with I including pelvic realignment, flexibility, strengthening, balance and gait exercises to improve pain and strength by 05/30/21. LTG Duration 8 weeks 2 Warp Tying Machine Tender Goal (LTG) Pt will gait train at least 1200 feet in 6 minutes to improve community ambulation by 05/30/21. LTG Duration 8 weeks 1 Impairment Oswestry reflects 26% impairment Warp Tying Machine Tender Goal (LTG) Pt will present with an improved Oswestry LBP score to reflect no more than 20% impairment to improve functional mobility by 05/30/21. LTG Duration 8 weeks Assessment Summary Assessment AQUATIC: Pt very comfortable in water. Tends to work herself hard. HEMATOLOGY SUPERVISOR had to remind her to slow down occasionally. AT will be beneficial for improving gait, balance, and core strength. Physical Therapy Plan Frequency and Duration Frequency of Treatment 2x/Week Duration of Treatment 8 weeks Plan of Care Start Date 03/30/21 Plan of Care End Date 06/01/21 Therapeutic Interventions Therapeutic Interventions Aquatic Therapy,Balance Training,Canalithic Repositioning,Gait Training, Home Exercise Program,Manual Therapy,Neuromuscular Re- education,Patient/Caregiver Education,Self-Care/Home Management,Soft Tissue Mobilization,Taping, Therapeutic Activities, Therapeutic Exercises, Vestibular Rehabilitation Modalities Cold Pack/Ice Massage,Hot Packs Other Referrals/Consults Referrals/Consults Recommended Follow-up with doctor about left knee and ankle after fall Next Visit Focus/Plan Next Note Type Treatment Note Next Visit Plan Recumbent ellipital Progress core exercises, clam in hook lying and happy baby AQUATICS: continue with gait training to improve coordination and balance. Add core strengthening in addition to other LE exercises. [id number]
--- NOTE | 2021-05-06 15:37 | PT.OTN ---
Current Diagnoses Spondylolisthesis, lumbar region (05/06/21) Spinal stenosis, lumbar region with neurogenic claudication (05/06/21) Physical Therapy Treatment Note PT-OP-A Visit Information Start: 03/30/21 12:09 Freq: Status: Active Protocol: Document 05/06/21 14:30 MB (Rec: 05/06/21 15:33 MB [id number]) Out-Patient Physical Therapy Visit Information Visit Information Visit Type Progress Note Visit Note KX Visit Start Time 14:30 Visit Stop Time 15:12 Total Visit Minutes 42 Visit Number 8 Precautions Precautions S/p L3-4, L5-S1 fusion, L3-4, L5-S1 interbody cage placement , L3-4, L5-S1 decompressive laminectomy and B facetecomies , L3-4, L4-5, L5-S1 posterior segmental instrumentation, L4- 5 posterolateral fusion, L4-5 revision hemilaminectomy, harvest bone marrow from iliac crest on 01/19/21. Will be mindful about back precautions . PT-OP-B Current Condition Start: 03/30/21 12:09 Freq: Status: Active Protocol: Document 03/30/21 12:15 MB (Rec: 03/30/21 12:32 MB [id number]) Current Condition History of Current Condition Onset Date Back and leg pain for years, much better post-op 01/19/21 Current Complaints Low motivation, some depression and not wanting to get up to do stuff History of Current Condition Pt feels a lot better after lumbar surgery on 01/19/21. She reports being transferred to SNF after surgery. She lasted two days and left AMA. She did walk with her walker to show that she could go home. Pt had vertigo in the past and feels it might be coming back when rolling to the right. Pt states that her depression medication was increased. She feels that therapy will help her get out of the funk and increase her mobility. PMH: bladder CA, fibromyalgia, GI bleed, AV block, HLD, HTN, pacemaker, B THR, brain surgery for hemangioma, B mastectomy, previous back surgery 2000. Pt reports numbness in left great and second toes since surgery. Pt has been dancing at the [facility]. Pt no longer has to use an AD since surgery. There is a railing at the two steps to enter her home. Prior Treatments and Tests PT, back surgery Treatment Goals Patient/Caregiver Goals To strengthen everything PT-OP-C Subjective Start: 03/30/21 12:09 Freq: Status: Active Protocol: Document 05/06/21 14:30 MB (Rec: 05/06/21 15:33 MB [id number]) OP-PT Subjective Patient Comments Patient Comments Pt states that she really liked the pool. She went to an orthopedist about her left knee after fall and he told her she is all good. She had a good visit with the spinal surgeon and was told that all looks good. She has not been performing any land exercises given by PT and would like to con't with aquatic PT and exercise. She has date night tonight and is going out to eat and then dancing. PT-OP-G Mobility & Gait Start: 03/30/21 12:09 Freq: Status: Active Protocol: Document 03/30/21 12:15 MB (Rec: 03/30/21 14:11 MB [id number]) OP Gait Assessment Comments Gait Comments Pt gait trains with wide DENA, decreased step length, WB on the outside of both feet, greater on the left, increased Lesly angle, greater on the left. PT-OP-J Posture/Palpation/Skin Start: 03/30/21 12:09 Freq: Status: Active Protocol: Document 03/30/21 12:15 MB (Rec: 03/30/21 14:11 MB [id number]) Posture Evaluation Comments Posture Comments Standing posture wearing sandals: B WB outside of feet, B knee flexion in standing, Dowager's hump, increased thoracic kyphosis, right shoulder higher than the left, right thoracic convexity. She has 2 1 1/2 scars lateral lumbar spine from surgery. Left iliac crest is higher than the right. In supine, neither knee touches the mat with legs straight d/t tension in hips and hamstrings. PT-OP-M Strength Start: 03/30/21 12:09 Freq: Status: Active Protocol: Document 03/30/21 12:15 MB (Rec: 03/30/21 14:11 MB [id number]) Hip Strength Hip Manual Muscle Testing Left Flexion (L2) 4 Good Abduction 4 Good Adduction 4 Good Right Flexion (L2) 4 Good Abduction 4 Good Adduction 4 Good Knee Strength Knee Manual Muscle Testing Left Flexion (S2) 4 Good Extension (L3) 4 Good Right Flexion (S2) 4 Good Extension (L3) 4 Good Ankle/Foot Strength Ankle and Foot Manual Muscle Testing Left Dorsiflexion (L4) 4 Good Right Dorsiflexion (L4) 4 Good Toe Strength Toe Manual Muscle Testing Left Great Toe Extension 3+ Fair+ Right Great Toe Extension 4 Good PT-OP-Q Treatments Start: 03/30/21 12:09 Freq: Status: Active Protocol: Document 05/06/21 14:30 MB (Rec: 05/06/21 15:37 MB [id number]) Cardio Equipment Recumbent Elliptical (BufferBox) Duration (Minutes) 15 Resistance 1-4 Other UEs and LEs Therapeutic Exercises Other Exercises HEP review Comments Verbally reviewed land HEP during progress note and pt not performing, d/c Gait Training Gait Activity [id number] Comments 05/06/21: Pt gait trains 751 feet in 6 minutes. She requires two rest breaks d/t MAHAJAN and pt stands resting back against the wall. HR and O2 sats are 111 BPM and 94% first rest break and 108 BPM and 88 -94% second rest break. She reports history of a-fib, pacer and smoking. HR and O2 sats in sitting after 5' are 77 BPM and 94%. Gait pattern during testing and throughout treatment: increased B LE varus, wide DENA gait, little thoracic movement d/t spinal changes Self-Care/Home Management Treatment Education Patient Education Body Mechanics,Fall Risk,Home Exercise Program,Pain Management,Posture,Safety Other Education PT and pt discuss benefits of ongoing PT, pt's preference for aquatic PT and she will con't with this. She states she has Silver Sneakers and will look into getting into the pool on non-therapy days for aquatic exercise with goals to improve core and LE strength, cardiovascular endurance, balance and flexibility. PT-OP-S Aquatic Treatment Start: 05/04/21 14:30 Freq: Status: Active Protocol: Document 05/04/21 14:30 LJ (Rec: 05/04/21 14:50 LJ [id number]) Aquatics Treatment Pool Entry/Exit Pool Entry/Exit Method Stairs Assistance Independent Water Walking Tandem Gait Water Level Chest Level Level of Assistance Verbal Cues [place] March Water Level Chest Level Level of Assistance Verbal Cues Marching Water Level Chest Level Level of Assistance Verbal Cues Sideways Water Level Chest Level Level of Assistance Verbal Cues Comments alt. arm leg movement Backwards Water Level Chest Level Level of Assistance Verbal Cues Forwards Water Level Chest Level Level of Assistance Verbal Cues Lower Extremity Exercises knee fl/ex Body Position Sitting Water Level Chest Level Reps/Duration [address] Comments on table [address] hip Details ab/ad/fl/ex Body Position Standing Water Level Waist Level Reps/Duration 10 B Comments gentle; at wall Lower Extremity Stretches quad Body Position Standing Water Level Waist Level Equipment Small Noodle Reps/Duration 30 x 2 B Comments HH on wall HS, gastroc,soleus Body Position Standing Water Level Waist Level Upper Extremity Stretches forward walk with dragging arms Water Level Chest Level Reps/Duration 2 laps Spinal Exercises pelvic tilts Details at wall Body Position Standing Water Level Waist Level Reps/Duration 10 [place] Activities [place] Activities Bicycle,Bicycle Backwards, Cross Country,Running,Hip Abduction/Adduction Equipment belt, med BBs Duration 10 PT-OP-T Assessment and Plan Start: 03/30/21 12:09 Freq: Status: Active Protocol: Document 05/06/21 14:30 MB (Rec: 05/06/21 15:33 MB [id number]) Physical Therapy Assessment Rehab Potential Rehabilitation Potential Good Evaluation Complexity Number of Personal Factors/Comorbidities 1-2 Number of Body Systems Impaired 4 or More Clinical Presentation at Evaluation Evolving Impairments Impairments Activity Tolerance,Balance, Functional Mobility,Gait,Pain, Posture,ROM,Sensation,Soft Tissue Mobility,Strength, Transfers,Vestibular Other Impairments Personal factors include pt has a history of falls and recent fall. Body systems affected include vestibular, musculoskeletal, cardiovascular and neuromuscular. Her clinical presentation is evolving. Other Concerns Fall Risk Yes, history of falls and is walking much better since back surgery 01/17 Goals 4 Skilled Nursing Goal (LTG) Pt will perform WNLs on a standardized balance test to decrease fall risk by 05/30/21. 05/06/21: Deferred today and will d/c as pt will con't with PT in the pool LTG Duration 8 weeks 3 Skilled Nursing Goal (LTG) Pt will perform aquatic HEP with I to improve pain, flexibility, core and LE strength and balance by 07/07/21 . 05/06/21: Pt has not been performing land PT appointments and would like to con't with aquatic exercise and dancing 1x/wk LTG Duration 8 weeks 2 Skilled Nursing Goal (LTG) Pt will gait train at least 1200 feet in 6 minutes to improve community ambulation by 05/30/21. 05/06/21: Pt gait trains 751 feet in 6 minutes. She requires two rest breaks d/t MAHAJAN and pt stands resting back against the wall. HR and O2 sats are 111 BPM and 94% first rest break and 108 BPM and 88 -94% second rest break. She reports history of a-fib, pacer and smoking. HR and O2 sats in sitting after 5' are 77 BPM and 94%. LTG Duration 8 weeks 1 Impairment Oswestry reflects 26% impairment Sample Builder Goal (LTG) Pt will present with an improved Oswestry LBP score to reflect no more than 20% impairment to improve functional mobility by 07/07/21. 05/06/21: Oswestry LBP score is 22/50, reflecting 44% impairment. She reports she feels better but score reporting is higher and so PT feels it is not indicative of progression and will d/c goal LTG Duration 8 weeks Assessment Summary Assessment Since starting PT, pt's mobility, pain, affect and social life are much better. She con't to have falls which is concerning to PT. She denies dizziness. She loves the pool and has always loved aquatic exercise and would like to stop land appointments and con't with the pool. Per front office, pts are only scheduled 1x/wk in the pool and so will write plan for this. Recommend aquatic exercise HEP for pt to get in the pool on non-therapy days. She will benefit from ongoing pool therapy to improve core and LE strength, balance and flexibility. Physical Therapy Plan Frequency and Duration Frequency of Treatment 1x/Week Duration of Treatment 8 weeks Plan of Care Start Date 05/06/21 Plan of Care End Date 07/07/21 Therapeutic Interventions Therapeutic Interventions Aquatic Therapy,Home Exercise Program,Neuromuscular Re- education,Patient/Caregiver Education,Self-Care/Home Management,Soft Tissue Mobilization,Therapeutic Exercises Next Visit Focus/Plan Next Note Type Treatment Note Next Visit Plan Aquatic PT
--- NOTE | 2021-05-06 15:37 | PT.OPPOC ---
Physical, Occupational & Speech Therapy At [facility] Current Diagnoses Spondylolisthesis, lumbar region (05/06/21) Spinal stenosis, lumbar region with neurogenic claudication (05/06/21) Visit Care Team Role Provider Type Damaris Frey MD Family Provider Physician Primary Care Provider Specialty: Internal Medicine Address: [address] [place] [address], [id number] Email: [email or web address] Florentin Echols MD Attending Provider Physician Referring Provider Specialty: Orthopedic Surgery Address: [address] [place] [address], [id number] Email: [email or web address] Plan Of Care PT-OP-T Assessment and Plan Start: 03/30/21 12:09 Freq: Status: Active Protocol: Document 05/06/21 14:30 MB (Rec: 05/06/21 15:33 MB [id number]) Physical Therapy Assessment Rehab Potential Rehabilitation Potential Good Evaluation Complexity Number of Personal Factors/Comorbidities 1-2 Number of Body Systems Impaired 4 or More Clinical Presentation at Evaluation Evolving Impairments Impairments Activity Tolerance,Balance, Functional Mobility,Gait,Pain, Posture,ROM,Sensation,Soft Tissue Mobility,Strength, Transfers,Vestibular Other Impairments Personal factors include pt has a history of falls and recent fall. Body systems affected include vestibular, musculoskeletal, cardiovascular and neuromuscular. Her clinical presentation is evolving. Other Concerns Fall Risk Yes, history of falls and is walking much better since back surgery 01/17 Goals 4 [facility] Goal (LTG) Pt will perform WNLs on a standardized balance test to decrease fall risk by 05/30/21. 05/06/21: Deferred today and will d/c as pt will con't with PT in the pool LTG Duration [address] Mechanical Engineer Goal (LTG) Pt will perform aquatic HEP with I to improve pain, flexibility, core and LE strength and balance by 07/07/21 . 05/06/21: Pt has not been performing land PT appointments and would like to con't with aquatic exercise and dancing 1x/wk LTG Duration 8 weeks 2 [facility] Goal (LTG) Pt will gait train at least 1200 feet in 6 minutes to improve community ambulation by 05/30/21. 05/06/21: Pt gait trains 751 feet in 6 minutes. She requires two rest breaks d/t MAHAJAN and pt stands resting back against the wall. HR and O2 sats are 111 BPM and 94% first rest break and 108 BPM and 88 -94% second rest break. She reports history of a-fib, pacer and smoking. HR and O2 sats in sitting after 5' are 77 BPM and 94%. LTG Duration 8 weeks 1 Impairment Oswestry reflects 26% impairment Rd Mechanical Engineer Goal (LTG) Pt will present with an improved Oswestry LBP score to reflect no more than 20% impairment to improve functional mobility by 07/07/21. 05/06/21: Oswestry LBP score is 22/50, reflecting 44% impairment. She reports she feels better but score reporting is higher and so PT feels it is not indicative of progression and will d/c goal LTG Duration 8 weeks Assessment Summary Assessment Since starting PT, pt's mobility, pain, affect and social life are much better. She con't to have falls which is concerning to PT. She denies dizziness. She loves the pool and has always loved aquatic exercise and would like to stop land appointments and con't with the pool. Per front office, pts are only scheduled 1x/wk in the pool and so will write plan for this. Recommend aquatic exercise HEP for pt to get in the pool on non-therapy days. She will benefit from ongoing pool therapy to improve core and LE strength, balance and flexibility. Physical Therapy Plan Frequency and Duration Frequency of Treatment 1x/Week Duration of Treatment 8 weeks Plan of Care Start Date 05/06/21 Plan of Care End Date 07/07/21 Therapeutic Interventions Therapeutic Interventions Aquatic Therapy,Home Exercise Program,Neuromuscular Re- education,Patient/Caregiver Education,Self-Care/Home Management,Soft Tissue Mobilization,Therapeutic Exercises Next Visit Focus/Plan Next Note Type Treatment Note Next Visit Plan Aquatic PT Plan of Care Dates Plan of Care Start Date 05/06/21 Plan of Care End Date 07/07/21 Electronically Signed by: Liza Sims, PT 05/06/21 [id number] Please Sign and Return: I have reviewed this Plan of Care and certify that the skilled therapy services above are required to meet the patient?s needs. Physician Signature Date Printed Name and Credentials Clinical Instructor Signature Printed Name and Credentials
--- NOTE | 2021-05-11 13:34 | PT.OTN ---
Current Diagnoses Spondylolisthesis, lumbar region (05/11/21) Spinal stenosis, lumbar region with neurogenic claudication (05/11/21) Physical Therapy Treatment Note PT-OP-A Visit Information Start: 03/30/21 12:09 Freq: Status: Active Protocol: Document 05/11/21 13:21 LJ (Rec: 05/11/21 13:34 LJ [id number]) Out-Patient Physical Therapy Visit Information Visit Information Visit Type Aquatic Treatment Note Visit Start Time 11:45 Visit Stop Time 12:30 Total Visit Minutes 45 Visit Number 9 Number of RESTAURANT COOK Visits 1 Precautions Precautions S/p L3-4, L5-S1 fusion, L3-4, L5-S1 interbody cage placement , L3-4, L5-S1 decompressive laminectomy and B facetecomies , L3-4, L4-5, L5-S1 posterior segmental instrumentation, L4- 5 posterolateral fusion, L4-5 revision hemilaminectomy, harvest bone marrow from iliac crest on 01/19/21. Will be mindful about back precautions . PT-OP-B Current Condition Start: 03/30/21 12:09 Freq: Status: Active Protocol: Document 03/30/21 12:15 MB (Rec: 03/30/21 12:32 MB [id number]) Current Condition History of Current Condition Onset Date Back and leg pain for years, much better post-op 01/19/21 Current Complaints Low motivation, some depression and not wanting to get up to do stuff History of Current Condition Pt feels a lot better after lumbar surgery on 01/19/21. She reports being transferred to SNF after surgery. She lasted two days and left AMA. She did walk with her walker to show that she could go home. Pt had vertigo in the past and feels it might be coming back when rolling to the right. Pt states that her depression medication was increased. She feels that therapy will help her get out of the funk and increase her mobility. PMH: bladder CA, fibromyalgia, GI bleed, AV block, HLD, HTN, pacemaker, B THR, brain surgery for hemangioma, B mastectomy, previous back surgery 2000. Pt reports numbness in left great and second toes since surgery. Pt has been dancing at the [employer]. Pt no longer has to use an AD since surgery. There is a railing at the two steps to enter her home. Prior Treatments and Tests PT, back surgery Treatment Goals Patient/Caregiver Goals To strengthen everything PT-OP-C Subjective Start: 03/30/21 12:09 Freq: Status: Active Protocol: Document 05/11/21 13:21 LJ (Rec: 05/11/21 13:34 LJ [id number]) OP-PT Subjective Patient Comments Patient Comments Pt stated she was slightly sore after AT last week but it was a good muscle sore. I could tell I worked out. PT-OP-G Mobility & Gait Start: 03/30/21 12:09 Freq: Status: Active Protocol: Document 03/30/21 12:15 MB (Rec: 03/30/21 14:11 MB [id number]) OP Gait Assessment Comments Gait Comments Pt gait trains with wide DENA, decreased step length, WB on the outside of both feet, greater on the left, increased Lesly angle, greater on the left. PT-OP-J Posture/Palpation/Skin Start: 03/30/21 12:09 Freq: Status: Active Protocol: Document 03/30/21 12:15 MB (Rec: 03/30/21 14:11 MB [id number]) Posture Evaluation Comments Posture Comments Standing posture wearing sandals: B WB outside of feet, B knee flexion in standing, Dowager's hump, increased thoracic kyphosis, right shoulder higher than the left, right thoracic convexity. She has 2 1 1/2 scars lateral lumbar spine from surgery. Left iliac crest is higher than the right. In supine, neither knee touches the mat with legs straight d/t tension in hips and hamstrings. PT-OP-M Strength Start: 03/30/21 12:09 Freq: Status: Active Protocol: Document 03/30/21 12:15 MB (Rec: 03/30/21 14:11 MB [id number]) Hip Strength Hip Manual Muscle Testing Left Flexion (L2) 4 Good Abduction 4 Good Adduction 4 Good Right Flexion (L2) 4 Good Abduction 4 Good Adduction 4 Good Knee Strength Knee Manual Muscle Testing Left Flexion (S2) 4 Good Extension (L3) 4 Good Right Flexion (S2) 4 Good Extension (L3) 4 Good Ankle/Foot Strength Ankle and Foot Manual Muscle Testing Left Dorsiflexion (L4) 4 Good Right Dorsiflexion (L4) 4 Good Toe Strength Toe Manual Muscle Testing Left Great Toe Extension 3+ Fair+ Right Great Toe Extension 4 Good PT-OP-Q Treatments Start: 03/30/21 12:09 Freq: Status: Active Protocol: Document 05/06/21 14:30 MB (Rec: 05/06/21 15:37 MB [id number]) Cardio Equipment Recumbent Elliptical (Biodex) Duration (Minutes) 15 Resistance 1-4 Other UEs and LEs Therapeutic Exercises Other Exercises HEP review Comments Verbally reviewed land HEP during progress note and pt not performing, d/c Gait Training Gait Activity [id number] Comments 05/06/21: Pt gait trains 751 feet in 6 minutes. She requires two rest breaks d/t MAHAJAN and pt stands resting back against the wall. HR and O2 sats are 111 BPM and 94% first rest break and 108 BPM and 88 -94% second rest break. She reports history of a-fib, pacer and smoking. HR and O2 sats in sitting after 5' are 77 BPM and 94%. Gait pattern during testing and throughout treatment: increased B LE varus, wide DENA gait, little thoracic movement d/t spinal changes Self-Care/Home Management Treatment Education Patient Education Body Mechanics,Fall Risk,Home Exercise Program,Pain Management,Posture,Safety Other Education PT and pt discuss benefits of ongoing PT, pt's preference for aquatic PT and she will con't with this. She states she has Silver Sneakers and will look into getting into the pool on non-therapy days for aquatic exercise with goals to improve core and LE strength, cardiovascular endurance, balance and flexibility. PT-OP-S Aquatic Treatment Start: 05/04/21 14:30 Freq: Status: Active Protocol: Document 05/11/21 13:21 LJ (Rec: 05/11/21 13:34 LJ [id number]) Aquatics Treatment Pool Entry/Exit Pool Entry/Exit Method Stairs Assistance Independent Water Walking Tandem Gait Water Level Chest Level [place] Water Level Chest Level Marching Water Level Chest Level Sideways Water Level Chest Level Comments alt. arm leg movement Backwards Water Level Chest Level Forwards Water Level Chest Level Lower Extremity Exercises knee fl/ex Body Position Sitting Water Level Chest Level Reps/Duration 10 Comments on table [address] way hip Details ab/ad/fl/ex Body Position Standing Water Level Waist Level Reps/Duration 10 B Comments gentle; at wall Lower Extremity Stretches quad Body Position Standing Water Level Waist Level Equipment Small Noodle Reps/Duration 30 x 2 B Comments HH on wall HS, gastroc,soleus Body Position Standing Water Level Waist Level Upper Extremity Stretches forward walk with dragging arms Water Level Chest Level Spinal Exercises pelvic tilts Details at wall Body Position Standing Water Level Waist Level Reps/Duration 10 Balance Wonderboard Body Position Sitting Comments toes on bottom [place] Activities [place] Activities Bicycle,Bicycle Backwards, Cross Country,Hip Abduction/ Adduction Other Activities pendulum x8 abdominal pull downs at wall x6 Equipment belt, med BBs Duration 16 PT-OP-T Assessment and Plan Start: 03/30/21 12:09 Freq: Status: Active Protocol: Document 05/11/21 13:21 SEFERINO (Rec: 05/11/21 13:34 SEFERINO [id number]) Physical Therapy Assessment Rehab Potential Rehabilitation Potential Good Evaluation Complexity Number of Personal Factors/Comorbidities 1-2 Number of Body Systems Impaired 4 or More Clinical Presentation at Evaluation Evolving Impairments Impairments Activity Tolerance,Balance, Functional Mobility,Gait,Pain, Posture,ROM,Sensation,Soft Tissue Mobility,Strength, Transfers,Vestibular Other Impairments Personal factors include pt has a history of falls and recent fall. Body systems affected include vestibular, musculoskeletal, cardiovascular and neuromuscular. Her clinical presentation is evolving. Other Concerns Fall Risk Yes, history of falls and is walking much better since back surgery 01/17 Goals 3 [facility] Goal (LTG) Pt will perform aquatic HEP with I to improve pain, flexibility, core and LE strength and balance by 07/07/21 . 05/06/21: Pt has not been performing land PT appointments and would like to con't with aquatic exercise and dancing 1x/wk LTG Duration 8 weeks Assessment Summary Assessment AQUATICS: Pt performing well with AT exercises. Suggested she look into pool membership to continue pool exercising on her own to supplement therapy sessions. Exercises will progress with balance, core strengthening, and overall fitness levels. Physical Therapy Plan Frequency and Duration Frequency of Treatment 1x/Week Duration of Treatment 8 weeks Plan of Care Start Date 05/06/21 Plan of Care End Date 07/07/21 Therapeutic Interventions Therapeutic Interventions Aquatic Therapy,Home Exercise Program,Neuromuscular Re- education,Patient/Caregiver Education,Self-Care/Home Management,Soft Tissue Mobilization,Therapeutic Exercises Next Visit Focus/Plan Next Note Type Treatment Note Next Visit Plan AQUATIC: progress balance, strengthening and cardio activities as tolerated.
--- NOTE | 2022-05-20 11:40 | PT.OPDS ---
Current Diagnoses Spondylolisthesis, lumbar region (05/11/21) Spinal stenosis, lumbar region with neurogenic claudication (05/11/21) Visit Care Team Role Provider Type Damaris Frey MD Family Provider Physician Primary Care Provider Specialty: Internal Medicine Address: [address] [place] [address], [id number] Email: [email or web address] Florentin Echols MD Attending Provider Physician Referring Provider Specialty: Orthopedics Orthopedic Surgery Address: [address] [place] [address], [address] Email: [email or web address] Visit Number Visit Number 9 Discharge Summary PT-OP-B Current Condition Start: 03/30/21 12:09 Freq: Status: Active Protocol: Document 03/30/21 12:15 MB (Rec: 03/30/21 12:32 MB [id number]) Current Condition History of Current Condition Onset Date Back and leg pain for years, much better post-op 01/19/21 Current Complaints Low motivation, some depression and not wanting to get up to do stuff History of Current Condition Pt feels a lot better after lumbar surgery on 01/19/21. She reports being transferred to SNF after surgery. She lasted two days and left AMA. She did walk with her walker to show that she could go home. Pt had vertigo in the past and feels it might be coming back when rolling to the right. Pt states that her depression medication was increased. She feels that therapy will help her get out of the funk and increase her mobility. PMH: bladder CA, fibromyalgia, GI bleed, AV block, HLD, HTN, pacemaker, B THR, brain surgery for hemangioma, B mastectomy, previous back surgery 2000. Pt reports numbness in left great and second toes since surgery. Pt has been dancing at the [employer]. Pt no longer has to use an AD since surgery. There is a railing at the two steps to enter her home. Prior Treatments and Tests PT, back surgery Treatment Goals Patient/Caregiver Goals To strengthen everything PT-OP-C Subjective Start: 03/30/21 12:09 Freq: Status: Active Protocol: Document 05/11/21 13:21 LJ (Rec: 05/11/21 13:34 LJ [id number]) OP-PT Subjective Patient Comments Patient Comments Pt stated she was slightly sore after AT last week but it was a good muscle sore. I could tell I worked out. PT-OP-G Mobility & Gait Start: 03/30/21 12:09 Freq: Status: Active Protocol: Document 03/30/21 12:15 MB (Rec: 03/30/21 14:11 MB [id number]) OP Gait Assessment Comments Gait Comments Pt gait trains with wide DENA, decreased step length, WB on the outside of both feet, greater on the left, increased Lesly angle, greater on the left. PT-OP-J Posture/Palpation/Skin Start: 03/30/21 12:09 Freq: Status: Active Protocol: Document 03/30/21 12:15 MB (Rec: 03/30/21 14:11 MB [id number]) Posture Evaluation Comments Posture Comments Standing posture wearing sandals: B WB outside of feet, B knee flexion in standing, Dowager's hump, increased thoracic kyphosis, right shoulder higher than the left, right thoracic convexity. She has 2 1 1/2 scars lateral lumbar spine from surgery. Left iliac crest is higher than the right. In supine, neither knee touches the mat with legs straight d/t tension in hips and hamstrings. PT-OP-M Strength Start: 03/30/21 12:09 Freq: Status: Active Protocol: Document 03/30/21 12:15 MB (Rec: 03/30/21 14:11 MB [id number]) Hip Strength Hip Manual Muscle Testing Left Flexion (L2) 4 Good Abduction 4 Good Adduction 4 Good Right Flexion (L2) 4 Good Abduction 4 Good Adduction 4 Good Knee Strength Knee Manual Muscle Testing Left Flexion (S2) 4 Good Extension (L3) 4 Good Right Flexion (S2) 4 Good Extension (L3) 4 Good Ankle/Foot Strength Ankle and Foot Manual Muscle Testing Left Dorsiflexion (L4) 4 Good Right Dorsiflexion (L4) 4 Good Toe Strength Toe Manual Muscle Testing Left Great Toe Extension 3+ Fair+ Right Great Toe Extension 4 Good PT-OP-T Assessment and Plan Start: 03/30/21 12:09 Freq: Status: Active Protocol: Document 05/20/22 11:40 SAK (Rec: 05/20/22 11:40 [facility] [id number]) Physical Therapy Plan Discharge Physical Therapy Discharge Reasons No Longer Attending PT
== END | disposition home or self-care (01) ==
LOC: PHYS 03-30 11:27
PROVIDERS: Family Provider Internal Medicine; PCP Internal Medicine; Referring Provider Orthopaedic Surgery Orthopaedic Surgery of the Spine; Visit Provider Orthopaedic Surgery Orthopaedic Surgery of the Spine
DX: M48.062 Spinal stenosis, lumbar region with neurogenic claudication (principal); M43.16 Spondylolisthesis, lumbar region
CPT/HCPCS: 97110; 97113; 97116; 97140; 97161; 97530; 97535

== ENCOUNTER → 2022-08-04 14:33 | Outpatient (CLI) | payer MEDICARE, OTHER, SELFPAY ==
[2022-02-16 16:17] VITALS: BMI 29.8
[2022-08-04 15:09] LABS: Hematocrit 36.4 % (36-46); Hemoglobin 11.9 g/dL (12.0-16.0); Mean Corpuscular HGB Conc 32.6 % (30-36); Mean Corpuscular Hemoglobin 27.2 PG (26-34); Mean Corpuscular Volume 83.2 fL (80-100); Platelet Count 232 X10^3/uL (150-400); Red Blood Cell Count 4.37 X10^6/uL (4.0-5.2); Red Cell Distribution Width 15.8 % (11.6-14.8); White Blood Cell Count 7.6 X10^3/uL (4.5-11.0)
[2022-08-04 15:34] LABS: HEMOLYSIS < 15 (0-50); Iron 42 ug/dL (37-170)
[2022-08-04 15:49] LABS: Percent Iron Saturation 10 % (15-50); Total Iron Binding Capacity 438 ug/dL (265-497); Transferrin 318 mg/dL (206-381)
[2022-08-04 16:05] LABS: Ferritin 9 ng/mL (11-264)
== END ==
PROVIDERS: PCP Internal Medicine; Referring Provider Internal Medicine; Visit Provider Internal Medicine
DX: D50.0 Iron deficiency anemia secondary to blood loss (chronic) (principal)
CPT/HCPCS: 36415; 82728; 83540; 83550; 85027

== ENCOUNTER → 2022-08-10 12:39 | Outpatient (CLI) | payer MEDICARE, OTHER, SELFPAY ==
[2022-02-16 16:17] VITALS: BMI 29.8
--- NOTE | 2022-08-10 11:59 | DI.DEXA.S_ITS ---
Bone Density Report Name: BARBARA METZ Age: 77 Sex: Female Ethnicity: White Date of : 1945 Indication: postmenopausal; screening for osteoporosis; Referring Provider: MICHELA BENITEZ Study: Bone densitometry was performed. Exam Date: August 10, 2022 Accession number: [id number] Bone Density: Region BMD T-score Z-score Classification AP Spine(L1, L2) 0.995 0.1 2.6 Normal Total Forearm (Left) 0.487 -1.7 1.1 Osteopenia 1/3 Forearm (Left) 0.585 -1.8 1.1 Osteopenia UD Forearm (Left) 0.362 -1.4 0.7 Osteopenia World Health Organization criteria for BMD impression classify patients as: Normal (T-score at or above -1.0), Osteopenia (T-score between -1.0 and -2.5), or Osteoporosis (T-score at or below -2.5). Previous Exams: -- Region Exam Age BMD T-score BMD Change BMD Change Date g/cm2 vs Baseline vs Previous -- AP Spine (L1-L2) 08/10/2022 77 0.995 0.1 0.018 (1.8%)# 0.018 (1.8%)# 05/03/2018 72 0.977 0.0 -- *Denotes significance at 95% confidence level, LSC for AP Spine = 0.022 g/cm2 # Denotes dissimilar scan types or analysis methods Impression: The patient has normal bone mass. No significant bone loss was observed. Discussion: LOW RISK OF FRACTURE; BONE DENSITY IS WELL ABOVE THE MINIMUM DESIRABLE LEVEL AND ABOVE AVERAGE FOR AGE AND SEX AT ALL SKELETAL SITES TESTED. This person's bone density is above expected limits for age and sex. This is rarely clinically significant, but should be pursued if there are significant musculoskeletal complaints. The patient should follow a healthful lifestyle (good nutrition with adequate calcium and vitamin D, and appropriate weight-bearing exercise). Follow-Up: Consider repeating this study in 5 years or sooner if there is some new clinical indication. Reported by: ALANA MA M.D on 09/22/2022 3:47:00 PM.
--- NOTE | 2022-08-10 12:40 | DI.RAD.S_ITS ---
Bone Density Report Name: BARBARA METZ Age: 77 Sex: Female Ethnicity: White Date of : 1945 Indication: postmenopausal; screening for osteoporosis; Referring Provider: MICHELA BENITEZ Study: Bone densitometry was performed. Exam Date: August 10, 2022 Accession number: [id number] Bone Density: Region BMD T-score Z-score Classification AP Spine(L1, L2) 0.995 0.1 2.6 Normal Total Forearm (Left) 0.487 -1.7 1.1 Osteopenia 1/3 Forearm (Left) 0.585 -1.8 1.1 Osteopenia UD Forearm (Left) 0.362 -1.4 0.7 Osteopenia World Health Organization criteria for BMD impression classify patients as: Normal (T-score at or above -1.0), Osteopenia (T-score between -1.0 and -2.5), or Osteoporosis (T-score at or below -2.5). Previous Exams: -- Region Exam Age BMD T-score BMD Change BMD Change Date g/cm2 vs Baseline vs Previous -- AP Spine (L1-L2) 08/10/2022 77 0.995 0.1 0.018 (1.8%)# 0.018 (1.8%)# 05/03/2018 72 0.977 0.0 -- *Denotes significance at 95% confidence level, LSC for AP Spine = 0.022 g/cm2 # Denotes dissimilar scan types or analysis methods Impression: The patient has normal bone mass. No significant bone loss was observed. Discussion: LOW RISK OF FRACTURE; BONE DENSITY IS WELL ABOVE THE MINIMUM DESIRABLE LEVEL AND ABOVE AVERAGE FOR AGE AND SEX AT ALL SKELETAL SITES TESTED. This person's bone density is above expected limits for age and sex. This is rarely clinically significant, but should be pursued if there are significant musculoskeletal complaints. The patient should follow a healthful lifestyle (good nutrition with adequate calcium and vitamin D, and appropriate weight-bearing exercise). Follow-Up: Consider repeating this study in 5 years or sooner if there is some new clinical indication. Reported by: CRYS VALENTINE MD on 08/10/2022 3:12:00 PM.
== END ==
PROVIDERS: PCP Internal Medicine; Referring Provider Internal Medicine; Visit Provider Internal Medicine
DX: Z13.820 Encounter for screening for osteoporosis; Z78.0 Asymptomatic menopausal state; Z92.23 Personal history of estrogen therapy; Z90.710 Acquired absence of both cervix and uterus
CPT/HCPCS: 77080; 77081

== ENCOUNTER → 2022-11-17 15:35 | Outpatient (CLI) | payer MEDICARE, OTHER, SELFPAY ==
[2022-11-17 09:46] VITALS: BMI 29.8
--- NOTE | 2022-11-17 15:36 | DI.RAD.S_ITS ---
PROCEDURE: XR KNEE RT 3V INDICATIONS: Right lateral knee pain TECHNIQUE: 3 views of the knee were acquired. COMPARISON: [facility], , KNEE 3V RIGHT, 09/28/2011, 12:41. FINDINGS: Bones: No fractures or dislocations. No suspicious bony lesions. Equivocal joint space narrowing of the medial lateral compartments. Mild-moderate patellofemoral compartment narrowing and spurring present. Soft tissues: Possible joint effusion. No suspicious soft tissue calcifications. IMPRESSION: 1. No acute fracture identified. 2. Possible nonspecific knee effusion. 3. If symptoms persist, follow-up radiographs and/or CT or MRI may be helpful for further evaluation. Dictated by: Akash Ovalles M.D. on 11/17/2022 at 18:08 Approved by: Akash Ovalles M.D. on 11/17/2022 at 18:10
== END ==
PROVIDERS: PCP Internal Medicine; Referring Provider Family Medicine; Visit Provider Family Medicine
DX: S80.00XA Contusion of unspecified knee, initial encounter (principal); M25.561 Pain in right knee
CPT/HCPCS: 73562

== ENCOUNTER → 2023-03-07 15:49 | Outpatient (CLI) | payer MEDICARE, OTHER, SELFPAY ==
[2022-11-17 09:46] VITALS: BMI 29.8
[2023-03-07 16:29] LABS: Hematocrit 35.1 % (36-46); Hemoglobin 11.5 g/dL (12.0-16.0); Mean Corpuscular HGB Conc 32.8 % (30-36); Mean Corpuscular Volume 79.3 fL (80-100); Platelet Count 267 X10^3/uL (150-400); Red Blood Cell Count 4.42 X10^6/uL (4.0-5.2); Red Cell Distribution Width 15.3 % (11.6-14.8); White Blood Cell Count 7.9 X10^3/uL (4.5-11.0)
[2023-03-07 16:41] LABS: Appearance Urine UA SL CLOUDY; Bilirubin Urine UA NEGATIVE (NEGATIVE); Color Urine UA YELLOW; Glucose Urine UA NEGATIVE (Negative); Ketones Urine UA NEGATIVE (NEGATIVE); Leukocyte Esterase Urine UA 2+ (NEGATIVE); Nitrite Urine UA NEGATIVE (Negative); Occult Blood Urine UA NEGATIVE (Negative); Protein Urine UA NEGATIVE (Negative); Specific Gravity Urine UA <=1.005 (1.000-1.035)
[2023-03-07 16:46] LABS: pH Urine UA 6.5 (4.5-8.0)
[2023-03-07 16:48] LABS: Bacteria Urine Many (>30); Culture Indicated Urine Specimen Cultured; RBC Urine None Seen (0-5/HPF); Squamous Epithelial Cell Urine None Seen (0-5/HPF); WBC Urine 10-30/HPF (0-5/HPF)
[2023-03-07 17:04] LABS: Alanine Aminotransferase 26 IU/L (<35); Albumin 4.2 g/dL (3.5-5.0); Albumin Globulin Ratio 1.3 (1.0-2.8); Alkaline Phosphatase 68 U/L (38-126); Aspartate Aminotransferase 29 IU/L (14-36); BUN Creatinine Ratio 23.2 (6-22); Bilirubin Total 0.3 mg/dL (0.2-1.3); Blood Urea Nitrogen 16 mg/dL (7-17); Calcium 9.2 mg/dL (8.4-10.2); Carbon Dioxide 27 mmol/L (22-32); Chloride 102 mmol/L (98-107); Cholesterol 125 mg/dL (140-199); Estimated Glomerular Filt Rate > 60 mL/min (>60); Globulin 3.2 g/dL (1.7-4.1); Glucose 99 mg/dL (80-110); HDL Cholesterol 43 mg/dL (40-60); HEMOLYSIS < 15 (0-50); LDL Cholesterol Calculated 58 mg/dL (<100); Potassium 4.6 mmol/L (3.4-5.1); Sodium 138 mmol/L (137-145); Total Protein 7.4 g/dL (6.3-8.2); Triglycerides 120 mg/dL (35-150)
== END ==
PROVIDERS: PCP Internal Medicine; Referring Provider Internal Medicine; Visit Provider Internal Medicine
DX: I48.0 Paroxysmal atrial fibrillation (principal); E78.2 Mixed hyperlipidemia; N30.00 Acute cystitis without hematuria
CPT/HCPCS: 80053; 80061; 81001; 85027; 87077; 87086; 87186

== ENCOUNTER → 2023-07-05 15:17 | Outpatient (CLI) | payer MEDICARE, OTHER, SELFPAY ==
[2022-11-17 09:46] VITALS: BMI 29.8
[2023-07-05 16:26] LABS: Hematocrit 31.8 % (36-46); Hemoglobin 10.1 g/dL (12.0-16.0); Mean Corpuscular HGB Conc 31.7 % (30-36); Mean Corpuscular Volume 75.7 fL (80-100); Platelet Count 319 X10^3/uL (150-400); Red Cell Distribution Width 17.3 % (11.6-14.8); White Blood Cell Count 6.4 X10^3/uL (4.5-11.0)
[2023-07-05 17:01] LABS: HEMOLYSIS < 15 (0-50); Iron 37 ug/dL (37-170)
[2023-07-05 17:13] LABS: Percent Iron Saturation 9 % (15-50); Total Iron Binding Capacity 428 ug/dL (265-497); Transferrin 369 mg/dL (206-381)
[2023-07-05 17:23] LABS: BUN Creatinine Ratio 28.9 (6-22); Blood Urea Nitrogen 24 mg/dL (7-17); Carbon Dioxide 28 mmol/L (22-32); Chloride 101 mmol/L (98-107); Estimated Glomerular Filt Rate > 60 mL/min (>60); HEMOLYSIS < 15 (0-50); Potassium 4.6 mmol/L (3.4-5.1); Sodium 136 mmol/L (137-145)
[2023-07-05 17:24] LABS: Alanine Aminotransferase 16 IU/L (<35); Albumin 4.5 g/dL (3.5-5.0); Albumin Globulin Ratio 1.5 (1.0-2.8); Alkaline Phosphatase 67 U/L (38-126); Aspartate Aminotransferase 25 IU/L (14-36); Bilirubin Total 0.5 mg/dL (0.2-1.3); Calcium 9.2 mg/dL (8.4-10.2); Cholesterol 116 mg/dL (140-199); Glucose 96 mg/dL (80-110); HDL Cholesterol 43 mg/dL (40-60); LDL Cholesterol Calculated 50 mg/dL (<100); Total Protein 7.5 g/dL (6.3-8.2); Triglycerides 114 mg/dL (35-150)
[2023-07-05 17:42] LABS: Ferritin 9 ng/mL (11-264)
== END ==
PROVIDERS: PCP Internal Medicine; Referring Provider Internal Medicine; Visit Provider Internal Medicine
DX: I48.0 Paroxysmal atrial fibrillation (principal); D64.9 Anemia, unspecified
CPT/HCPCS: 36415; 80053; 80061; 82728; 83540; 83550; 85027

== ENCOUNTER → 2023-08-10 10:10 | Outpatient (CLI) | payer MEDICARE, OTHER, SELFPAY ==
[2022-11-17 09:46] VITALS: BMI 29.8
--- NOTE | 2023-08-10 10:11 | DI.NM.S_ITS ---
PROCEDURE: NM BLUE PERF SPECT R&S PHARM Rest and pharmacological stress myocardial perfusion SPECT with gated imaging and ejection fraction RADIOPHARMACEUTICAL: 26.6 mCi Tc-99m tetrafosmin IV at rest and 25.5 mCi Tc-99m tetrafosmin IV at peak effect of pharmacological stress. Qnm-jak-huxdrqvy was performed. INDICATIONS: SICK SINUS SYNDROME TECHNIQUE: Radiopharmaceutical was injected at peak stress test, and also at rest. SPECT images were obtained. SPECT myocardial perfusion images were displayed in short axis, horizontal long axis, and vertical long axis views. Gated images were reviewed using Unafinance software. COMPARISON: None. CARDIAC STRESS: A pharmacologic stress test was performed under the supervision of an attending staff, using an infusion of regadenoson 0.4 mg IV. Hemodynamic data: There is normal blood pressure and heart rate response to pharmacologic stress. Symptoms: The patient denied anginal chest pain. EKG: No diagnostic changes of ischemia; no ectopy. FINDINGS: Raw data: There is good myocardial uptake of radiotracer. No significant motion artifacts. Iupy-bu-qjrrc ratio is 0.56 (normal is less than 0.38 for tetrafosmin tracer). Left ventricle function: Gated images demonstrate normal left ventricular wall thickening. No segmental wall motion abnormalities. No transient ischemic dilation; TID is 0.90 (normal less than 1.3). Left ventricle resting end diastolic volume is 84 mL. Left ventricle stress ejection fraction is >75%; normal range is above 45%. Myocardial perfusion: There is normal distribution of activity in the right and left ventricular myocardium. No fixed or reversible perfusion defects. IMPRESSION: Low risk study. No evidence of pharmacologic induced ischemia or scar. Normal LV size with hyperdynamic function. Dictated by: Marcela Melendez D.O. on 08/11/2023 at 16:46 Approved by: Marcela Melendez D.O. on 08/11/2023 at 16:49
== END ==
LOC: NUCM 10:11
PROVIDERS: PCP Internal Medicine; Referring Provider Internal Medicine Cardiovascular Disease; Visit Provider Internal Medicine Cardiovascular Disease
DX: I49.5 Sick sinus syndrome (principal)
CPT/HCPCS: 78452; 93017; A9502; J2785

== ENCOUNTER → 2023-08-11 10:18 | Outpatient (CLI) | payer MEDICARE, OTHER, SELFPAY ==
[2022-11-17 09:46] VITALS: BMI 29.8
--- NOTE | 2023-08-11 | DI.ECHO.S_ITS ---
[facility]---------+ [facility] +---------+ : : [address] : : : : [id number] : : : : Phone: [phone]---------+ Echocardiogram Report + + :Name: BARBARA METZ Study Date: 08/11/2023 Height: 67 in : :[facility] ReadingLocation: Weight: 186 lb : : Gender: Female BSA: 2.0 m2 : :: 1945 Age: 78 yrs BP: 121/86 mmHg: :Reason For Study: SICK SINUS SYNDROME : :Ordering Physician: ANGELIQUE, : :CASPER Performed By: Nicko Alonzo : :Referring: CASPER MERINO : + + Interpretation Summary The study quality was technically limited. The ejection fraction is estimated to be 60-65%. The right ventricular systolic function is normal. No obviously significant valvular abnormality. Procedure: A two-dimensional transthoracic echocardiogram with color flow and Doppler was performed. The study quality was technically limited. Comparison is made with the echocardiogram of 12/08/2020. The patient was in normal sinus rhythm during the exam. The heart rate ranged between 60-69 bpm during the study. Left Ventricle: The left ventricle is grossly normal size. The ejection fraction is estimated to be 60-65%. Right Ventricle: The right ventricle is normal in size and function. There is a pacemaker lead in the right ventricle. The right ventricular systolic function is normal. Atria: The left atrium is mildly dilated. Right atrial size is normal. There is a catheter/pacemaker lead seen in the right atrium. The interatrial septum grossly appears intact with no obvious evidence for an atrial septal defect. Mitral Valve: The mitral valve is grossly normal. There is no mitral valve stenosis. There has been no significant change since the previous study. Aortic Valve: The aortic valve is grossly normal. There is no aortic valve stenosis. No aortic regurgitation is present. Tricuspid Valve: The tricuspid valve is not well visualized, but is grossly normal. There is no tricuspid stenosis. No tricuspid regurgitation. Pulmonic Valve: The pulmonic valve is not well visualized. Great Vessels: The aortic root is not well visualized. The ascending aorta could not be visualized. The inferior vena cava was not visualized. Pericardium/ Pleura There is no pericardial effusion. There is no pleural effusion. MMode/2D Measurements & Calculations LA A2 area: 21.8 cm2 RA long axis: 4.3 cm LA A4 area: 23.6 cm2 RA area: 15.1 cm2 LA length (vol): 5.4 cm RA vol: 44.4 ml LA vol: 80.3 ml RA : 22.6 ml/m2 LA vol index: 40.9 ml/m2 TAPSE: 2.5 cm Doppler Measurements & Calculations Ao V2 max: 178.5 cm/sec LVOT Max Maursiio: 150.9 cm/sec Ao V2 mean: 119.1 cm/sec LV V1 max P.1 mmHg Ao max P.7 mmHg LV V1 VTI: 31.3 cm Ao mean P.5 mmHg sev ratio: 0.85 Ao V2 VTI: 36.7 cm MV E max maurisio: 68.7 cm/sec MV A max maurisio: 67.0 cm/sec MV E/A: 1.0 Med Peak E' Maurisio: 7.6 cm/sec E/E' med: 9.0 Lat Peak E' Maurisio: 6.6 cm/sec E/E' lat: 10.4 E/e' average: 9.7 MV dec time: 0.29 sec Reading Physician:CRYSTAL
== END ==
LOC: ECHO 10:20
PROVIDERS: PCP Internal Medicine; Referring Provider Internal Medicine Cardiovascular Disease; Visit Provider Internal Medicine Cardiovascular Disease
DX: I49.5 Sick sinus syndrome (principal)
CPT/HCPCS: 93306

== ENCOUNTER → 2023-09-12 11:24 | Outpatient (CLI) | payer MEDICARE, OTHER, SELFPAY ==
[2022-11-17 09:46] VITALS: BMI 29.8
[2023-09-12 12:37] LABS: Add Manual Diff / Slide Review SLIDE REVIEW; Basophils Absolute Auto 100 /uL (0-100); Basophils Percent Auto 1.2 % (0-2); Eosinophils Absolute Auto 100 /uL (0-450); Hematocrit 37.4 % (36-46); Hemoglobin 12.2 g/dL (12.0-16.0); Lymphocytes Absolute Auto 1900 /uL (1100-4500); Lymphocytes Percent Auto 32.8 % (25-40); Mean Corpuscular HGB Conc 32.5 % (30-36); Mean Corpuscular Hemoglobin 26.6 PG (26-34); Mean Corpuscular Volume 81.7 fL (80-100); Monocytes Absolute Auto 500 /uL (0-900); Monocytes Percent Auto 8.5 % (3-14); Neutrophils Absolute Auto 3300 /uL (1500-7000); Neutrophils Percent Auto 55.5 % (50-75); Platelet Count 253 X10^3/uL (150-400); Red Blood Cell Count 4.58 X10^6/uL (4.0-5.2); Red Cell Distribution Width 23.6 % (11.6-14.8); White Blood Cell Count 5.9 X10^3/uL (4.5-11.0)
[2023-09-12 13:29] LABS: HEMOLYSIS < 15 (0-50); Iron 73 ug/dL (37-170)
[2023-09-12 13:42] LABS: Percent Iron Saturation 21 % (15-50); Total Iron Binding Capacity 354 ug/dL (265-497); Transferrin 300 mg/dL (206-381)
[2023-09-12 14:10] LABS: Ferritin 34 ng/mL (11-264)
[2023-09-12 14:15] LABS: Anisocytosis 1+; Macrocytosis 1+
== END ==
PROVIDERS: PCP Internal Medicine; Referring Provider Internal Medicine; Visit Provider Internal Medicine
DX: D50.0 Iron deficiency anemia secondary to blood loss (chronic) (principal); M85.80 Other specified disorders of bone density and structure, unspecified site; I10 Essential (primary) hypertension; E78.2 Mixed hyperlipidemia
CPT/HCPCS: 36415; 82728; 83540; 83550; 85025

== ENCOUNTER → 2024-01-03 14:33 | Outpatient (CLI) | payer MEDICARE, OTHER, SELFPAY ==
[2022-11-17 09:46] VITALS: BMI 29.8
[2024-01-03 14:54] LABS: Hemoglobin 12.9 g/dL (12.0-16.0); Mean Corpuscular HGB Conc 32.9 % (30-36); Mean Corpuscular Hemoglobin 28.4 PG (26-34); Mean Corpuscular Volume 86.4 fL (80-100); Platelet Count 232 X10^3/uL (150-400); Red Blood Cell Count 4.52 X10^6/uL (4.0-5.2); Red Cell Distribution Width 15.1 % (11.6-14.8); White Blood Cell Count 6.7 X10^3/uL (4.5-11.0)
[2024-01-03 15:31] LABS: HEMOLYSIS < 15 (0-50); Iron 72 ug/dL (37-170)
[2024-01-03 15:33] LABS: Alanine Aminotransferase 30 IU/L (<35); Albumin 4.5 g/dL (3.5-5.0); Albumin Globulin Ratio 1.7 (1.0-2.8); Alkaline Phosphatase 60 U/L (38-126); Aspartate Aminotransferase 29 IU/L (14-36); BUN Creatinine Ratio 33.8 (6-22); Bilirubin Total 0.6 mg/dL (0.2-1.3); Blood Urea Nitrogen 23 mg/dL (7-17); Calcium 9.7 mg/dL (8.4-10.2); Carbon Dioxide 28 mmol/L (22-32); Chloride 107 mmol/L (98-107); Estimated Glomerular Filt Rate > 60 mL/min (>60); Globulin 2.6 g/dL (1.7-4.1); Glucose 89 mg/dL (80-110); HEMOLYSIS < 15 (0-50); Sodium 140 mmol/L (137-145); Total Protein 7.1 g/dL (6.3-8.2)
[2024-01-03 15:46] LABS: Transferrin 285 mg/dL (206-381)
[2024-01-03 16:07] LABS: Ferritin 17 ng/mL (11-264)
[2024-01-03 18:06] LABS: Percent Iron Saturation 20 % (15-50); Total Iron Binding Capacity 367 ug/dL (265-497)
== END ==
PROVIDERS: PCP Internal Medicine; Referring Provider Internal Medicine; Visit Provider Internal Medicine
DX: D64.9 Anemia, unspecified (principal); I48.0 Paroxysmal atrial fibrillation
CPT/HCPCS: 36415; 80053; 82728; 83540; 83550; 85027

== ENCOUNTER 2024-02-09 15:44 | Emergency (ER) | payer MEDICARE, OTHER, SELFPAY ==
[2022-11-17 09:46] VITALS: BMI 29.8
[2024-02-09 15:49] VITALS: BP 172/84; PULSE 60; RESP 16; TEMP 36.1; O2SAT 95; BMI 31.6
--- NOTE | 2024-02-09 16:20 | PC.NURSE ---
Pt's presenting situation/chief complaint discussed with MD Reece. MD Reece to see pt to put in remaining orders (e.g., CT).
[2024-02-09 16:44] LABS: BUN Creatinine Ratio 32.8 (6-22); Blood Urea Nitrogen 22 mg/dL (7-17); Calcium 9.1 mg/dL (8.4-10.2); Carbon Dioxide 28 mmol/L (22-32); Chloride 103 mmol/L (98-107); Estimated Glomerular Filt Rate > 60 mL/min (>60); Glucose 96 mg/dL (80-110); HEMOLYSIS 29 (0-50); Potassium 4.6 mmol/L (3.4-5.1); Sodium 136 mmol/L (137-145)
[2024-02-09 16:54] LABS: Add Manual Diff / Slide Review NO; Basophils Absolute Auto 100 /uL (0-100); Basophils Percent Auto 1.1 % (0-2); Eosinophils Absolute Auto 200 /uL (0-450); Eosinophils Percent Auto 2.2 % (2-4); Hematocrit 41.6 % (36-46); Hemoglobin 13.6 g/dL (12.0-16.0); Lymphocytes Absolute Auto 2500 /uL (1100-4500); Mean Corpuscular HGB Conc 32.7 % (30-36); Mean Corpuscular Hemoglobin 28.9 PG (26-34); Mean Corpuscular Volume 88.6 fL (80-100); Monocytes Absolute Auto 1000 /uL (0-900); Monocytes Percent Auto 11.7 % (3-14); Neutrophils Absolute Auto 4400 /uL (1500-7000); Platelet Count 224 X10^3/uL (150-400); Red Blood Cell Count 4.69 X10^6/uL (4.0-5.2); White Blood Cell Count 8.1 X10^3/uL (4.5-11.0)
--- NOTE | 2024-02-09 17:13 | DI.CT.S_ITS ---
PROCEDURE: CT HEAD/BRAIN WO CON INDICATIONS: headache x 5 days TECHNIQUE: Noncontrast 4.5 mm thick angled axial sections acquired from the foramen magnum to the vertex, with coronal and sagittal reformats. For radiation dose reduction, the following was used: automated exposure control, adjustment of mA and/or kV according to patient size. COMPARISON: None. FINDINGS: Image quality: Diagnostic CSF spaces: Basal cisterns are patent. Lateral ventricles are symmetric. Volume: Vascular calcifications. Periventricular white matter disease is commonly seen with chronic microangiopathy. Volume loss is present. These findings are iqmx-oy-zancnala Brain: No gross loss of weaver-white differentiation. No acute hemorrhage. Right temporal encephalomalacia. Craniofacial structures: No significant paranasal sinus opacity Right calvarial postsurgical changes. IMPRESSION: No acute intracranial abnormality. Right temporal encephalomalacia and adjacent calvarial postsurgical changes. If there is high concern for parenchymal pathology, consider further evaluation with MRI. Dictated by: Anthony Carey M.D. on 02/09/2024 at 18:08 Approved by: Anthony Carey M.D. on 02/09/2024 at 18:10
[2024-02-09 17:55] VITALS: BP 158/69; PULSE 60; RESP 17; O2SAT 96
[2024-02-09 18:01] VITALS: BP 164/79; PULSE 60; RESP 17; O2SAT 97
--- NOTE | 2024-02-09 18:09 | DI.CT.S_ITS ---
PROCEDURE: CT ANGIO HEAD AND NECK INDICATIONS: diploplia TECHNIQUE: After the administration of intravenous contrast, 1 mm thick sections acquired from the aortic arch through the [place] of Reid. 3-dimensional tvyauyy-agclezsqs-iujkxilnkb (MIP) and/or volume rendering reformats were acquired of the central intracranial vasculature and neck separately. For radiation dose reduction, the following was used: automated exposure control, adjustment of mA and/or kV according to patient size. COMPARISON: [facility], CT, CT HEAD/BRAIN WO CON, 02/09/2024, 17:40. FINDINGS: Image quality: Diagnostic HEAD ANGIOGRAPHY: Anterior circulation: ICAs: Patent. No stenosis ACAs: Patent Hypoplastic left A1 segment, probably congenital. The distal aspects are patent. MCAs: Patent AComm: No aneurysm Venous sinuses: No occlusive thrombus, but not well evaluated this study Posterior circulation: Dominance: Equal Vertebral arteries: No stenosis or occlusion. No aneurysm. Basilar artery: Unremarkable PComms: No aneurysm top loader: Patent NECK ANGIOGRAPHY: Aortic arch and subclavian arteries: Atherosclerotic calcifications, mild CCAs: No stenosis, occlusion, or aneurysm. ICA origins (by NASCET criteria): Mild right-sided calcifications, without narrowing. Moderate left-sided calcifications, narrowing is about 50% ICAs: No stenosis, occlusion or aneurysm. ECAs: Origins are patent. Vertebral arteries: Unremarkable Soft tissues: Left chest wall pulse generator partially seen. Breast implants. Lung apices: Emphysematous changes Bones: Right calvarial postsurgical changes . paranasal sinus mucosal thickening. Degenerative spine changes. 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 If there is high concern for infarct, consider MRI. Encephalomalacia and adjacent postsurgical changes of the right temporal region. Other findings above. Dictated by: Anthony Carey M.D. on 02/09/2024 at 18:44 Approved by: Anthony Carey M.D. on 02/09/2024 at 18:50
--- NOTE | 2024-02-09 18:37 | EKG_ITS ---
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
--- NOTE | 2024-02-09 18:54 | ED.HA ---
HPI - Headache General Chief Complaint: Headache Stated Complaint: double vision, headache Time Seen by Provider: 02/09/24 18:03 Source: patient, RN notes reviewed and old records reviewed Limitations: no limitations History of Present Illness HPI Narrative: 78-year-old female history of atrial fibrillation with pacemaker, hypertension, prior right orbital hemangioma with resection in 2003 who presents with complaint of headache over the right frontal lobe and double vision that has been intermittent for the past 5 days. Patient states this is very similar to when she had her hemangioma. She states that was found by seeing her radiology interventional physician she had an imaging ultimately was found to have the change in had resection in [place]. Patient states this feels somewhat similar. She states similar discomfort similar double vision has not been persistent. She saw her radiology interventional physician today who sent her to the ED to have imaging. She does take an aspirin 81 mg daily she takes medication for hypertension dyslipidemia and AFib. States she had surveillance for 2 years afterwards. Prior surgeries include the Jennifer Divina resection which she states was not hemangioma and not an aneurysm, back surgery x2, total hysterectomy, cataract surgery and hip replacement x2. No known drug allergies. No tobacco, Dr. Connors is her PCP, Julieta sharpe as her radiology interventional physician. She denies other neurologic changes no numbness, tingling or weakness. Related Data Home Medications Medication Instructions Recorded Confirmed coenzyme Q10 100 mg capsule 100 mg PO DAILY ##0 01/09/12 01/03/24 (CoQ-10) cyanocobalamin (vitamin B-12) 1,000 mcg PO QDAY ##0 01/09/12 01/03/24 1,000 mcg tablet,extended release glucosamine sulfate 1 tab PO BID ##0 08/08/17 01/03/24 [id number]-DOD-dlgcueooow 500 mg-250 mg-400 mg tablet aspirin 81 mg tablet,delayed 81 mg PO DAILY 06/17/21 01/03/24 release (Adult Aspirin Regimen) cholecalciferol (vitamin D3) 1 tab PO DAILY 01/25/22 01/03/24 prevagen 1 cap PO DAILY 01/25/22 01/03/24 Previous Rx's Medication Instructions Recorded metoprolol succinate 25 mg 25 mg PO QDAY #90 tabs 04/29/22 tablet,extended release 24 hr (Toprol XL) lansoprazole 30 mg capsule,delayed 30 mg PO DAILY #90 caps 03/08/23 release escitalopram oxalate 20 mg tablet See Rx Instructions .Route 05/03/23 .COMPLEX #90 tabs gabapentin 600 mg tablet 600 mg PO BID #180 tabs 06/06/23 atorvastatin 40 mg tablet 40 mg PO QDAY #90 tabs 11/18/23 Allergies Allergy/AdvReac Type Severity Reaction Status Date / Time No Known Drug Allergies Allergy Verified 01/03/24 14:00 Review of Systems Review of Systems ROS Unobtainable: All systems reviewed & are unremarkable except as noted in HPI and below Patient History Medical History Degeneration of cervical disc without myelopathy BPPV (benign paroxysmal positional vertigo) Bunion, right foot Chronic low back pain Anemia Mobitz type 2 second degree heart block Do not resuscitate Obesity (BMI 30.0-34.9) B12 deficiency Age-related osteoporosis without current pathological fracture GERD without esophagitis Generalized anxiety disorder Depression, major, recurrent Mixed hyperlipidemia Essential hypertension Scoliosis Chronic back pain Cervical spine disease Mumps Measles Chicken pox Recurrent sinusitis Cataracts, bilateral Endometriosis History of urinary incontinence Hemorrhoid Diverticular disease Bilateral nephrolithiasis History of UTI History of nephrolithiasis History of primary bladder cancer PAF (paroxysmal atrial fibrillation) AV block, Mobitz 2 Osteopenia E. coli infection DJD (degenerative joint disease) Bacteriuria Easy bruisability Sleep apnea Vertigo (~2020) Fibromyalgia Arthritis Impaired hearing HTN (hypertension) HLD (hyperlipidemia) GI bleed (2017) Hemangioma Kidney stones Surgical History Status cardiac pacemaker Anesthesia Hx of sinus surgery History of esophagogastroduodenoscopy (EGD) History of colonoscopy History of carpal tunnel release History of surgery Hx of abdominal surgery Hx of bilateral cataract extraction Hx of craniotomy History of bladder surgery (2006) History of parathyroid surgery (2016) Hx of spinal surgery History of arthroplasty of left hip History of arthroplasty of right hip History of bowel resection Hx of bilateral mastectomy (~1993) History of hysterectomy (~1979) Pacemaker (06/10/16) Family History Father Stroke Diabetes mellitus History of heart disease Hypertension Mental health problem Mother Cancer Hearing loss Sister Cancer Brother Diabetes mellitus History of heart disease Grandfather Diabetes mellitus Grandmother Diabetes mellitus Grandfather Diabetes mellitus Grandmother Diabetes mellitus Social History marital status: details: (2012), partner Faizan Stanford, no children number of children: 0 household members: significant other Smoking Status: Former smoker alcohol intake: former Type(s) of exercise: other frequency: 1-2 times per week Smoking Status: Former smoker alcohol intake frequency: other Substance Use Type: does not use Exam Narrative Exam Narrative: GEN: well nourished, well appearing female, alert and oriented x [default value], patient appears to be in [default value] distress. HEENT: Atraumatic, pupils are equal round reactive to light, extraocular movements are intact, nares are clear, there is no conjunctival pallor. Throat is clear without any exudates, erythema, tonsillar enlargement or uvular deviation HEART: Regular rate and rhythm without murmur, clicks, rubs. No carotid bruits, pulses are equal in upper and lower extremities LUNGS:Lungs clear to auscultation, no wheezes, rales, crackles, chest moves symmetrically ABD:bowel sounds normal, soft, non-tender, no guarding, rebound, rigidity, no masses noted, no hepatosplenomegaly MSCL: Non-tender, no muscle atrophy, muscles strength 5/5 upper and lower extremities, full range of motion, normal gait NEURO:CN 2-12 intact, sensation normal. SKIN: No rash, erythema or other skin changes Initial Vital Signs Initial Vital Signs: Vital Signs Temperature 97 F L 02/09/24 15:49 Pulse Rate 60 02/09/24 15:49 Respiratory Rate 16 02/09/24 15:49 Blood Pressure 172/84 H 02/09/24 15:49 Pulse Oximetry 95 02/09/24 15:49 Oxygen Delivery Method Room Air 02/09/24 15:49 Course Orders Ordered: ED Orders 02/09/24 18:09 CT angio head and neck Stat Vital Signs Vital signs: Vital Signs - 8 hr 02/09/24 19:17 Temperature 98.4 F Pulse Rate 85 Respiratory Rate 18 Blood Pressure 135/78 Pulse Oximetry 99 Oxygen Delivery Method Room Air MDM - Headache Lab Data 02/09/24 16:06 02/09/24 16:06 Labs: Lab Results 02/09/24 Range/Units 16:06 WBC 8.1 (4.5-11.0) X10^3/uL RBC 4.69 (4.0-5.2) X10^6/uL Hgb 13.6 (12.0-16.0) g/dL Hct 41.6 (36-46) % MCV 88.6 (80-100) fL MCH 28.9 (26-34) PG MCHC 32.7 (30-36) % RDW 14.0 (11.6-14.8) % Plt Count 224 (150-400) X10^3/uL Neut % (Auto) 54.0 (50-75) % Lymph % (Auto) 31.0 (25-40) % [place] % (Auto) 11.7 (3-14) % Eos % (Auto) 2.2 (2-4) % Baso % (Auto) 1.1 (0-2) % Neut # (Auto) 4400 (8812-4567) /uL Lymph # (Auto) 2500 (3100-8099) /uL [place] # (Auto) 1000 H (0-900) /uL Eos # (Auto) 200 (0-450) /uL Baso # (Auto) 100 (0-100) /uL Sodium 136 L (137-145) mmol/L Potassium 4.6 (3.4-5.1) mmol/L Chloride 103 (98-107) mmol/L Carbon Dioxide 28 (22-32) mmol/L BUN 22 H (7-17) mg/dL Creatinine 0.67 (0.52-1.04) mg/dL Estimated GFR > 60 (>60) mL/min BUN/Creatinine Ratio 32.8 H (6-22) Glucose 96 (80-110) mg/dL Calcium 9.1 (8.4-10.2) mg/dL ECG Data Attestation: I personally reviewed and interpreted this ECG as follows: Interpretation: Atrial paced rhythm rate of 60 AL 208 QRS 86 QTC 454. MDM Narrative Medical decision making narrative: 78-year-old female with diplopia and headache over the right brow that has been present for 5 days. Diplopia has sort of waxed and waned in intensity according to patient. Does have a history of similar symptoms and ended up having resection for hemangioma of the temporal region in 2003. Patient states does feel somewhat similar. She went to her radiology interventional physician who had evaluation which was sent over today with visual testing showing no defect, macular O2 CT and retinal exam were normal. Patient's CBC and CMP showed no major changes. CT head shows no acute bleed or change, does show right temporal encephalomalacia adjacent calvarium postsurgical changes.. 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 Discussed with patient could try to obtain MR to evaluate for stroke but she has a pacemaker. She defers she notes no other acute neurologic changes currently. Did note a little bit of vertigo when it 1st started. But she is aware of evaluation for stroke and prefers to defer this. She would like to follow up outpatient asked that she return to follow up with Ophthalmology for any additional recommendations and follow up with primary care she has on a statin currently and they wish want to monitor her ICA. Discharge Plan Departure Patient Disposition: Home Clinical Impression: Diplopia Activity Restrictions/Additional Instructions: Please follow-up with your radiology interventional physician, she may ask that you continue follow up with primary care so touch base with Dr. Connors's office as well. Your head CT showed no sign of bleed, aneurysm or hemangioma today there is a little bit of narrowing of the left ICA share this information with Dr. Connors. There were changes consistent with your prior surgery in the right temporal area. Please return for severe headaches, sudden new changes, persistent vomiting, new vertigo, new numbness tingling or weakness, facial droop, difficulty with speech or other new or concerning changes. Prescriptions: No Action cyanocobalamin (vitamin B-12) 1,000 MCG tablet extended release 1,000 mcg PO QDAY Qty: 0 coenzyme Q10 [CoQ-10] 100 mg Capsule 100 mg PO DAILY Qty: 0 glucosamine [id number]-[id number]-enyivqrpu 500-250-400 mg Tablet 1 tab PO BID Qty: 0 lansoprazole 30 mg capsule,delayed release(DR/EC) 30 mg PO DAILY Qty: 90 3RF escitalopram oxalate 20 mg tablet See Rx Instructions .ROUTE .COMPLEX Qty: 90 3RF Dose Instruction: TAKE 1 TABLET BY MOUTH DAILY Rx Instructions: TAKE 1 TABLET BY MOUTH DAILY gabapentin 600 mg tablet 600 mg PO BID Qty: 180 12RF atorvastatin 40 mg tablet 40 mg PO QDAY Qty: 90 3RF Patient Comments: At bedtime cholecalciferol (vitamin D3) 1 tab PO DAILY prevagen 1 cap PO DAILY metoprolol succinate [Toprol XL] 25 mg tablet extended release 24 hr 25 mg PO QDAY Qty: 90 3RF aspirin [Adult Aspirin Regimen] 81 mg tablet,delayed release (DR/EC) 81 mg PO DAILY Referrals: Braulio Connors MD [Primary Care Provider] - Stand Alone Forms: Patient Portal/API
[2024-02-09 19:17] VITALS: BP 135/78; PULSE 85; RESP 18; TEMP 36.9; O2SAT 99
== END 2024-02-09 19:21 | disposition home or self-care (01) ==
PROVIDERS: Emergency Medicine; Emergency Provider Emergency Medicine; PCP Internal Medicine
DX: H53.2 Diplopia (principal); I10 Essential (primary) hypertension; R42 Dizziness and giddiness; R51.9 Headache, unspecified; I48.91 Unspecified atrial fibrillation; Z95.0 Presence of cardiac pacemaker; Z79.899 Other long term (current) drug therapy
CPT/HCPCS: 70450; 70496; 70498; 80048; 85025; 93005; 99284; Q9967

== ENCOUNTER 2024-03-07 13:16 | Emergency (ER) | payer MEDICARE, OTHER, SELFPAY ==
[2022-11-17 09:46] VITALS: BMI 29.8
[2024-03-07] VITALS (10 sets, daily range): BP systolic 129–182; BP diastolic 64–88; PULSE 60–73; RESP 14–32; TEMP 36.3; O2SAT 93–98; BMI 32.3
--- NOTE | 2024-03-07 14:50 | PC.NURSE ---
Pt reports ongoing dizziness x3 weeks. States nothing has gotten better; PCP referred pt to ER for further work up. Pt seen in ER approx 3 weeks ago. Pt reports falls from tripping x1-2 weeks ago. Pt denies CP, denies SOB. Pt states she does not want to be in the ER but was advised by PCP.
--- NOTE | 2024-03-07 15:28 | ED_ITS ---
HPI - Dizziness General Chief Complaint: Dizziness Stated Complaint: sent by PCP, princessirsonia in head Time Seen by Provider: 03/07/24 15:27 Source: patient Mode of arrival: Ambulatory History of Present Illness HPI Narrative: 78-year-old female requesting MRI brain study for workup of intermittent dizziness, reports history of cardiac pacemaker, has had 3 weeks intermittent dizziness, presented here about 3 weeks ago with initial workup she recalls as CT head noncontrast scan, and IV contrast of head and neck vessels, but no MRI was done due to her pacemaker. She saw her outside cutter within the last 3 weeks, recalls having interrogation of her [place] [employer] pacemaker, reports that no problems were noted, battery seemed to be okay, no abnormal rhythms reported. She reports also an echocardiogram was done in that visit, and tristin arently was unremarkable. She is reported ongoing intermittent dizziness to her primary care doctor Dr. Connors, who referred patient here for further MRI brain imaging. Related Data Home Medications Medication Instructions Recorded Confirmed coenzyme Q10 100 mg capsule 100 mg PO DAILY ##0 01/09/12 01/03/24 (CoQ-10) cyanocobalamin (vitamin B-12) 1,000 mcg PO QDAY ##0 01/09/12 01/03/24 1,000 mcg tablet,extended release glucosamine sulfate 1 tab PO BID ##0 08/08/17 01/03/24 [id number]-HDR-ryagqijxyb 500 mg-250 mg-400 mg tablet aspirin 81 mg tablet,delayed 81 mg PO DAILY 06/17/21 01/03/24 release (Adult Aspirin Regimen) cholecalciferol (vitamin D3) 1 tab PO DAILY 01/25/22 01/03/24 prevagen 1 cap PO DAILY 01/25/22 01/03/24 Previous Rx's Medication Instructions Recorded metoprolol succinate 25 mg 25 mg PO QDAY #90 tabs 04/29/22 tablet,extended release 24 hr (Toprol XL) lansoprazole 30 mg capsule,delayed 30 mg PO DAILY #90 caps 03/08/23 release escitalopram oxalate 20 mg tablet See Rx Instructions .Route 05/03/23 .COMPLEX #90 tabs gabapentin 600 mg tablet 600 mg PO BID #180 tabs 06/06/23 atorvastatin 40 mg tablet 40 mg PO QDAY #90 tabs 11/18/23 Allergies Allergy/AdvReac Type Severity Reaction Status Date / Time No Known Drug Allergies Allergy Verified 03/07/24 13:25 Review of Systems Review of Systems Narrative: see HPI Patient History Medical History Degeneration of cervical disc without myelopathy BPPV (benign paroxysmal positional vertigo) Bunion, right foot Chronic low back pain Anemia Mobitz type 2 second degree heart block Do not resuscitate Obesity (BMI 30.0-34.9) B12 deficiency Age-related osteoporosis without current pathological fracture GERD without esophagitis Generalized anxiety disorder Depression, major, recurrent Mixed hyperlipidemia Essential hypertension Scoliosis Chronic back pain Cervical spine disease Mumps Measles Chicken pox Recurrent sinusitis Cataracts, bilateral Endometriosis History of urinary incontinence Hemorrhoid Diverticular disease Bilateral nephrolithiasis History of UTI History of nephrolithiasis History of primary bladder cancer PAF (paroxysmal atrial fibrillation) AV block, Mobitz 2 Osteopenia E. coli infection DJD (degenerative joint disease) Bacteriuria Easy bruisability Sleep apnea Vertigo (~2020) Fibromyalgia Arthritis Impaired hearing HTN (hypertension) HLD (hyperlipidemia) GI bleed (2017) Hemangioma Kidney stones Surgical History Status cardiac pacemaker Anesthesia Hx of sinus surgery History of esophagogastroduodenoscopy (EGD) History of colonoscopy History of carpal tunnel release History of surgery Hx of abdominal surgery Hx of bilateral cataract extraction Hx of craniotomy History of bladder surgery (2006) History of parathyroid surgery (2016) Hx of spinal surgery History of arthroplasty of left hip History of arthroplasty of right hip History of bowel resection Hx of bilateral mastectomy (~1993) History of hysterectomy (~1979) Pacemaker (06/10/16) Family History Father Stroke Diabetes mellitus History of heart disease Hypertension Mental health problem Mother Cancer Hearing loss Sister Cancer Brother Diabetes mellitus History of heart disease Grandfather Diabetes mellitus Grandmother Diabetes mellitus Grandfather Diabetes mellitus Grandmother Diabetes mellitus Social History marital status: details: (2012), partner Faizan Stanford, no children number of children: 0 household members: significant other Smoking Status: Former smoker alcohol intake: former Type(s) of exercise: other frequency: 1-2 times per week Smoking Status: Former smoker alcohol intake frequency: other Substance Use Type: does not use Exam Narrative Exam Narrative: GENERAL: Well-developed patient, in mild distress. HEAD: Atraumatic. Normocephalic. EYES: Pupils equal round and reactive. Extraocular motions intact. No scleral icterus. No injection or drainage. ENT: Nose without bleeding, purulent drainage. Throat without erythema, tonsillar hypertrophy or exudate. Airway patent. NECK: Trachea midline. Non tender CARDIOVASCULAR: Regular rate and rhythm without murmurs, gallops, or rubs. RESPIRATORY: Clear to auscultation. Breath sounds equal bilaterally. No wheezes, rales, or rhonchi. GASTROINTESTINAL: Abdomen soft, non-tender, nondistended. EXTREMITIES: No edema or joint tenderness. BACK: Nontender without deformity or crepitance. No flank tenderness. NEURO: AOx3. Cranial nerve exam 2 through 12 intact. Motor 5/5 upper extremities. Motor 5/5 lower extremities. Cxyqbd-iv-lakd testing normal. Gait not tested but reportedly normal per patient. SKIN: No rash or erythema of visible areas Initial Vital Signs Initial Vital Signs: Vital Signs Temperature 97.3 F L 03/07/24 13:20 Pulse Rate 73 03/07/24 13:20 Respiratory Rate 18 03/07/24 13:20 Blood Pressure 129/65 03/07/24 13:20 Pulse Oximetry 94 03/07/24 13:20 Oxygen Delivery Method Room Air 03/07/24 13:20 Course Vital Signs Vital signs: Vital Signs - 8 hr 03/07/24 13:20 03/07/24 13:29 03/07/24 13:30 Temperature 97.3 F L Pulse Rate 73 60 60 Respiratory Rate 18 23 20 Blood Pressure 129/65 Pulse Oximetry 94 96 93 Oxygen Delivery Method Room Air 03/07/24 13:30 03/07/24 14:00 03/07/24 14:00 Temperature Pulse Rate 60 Respiratory Rate 14 Blood Pressure 140/64 137/65 Pulse Oximetry 95 Oxygen Delivery Method 03/07/24 14:30 03/07/24 14:30 03/07/24 15:00 Temperature Pulse Rate 61 Respiratory Rate 25 H Blood Pressure 147/69 H 175/75 H Pulse Oximetry 93 Oxygen Delivery Method 03/07/24 15:00 03/07/24 15:30 03/07/24 15:30 Temperature Pulse Rate 60 60 Respiratory Rate 32 H 28 H Blood Pressure 170/72 H Pulse Oximetry 97 98 Oxygen Delivery Method 03/07/24 16:00 03/07/24 16:00 03/07/24 17:04 Temperature Pulse Rate 61 60 Respiratory Rate 24 Blood Pressure 182/88 H 173/82 H Pulse Oximetry 97 95 Oxygen Delivery Method 03/07/24 17:07 Temperature Pulse Rate 63 Respiratory Rate 18 Blood Pressure 173/82 H Pulse Oximetry Oxygen Delivery Method MDM - Dizziness MDM Narrative Medical decision making narrative: 78-year-old female requesting MRI brain imaging for further workup of intermittent dizziness symptoms over the last 3 weeks, with initial CT head study reportedly negative, CT angiogram studies reportedly negative, and outpatient interim visit with her outside cutter where she had evaluation of her [place] scientific pacemaker and an echocardiogram, apparently with no concerns. She was referred for possible MRI brain imaging. However unfortunately this facility is not able to perform MRI imaging with her [place] scientific pa cemaker. Reassuring exam. We discussed the limitations of this facility, nursing apparently at triage had contacted licensed veterinary technician here, who confirmed that they did not perform MRI imaging with patient's who have pacemakers in place at this facility, there is no Cardiology Services on standby here even if the pacemaker were compatible with the MRI machine, unclear where this might be accomplished. We will try to coordinate with her PCP Dr. Connors to see if this can be further evaluated as an outpatient. Patient expressed understanding of limitations of this facility in this context. 1715, late entry, phone call from PCP Dr. Connors returned, relayed that patient had been discharged per her request to be discharged, no further studies here, was advised MRI not available here, and that she declined any repeat CT head testing for now, and was advised to inquire with PCP about tertiary facilities that might be able to perform MRI brain in context of [place] [employer] pacemaker as an outpatient for now. Patient was advised to continue her current medication regimen at this time. Patient was encouraged to follow up with PCP Discharge Plan Departure Patient Disposition: Home Clinical Impression: Dizziness Activity Restrictions/Additional Instructions: Intermittent dizziness symptoms of unclear cause, reported previous workup included CT scanning of the brain, and IV contrast scanning of the brain and neck vessels. You have a [place] scientific type of pacemaker that limits the ability to do additional diagnostic studies at certain facilities, such as MRI scanning, which is not performed here this facility for any patient with any type of cardiac pacemaker. You did not have any further workup at this time, wanted to be discharged home. You said that you would coordinate with your regular doctor, PCP Dr. Connors, to find out where it might be possible to have your specific brand of [place] scientific cardiac pacemaker in a tertiary facility that is able to perform MRI in that setting. Reassuring neurological examination today. Follow up with your regular provider for further workup of your intermittent symptoms. Prescriptions: No Action cyanocobalamin (vitamin B-12) 1,000 MCG tablet extended release 1,000 mcg PO QDAY Qty: 0 coenzyme Q10 [CoQ-10] 100 mg Capsule 100 mg PO DAILY Qty: 0 glucosamine [id number]-tri-sdoqwjkat 500-250-400 mg Tablet 1 tab PO BID Qty: 0 lansoprazole 30 mg capsule,delayed release(DR/EC) 30 mg PO DAILY Qty: 90 3RF escitalopram oxalate 20 mg tablet See Rx Instructions .ROUTE .COMPLEX Qty: 90 3RF Dose Instruction: TAKE 1 TABLET BY MOUTH DAILY Rx Instructions: TAKE 1 TABLET BY MOUTH DAILY gabapentin 600 mg tablet 600 mg PO BID Qty: 180 12RF atorvastatin 40 mg tablet 40 mg PO QDAY Qty: 90 3RF Patient Comments: At bedtime cholecalciferol (vitamin D3) 1 tab PO DAILY prevagen 1 cap PO DAILY metoprolol succinate [Toprol XL] 25 mg tablet extended release 24 hr 25 mg PO QDAY Qty: 90 3RF aspirin [Adult Aspirin Regimen] 81 mg tablet,delayed release (DR/EC) 81 mg PO DAILY Referrals: Braulio Connors MD [Primary Care Provider] - Stand Alone Forms: Patient Portal/API
== END 2024-03-07 17:09 | disposition home or self-care (01) ==
PROVIDERS: Emergency Provider Emergency Medicine; PCP Internal Medicine
DX: R42 Dizziness and giddiness (principal); Z95.0 Presence of cardiac pacemaker
CPT/HCPCS: 99281

== ENCOUNTER → 2024-04-17 12:49 | Outpatient (CLI) | payer MEDICARE, OTHER, SELFPAY ==
[2024-03-08 13:15] VITALS: BMI 29.8
--- NOTE | 2024-04-17 12:53 | DI.RAD.S_ITS ---
P cyst ROCEDURE: XR RIBS LT MIN 3V W CXR1V INDICATIONS: Fall onto L breast - Rib pain anterior/ lower margin of L br TECHNIQUE: 2 views of the ribs were acquired, along with a single view chest. COMPARISON: None. FINDINGS: Diffuse osseous demineralization, which severely limits assessment of fractures and fracture acuity. The heart size and cardiomediastinal silhouette are within normal limits. Aortic arch calcifications. No focal lung consolidation, pneumothorax, pleural effusion. Left pacemaker with the distal leads in the projection of the right atrium right ventricle. Epigastric and right upper quadrant surgical clips. Right breast surgical clips. Partially identified lumbar fusion hardware. Acute, comminuted, minimally displaced fractures of the left 10th and 11th lateral ribs. IMPRESSION: Acute, comminuted, minimally displaced left 10th and 11th lateral rib fractures. No pneumothorax. Dictated by: Travis Ryan M.D. on 04/18/2024 at 9:16 Approved by: Travis Ryan M.D. on 04/18/2024 at 9:19
== END ==
PROVIDERS: PCP Internal Medicine; Referring Provider Physician Assistant; Visit Provider Physician Assistant
DX: S22.42XA Multiple fractures of ribs, left side, initial encounter for closed fracture (principal); R07.81 Pleurodynia; R07.9 Chest pain, unspecified; W19.XXXA Unspecified fall, initial encounter
CPT/HCPCS: 71101

== ENCOUNTER → 2024-07-09 16:27 | Outpatient (CLI) | payer MEDICARE, OTHER, SELFPAY ==
[2024-03-08 13:15] VITALS: BMI 29.8
[2024-07-09 17:08] LABS: Hematocrit 40.7 % (36-46); Hemoglobin 13.4 g/dL (12.0-16.0); Mean Corpuscular HGB Conc 32.9 % (30-36); Mean Corpuscular Hemoglobin 28.3 PG (26-34); Mean Corpuscular Volume 85.9 fL (80-100); Platelet Count 223 X10^3/uL (150-400); Red Blood Cell Count 4.74 X10^6/uL (4.0-5.2); Red Cell Distribution Width 14.3 % (11.6-14.8); White Blood Cell Count 7.8 X10^3/uL (4.5-11.0)
[2024-07-09 17:26] LABS: HEMOLYSIS < 15 (0-50); Iron 62 ug/dL (37-170)
[2024-07-09 17:28] LABS: Alanine Aminotransferase 31 IU/L (<35); Albumin 4.6 g/dL (3.5-5.0); Albumin Globulin Ratio 1.5 (1.0-2.8); Alkaline Phosphatase 72 U/L (38-126); Aspartate Aminotransferase 34 IU/L (14-36); BUN Creatinine Ratio 29.3 (6-22); Bilirubin Total 0.5 mg/dL (0.2-1.3); Blood Urea Nitrogen 22 mg/dL (7-17); Calcium 9.9 mg/dL (8.4-10.2); Carbon Dioxide 27 mmol/L (22-32); Chloride 104 mmol/L (98-107); Cholesterol 154 mg/dL (140-199); Estimated Glomerular Filt Rate > 60 mL/min (>60); Glucose 105 mg/dL (80-110); HDL Cholesterol 47 mg/dL (40-60); HEMOLYSIS < 15 (0-50); LDL Cholesterol Calculated 53 mg/dL (<100); Potassium 4.5 mmol/L (3.4-5.1); Sodium 139 mmol/L (137-145); Total Protein 7.6 g/dL (6.3-8.2); Triglycerides 270 mg/dL (35-150)
[2024-07-09 17:38] LABS: Percent Iron Saturation 19 % (15-50); Total Iron Binding Capacity 322 ug/dL (265-497); Transferrin 308 mg/dL (206-381)
[2024-07-09 17:39] LABS: Appearance Urine UA SL CLOUDY; Bilirubin Urine UA NEGATIVE (NEGATIVE); Color Urine UA YELLOW; Glucose Urine UA NEGATIVE (Negative); Ketones Urine UA TRACE (NEGATIVE); Leukocyte Esterase Urine UA TRACE (NEGATIVE); Nitrite Urine UA NEGATIVE (Negative); Occult Blood Urine UA NEGATIVE (Negative); Protein Urine UA NEGATIVE (Negative); Urobilinogen Urine UA 0.2 E.U./dL (0.2)
[2024-07-09 17:41] LABS: pH Urine UA 5.5 (4.5-8.0)
[2024-07-09 17:59] LABS: TSH w/ Reflex to FT4 3.33 uIU/mL (0.47-4.68)
[2024-07-09 18:00] LABS: Bacteria Urine Many (>30); Culture Indicated Urine Specimen Cultured; RBC Urine 0-1/HPF (0-5/HPF); Squamous Epithelial Cell Urine 0-1 /HPF (0-5/HPF); Urine Volume 10mL (spun); WBC Urine 5-10/HPF (0-5/HPF)
[2024-07-09 18:03] LABS: Ferritin 12 ng/mL (11-264)
== END ==
PROVIDERS: PCP Internal Medicine; Referring Provider Internal Medicine; Visit Provider Internal Medicine
DX: E78.2 Mixed hyperlipidemia (principal); D50.9 Iron deficiency anemia, unspecified; I48.0 Paroxysmal atrial fibrillation; N39.0 Urinary tract infection, site not specified
CPT/HCPCS: 36415; 80053; 80061; 81001; 82728; 83540; 83550; 84443; 85027; 87077; 87086; 87186

== ENCOUNTER → 2024-09-20 11:10 | Outpatient (CLI) | payer MEDICARE, OTHER, SELFPAY ==
[2024-03-08 13:15] VITALS: BMI 29.8
--- NOTE | 2024-09-20 11:12 | DI.RAD.S_ITS ---
PROCEDURE: XR ANKLE LT MIN 3V INDICATIONS: Left ankle pain, hit on bed TECHNIQUE: 3 views of the ankle were acquired. COMPARISON: [facility], CR, XR ANKLE RT MIN 3V, 12/22/2017, 16:14. FINDINGS: Bones: Chronic appearing changes noted within the distal margins of the medial and lateral malleoli. A small cortical fragment is noted laterally adjacent to the lateral malleolus and may represent sequelae trauma. Otherwise, no definite fractures identified. Ankle mortise is normally aligned. No suspicious bony lesions. Plantar and retrocalcaneal enthesopathy. Soft tissues: No tibiotalar joint effusion. Achilles tendon appears normal. IMPRESSION: Small cortical fragment laterally adjacent to the lateral malleolus which may represent sequelae of fracture. Degenerative changes otherwise noted. Dictated by: Travis Tolentino M.D. on 09/20/2024 at 23:14 Approved by: Travis Tolentino M.D. on 09/20/2024 at 23:17
== END ==
PROVIDERS: PCP Internal Medicine; Referring Provider Nurse Practitioner Family; Visit Provider Nurse Practitioner Family
DX: S90.00XA Contusion of unspecified ankle, initial encounter (principal)
CPT/HCPCS: 73610

== ENCOUNTER → 2025-04-09 12:42 | Outpatient (CLI) | payer MEDICARE, OTHER, SELFPAY ==
[2024-03-08 13:15] VITALS: BMI 29.8
--- NOTE | 2025-04-09 13:07 | DIAB.MNT ---
Initial Diabetes Medical Nutrition Therapy Assessment Name: Thelma Honeycutt (Siri) Date: 04/09/25 Time: 105-150p Dx: Type II Diabetes Provider: Waylon Preferred Learning Style: Reading, listening, listening, doing Thelma presents for initial DM visit newly diagnosed with hgA1c of 7.1%. Endorses FH of Dm with father, brother, and both sets of grandparents. Thelma Increased veggie intake. Started Mounjaro without issue. Increased to 5mg today. Endorses wt loss from 220 to 209# since starting GLP1. Reduced portions. Wants to check glucose per report to have more info than hgA1c. Has questions about neuropathy and Dm, states her neuropathy had pre dated her T2Dm. Eyes: UTD Foot checks: no Dental: no Diet Recall: 9am: 1/2 bread with 3/4c milk, berries +/- banana, and nuts 12p: half avocado and two turkey slices, misses having bread here 6p: soup and crackers x 6-7 OR chx with green beans and 3 pieces of melon cut out evening eating water 3-4 x 8oz coffee 3c NA beer Endorses frequent urination q 30 mins. BM daily, some constipation, which started with Dm, likely with GLP1. Anthropometrics: Ht: 66 Wt: 209# reported 03/2025 Weight history: Physical Activity: Barriers include back pain. Does chair yoga at home 2-3x per week. Self-Monitoring Blood Glucose: None, and may not need to given hgA1c, meds, and quality of life/age, but she wants to check. RD messaged PCP workgroup. Date Pre Post Pre Post Pre Post HS Diabetes Medications: 5mg Mounjaro Pertinent Labs: HgA1c 7.1% 01/2025 Past Medical History: (Last Updated 03/05/25 @ 15:37 by Braulio Connors MD) Age-related osteoporosis without current pathological fracture Anemia Arthritis AV block, Mobitz 2 B12 deficiency Bacteriuria Bilateral nephrolithiasis BPPV (benign paroxysmal positional vertigo) Breast implant status Bilateral Bunion, right foot Cataracts, bilateral Cervical spine disease Chicken pox Chronic back pain Chronic low back pain Degeneration of cervical disc without myelopathy Depression, major, recurrent Diverticular disease DJD (degenerative joint disease) DM type 2 with diabetic dyslipidemia Do not resuscitate E. coli infection Easy bruisability Endometriosis Essential hypertension Fibromyalgia Generalized anxiety disorder GERD without esophagitis GI bleed (2018) Admit to Hemangioma Hemorrhoid History of nephrolithiasis History of primary bladder cancer History of urinary incontinence History of UTI HLD (hyperlipidemia) HTN (hypertension) Impaired hearing Hearing aids Kidney stones Measles Menopausal syndrome Mixed hyperlipidemia Mobitz type 2 second degree heart block Mumps Obesity (BMI 30.0-34.9) Osteopenia PAF (paroxysmal atrial fibrillation) Pt states not on any anticoagulation other than ASA Recurrent sinusitis Recurrent UTI Scoliosis Sleep apnea Stopped using CPAP after craniotomy. Vertigo (~2020) EPLY manuever Nutrition Rx: Carbohydrates: Meal:30-45g Snack:15-30g Nutrition Diagnosis: - Nutrition knowledge deficit r/t newly dx T2Dm aeb hgA1c and pt report - Predicted inadequate fiber intake r/t limiting CHO aeb pt report of constipation and reduced ww bread intake Intervention: This participant was very receptive. Provided appropriate educational handouts. Discussed the following topics: Completed intake assessment. Discussed barriers to care. Pathophysiology of T2DM HgA1c, its correlation to blood glucose numbers, and rationale for goal Potential of self-monitoring, how often, and when to check. Suggested checking at different times to evaluate meals Plate Method, impact of macronutrients on blood sugar, meal timing, carbohydrate counting, pairing macronutrients and spreading out carbohydrates for better blood glucose management Recommended servings for carbohydrates at meals and snacks Heart health nutrition Brainstormed appropriate meal plan based on food preferences Role of physical activity and following provider guidelines for safety Medication: GLP1 Se, benefits, dosing S/s of hyperglcyemia Fiber intake and sources Created SMART goals for patient self-care and success. Goals: Try fiber supplement once per day Pick 1 fruit at breakfast Add ww bread x1 at lunch Follow-up: [facility] follow-up in 3-4 weeks Jennifer King RDN, DANE Certified Diabetes Care and [employer]amer P: [phone] Thank you for this referral
== END ==
LOC: DIET 12:43
PROVIDERS: PCP Internal Medicine; Referring Provider Internal Medicine
DX: E11.9 Type 2 diabetes mellitus without complications (principal); Z71.3 Dietary counseling and surveillance; Z83.3 Family history of diabetes mellitus; Z79.85 Long-term (current) use of injectable non-insulin antidiabetic drugs
CPT/HCPCS: 97802

== ENCOUNTER → 2025-05-10 13:48 | Outpatient (CLI) | payer MEDICARE, OTHER, SELFPAY ==
[2024-03-08 13:15] VITALS: BMI 29.8
--- NOTE | 2025-05-10 15:45 | DIAB.MNTFU ---
Follow-up Diabetes Medical Nutrition Therapy Assessment Name: Thelma Honeycutt (Siri) Date: 05/10/25 Time: 215-230p Dx: Type II Diabetes Thelma presents for DM visit newly diagnosed with hgA1c of 7.1%. Continues on 5mg Mounjaro. Endorses reduced appetite and reduced intake to 2 meals per day, sometimes Hs snack. Improved constipation. Reduced to 1x per week after initial injection of Glp1, BM everyday otherwise per report. Eyes: UTD Foot checks: no Dental: no Diet Recall: 9am: 1/2 bread with 3/4c milk, berries and nuts 6p: soup and tortilla chips x 7-8 Hs: nothing or protein kimberly bar sf water 324oz+ coffee 3c NA beer Last visit endorsed frequent urination q 30 mins. Anthropometrics: Ht: 66 Wt: 209# reported 03/2025 Weight history: Physical Activity: Barriers include back pain. Does chair yoga at home 2-3x per week. Self-Monitoring Blood Glucose: Limited, and may not need to given hgA1c, meds, and quality of life/age, but she wanted to check. Picked up her supplies and checked three times. FBG were 163-197mg/dl, elevated. Though this was surprising given hgA1c and Glp1. States she did wash hands prior to checking. Diabetes Medications: 5mg Mounjaro Pertinent Labs: HgA1c 7.1% 01/2025 Past Medical History: (Last Updated 03/05/25 @ 15:37 by Braulio Connors MD) Age-related osteoporosis without current pathological fracture Anemia Arthritis AV block, Mobitz 2 B12 deficiency Bacteriuria Bilateral nephrolithiasis BPPV (benign paroxysmal positional vertigo) Breast implant status Bilateral Bunion, right foot Cataracts, bilateral Cervical spine disease Chicken pox Chronic back pain Chronic low back pain Degeneration of cervical disc without myelopathy Depression, major, recurrent Diverticular disease DJD (degenerative joint disease) DM type 2 with diabetic dyslipidemia Do not resuscitate E. coli infection Easy bruisability Endometriosis Essential hypertension Fibromyalgia Generalized anxiety disorder GERD without esophagitis GI bleed (2018) Admit to Hemangioma Hemorrhoid History of nephrolithiasis History of primary bladder cancer History of urinary incontinence History of UTI HLD (hyperlipidemia) HTN (hypertension) Impaired hearing Hearing aids Kidney stones Measles Menopausal syndrome Mixed hyperlipidemia Mobitz type 2 second degree heart block Mumps Obesity (BMI 30.0-34.9) Osteopenia PAF (paroxysmal atrial fibrillation) Pt states not on any anticoagulation other than ASA Recurrent sinusitis Recurrent UTI Scoliosis Sleep apnea Stopped using CPAP after craniotomy. Vertigo (~2020) EPLY [facility]gi Nutrition Rx: Carbohydrates: Meal:30-45gSnack:15-30g Nutrition Diagnosis: - Inadequate energy intake r/t reduced appetite with Glp1 aeb pt report and diet recall indicating 2 eating occurrences per day. Intervention: This participant was very receptive. Provided appropriate educational handouts. Discussed the following topics: Completed intake assessment. Discussed barriers to care. weight loss and maintaining LBM Protein foods and easy ways to increase Hydration Protein shake types and macros Created SMART goals for patient self-care and success. Goals: Try fiber supplement once per day - not met Pick 1 fruit at breakfast- met Add ww bread x1 at lunch- not met Eat TID- new Add protein snack- new If trying pro shake aim for 20-25g protein and 30g or less CHO- new Follow-up: [facility] follow-up in 3-4 weeks Jennifer King RDN, DANE Certified Diabetes Care and Advertisement Compositor P: [phone] Thank you for this referral
== END ==
LOC: DIET 13:49
PROVIDERS: PCP Internal Medicine; Referring Provider Internal Medicine
DX: E11.9 Type 2 diabetes mellitus without complications (principal); Z79.85 Long-term (current) use of injectable non-insulin antidiabetic drugs; Z71.3 Dietary counseling and surveillance
CPT/HCPCS: 97803